=== PATIENT | male | born 1970 | race African-American/Black ===

== ENCOUNTER 2018-02-05 22:37 | Emergency (ER) | payer BC, OTHER ==
[2018-02-05 23:15] LABS: Absolute Lymphocytes (CBC) 2.4 K/uL (0.7-4.9); Absolute Monocytes 0.5 K/uL (0.1-1.3); Absolute Neutrophil 4.4 K/uL (1.8-8.0); Basophils % 1.1 % (0-1.3); Hematocrit 37.9 % (39.6-49.0); Lymphocytes % 31.1 % (15.3-44.8); MCH 31.1 pg (27.0-35.0); MCV 92.8 fL (80-100); MPV 8.5 fL (7.6-11.3); Monocytes % 6.5 % (3.3-12.3); RBC Red Blood Cell Count 4.09 M/uL (4.33-5.43)
[2018-02-05 23:19] LABS: Protime INR 1.03
[2018-02-05 23:34] LABS: ALT/SGPT 28 U/L (12-78); AST/SGOT 20 U/L (15-37); Albumin 3.4 g/dL (3.4-5.0); Alkaline Phosphatase 60 U/L (45-117); BUN Blood Urea Nitrogen 20 mg/dL (7-18); Bicarbonate 30 mmol/L (21-32); Bilirubin Direct < 0.1 mg/dL (0-0.2); Bilirubin Total 0.2 mg/dL (0.2-1.0); CKMB Creatine Kinase MB 1.5 ng/mL (0.3-3.6); Creatine Phosphokinase 299 U/L (39-308); Glucose Level 111 mg/dL (74-106); NT PRO-BNP 75 pg/mL (<125); Potassium 3.7 mmol/L (3.5-5.1); Protein, Total 7.3 g/dL (6.4-8.2); Sodium Level 145 mmol/L (136-145); Troponin (Emerg Dept Use Only) < 0.02 ng/mL (0.0-0.045)
[2018-02-05] MEDS ORDERED: ONDANSETRON 4 MG/2 ML VIAL ONE (23:45)
[2018-02-05] MEDS ORDERED: MORPHINE 4 MG/ML SYR ONE (23:45)
[2018-02-05 23:49] LABS: Amylase Level 52 U/L (25-115); Lipase 157 U/L (73-393)
--- NOTE | 2018-02-06 03:09 | EDPHYS ---
Physician Documentation [facility] Name: Ethan Hall Age: 47 yrs Sex: Male : 1970 Arrival Date: 02/05/2018 Time: 22:38 Bed 4 Private MD: ED Physician Eleazar Aguirre HPI: 02/05 23:30 This 47 yrs old Black Male presents to ER via Ambulatory with complaints of Chest Pain. tw4 23:30 The patient or guardian reports chest pain that is located primarily in the right tw4 breast. Onset: today. The pain does not radiate. Associated signs and symptoms: The patient has no apparent associated signs or symptoms. The chest pain is described as aching. Duration: The patient or guardian reports a single episode. Modifying factors: The symptoms are alleviated by nothing. the symptoms are aggravated by nothing. Severity of pain: At its worst the pain was mild in the emergency department the pain is unchanged. Historical: - Allergies: 22:49 No Known Allergies; tl2 - Home Meds: 22:49 Lasix Oral [Active]; unknown BP med [Active]; tl2 - PMHx: 22:49 Hernia; Hypertension; tl2 - Immunization history:: Adult Immunizations up to date. - Social history:: Smoking status: Patient/guardian denies using tobacco. - Ebola Screening: : No symptoms or risks identified at this time. ROS: 23:30 Constitutional: Negative for fever, chills, and weight loss, Eyes: Negative for injury, tw4 pain, redness, and discharge, Respiratory: Negative for shortness of breath, cough, wheezing, and pleuritic chest pain, Abdomen/GI: Negative for abdominal pain, nausea, vomiting, diarrhea, and constipation, Back: Negative for injury and pain, MS/Extremity: Negative for injury and deformity, Skin: Negative for injury, rash, and discoloration, Neuro: Negative for headache, weakness, numbness, tingling, and seizure. 23:30 Cardiovascular: Positive for chest pain, Negative for edema, orthopnea, palpitations, paroxysmal nocturnal dyspnea. Exam: 23:30 Constitutional: This is a well developed, well nourished patient who is awake, alert, tw4 and in no acute distress. Head/Face: Normocephalic, atraumatic. Chest/axilla: Normal chest wall appearance and motion. Nontender with no deformity. No lesions are appreciated. Cardiovascular: Regular rate and rhythm with a normal S1 and S2. No gallops, murmurs, or rubs. Normal PMI, no JVD. No pulse deficits. Respiratory: Lungs have equal breath sounds bilaterally, clear to auscultation and percussion. No rales, rhonchi or wheezes noted. No increased work of breathing, no retractions or nasal flaring. Abdomen/GI: Soft, non-tender, with normal bowel sounds. No distension or tympany. No guarding or rebound. No evidence of tenderness throughout. Back: No spinal tenderness. No costovertebral tenderness. Full range of motion. MS/ Extremity: Pulses equal, no cyanosis. Neurovascular intact. Full, normal range of motion. Neuro: Awake and alert, GCS 15, oriented to person, place, time, and situation. Cranial nerves II-XII grossly intact. Motor strength 5/5 in all extremities. Sensory grossly intact. Cerebellar exam normal. Normal gait. Vital Signs: 22:49 BP 150 / 90; Pulse 89; Resp 20; Pulse Ox 99% on R/A; Weight 127.01 kg; Height 5 ft. 7 tl2 in. (170.18 cm); Pain 4/10; 23:32 BP 143 / 75; Pulse 90; Resp 23; Pulse Ox 95% on R/A; tl2 02/06 00:23 BP 132 / 87; Pulse 84; Resp 18; Pulse Ox 98% on R/A; tl2 01:31 BP 142 / 83; Pulse 78; Resp 16; Pulse Ox 98% on R/A; Pain 0/10; tl1 02:23 BP 124 / 70; Pulse 62; Resp 16; Pulse Ox 97% on R/A; Pain 0/10; tl1 03:29 BP 129 / 68; Pulse 66; Resp 17; Temp 98.2; Pulse Ox 97% on R/A; Pain 3/10; tl2 02/05 22:49 Body Mass Index 43.85 (127.01 kg, 170.18 cm) tl2 MDM: 02/05 22:43 Patient medically screened. tw4 02/05 22:44 Order name: Basic Metabolic Panel; Complete Time: 00:39 tw4 02/06 00:39 Interpretation: Normal except: CL 109; BUN 20; GLUC 111. tw4 02/05 22:44 Order name: CBC with Diff; Complete Time: 00:39 4 02/06 00:39 Interpretation: Normal except: RBC 4.09; HGB 12.7; HCT 37.9. 02/05 22:44 Order name: Ckmb; Complete Time: 00:39 02/06 00:40 Interpretation: Normal except: CKMB 1.5. 02/05 22:44 Order name: CPK; Complete Time: 00:39 4 02/06 00:40 Interpretation: Normal except: CPK 299. 02/05 22:44 Order name: LFT's; Complete Time: 00:39 4 02/06 00:39 Interpretation: Normal except: GLOB 3.9; A/G 0.9. 02/05 22:44 Order name: Magnesium; Complete Time: 00:39 02/06 00:40 Interpretation: Normal except: MG 2.0. 02/05 22:44 Order name: NT PRO-BNP; Complete Time: 00:39 4 02/06 00:40 Interpretation: Normal except: NT PRO-BNP 75. 02/05 22:44 Order name: PT-INR; Complete Time: 00:39 02/06 00:40 Interpretation: Normal except: PT 12.1. 02/05 22:44 Order name: Ptt, Activated; Complete Time: 00:39 02/06 00:40 Interpretation: Within normal limits: PTT 32.7. 02/05 22:44 Order name: Troponin (emerg Dept Use Only); Complete Time: 00:39 02/06 00:40 Interpretation: Within normal limits: TROPED < 0.02. 02/05 23:41 Order name: Amylase Level; Complete Time: 00:39 EDMS 02/05 23:41 Order name: Lipase; Complete Time: 00:39 EDMS 02/06 00:41 Interpretation: Within normal limits: LIP 157. 02/06 01:34 Order name: Troponin (emerg Dept Use Only) 02/06 01:35 Order name: Troponin (Emerg Dept Use Only); Complete Time: 03:07 EDMS 02/06 03:07 Interpretation: Within normal limits: TROPED < 0.02. 02/05 22:44 Order name: XRAY Chest (1 view) 02/05 22:44 Order name: EKG; Complete Time: :44 02/05 22:44 Order name: Cardiac monitoring; Complete Time: 23:00 02/05 22:44 Order name: EKG - Nurse/Tech; Complete Time: 23:00 02/05 22:44 Order name: IV Saline Lock; Complete Time: 23:00 02/05 22:44 Order name: Labs collected and sent; Complete Time: 23:00 02/05 22:44 Order name: O2 Per Protocol; Complete Time: 23:00 02/05 22:44 Order name: O2 Sat Monitoring; Complete Time: 23:00 02/06 00:02 Order name: CT Abd/Pelvis - W/Contrast tw4 EC:30 Rate is 88 beats/min. Rhythm is regular. QRS [place] is Normal. CA interval is normal. QRS tw4 interval is normal. QT interval is normal. No Q waves. T waves are Normal. No ST changes noted. Clinical impression: Normal ECG. Interpreted by me. Reviewed by me. Administered Medications: 23:47 Drug: morphine 4 mg Route: IVP; Infused Over: 2 mins; Site: right antecubital; tl1 02/06 00:54 Follow up: Response: No adverse reaction; Marked relief of symptoms; Pain is decreased tl1 02/05 23:47 Drug: Zofran 4 mg Route: IVP; Infused Over: 2 mins; Site: right antecubital; tl1 02/06 00:54 Follow up: Response: No adverse reaction; Marked relief of symptoms tl1 03:15 Drug: TORadol 30 mg Route: IVP; Infused Over: 2 mins; Site: right antecubital; tl2 03:28 Follow up: Response: No adverse reaction; Marked relief of symptoms; Pain is decreased tl2 Disposition: 02/06/18 03:09 Discharged to Home. Impression: Chest pain, unspecified, Low back pain. - Condition is Stable. - Discharge Instructions: Back Pain, Adult, Nonspecific Chest Pain, Electrocardiography, Pain Without a Known Cause. - Prescriptions for Cyclobenzaprine 10 mg Oral Tablet - take 1 tablet by ORAL route every 8 hours As needed; 30 tablet. Tramadol 50 mg Oral Tablet - take 1 tablet by ORAL route every 8 hours as needed; 12 tablet. - Medication Reconciliation Form, Thank You Letter, Antibiotic Education, Prescription Opioid Use form. - Follow up: Private Physician; When: Upon discharge from the Emergency Department; Reason: Further diagnostic work-up, Recheck today's complaints, Re-evaluation by your physician. - Problem is new. - Symptoms have improved. Signatures: Dispatcher [employer] EDMS Jeannie Zee RN RN tl1 Alise Frankel RN RN tl2 Eleazar Aguirre MD MD tw4 Corrections: (The following items were deleted from the chart) 03:13 03:09 02/06/2018 03:09 Discharged to Home. Impression: Chest pain, unspecified. tw4 Condition is Stable. Forms are Medication Reconciliation Form, Thank You Letter, Antibiotic Education, Prescription Opioid Use. Follow up: Private Physician; When: Upon discharge from the Emergency Department; Reason: Further diagnostic work-up, Recheck today's complaints, Re-evaluation by your physician. Problem is new. Symptoms have improved. tw4 03:30 03:13 02/06/2018 03:09 Discharged to Home. Impression: Chest pain, unspecified; Low tl2 back pain. Condition is Stable. Discharge Instructions: Nonspecific Chest Pain, Electrocardiography, Pain Without a Known Cause, Back Pain, Adult. Prescriptions for Cyclobenzaprine 10 mg Oral Tablet - take 1 tablet by ORAL route every 8 hours As needed; 30 tablet, Tramadol 50 mg Oral Tablet - take 1 tablet by ORAL route every 8 hours as needed; 12 tablet. and Forms are Medication Reconciliation Form, Thank You Letter, Antibiotic Education, Prescription Opioid Use. Follow up: Private Physician; When: Upon discharge from the Emergency Department; Reason: Further diagnostic work-up, Recheck today's complaints, Re-evaluation by your physician. Problem is new. Symptoms have improved. tw4
--- NOTE | 2018-02-06 03:09 | ER ---
Nurse's Notes [facility] Name: Ethan Hall Age: 47 yrs Sex: Male : 1970 Arrival Date: 02/05/2018 Time: 22:38 Bed 4 Private MD: Diagnosis: Chest pain, unspecified;Low back pain Presentation: 02/05 22:47 Presenting complaint: Patient states: right sided chest pain that started 1 hour ago, tl2 radiating to back. Reports acid reflux. Transition of care: patient was not received from another setting of care. Onset of symptoms was February 05, 2018 at 21:50. Risk Assessment: Do you want to hurt yourself or someone else? Patient reports no desire to harm self or others. Initial Sepsis Screen: Does the patient meet any 2 criteria? No. Patient's initial sepsis screen is negative. Does the patient have a suspected source of infection? No. Patient's initial sepsis screen is negative. Care prior to arrival: None. 22:47 Method Of Arrival: Ambulatory tl2 22:47 Acuity: CHRISTINA 3 tl2 Triage Assessment: 22:51 General: Appears in no apparent distress. uncomfortable, Behavior is calm, cooperative, tl2 appropriate for age. Cardiovascular: Rhythm is sinus rhythm. Historical: - Allergies: 22:49 No Known Allergies; tl2 - Home Meds: 22:49 Lasix Oral [Active]; unknown BP med [Active]; tl2 - PMHx: 22:49 Hernia; Hypertension; tl2 - Immunization history:: Adult Immunizations up to date. - Social history:: Smoking status: Patient/guardian denies using tobacco. - Ebola Screening: : No symptoms or risks identified at this time. Screenin:50 Abuse screen: Denies threats or abuse. Nutritional screening: No deficits noted. tl2 Tuberculosis screening: No symptoms or risk factors identified. Fall Risk None identified. Assessment: 22:50 Pain: Pain radiates to back Pain began 1 hour ago. Cardiovascular: Rhythm is sinus tl2 rhythm. Vital Signs: 22:49 BP 150 / 90; Pulse 89; Resp 20; Pulse Ox 99% on R/A; Weight 127.01 kg; Height 5 ft. 7 tl2 in. (170.18 cm); Pain 4/10; 23:32 BP 143 / 75; Pulse 90; Resp 23; Pulse Ox 95% on R/A; tl2 09/02 00:23 BP 132 / 87; Pulse 84; Resp 18; Pulse Ox 98% on R/A; tl2 01:31 BP 142 / 83; Pulse 78; Resp 16; Pulse Ox 98% on R/A; Pain 0/10; tl1 02:23 BP 124 / 70; Pulse 62; Resp 16; Pulse Ox 97% on R/A; Pain 0/10; tl1 03:29 BP 129 / 68; Pulse 66; Resp 17; Temp 98.2; Pulse Ox 97% on R/A; Pain 3/10; tl2 02/05 22:49 Body Mass Index 43.85 (127.01 kg, 170.18 cm) tl2 Vitals: 02/05 23:32 Cardiac Rhythm Assessment Sinus rhythm. tl2 ED Course: 22:38 Patient arrived in ED. ds1 22:43 Eleazar Aguirre MD is Attending Physician. tw4 22:48 Triage completed. tl2 22:49 Arm band placed on right wrist. tl2 22:50 Patient has correct armband on for positive identification. Placed in gown. Bed in low tl2 position. Call light in reach. Side rails up X 1. regulatory affairs analyst on. Pulse ox on. NIBP on. 22:50 Patient maintains SpO2 saturation greater than 95% on room air. tl2 22:53 EKG completed in triage. Results shown to MD. tl1 22:53 Inserted saline lock: 20 gauge in right antecubital area, using aseptic technique. tl1 Blood collected. 02/06 00:07 X-ray completed. Portable x-ray completed in exam room. Patient tolerated procedure kp1 well. 00:15 XRAY Chest (1 view) In Process Unspecified. EDMS 00:32 CT Abd/Pelvis - W/Contrast In Process Unspecified. EDMS 00:34 CT completed. Patient tolerated procedure well. Patient moved back from CT. kw1 03:27 No provider procedures requiring assistance completed. IV discontinued, intact, tl2 bleeding controlled, No redness/swelling at site. Pressure dressing applied. Administered Medications: 02/05 23:47 Drug: morphine 4 mg Route: IVP; Infused Over: 2 mins; Site: right antecubital; tl1 02/06 00:54 Follow up: Response: No adverse reaction; Marked relief of symptoms; Pain is decreased tl1 02/05 23:47 Drug: Zofran 4 mg Route: IVP; Infused Over: 2 mins; Site: right antecubital; tl1 02/06 00:54 Follow up: Response: No adverse reaction; Marked relief of symptoms tl1 03:15 Drug: TORadol 30 mg Route: IVP; Infused Over: 2 mins; Site: right antecubital; tl2 03:28 Follow up: Response: No adverse reaction; Marked relief of symptoms; Pain is decreased tl2 Outcome: 03:09 Discharge ordered by . tw4 03:26 Discharged to home ambulatory, with family. tl2 03:26 Condition: good 03:26 Discharge instructions given to patient, family, Instructed on discharge instructions, follow up and referral plans. medication usage, Demonstrated understanding of instructions, follow-up care, medications, Prescriptions given X 2. 03:30 Patient left the ED. tl2 Signatures: Dispatcher [employer] EDMS Chely Dinero dsJeannie Sousa RN RN tl1 Alise Frankel RN RN tl2 Celi Gonzales 1 Cassandra Knapp 1 Eleazar Aguirre MD MD tw4
[2018-02-06] MEDS ORDERED: KETOROLAC 30 MG/ML INJ ONE (03:18)
[2018-02-06 03:43] VITALS: O2SAT 97
[2018-02-06 03:44] VITALS: BP 129/68; TEMP 98.2
--- NOTE | 2018-02-06 08:37 | EKG ---
Test Date: 2018-02-05 Test Time: 22:51:27 Family Intervention Specialist: SURESH MEASUREMENT RESULTS: Intervals: Rate: 88 MT: 148 QRSD: 86 QT: 360 QTc: 435 [place]: P: 72 MT: 148 QRS: 15 T: 23 INTERPRETIVE STATEMENTS: Normal sinus rhythm Normal ECG Compared to ECG 10/01/2008 07:55:25 ST (T wave) deviation no longer present Electronically Signed On 02-06-18 08:36:24 CDT by Jayy Talley
--- NOTE | 2018-02-06 09:37 | RAD REPORT ---
EXAM DESCRIPTION: CT - Abdomen Pelvis W Contrast - 02/06/2018 5:47 am CLINICAL HISTORY: ABD PAIN right-sided pain for 1 hour COMPARISON: Abdomen Pelvis W Contrast dated 08/28/2016; CTSTONE PROTOCOL dated 03/13/2014< TECHNIQUE: Computed axial tomography of the abdomen pelvis was obtained. 100 cc Isovue-300 was admin istered intravenously. Oral contrast was not requested which limits evaluation of bowel. Preliminary report was generated by [employer] and reviewed prior to this dictation All CT scans are performed using dose optimization technique as appropriate and may include automated exposure control or mA/KV adjustment according to patient size. FINDINGS: The liver, spleen, pancreas, adrenal and kidneys appear unremarkable. Small renal cysts no debbie. There is no evidence of diverticulitis. The appendix is normal. Postsurgical changes of a ventral hernia repair are noted. A ventral hernia to the left of midline contains fat. The neck measures 18 millimeters. Stranding is present within the fat. A ventral hernia to the right of midline also contains fat. The neck measures 1 centimeter. Both are present within the lower abdomen. IMPRESSION: Small left ventral hernia containing fat. Stranding within the fat may indicate inflamma tion.
--- NOTE | 2018-02-06 09:38 | RAD REPORT ---
EXAM DESCRIPTION: David[facility] Single View02/06/2018 12:15 am CLINICAL HISTORY: CHEST PAIN COMPARISON: CHEST SINGLE VIEW dated 10/01/2008 FINDINGS: The lungs appear clear of acute infiltrate. The heart is mildly enlarged IMPRESSION: No acute abnormalities displayed
== END 2018-02-06 03:30 | disposition home or self-care (01) ==
LOC: ER 22:37
DX: M54.5 Low back pain (principal); I10 Essential (primary) hypertension
CPT/HCPCS: 36415; 71045; 74177; 80048; 80076; 82150; 82550; 82553; 83690; 83735; 83880; 84484; 85025; 85610; 85730; 93005; 96374; 96375; 99285; J2405; Q9967

== ENCOUNTER 2018-06-03 17:02 | Emergency (ER) | payer BC ==
--- OUTSIDE RECORDS SUMMARY | 2018-06-03 17:05 | XMS REPORT | Clinical Summary ---
:1970 Author Organization [facility] Address [address] [place] [address] Care Team Providers Name Role Phone Cedric Beltrán MD Primary Care Provider Allergies No Known Allergies Medications Medication Sig Dispensed Refills Start Date End Date Status losartan (COZAAR) Take 1 tablet 30 tablet 0 06/01/2018 07/01/2018 Active 100 MG tablet (100 mg total) by mouth daily for 30 days. chlorthalidone Take 1 tablet 30 tablet 0 06/01/2018 07/01/2018 Active (HYGROTEN) 50 MG (50 mg total) tablet by mouth daily for 30 days. aspirin (ECOTRIN) 81 Take 1 tablet 30 tablet 0 06/01/2018 07/01/2018 Active MG enteric coated (81 mg total) tablet by mouth daily for 30 days. metoprolol tartrate Take 0.5 30 tablet 0 06/01/2018 07/01/2018 Active (LOPRESSOR) 25 mg tablets (12.5 tablet mg total) by mouth 2 (two) times a day for 30 days. losartan-hydrochloro Take 1 tablet 0 06/01/2018 Discontinued thiazide (HYZAAR) by mouth 100-25 mg per tablet daily. Active Problems Problem Noted Date Pulmonary HTN 05/27/2018 Overview: Added automatically from request for surgery [id number] Diastolic dysfunction 05/23/2018 EMELI (obstructive sleep apnea) 05/05/2018 Essential hypertension 05/05/2018 Class 3 severe obesity due to excess calories without serious comorbidity in adult Encounters Date Type Specialty Care Team Description 06/03/2018 Telephone Cardiology HarrisMine walsh, Flu like symptom; MA Shortness of Breath (hard to breath ) 06/01/2018 Surgery Procedural Dev Sierra Cv right heart cath Cardiology MD Elda [[id number] (CPT)] 06/01/2018 Hospital Encounter Procedural Dev [facility] Pulmonary HTN (HCC) Cardiology MD Elda 05/27/2018 Orders Only Cardiology [place] Pulmonary HTN (HCC) LUCINA Carvalho (Primary Dx) 05/23/2018 Telemedicine Cardiology Dev Sierra Essential hypertension ( Primary Dx); MD Elda EMELI (obstructive sleep apnea); Class 3 severe obesity due to excess calories without serious comorbidity with body mass index (BMI) of 40.0 to 44.9 in adult (HCC); Diastolic dysfunction 05/23/2018 Telephone Internal Medicine Ernestina Ken MA 05/23/2018 Refill Cardiology Ozzy Xie Refcalista Mercer RN 05/18/2018 Telephone Cardiology Mine Harris, Find out about MA Medication List 05/11/2018 Orders Only Cardiology [place], [place] LUCINA Carvalho test (Primary Dx) 05/05/2018 Office Visit Cardiology Dev Sierra Preoperative cardiovascular examination (Primary Dx); MD Elda PACHECO (dyspnea on exertion); Essential hypertension; EMELI (obstructive sleep apnea); Class 3 severe obesity due to excess calories without serious comorbidity with body mass index (BMI) of 40.0 to 44.9 in adult (HCC) 05/05/2018 Transcribe Orders Procedural Dev Sierra Shortness of breath Cardiology MD Elda (Primary Dx) 04/20/2018 Hospital Encounter Radiology Janak Randloph MD 04/20/2018 Office Visit General Surgery Agustín Incisional hernia, without obstruction or gangrene (Primary Dx); MD Janak Cholecystitis, chronic after 06/02/2017 Family History Medical History Relation Name Comments Heart attack Maternal Grandfather Diabetes Mother Hypertension Mother Hypertension Sister Hypertension Sister Relation Name Status Comments Maternal Grandfather Maternal Grandmother Mother Alive Paternal Grandfather Paternal Grandmother Sister Alive Sister Alive Social History Tobacco Use Types Packs/Day Years Used Date Never Smoker Smokeless Tobacco: Never Used Alcohol Use Drinks/Week oz/Week Comments Yes 2 Cans of beer 1.2 socially Education Answer Date Recorded What is the highest level of school you have completed or 11th grade 2017 the highest degree you have received? Financial Resource Strain Answer Date Recorded How hard is it for you to pay for the very basics like Somewhat hard 2017 food, housing, medical care, and heating? Food Insecurity Answer Date Recorded Within the past 12 months, you worried that your food would Never true 2017 run out before you got money to buy more. Within the past 12 months, the food you bought just didn't Never true 2017 last and you didn't have money to get more. Transportation Needs Answer Date Recorded In the past 12 months, has lack of transportation kept you from No 04/20/2018 medical appointments or from getting medications? In the past 12 months, has lack of transportation kept you from No 04/20/2018 meetings, work, or getting things needed for daily living? Sex Assigned at Date Recorded Not on file Job Start Date Occupation Industry Not on file Not on file Not on file Travel History Travel Start Travel End No recent travel history available. Last Filed Vital Signs Vital Sign Reading Time Taken Blood Pressure 131/82 06/01/2018 12:33 PM BELT [facility]ER Pulse 90 06/01/2018 12:33 PM [facility] Temperature 36.4 C (97.5 F) 06/01/2018 9:53 AM BELT LACER Respiratory Rate 16 06/01/2018 12:33 PM BELT [facility]ACER Oxygen Saturation 97% 06/01/2018 12:33 PM [facility]T [facility]ER Inhaled Oxygen Concentration - - Weight 128 kg (281 lb 11.2 oz) 06/01/2018 8:04 AM BELT [facility]ER Height 170.2 cm (5' 7") 06/01/2018 8:04 AM [facility]ER Body Mass Index 44.12 06/01/2018 8:04 AM BELT LACER Plan of Treatment Date Type Specialty Care Team Description 06/21/2018 Hospital Encounter General Surgery Janak Randolph MD [address] [address] 06/21/2018 Surgery General Surgery Janak Randolph LAPAROSCOPIC MD CHOLECYSTECTOMY [address] [address] Health Maintenance Due Date Last Done Comments INFLUENZA VACCINE Completed 04/20/2018 Procedures Procedure Name Priority Date/Time Associated Diagnosis Comments ECG PRE/POST OP Routine 06/01/2018 9:59 Results for this AM [facility] procedure are in the results section. CV RIGHT HEART CATH Routine 06/01/2018 9:41 Pulmonary HTN (HCC) Results for this AM [facility] procedure are in the results section. POC PANEL Routine 06/01/2018 8:20 Results for this AM [facility] procedure are in the results section. ESTIMATED GFR Routine 06/01/2018 8:20 Results for this AM [facility] procedure are in the results section. HC COMPLETE BLD COUNT STAT 06/01/2018 8:11 Results for this W/AUTO DIFF AM [facility] procedure are in the results section. NM MYOCARDIAL Routine 05/13/2018 2:47 Preoperative Results for this PERFUSION STRESS ONLY PM BELT [facility]ACER cardiovascular procedure are in examination the results PACHECO (dyspnea on section. exertion) CV STRESS TEST NUCLEAR Routine 05/13/2018 2:47 Preoperative Results for this CARDIO PM [facility]ER cardiovascular procedure are in examination the results PACHECO (dyspnea on section. exertion) ECHOCARDIOGRAM 2D Routine 05/13/2018 8:21 Preoperative Results for this COMPLETE W MMODE AM [facility]T [facility]ER cardiovascular procedure are in SPECTRAL COLOR DOPPLER examination the results ([id number]) PACHECO (dyspnea on section. exertion) B NATRIURETIC PEPTIDE Routine 05/05/2018 11:02 Preoperative Results for this AM [facility]ER cardiovascular procedure are in examination the results PACHECO (dyspnea on section. exertion) BASIC METABOLIC PANEL Routine 05/05/2018 11:02 Preoperative Results for this AM [facility]ER cardiovascular procedure are in examination the results PACHECO (dyspnea on section. exertion) LIPID PANEL Routine 05/05/2018 11:02 Preoperative Results for this AM [facility]ER cardiovascular procedure are in examination the results PACHECO (dyspnea on section. exertion) ECG 12-LEAD Routine 05/05/2018 10:13 Preoperative Results for this AM [facility]ER cardiovascular procedure are in examination the results section. CT ABD/PELVIC EXTERNAL Routine 02/06/2018 12:13 Results for this STUDY AM CDT procedure are in the results section. after 06/02/2017 Results ECG Pre/Post Op (06/01/2018 9:59 AM BELT LACER) Ventricular rate 126 [facility] Atrial rate 113 [facility] QRSD interval 78 [facility] QT interval 314 [facility] QTC interval 454 [facility] QRS axis 1 16 [facility] T wave axis 9 [facility] EKG impression Atrial fibrillation with rapid ventricular response-Abnormal ECG-In automated comparison with ECG of 05-MAY-2018 10:13,-Atrial fibrillation has replaced Sinus rhythm-Vent. rate has increased BY44 BP [facility] M-Questionable change in QRS axis- Narrative Performed At Performing Organization Address [facility]/Zipcode Phone Number [facility] MUSE [address] [place] [address] Cv laborer landscape procedure (06/01/2018 9:41 AM BELT LACER) Narrative Performed At New diagnosis of atrial fibrillation [facility] Elevated filling pressures both right and left. Moderate pulmonary HTN with a TPG of ~14 mmHg. Needs aggressive treatment of systemic HTN, filling pressures and now management of Atrial fibrillation. Hemodynamics: Condition 1 Systolic Diastolic End Diastolic Mean A Wave V Wave Condition Name Rest Rest Rest Rest Rest Rest Right Ventricle 42 mmHg 14 mmHg 15 mmHg PA 48 mmHg 32 mmHg 36 mmHg Right Mgbwfj28 mmHg 14 mmHg 14 mmHg PCW22 mmHg 22 mmHg 22 mmHg Performing Organization Address [facility] Phone Number [facility] [address] [place] [address] Estimated GFR (06/01/2018 8:20 AM BELT LACER) Estimated GFR >=90 mL/min/1.73 m2 [facility] Comment: HOSPITAL CatergoryUnitsInterpretation G1 >=90 Normal or high G2 60-89Mildly decreased C2s93-38Lsehhz to moderately decreased K5o10-88Iyawdsyfbw to severely decreased G4 15-29Severely decreased G5 <15Kidney failure The eGFR was calculated using the Chronic Kidney Disease Epidemiology Collaboration (CKD-EPI) equation. Interpretation is based on recommendations of the National Kidney Foundation-Kidney Disease Outcomes Quality Initiative (NKF-KDOQI) published in 2014. Specimen Blood Performing Organization Address [facility] Cent[facility]ode Phone Number [facility] DEPARTMENT OF PATHOLOGY AND [address] [place] [address] GENOMIC MEDICINE [address] [address] POC panel (06/01/2018 8:20 AM BELT LACER) POC sodium 144 135 - 148 mmol/L [facility] POC potassium 3.9 3.5 - 5.0 mmol/L [facility] POC chloride 107 99 - 109 mmol/L [facility] POC CO2 30 24 - 31 mmol/L [facility] POC glucose 86 65 - 99 mg/dL [facility] POC BUN 17 8 - 24 mg/dL [facility] POC creatinine 0.8 0.7 - 1.2 mg/dl [facility] POC hematocrit 40 (L) 41 - 51 % [facility] POC anion gap 13 8 - 20 mmol/L [facility] Comment: Meter ID: [id number] Green Building Design Specialist: Margarita Jefferson Performing Organization Address City/[facility]/Zipcode Phone Number [facility] DEPARTMENT OF PATHOLOGY AND [address] [place] [phone] CBC with platelet and differential (06/01/2018 8:11 AM BELT LACER) WBC 6.97 4.50 - 11.00 k/uL [facility] RBC 4.15 (L) 4.40 - 6.00 m/uL [facility] HGB 12.5 (L) 14.0 - 18.0 g/dL [facility] HCT 38.2 (L) 41.0 - 51.0 % [facility] MCV 92.0 82.0 - 100.0 fL [facility] MCH 30.1 27.0 - 34.0 pg [facility] MCHC 32.7 31.0 - 37.0 g/dL [facility] RDW - SD 43.9 37.0 - 55.0 fL [facility] MPV 9.9 8.8 - 13.2 fL [facility] Platelet count 297 150 - 400 k/uL [facility] Nucleated RBC 0.00 /100 WBC [facility] Neutrophils 61.9 39.0 - 69.0 % [facility] Lymphocytes 26.3 25.0 - 45.0 % [facility] Monocytes 7.9 0.0 - 10.0 % [facility] Eosinophils 3.2 0.0 - 5.0 % [facility] Basophils 0.6 0.0 - 1.0 % [facility] Immature granulocytes 0.1Comment: "Immature 0.0 - 1.0 % [facility]" [facility] (promyelocytes, myelocytes, metamyelocytes) Specimen Blood Performing Organization Address City/[facility]/Zipcode Phone Number [facility] DEPARTMENT OF PATHOLOGY AND [address] [place] [id number] [place] [address] Cv stress test (05/13/2018 2:47 PM BELT LACER) Resting HR 75 H MUSE Resting BP 139 H MUSE Peak MET Achieved 7.0 [facility] MUSE Protocol Name JENNY HM MUSE Time in Exercise Phase 00:06:00 [facility] Max Systolic BP 187 [facility] Max Diastolic BP 88 [facility] Max Heart Rate 169 [facility] Max Predicted Heart Rate 173 H MUSE Target HR Formula (220 - Age)*85% [facility] Test Indication preoperative clearance, PACHECO [facility] Arrhy During Ex [facility] ECG Interp Before EX [facility] ECG Interp During Ex [facility] Ex Summary Comment H MUSE Overall HR Response to [facility] Exercise Overall BP Response To [facility] Exercise Reason for Termination Fatigue [facility] Stress Test Impression Waveform interpreted in report [facility] M[facility] associated with image study. No interpretation is provided as part of this Stress ECG report.--Electronically Signed By Rafat BARNEY, Lilai Ly ([id number]), magazine editor Kimberly Masters ([id number]) on 05/16/2018 9:12:31 AM Narrative Performed At Performing Organization Address City/State/Zipcode Phone Number [facility] M[facility] [address] [place] [address] Nm myocardial perfusion (05/13/2018 2:47 PM BELT LACER) Narrative Performed At [facility] Nuclear Cardiology Laboratory [address] [place] [address], [address] [place] [address] Ens: [phone] Myocardial Perfusion Imaging Report Pat.Name:Ramana HALL.ID:[id number] .Date: 05/13/2018 Refer.MD:DEV SIERRA MD Exam Time: 9:02:00 AM Study Type:Myocardial Perfusion Imaging Height:67inWeight: 286lb BSA: 2.36 m2 DOBAge:1970,48Y Sex: MALE Nuclear Tech:QUIRINO Raymundo, EWA(CT) Nuclear Event ID:[id number] Order ID:[id number] Reason for Study:Abnormal EKG*, Pre-op evaluation, intermediate/high risk patient, Shortness of breath Procedures:High Dose Stress Only Race:-Central African Clinical Symptoms:Exercise SUMMARY: BASELINE ECGNormal Sinus Rhythm, Nonspecific T wave abnormality STRESS TEST RESULTS Maximal Predicted HR173 beats/minute 85% Maximal Predicted HR 147 beats/minute Stress Test Duration6 emrawyy79 seconds Resting Heart Rate75 beats/minute Maximal Heart Fnjw463 beats/minute Resting Blood Zjuulnwx014/78 mmHg Maximal Blood Cqnwgvmz517/88 mmHg % Maximal Heart Rate Achieved 97% METS Achieved/Maximal RPP 7.00 / 31,603 Symptoms During TestFatigue, Shortness of breath, Dizziness Reason for Stopping TestPatient achieved >=85% maximal predicted heart rate for age Maximal ST-segment shiftNone Stress-Induced Arrhythmias None Wilcox Treadmill Score6 Ischemic electrocardiographic changes (ST-segment depression) did not occur at peak exercise stress. _. STRESS TEST INTERPRETATION Normal maximal exercise treadmill test. Exercise tolerance is good.The Wilcox Treadmill Score is of low prognostic risk. __. SCINTIGRAPHIC RESULTS Perfusion Defect Size (% LV) 0 % Total 0 % Ischemia 0 % Scar Left Ventricular Perfusion Results There is normal tracer distribution throughout the myocardium during stress. Gated SPECT Results The post-stress left ventricular ejection fraction is 74 % with normal regional wall motion and left ventricular thickening.Left ventricular end-diastolic volume is 123 ml; end-systolic volume is32 ml. The left ventricle is of normal size at stress.The right ventricle is of normal size with normal wall motion. Conclusion Normal exercise Tc-99m tetrofosmin myocardial perfusion study.The left ventricular ejection fraction is normal. Comments Patients with a normal stress myocardial perfusion study have a low (< 1%) annual risk of cardiac or nonfatal myocardial infarction. Study Quality/Artifacts The study quality is good. Comparison to Previous Study None available. Signed 05/13/2018 11:00 PM Lilia Douglass MD Procedure Note Interface, Radiology Results In - 05/13/2018 11:00 PM [facility] Nuclear Cardiology Laboratory [address] [facility], [address] [place] [address] Myocardial Perfusion Imaging Report Pat.Name: ANAMARIA HALL [facility].ID: [id number] .Date: 05/13/2018 Refer.MD: DEV SIERRA MD Exam Time: 9:02:00 AM Study Type:Myocardial Perfusion Imaging Height: 67in Weight: 286lb BSA: 2.36 m2 Age: 11 1970,48Y Sex: MALE Nuclear Tech:Rafaelheber Dooley [facility](CT) Nuclear Event ID:[id number] Order ID: [id number] Reason for Study:Abnormal EKG*, Pre-op evaluation, intermediate/high risk patient, Shortness of breath Procedures:High Dose Stress Only Race: -Central African Clinical Symptoms:Exercise SUMMARY: BASELINE ECG Normal Sinus Rhythm, Nonspecific T wave abnormality STRESS TEST RESULTS Maximal Predicted HR 173 beats/minute 85% Maximal Predicted HR 147 beats/minute Stress Test Duration 6 minutes 00 seconds Resting Heart Rate 75 beats/minute Maximal Heart Rate 169 beats/minute Resting Blood Pressure 139/78 mmHg Maximal Blood Pressure 187/88 mmHg % Maximal Heart Rate Achieved 97% METS Achieved/Maximal RPP 7.00 / 31,603 Symptoms During Test Fatigue, Shortness of breath, Dizziness Reason for Stopping Test Patient achieved >=85% maximal predicted heart rate for age Maximal ST-segment shift None Stress-Induced Arrhythmias None Wilcox Treadmill Score 6 Ischemic electrocardiographic changes (ST-segment depression) did not occur at peak exercise stress. _. STRESS TEST INTERPRETATION Normal maximal exercise treadmill test. Exercise tolerance is good. The Wilcox Treadmill Score is of low prognostic risk. __. SCINTIGRAPHIC RESULTS Perfusion Defect Size (% LV) 0 % Total 0 % Ischemia 0 % Scar Left Ventricular Perfusion Results There is normal tracer distribution throughout the myocardium during stress. Gated SPECT Results The post-stress left ventricular ejection fraction is 74 % with normal regional wall motion and left ventricular thickening. Left ventricular end-diastolic volume is 123 ml; end-systolic volume is 32 ml. The left ventricle is of normal size at stress. The right ventricle is of normal size with normal wall motion. Conclusion Normal exercise Tc-99m tetrofosmin myocardial perfusion study. The left ventricular ejection fraction is normal. Comments Patients with a normal stress myocardial perfusion study have a low (< 1%) annual risk of cardiac or nonfatal myocardial infarction. Study Quality/Artifacts The study quality is good. Comparison to Previous Study None available. Signed 05/13/2018 11:00 PM Lilia Douglass MD Performing Organization Address City/State/Zipcode Phone Number [facility] [address] [place] [address] Echocardiogram complete w contrast and 3D if needed (05/13/2018 8:21 AM BELT LACER) Narrative Performed At [facility] Echocardiography Report Pat.Name:Ramana HALL.ID:[id number] .Date: 05/13/2018 Refer.MD:DEV SIERRA MD Exam Time: 7:58:00 AMStudy Type:Routine Echo Height:67inWeight: 286lb BSA: 2.36 m2 DOBAge:1970,48Y Sex: MALEBP:157/102 HR:83 bpm Sonogrphr: Kumuthavally Veerasamy, RDCS, RVS Pat. Stat.:OutpatientRoom:[facility] TapeVol: [facility], ICD - 9: Z01.810, R06.09 Study Status:Final Echo Event ID:[id number] Order ID:[id number] Reason for Study:Pre-Operative Cardiovascular Examination, Dyspnea on Exertion Procedures:2D Echo, Colorflow Doppler Race:-Central African SUMMARY: Normal biventricular chamber size and systolic function No hemodynamically significant valvular pathology. Estimated PA systolic pressure is 38 mmHg, assuming a mean RAP of 5 mmHg. FINDINGS: LV: LV size is normal. Concentric left ventricular remodeling. LVEF is normal. Overall wall motion is normal. Estimated EFis 60-64%. RV: RV size is normal. RV systolic function is normal. LA: LA size is normal. RA: RA size is normal. AO: Aortic root diameter is normal. CHIQUIS: No pericardial effusion. AV: No structural AV abnormalities noted. MV: No structural MV abnormalities noted. PV: No structural PV abnormalities noted. TV: No structural TV abnormalities noted. Mild tricuspid regurgitation Serra: Hepatic vein pressure is normal, RA pressure < 5mmHg. Unable toassess diastolic function. Other:Estimated PA systolic pressure is 38 mmHg, assuming a mean RAPof 5 mmHg. MEASUREMENTS: 2D Parasternal [place] LVOT 1.9 cmLA Ds2.9 cm LVIDd4.5 cmIndex1.9 cm/m Ao An2.1 cm LVIDs3.2 cmAo Rtd 3 cm Index1.3 cm/m LV%fs 28.1 % LV Xclu850.4 g(122-174) IVSd 1.1 cmLVM Index 79.3 g/m2 LVPWd1.2 cmRWT0.5 LA Sng Plane LA Area 20.6 cm2(8.8-23.4) LA Vol62.4 ml Index26.5 ml/m LA LngAx 5.7 cm DOPPLER LVOT Stroke Vol LVOT 1.9 cmLVOT CO4.6 l/min LVOT TVI21.8 cmLVOT CI1.9 l/m/m2 LVOT Tm305 cqsmIA88 bpm LVOT SV 61.9 ml Signed 05/16/2018 07:25 AM Leatha Mcgarry MD Procedure Note Interface, Radiology Results In - 05/16/2018 7:27 AM [facility]T LACER [facility] Echocardiography Report Pat.Name: ANAMARIA HALL Adriana.ID: [id number] .Date: 05/13/2018 Refer.MD: DEV SIERRA MD Exam Time: 7:58:00 AM Study Type:Routine Echo Height: 67in Weight: 286lb BSA: 2.36 m2 Age: 11 1970,48Y Sex: MALE BP: 157/102 HR: 83 bpm Sonogrphr: Karina Mahmood, RDCS, RVS Pat. Stat.:Outpatient Room: [address] Vol: [facility], ICD - 9: Z01.810, R06.09 Study Status:Final Echo Event ID:[id number] Order ID: [id number] Reason for Study:Pre-Operative Cardiovascular Examination, Dyspnea on Exertion Procedures:2D Echo, Colorflow Doppler Race: -Central African SUMMARY: Normal biventricular chamber size and systolic function No hemodynamically significant valvular pathology. Estimated PA systolic pressure is 38 mmHg, assuming a mean RAP of 5 mmHg. FINDINGS: LV: LV size is normal. Concentric left ventricular remodeling. LV EF is normal. Overall wall motion is normal. Estimated EF is 60-64%. RV: RV size is normal. RV systolic function is normal. LA: LA size is normal. RA: RA size is normal. AO: Aortic root diameter is normal. CHIQUIS: No pericardial effusion. AV: No structural AV abnormalities noted. MV: No structural MV abnormalities noted. PV: No structural PV abnormalities noted. TV: No structural TV abnormalities noted. Mild tricuspid regurgitation Serra: Hepatic vein pressure is normal, RA pressure < 5mmHg. Unable to assess diastolic function. Other: Estimated PA systolic pressure is 38 mmHg, assuming a mean RAP of 5 mmHg. MEASUREMENTS: 2D Parasternal [place] LVOT 1.9 cm LA Ds 2.9 cm LVIDd 4.5 cm Index 1.9 cm/m Ao An 2.1 cm LVIDs 3.2 cm Ao Rtd 3 cm Index 1.3 cm/m LV%fs 28.1 % LV Mass 186.4 g (122-174) IVSd 1.1 cm LVM Index 79.3 g/m2 LVPWd 1.2 cm RWT 0.5 LA Sng Plane LA Area 20.6 cm2 (8.8-23.4) LA Vol 62.4 ml Index 26.5 ml/m LA LngAx 5.7 cm DOPPLER LVOT Stroke Vol LVOT 1.9 cm LVOT CO 4.6 l/min LVOT TVI 21.8 cm LVOT CI 1.9 l/m/m2 LVOT Tm 305 msec HR 74 bpm LVOT SV 61.9 ml Signed 05/16/2018 07:25 AM Leatha Mcgarry MD Performing Organization Address [facility] Centercode Phone Number [facility] [address] [place] [address] B natriuretic peptide (05/05/2018 11:02 AM BELT LACER) BNP <4 <100 pg/mL [facility] Comment: BNP levels increase with age in the general population with the highest values seen in individuals greater than 75 years of age. Reference: J. Am. Rush. Cardiol. 2002; 40:976-982. Specimen Blood Narrative Performed At FASTING:YES [facility] FASTING: YES Resulting Agency Comment Performing Organization Information: Site ID: [id number] Name: [facility] Address: [address] [place] [id number] Director: Fabi Madrid Performing Organization Address City/[facility] Phone Number [employer] [address] [address] Lipid panel (05/05/2018 11:02 AM BELT LACER) Cholesterol, total 146 <200 mg/dL [facility] HYDER HDL cholesterol 40 (L) >40 mg/dL [facility]DER Triglycerides 57 <150 mg/dL [employer] [facility] LDL cholesterol 92 mg/dL (calc) [facility] calculated Comment: HYDER Reference range: <100 Desirable range <100 mg/dL for primary prevention; <70 mg/dL for patients with CHD or diabetic patients with > or=2 CHD risk factors. LDL-C is now calculated using the Ronald calculation, which is a validated novel method providing better accuracy than the Friedewald equation in the estimation of LDL-C. Miles CHANDRA et al. ANGELA. 2013;310(19): 7202-7447 (http://education.ADP/faq/DRE500) Cholesterol/HDL ratio 3.7 <5.0 (calc) [facility] HYDER Non-HDL cholesterol 106 <130 mg/dL [facility] Comment: (calc) HYDER For patients with diabetes plus 1 major ASCVD risk factor, treating to a non-HDL-C goal of <100 mg/dL (LDL-C of <70 mg/dL) is considered a therapeutic option. Specimen Blood Narrative Performed At FASTING:YES [facility] FASTING: YES Resulting Agency Comment Performing Organization Information: Site ID: [id number] Name: [facility] Address: [address] [place] [id number] Director: Fabi Madrid Performing Organization Address City/State/Zipcode Phone Number [employer] [place] [phone] Basic metabolic panel (05/05/2018 11:02 AM BELT LACER) Glucose 85 65 - 99 mg/dL [facility] Comment: HYDER Fasting reference interval BUN, whole blood 15 7 - 25 mg/dL [employer] [facility] Creatinine 0.91 0.60 - 1.35 mg/dL [facility] HYDER EGFR Non-Afr. [place] 100 > OR=60 [facility] mL/min/1.73m2 HYDER EGFR 116 > OR=60 [employer] [facility] mL/min/1.73m2 HYDER BUN/creatinine ratio NOT APPLICABLE 6 - 22 (calc) [facility] HYDER Sodium 142 135 - 146 mmol/L [facility] HYDER Potassium 5.4 (H) 3.5 - 5.3 mmol/L [facility]DER Chloride 105 98 - 110 mmol/L [facility] CO2 29 20 - 32 mmol/L [facility]DER Calcium 10.3 8.6 - 10.3 mg/dL [facility] HYDER Specimen Blood Narrative Performed At FASTING:YES [facility] FASTING: YES Resulting Agency Comment Performing Organization Information: Site ID: [id number] Name[facility] Address: [address] [place] [address] Director: Fabi Madrid Performing Organization Address City/State/Zipcode Phone Number [employer] HYDER [address] [place], [place] [id number] ECG 12 lead (05/05/2018 10:13 AM BELT LACER) Ventricular rate 82 [facility] Atrial rate 82 [facility] VA interval 118 [facility] QRSD interval 78 [facility] QT interval 370 [facility] QTC interval 432 [facility] P axis 1 74 [facility] QRS axis 1 73 [facility] T wave axis 7 [facility] EKG impression Normal sinus rhythm-Nonspecific ST and T wave [facility] abnormality-Abnormal ECG-In automated comparison with ECG of 05-MAY-2018 10:11,-No significant change was found- Narrative Performed At Performing Organization Address [facility] Phone Number [facility] M[facility] [address] [place] [address] CT Abd/Pelvic External Study (02/06/2018 12:13 AM CDT) Narrative Performed At This exam was not acquired at a [facility] facility and has not been [facility] interpreted by a [facility] Provider.The exam was imported into our imaging system for comparisons purposes. Performing Organization Address [facility] Phone Number [facility] [address] [place] [address] after 06/02/2017 Insurance Payer Benefit Plan / Group Subscriber ID Type Phone Address BCBS BCBS CHOICE PPO/FEDERAL EMPL xxxxxxxxxxxx PPO PPO COMMERCIAL MISC MISC COMMERCIAL xxxxxxxxxxx Commercial Advance Directives Patient has advance care planning documents on file. For more information, please contact:Bk Abarca[address] [place] [address], [place] [address]
[2018-06-03 19:27] LABS: Absolute Lymphocytes (CBC) 1.5 K/uL (0.7-4.9); Absolute Monocytes 0.8 K/uL (0.1-1.3); Absolute Neutrophil 12.1 K/uL (1.8-8.0); Basophils % 0.6 % (0-1.3); Eosinophils % 0.5 % (0-4.4); Hematocrit 42.2 % (39.6-49.0); Lymphocytes % 10.4 % (15.3-44.8); MPV 8.3 fL (7.6-11.3); Monocytes % 5.6 % (3.3-12.3); RBC Red Blood Cell Count 4.59 M/uL (4.33-5.43)
[2018-06-03 19:30] LABS: Protime INR 1.34
[2018-06-03 19:44] LABS: ALT/SGPT 28 U/L (12-78); AST/SGOT 14 U/L (15-37); Alkaline Phosphatase 86 U/L (45-117); BUN Blood Urea Nitrogen 11 mg/dL (7-18); Bicarbonate 28 mmol/L (21-32); Bilirubin Direct 0.2 mg/dL (0-0.2); Bilirubin Total 0.6 mg/dL (0.2-1.0); Glucose Level 90 mg/dL (74-106); Magnesium 1.8 mg/dL (1.8-2.4); NT PRO-BNP 52 pg/mL (<125); Potassium 3.5 mmol/L (3.5-5.1); Protein, Total 8.3 g/dL (6.4-8.2); Sodium Level 140 mmol/L (136-145); Troponin (Emerg Dept Use Only) < 0.02 ng/mL (0.0-0.045)
--- NOTE | 2018-06-03 20:03 | RAD REPORT ---
EXAM DESCRIPTION: CT - Head Brain Wo Cont - 06/03/2018 7:39 pm CLINICAL HISTORY: Headache COMPARISON: None. TECHNIQUE: Computed axial tomography of the head was obtained. IV contrast was not requested. All CT scans are performed using dose optimization technique as appropriate and may include automated exposure control or mA/KV adjustment according to patient size. FINDINGS: An intracranial bleed is not seen . The ventricles are normal in caliber. No extra-axial fluid collection is noted. Fluid within the sinuses/ mastoids is not seen. IMPRESSION: No acute intracranial abnormality is seen. If patient's symptoms persist MRI of the bra in would be recommended.
--- NOTE | 2018-06-03 20:56 | RAD REPORT ---
EXAM DESCRIPTION: Joel Single View06/03/2018 7:45 pm CLINICAL HISTORY: Chest pain COMPARISON: February 2018 FINDINGS: 5 millimeter nodular opacity overlies right lung base. Left lung appears clear. The heart is normal size IMPRESSION: A 5 millimeter nodular opacity which overlies the right lung base may represent a pulmo nary nodule or confluence of vessels. Follow-up chest film in 3 months recommended for re-evaluation
--- NOTE | 2018-06-03 23:19 | ER ---
Nurse's Notes [facility] Name: Ethan Hall Age: 48 yrs Sex: Male : 1970 Arrival Date: 06/03/2018 Time: 17:04 Bed 25 Private MD: None, None Diagnosis: Chest pain, unspecified Presentation: 06/03 17:54 Presenting complaint: Patient states: Headache and cough with body aches for 2 days. aj Transition of care: patient was not received from another setting of care. Onset of symptoms was June 01, 2018. Risk Assessment: Do you want to hurt yourself or someone else? Patient reports no desire to harm self or others. Initial Sepsis Screen: Does the patient meet any 2 criteria? No. Patient's initial sepsis screen is negative. Does the patient have a suspected source of infection? No. Patient's initial sepsis screen is negative. Care prior to arrival: None. 17:54 Method Of Arrival: Ambulatory 17:54 Acuity: CHRISTINA 3 Triage Assessment: 17:56 Headache History: The patient has had previous headaches and this one is similar to previous episodes. General: Appears in no apparent distress. comfortable, Behavior is calm, cooperative, appropriate for age. Pain: Complains of pain in face and scalp Pain. Neuro: Level of Consciousness is awake, alert, obeys commands, Oriented to person, place, time, situation, Appropriate for age Reports headache. Respiratory: Airway is patent Respiratory effort is even, unlabored, Respiratory pattern is regular, symmetrical. Respiratory: Reports cough that is. Derm: Skin is intact, is healthy with good turgor, Skin is pink, warm \T\ dry. normal. 18:15 Pain: Also complains of no other associated symptoms. kr2 Historical: - Allergies: 17:56 No Known Allergies; aj - Home Meds: 17:56 aspirin 81 mg Oral TbEC 1 tab once daily [Active]; chlorthalidone 50 mg Oral tab 1 tab aj once daily [Active]; losartan 100 mg oral tab 1 tab once daily [Active]; metoprolol tartrate 25 mg Oral tab 1 tab once daily [Active]; - PMHx: 17:56 Hernia; Hypertension; aj - PSHx: 17:56 Hernia repair; Heart Cath; aj - Immunization history:: Adult Immunizations unknown, Flu vaccine is not up to date. - Social history:: Smoking status: Patient/guardian denies using tobacco. - Ebola Screening: : Patient negative for fever greater than or equal to 101.5 degrees Fahrenheit, and additional compatible Ebola Virus Disease symptoms Patient denies exposure to infectious person Patient denies travel to an Ebola-affected area in the 21 days before illness onset No symptoms or risks identified at this time. Screenin:15 Abuse screen: Denies threats or abuse. Denies injuries from another. Nutritional kr2 screening: No deficits noted. Tuberculosis screening: No symptoms or risk factors identified. Fall Risk None identified. Assessment: 18:15 General: Appears in no apparent distress. comfortable, well groomed, well developed, kr2 well nourished, Behavior is calm, cooperative, appropriate for age. Pain: Complains of pain in head and back Pain does not radiate. Pain currently is 5 out of 10 on a pain scale. Quality of pain is described as aching, Pain began gradually, Is continuous, Alleviated by nothing. Aggravated by increased activity. Neuro: Level of Consciousness is awake, alert, obeys commands, Oriented to person, place, time, situation, Appropriate for age Electrical Cad Technician are equal bilaterally Moves all extremities. Full function Gait is steady, Speech is normal, Facial symmetry appears normal, Pupils are PERRLA, Intact. Cardiovascular: Capillary refill < 3 seconds in bilateral fingers Patient's skin is warm and dry. Respiratory: Airway is patent Respiratory effort is even, unlabored, Respiratory pattern is regular, symmetrical, Breath sounds are clear bilaterally. GI: Abdomen is non-distended, obese, Bowel sounds present X 4 quads. EENT: Oral mucosa is moist. Derm: Skin is intact, is healthy with good turgor, Skin is pink, warm \T\ dry. Musculoskeletal: Circulation, motion, and sensation intact. 19:00 Reassessment: Patient appears in no apparent distress at this time. Patient and/or kr2 family updated on plan of care and expected duration. Pain level reassessed. Patient is alert, oriented x 3, equal unlabored respirations, skin warm/dry/pink. 20:03 Reassessment: Patient appears in no apparent distress at this time. Patient and/or kr2 family updated on plan of care and expected duration. Pain level reassessed. Patient is alert, oriented x 3, equal unlabored respirations, skin warm/dry/pink. 21:11 Reassessment: Patient appears in no apparent distress at this time. Patient and/or kr2 family updated on plan of care and expected duration. Pain level reassessed. Patient is alert, oriented x 3, equal unlabored respirations, skin warm/dry/pink. Patient states feeling better. 21:58 Reassessment: Patient appears in no apparent distress at this time. Patient and/or kr2 family updated on plan of care and expected duration. Pain level reassessed. Patient is alert, oriented x 3, equal unlabored respirations, skin warm/dry/pink. Patient states feeling better. Patient states symptoms have improved. 23:29 Reassessment: Patient appears in no apparent distress at this time. Patient and/or kr2 family updated on plan of care and expected duration. Pain level reassessed. Patient is alert, oriented x 3, equal unlabored respirations, skin warm/dry/pink. Patient denies pain at this time. Patient states feeling better. Vital Signs: 17:56 BP 130 / 81; Pulse 88; Resp 20; Temp 97.8; Pulse Ox 97% on R/A; Weight 129.73 kg; aj Height 5 ft. 7 in. (170.18 cm); 19:31 BP 138 / 77; Pulse 94; Resp 18; Pulse Ox 96% on R/A; kr2 21:30 BP 134 / 80; Pulse 90; Resp 19; Pulse Ox 98% on R/A; kr2 23:00 BP 136 / 84; Pulse 92; Resp 18; Pulse Ox 99% ; kr2 17:56 Body Mass Index 44.79 (129.73 kg, 170.18 cm) NIH Stroke Scale Scores: 19:12 NIHSS Score: 0 [facility] ED Course: 17:04 Patient arrived in ED. sb2 17:04 None, None is Private Physician. sb2 17:55 Triage completed. aj 17:56 Arm band placed on right wrist. Patient placed in waiting room, Patient notified of wait time. Labs ordered per protocol. 18:01 Wolfgang Vazquez MD is Attending Physician. [facility] 18:01 Nimesh Hinson PA is PHCP. jr8 18:02 Wolfgang Vazquez MD is Attending Physician. jr8 18:15 Patient has correct armband on for positive identification. Bed in low position. Call kr2 light in reach. Side rails up X 1. Adult w/ patient. pvc monitor on. Pulse ox on. NIBP on. Door closed. Head of bed elevated. 18:51 Zulema Escobar, REINA is Primary Nurse. kr2 19:00 EKG done, by ED staff, reviewed by Nimesh AGUILA. kr2 19:10 Inserted saline lock: 22 gauge in left antecubital area, using aseptic technique. Blood kr2 collected. 19:39 CT Head Brain wo Cont In Process Unspecified. EDMS 19:45 XRAY Chest (1 view) In Process Unspecified. EDMS 19:46 Initial lab(s) drawn, by ED staff, sent to lab. jp3 21:16 No provider procedures requiring assistance completed. kr2 21:46 Repeat lab(s) drawn. by me, sent to lab. jp3 21:46 Troponin (emerg Dept Use Only) Sent. jp3 23:18 Reggie River MD is Referral Physician. jr8 23:30 IV discontinued, intact, bleeding controlled, No redness/swelling at site. Pressure kr2 dressing applied. Administered Medications: No medications were administered Outcome: 23:18 Discharge ordered by . jr8 23:30 Discharged to home ambulatory, with family. kr2 23:30 Condition: good 23:30 Discharge instructions given to patient, family, Instructed on discharge instructions, follow up and referral plans. Demonstrated understanding of instructions, follow-up care. 23:30 Patient left the ED. kr2 NIH Stroke Scale - NIH Stroke Score Date: 06/03/2018 Time: 19:12 Total Score = 0 1a. Level of Consciousness (LOC) - 0(Alert) 1b. Level of Consciousness (LOC) (Year \T\ Age) - 0(Both) 1c. LOC Commands (Open \T\ Closes Eyes/Bulk Intake Worker) - 0(Both) 2. Best Gaze (Lateral Gaze Paresis) - 0(Normal) 3. Visual Field Loss - 0(No visual loss) 4. Facial Palsy - 0(Normal) 5a. Left Arm: Motor (10-second hold) - 0(No drift) 5b. Right Arm: Motor (10-second hold) - 0(No drift) 6a. Left Leg: Motor (5-second hold - always test supine) - 0(No drift) 6b. Right Leg: Motor (5-second hold - always test supine) - 0(No drift) 7. Limb Ataxia (finger/nose \T\ heel/patel - test with eyes open) - 0(Absent) 8. Sensory Loss (pinprick arms/legs/face) - 0(Normal) 9. Best Language: Aphasia (description/naming/reading) - 0(No aphasia) 10. Dysarthria (speech clarity - read or repeat words) - 0(Normal) 11. Extinction and Inattention (visual/tactile/auditory/spatial/personal) - 0(No abnormality) Initials: jr8 Signatures: Dispatcher [employer] Aleida Barnes, RN RN Wolfgang Pompa MD MD cha Roszak, Josh, PA PA jr8 Zulema Escobar RN RN kr2 Loan Raines2 Dharmesh Royal jp3 Corrections: (The following items were deleted from the chart) 21:21 21:16 IV discontinued, intact, bleeding controlled, No redness/swelling at kr2 site. Pressure dressing applied, kr2
--- NOTE | 2018-06-03 23:19 | EDPHYS ---
Physician Documentation [facility] Name: Ethan Hall Age: 48 yrs Sex: Male : 1970 Arrival Date: 06/03/2018 Time: 17:04 Bed 25 Private MD: None, None ED Physician Wolfgang Vazquez HPI: 06/03 19:12 This 48 yrs old Black Male presents to ER via Ambulatory with complaints of Headache, jr8 Cough. 19:12 Patient stated that he had preoperative work up for hernia and GB surgery this past jr8 Wednesday. Stated that they found new diagnosis of atrial fib with RVR and pulmonary hypertension. Had echo, heart cath, and lab work completed. Had heart cath via right neck. Yesterday evening head headache with slurred speech. Two episodes that lasted less then a minute with tingling of perioral area. Completely resolved after that. Today while going up scaffolding had headache and chest tightness. Came to ED at that time for further evaluation . The patient has not experienced similar symptoms in the past. The patient has been recently seen by a physician:. Historical: - Allergies: 17:56 No Known Allergies; aj - Home Meds: 17:56 aspirin 81 mg Oral TbEC 1 tab once daily [Active]; chlorthalidone 50 mg Oral tab 1 tab aj once daily [Active]; losartan 100 mg oral tab 1 tab once daily [Active]; metoprolol tartrate 25 mg Oral tab 1 tab once daily [Active]; - PMHx: 17:56 Hernia; Hypertension; aj - PSHx: 17:56 Hernia repair; Heart Cath; aj - Immunization history:: Adult Immunizations unknown, Flu vaccine is not up to date. - Social history:: Smoking status: Patient/guardian denies using tobacco. - Ebola Screening: : Patient negative for fever greater than or equal to 101.5 degrees Fahrenheit, and additional compatible Ebola Virus Disease symptoms Patient denies exposure to infectious person Patient denies travel to an Ebola-affected area in the 21 days before illness onset No symptoms or risks identified at this time. ROS: 19:12 Eyes: Negative for injury, pain, redness, and discharge, ENT: Negative for injury, jr8 pain, and discharge, Neck: Negative for injury, pain, and swelling, Respiratory: Negative for shortness of breath, cough, wheezing, and pleuritic chest pain, Abdomen/GI: Negative for abdominal pain, nausea, vomiting, diarrhea, and constipation, Back: Negative for injury and pain, MS/Extremity: Negative for injury and deformity, Skin: Negative for injury, rash, and discoloration. 19:12 Cardiovascular: Positive for chest pain, Negative for edema, orthopnea, palpitations, paroxysmal nocturnal dyspnea. 19:12 Neuro: Positive for headache, speech changes, tingling. Exam: 19:12 Eyes: Pupils equal round and reactive to light, extra-ocular motions intact. Lids and jr8 lashes normal. Conjunctiva and sclera are non-icteric and not injected. Cornea within normal limits. Periorbital areas with no swelling, redness, or edema. ENT: Nares patent. No nasal discharge, no septal abnormalities noted. Tympanic membranes are normal and external auditory canals are clear. Oropharynx with no redness, swelling, or masses, exudates, or evidence of obstruction, uvula midline. Mucous membranes moist. Neck: Trachea midline, no thyromegaly or masses palpated, and no cervical lymphadenopathy. Supple, full range of motion without nuchal rigidity, or vertebral point tenderness. No Meningismus. Cardiovascular: Regular rate and rhythm with a normal S1 and S2. No gallops, murmurs, or rubs. Normal PMI, no JVD. No pulse deficits. Respiratory: Lungs have equal breath sounds bilaterally, clear to auscultation and percussion. No rales, rhonchi or wheezes noted. No increased work of breathing, no retractions or nasal flaring. Abdomen/GI: Soft, non-tender, with normal bowel sounds. No distension or tympany. No guarding or rebound. No evidence of tenderness throughout. Back: No spinal tenderness. No costovertebral tenderness. Full range of motion. Skin: Warm, dry with normal turgor. Normal color with no rashes, no lesions, and no evidence of cellulitis. MS/ Extremity: Pulses equal, no cyanosis. Neurovascular intact. Full, normal range of motion. Neuro: Awake and alert, GCS 15, oriented to person, place, time, and situation. Cranial nerves II-XII grossly intact. Motor strength 5/5 in all extremities. Sensory grossly intact. Cerebellar exam normal. Normal gait. Vital Signs: 17:56 BP 130 / 81; Pulse 88; Resp 20; Temp 97.8; Pulse Ox 97% on R/A; Weight 129.73 kg; aj Height 5 ft. 7 in. (170.18 cm); 19:31 BP 138 / 77; Pulse 94; Resp 18; Pulse Ox 96% on R/A; kr2 21:30 BP 134 / 80; Pulse 90; Resp 19; Pulse Ox 98% on R/A; kr2 23:00 BP 136 / 84; Pulse 92; Resp 18; Pulse Ox 99% ; kr2 17:56 Body Mass Index 44.79 (129.73 kg, 170.18 cm) NIH Stroke Scale Scores: 19:12 NIHSS Score: 0 8 MDM: 18:02 Patient medically screened. 8 23:17 Data reviewed: vital signs, nurses notes, lab test result(s), EKG, radiologic studies, [facility] CT scan, plain films, and as a result, I will discharge patient. Data interpreted: Pulse oximetry: on room air is 98 %. Interpretation: normal. Counseling: I had a detailed discussion with the patient and/or guardian regarding: the historical points, exam findings, and any diagnostic results supporting the discharge/admit diagnosis, lab results, radiology results, the need for outpatient follow up, a public relations account executive, a neurologist, to return to the emergency department if symptoms worsen or persist or if there are any questions or concerns that arise at home. ED course: Patient has remained asymptomatic while in ED. Negative for acute findings. Will need to f/u with both neurology and cardiology. Patient good with this and would come back if worse . 06/03 17:58 Order name: Flu; Complete Time: 18:54 06/03 18:54 Order name: Basic Metabolic Panel; Complete Time: 19:46 [facility] 06/03 18:54 Order name: CBC with Diff; Complete Time: 19:31 [facility] 06/03 18:54 Order name: LFT's; Complete Time: 19:46 [facility] 06/03 18:54 Order name: Magnesium; Complete Time: 19:46 [facility] 06/03 18:54 Order name: NT PRO-BNP; Complete Time: 19:46 [facility] 06/03 18:54 Order name: PT-INR; Complete Time: 19:42 [facility] 06/03 18:54 Order name: Troponin (emerg Dept Use Only); Complete Time: 19:46 06/03 18:54 Order name: XRAY Chest (1 view); Complete Time: 21:10 06/03 18:54 Order name: EKG; Complete Time: 18:55 06/03 18:54 Order name: Cardiac monitoring; Complete Time: 19:03 06/03 18:54 Order name: EKG - Nurse/Tech; Complete Time: 19:03 06/03 18:54 Order name: CT Head Brain wo Cont; Complete Time: 20:09 06/03 21:10 Order name: Troponin (emerg Dept Use Only); Complete Time: 22:01 06/03 18:54 Order name: IV Saline Lock; Complete Time: 19:12 06/03 18:54 Order name: Labs collected and sent; Complete Time: 19:12 06/03 18:54 Order name: O2 Per Protocol; Complete Time: 19:03 06/03 18:54 Order name: O2 Sat Monitoring; Complete Time: 19: Administered Medications: No medications were administered Disposition: 06/03/18 23:18 Discharged to Home. Impression: Chest pain, unspecified. - Condition is Stable. - Discharge Instructions: Nonspecific Chest Pain, Aspirin and Your Heart. - Medication Reconciliation Form, Thank You Letter, Antibiotic Education, Prescription Opioid Use form. - Follow up: Private Physician; When: 2 - 3 days; Reason: Recheck today's complaints, Continuance of care, Re-evaluation by your physician. Follow up: Reggie River MD; When: 2 - 3 days; Reason: Recheck today's complaints, Continuance of care, Re-evaluation by your physician. - Problem is new. - Symptoms have improved. NIH Stroke Scale - NIH Stroke Score Date: 06/03/2018 Time: 19:12 Total Score = 0 1a. Level of Consciousness (LOC) - 0(Alert) 1b. Level of Consciousness (LOC) (Year \T\ Age) - 0(Both) 1c. LOC Commands (Open \T\ Closes Eyes/Hris Administrator) - 0(Both) 2. Best Gaze (Lateral Gaze Paresis) - 0(Normal) 3. Visual Field Loss - 0(No visual loss) 4. Facial Palsy - 0(Normal) 5a. Left Arm: Motor (10-second hold) - 0(No drift) 5b. Right Arm: Motor (10-second hold) - 0(No drift) 6a. Left Leg: Motor (5-second hold - always test supine) - 0(No drift) 6b. Right Leg: Motor (5-second hold - always test supine) - 0(No drift) 7. Limb Ataxia (finger/nose \T\ heel/patel - test with eyes open) - 0(Absent) 8. Sensory Loss (pinprick arms/legs/face) - 0(Normal) 9. Best Language: Aphasia (description/naming/reading) - 0(No aphasia) 10. Dysarthria (speech clarity - read or repeat words) - 0(Normal) 11. Extinction and Inattention (visual/tactile/auditory/spatial/personal) - 0(No abnormality) Initials: jr8 Addendum: 06/07/2018 11:09 Co-signature as Attending Physician, Wolfgang Vazquez MD I agree with the [facility] assessment and plan of care. Signatures: Dispatcher [employer] EDOR Aleida Banuelos RN RN aj Anderson, Corey, MD MD [facility] Nimesh Hinson PA PA jr8 Zulema Escobar RN RN kr2 Corrections: (The following items were deleted from the chart) 06/03 23:30 23:18 06/03/2018 23:18 Discharged to Home. Impression: Chest pain, unspecified. kr2 Condition is Stable. Forms are Medication Reconciliation Form, Thank You Letter, Antibiotic Education, Prescription Opioid Use. Follow up: Private Physician; When: 2 - 3 days; Reason: Recheck today's complaints, Continuance of care, Re-evaluation by your physician. Follow up: Reggie River; When: 2 - 3 days; Reason: Recheck today's complaints, Continuance of care, Re-evaluation by your physician. Problem is new. Symptoms have improved. jr8
[2018-06-03 23:35] VITALS: TEMP 97.8
[2018-06-03 23:38] VITALS: BP 136/84; O2SAT 99
--- NOTE | 2018-06-04 08:28 | EKG ---
Test Date: 2018-06-03 Test Time: 18:58:04 Group Supervisor Yard: JASPREET MEASUREMENT RESULTS: Intervals: Rate: 89 NJ: 132 QRSD: 82 QT: 352 QTc: 428 [place]: P: 62 NJ: 132 QRS: -9 T: 59 INTERPRETIVE STATEMENTS: Normal sinus rhythm Minimal voltage criteria for LVH, may be normal variant Nonspecific T wave abnormality Abnormal ECG Compared to ECG 02/05/2018 22:51:27 Left ventricular hypertrophy now present T-wave abnormality now present Electronically Signed On 06-05-18 10:19:50 PAID SEARCH SPECIALIST by Julius Weber
== END 2018-06-03 23:30 | disposition home or self-care (01) ==
LOC: ER 17:02
DX: R07.9 Chest pain, unspecified (principal); R94.31 Abnormal electrocardiogram [ECG] [EKG]; I10 Essential (primary) hypertension; K46.9 Unspecified abdominal hernia without obstruction or gangrene; Z79.82 Long term (current) use of aspirin; Z79.899 Other long term (current) drug therapy
CPT/HCPCS: 36415; 70450; 71045; 80048; 80076; 83735; 83880; 84484; 85025; 85610; 87804; 93005; 99284

== ENCOUNTER 2020-03-25 15:14 | Inpatient (IN) | payer BC, SELFPAY ==
--- OUTSIDE RECORDS SUMMARY | 2020-03-25 15:16 | XMS REPORT | Clinical Summary ---
:1970 Author Organization [facility] Address [address] [place] [address] Care Team Providers Name Role Phone Asked, Pcp Primary Care Provider Unavailable Allergies No Known Active Allergies Medications Medication Sig Dispensed Refills Start Date End Date Status metoprolol tartrate Take 1/2 90 tablet 0 10/02/2019 Active (LOPRESSOR) 25 mg (one-half) tablet tablet by mouth twice daily losartan (COZAAR) Take 1 tablet 90 tablet 0 11/30/2019 Active 100 MG tablet by mouth once daily aspirin (ECOTRIN) 81 Take 1 tablet 90 tablet 0 11/30/2019 Active MG enteric coated by mouth once tablet daily amLODIPine (NORVASC) Take 1 tablet 90 tablet 2 01/17/2020 Active 10 mg tablet (10 mg total) by mouth nightly. aspirin (ECOTRIN) 81 Take 81 mg by 0 07/28 Discontinued MG enteric coated mouth daily. 0 tablet losartan (COZAAR) Take 100 mg by 0 02 Discontinued 100 MG tablet mouth daily. 0 chlorthalidone Take 50 mg by 0 D iscontinued (HYGROTEN) 50 MG mouth daily. 0 tablet HYDROcodone-acetamin Take 1 tablet 0 01/16 Discontinued ophen (NORCO) by mouth every 0 7.5-325 mg per 6 (six) hours tablet as needed for moderate pain. metoprolol tartrate Take 25 mg by 0 Discontinued (LOPRESSOR) 25 mg mouth 2 (two) 0 tablet times a day. aspirin (ECOTRIN) 81 TAKE 1 TABLET 90 tablet 0 07/28/201911/06 Discontinued MG enteric coated BY MOUTH ONCE 0 tablet DAILY metoprolol tartrate TAKE 1/2 90 tablet 0 07/28/2019 Discontinued (LOPRESSOR) 25 mg (ONE-HALF) 0 tablet TABLET BY MOUTH TWICE DAILY Active Problems Problem Noted Date Cholelithiasis without cholecystitis 07/18/2018 Pulmonary HTN 05/27/2018 Overview: Added automatically from request for yash moya [id number] Diastolic dysfunction 05/23/2018 EMELI (obstructive sleep apnea) 05/05/2018 Essential hypertension 05/05/2018 Class 3 severe obesity due to excess calories without serious comorbidity 05/05/2018 in adult Encounters Date Type Specialty Care Team Description 02/28/2020 Telephone Cardiology Maia Chirinos MA Appointm ent 01/24/2020 Telephone Cardiology Sandra Stewart MA Labs Only 01/24/2020 Orders Only Cardiology Maia Chirinos MA Essentia l hypertension (Primary Dx) 01/17/2020 Orders Only Cardiology Lamar Sewell RN 01/15/2020 Orders Only Cardiology Lamar Sewell RN Essent ialarry hypertension (Primary Dx); Diastolic dysfu nction; Dyslipidemia 01/15/2020 Refill Cardiology Romelia Celestemed Med Refill MD Elda 12/20/2019 Orders Only Cardiology Maia Chirinos MA Essentia l hypertension (Primary Dx); Diastolic dysfu nction 11/27/2019 Refill Cardiology Loren Celeste Med Refill MD Elda 10/02/2019 Refill Cardiology Loren Celeste Med Refill MD Elda 07/28/2019 Refill Cardiology Loren Celeste Med Refill MD Elda after 03/25/2019 Surgical History Surgery Date Site/Laterality Comments CARDIAC CATHETERIZATION 06/01/2018 Radial Procedur e: Cv right heart cath; Surgeon: Loren Celeste M D; Location: [facility] 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 REPAIR, HERNIA, VENTRAL OR 07/18/2018 Abdomen Proce dure: REPAIR, HERNIA, INCISIONAL, LAPAROSCOPIC VENTRAL OR INCISIONAL, LAPAROSCOPIC; S urgeon: Janak Randolph MD; Location: [facility] OR; Service: General ;; Medical devices from this surgery are in t he Implants section. Medical History Medical History Date Comments GERD (gastroesophageal reflux disease) Hypertension Obesity History of atrial fibrillation 05/2018 Andrea Celeste Sleep apnea, obstructive has not used ma chine. Sleep study repeated 06/2018 pend ing results History of general anesthesia No family history of adverse response to anesthesia Snores SOB (shortness of breath) on exertion wh en climbing to roof on ladder very winded and has to st op catch breath before can continue Exercises daily stationary bike 30mi n-1 hour started 2 weeks ago. Can cli mb 1 flight stairs without stopping due to sob or cp Diastolic heart failure (HCC) DR. SHANNAN Vargas Family History Medical History Relation Name Comments Heart attack Maternal Grandfather Diabetes Mother Hypertension Mother Hypertension Sister Hypertension Sister Relation Name Status Comments Maternal Grandfather Maternal Grandmother Mother Alive Paternal Grandfather Paternal Grandmother Sister Alive Sister Alive Social History Tobacco Use Types Packs/Day Years Used Date Never Smoker Smokeless Tobacco: Never Used Alcohol Use Drinks/Week oz/Week Comments Yes 2 Cans of beer 2.0 socially Education Answer Date Recorded What is the highest level of school you have completed or 11 th grade 04/20/2018 the highest degree you have received? Financial Resource Strain Answer Date Recorded How hard is it for you to pay for the very basics like Somew hat hard 04/20/2018 food, housing, medical care, and heating? Food Insecurity Answer Date Recorded Within the past 12 months, you worried that your food would Never true 04/20/2018 run out before you got money to buy more. Within the past 12 months, the food you bought just didn't N ever true 04/20/2018 last and you didn't have money to get more. Transportation Needs Answer Date Recorded In the past 12 months, has lack of transportation kept you f rom No 04/20/2018 medical appointments or from getting medications? In the past 12 months, has lack of transportation kept you f rom No 04/20/2018 meetings, work, or getting things needed for daily living? Sex Assigned at Date Recorded Not on file Last Filed Vital Signs Not on file Plan of Treatment Health Maintenance Due Date Last Done Comments INFLUENZA VACCINE 01/06/2020 04/20/2018 Implants Implanted Type Area Cellophane Bath Mixer Device Shelf Model / Identifier Expiration Serial / Date Lot Mesh Hrnia Rpr Dualmesh [id number] 1mm Oval Ptfe [facility] - [id number] Surgical Anterior: W L GORE 06/06/2022 [id number] / Implanted: 07/18/2018 at [facility] (Quantity not on file) Mesh or Abdomen, [id number] / Tissue Middle [id number] Barrier Quadrant/No Products n Specific Results Not on fileafter 03/25/2019 Insurance Payer Benefit Plan / Subscriber ID Effective Phone Address T ype Group Dates BCBS BCBS CHOICE [id number] 2017-Prese PPO PPO/FEDERAL EMPL nt PPO COMMERCIAL MISC MISC COMMERCIAL [id number] 2017-Prese Commercial nt Advance Directives For more information, please contact: [phone] Type Date Recorded 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
--- OUTSIDE RECORDS SUMMARY | 2020-03-25 15:17 | XMS REPORT | Continuity of Care Document ---
:1970 Author Organization [facility] t Address [address] [place] [address] Care Team Providers Name Role Phone Asked, Pcp Primary Care Physician Unavailable Taran VERDUGO Attending Clinician Unavailable Terry VERDUGO Attending Clinician Unavailable Donato HUANG Attending Clinician Unavailable Jacob PAC, S Attending Clinician Booker BARNEY, Elda Attending Clinician Shimon Vitale Attending Clinician Payers Payer Name Policy Type Policy Effective Date Expiration Date Sour ce Number BCBSBCBS CHOICE [id number] 2017 [employer] PPO/FEDERAL EMPL 00:00:00 Methodis t [id number] /06/2017-PresentP PO COMMERCIAL [id number] 2017 [employer] MISCMISC 00:00:00 Alevism COMMERCIALxxxxxx [id number] 2017-Pr esentCommercial Problems Condition Condition Condition Status Onset Resolution Last Treating Co mments Source Name Details Category Date Date Treatment Clinician Date Cholelithi Cholelithi Disease Active 2019-0 H gena asis asis 2-11 Methodi without without 00:00: st cholecysti cholecysti 00 tis tis Pulmonary Pulmonary Disease Active 2017-06 Overview: [facility] HTN HTN 2-21 Added Methodi 00:00: automatic st 00 ally from request for surgery [id number] Diastolic Diastolic Disease Active 2017-06 Marlo ston dysfunctio dysfunctio 2-17 Me thodi n n 00:00: st 00 EMELI EMELI Disease Active 2017-06 [facility] (obstructi (obstructi -29 Me thodi ve sleep ve sleep 00:00: st apnea) apnea) 00 Essential Essential Disease Active 2017-06 Marlo ston hypertensi hypertensi 1-29 Me thodi on on 00:00: st 00 Class 3 Class 3 Disease Active 2017-06 [facility] severe severe - Methodi obesity obesity 00:00: st due to due to 00 excess excess calories calories without without serious serious comorbidit comorbidit y in adult y in adult Cerebrovas Problem Active 2019-10-19 M emoria cular 21:32:33 l accident [place] (disorder) Cerebrovas cular accident (disorder) Active Problem 10/19/2019 [facility] 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) Active Problem 10/19/2019 [facility] Hypertensi Problem Active 2019-10-19 M emoria ve 21:32:33 l disorder, [place] systemic Hypertensi arterial ve (disorder) disorder, systemic arterial (disorder) Active Problem 10/19/2019 [facility] Morbid Problem Active 2019-10-19 Memor ia obesity 21:32:33 l (disorder) Morbid Herm tabby obesity (disorder) Active Problem 10/19/2019 [facility] Neuro Allergies, Adverse Reactions, Alerts Allergy Allergy Status Severity Reaction(s) Onset Inactive Treating Comm ents Source Name Type Date Date Clinician No Known No Known Active Memori a Medicati Medicati l on on [place] Allergie Allergie s s Family History Family Member Diagnosis Comments Start Date Stop Date Source Maternal grandfather Heart attack [facility] Alevism Natural mother Diabetes [facility] thodist Natural mother Hypertension [facility] Alevism Natural sister Hypertension [facility] Social History Social Habit Start Date Stop Date Quantity Comments Source Sex Assigned At [facility] ethodist Tobacco use and 2018-08-24 2018-08-24 Never used [facility] ethodist exposure 00:00:00 00:00:00 Alcohol intake 2018-08-24 2018-08-24 Current drinker [place] Alevism 00:00:00 00:00:00 of alcohol (finding) History SDUT 2018-04-20 2018-04-20 11 [facility] Meth odist Education 00:00:00 00:00:00 History [facility] 2018-04-20 2018-04-20 3 [facility] Meth odist Financial 00:00:00 00:00:00 History [facility] Food 2018-04-20 2018-04-20 1 Bourgeois Alevism Worry 00:00:00 00:00:00 History [facility] Food 2018-04-20 2018-04-20 1 [facility] Alevism Scarcity 00:00:00 00:00:00 History [facility] 2018-04-20 2018-04-20 2 [facility] Meth odist Transport Med 00:00:00 00:00:00 History [facility] 2018-04-20 2018-04-20 2 [facility] Meth odist Transport Non-Med 00:00:00 00:00:00 Alcohol Comment 2018-04-20 2018-04-20 rudi Bourgeois M ethodist 00:00:00 00:00:00 Smoking Status Start Date Stop Date Source Never smoker [facility] Ashleyis t Medications Ordered Filled Start Stop Current Ordering Indication Dosage Frequency Signature Comments Components Source Medication Medication Date Date Medication? Clinician (SIG) Name Name HYDROcodone 2019-0 2020- No 1{tbl} Q6H Take 1 [place] -acetaminop -05 14-12 tablet by Me bhupendra noel (NORCO) 08:41: 00:[address] 7.5-325 mg 52 :00 every 6 per tablet (six) hours as needed for moderate pain. chlorthalid 2019-0 2020- No 50mg QD Take 50 mg Bourgeois one -05 14-12 by mouth Methodi (HYGROTEN) 08:41: 00:[address] 50 MG 47 :00 tablet amLODIPine 2020-0 Yes 10mg QD Take 1 [place] (NORVASC) 8-12 tablet (10 Meth maria teresa 10 mg 00:00: mg total) st tablet 00 by mouth nightly. losartan 2020-0 2020- No 100mg QD Take 100 Marlo ston (COZAAR) 6-25 06-25 mg by Methodi 100 MG 16:16: 00:[address] tablet 38 :00 daily. losartan 2020-0 Yes Take 1 Bourgeois (COZAAR) 6-25 tablet by Method i 100 MG 00:00: mouth once st tablet 00 daily aspirin 2020-0 Yes Take 1 Bourgeois (ECOTRIN) 6-25 tablet by Metho di 81 MG 00:00: mouth once st enteric 00 daily coated tablet metoprolol 2020-0 Yes Take 1/2 Marlo ston tartrate 4-27 (one-half) Metho di (LOPRESSOR) 00:00: tablet by s t 25 mg 00 mouth tablet twice daily Aspirin 81 2020-0 Yes 81 mg = 1 Me moria MG Enteric 3-31 tab, PO, l Coated 14:40: Daily, # [place] Tablet 00 90 tab, 3 Refill(s) metoprolol 2020-0 Yes 12.5 mg = Me moria tartrate 25 3-31 0.5 tab, l mg oral 14:40: PO, BID, 0 Herm tabby tablet 00 Refill(s) losartan 2020-0 Yes 100 mg = 1 Mem oria 100 mg oral 3-31 tab, PO, l tablet 14:40: Daily, 0 Lee 00 Refill(s) Hydrochloro 2020-0 Yes 50 mg = 1 M emoria thiazide 50 3-31 tab, PO, l MG Oral 14:40: Daily, 0 Peter n Tablet 00 Refill(s) Acetaminoph 2020-0 Yes 1 tab, PO, Memoria en 325 MG / 3-31 Q6H, PRN l Hydrocodone 14:40: Pain, # 28 Lee Bitartrate 00 tab, 0 7.5 MG Oral Refill(s) Tablet Aspirin 81 2020-0 Yes 81 mg = 1 Me moria MG Enteric 3-31 tab, PO, l Coated 14:40: Daily, # [place] Tablet 00 90 tab, 3 Refill(s) metoprolol 2020-0 Yes 12.5 mg = Me moria tartrate 25 3-31 0.5 tab, l mg oral 14:40: PO, BID, 0 Herm tabby tablet 00 Refill(s) losartan 2020-0 Yes 100 mg = 1 Mem oria 100 mg oral 3-31 tab, PO, l tablet 14:40: Daily, 0 Lee 00 Refill(s) Hydrochloro 2020-0 Yes 50 mg = 1 M emoria thiazide 50 3-31 tab, PO, l MG Oral 14:40: Daily, 0 Peter n Tablet 00 Refill(s) Acetaminoph 2020-0 Yes 1 tab, PO, Memoria en 325 MG / 3-31 Q6H, PRN l Hydrocodone 14:40: Pain, # 28 Lee Bitartrate 00 tab, 0 7.5 MG Oral Refill(s) Tablet aspirin 2019- No 81mg QD Take 81 mg Marlo ston (ECOTRIN) 07-28 by mouth Metho di 81 MG 10:33: 00:[address] enteric 01 :00 coated tablet metoprolol 2019- No 25mg Q.5D Take 25 mg Bourgeois tartrate 07-28 by mouth 2 Meth maria teresa (LOPRESSOR) 10:33: 00:00 (two) st 25 mg 01 :00 times a tablet day. aspirin 2019- No TAKE 1 Bourgeois (ECOTRIN) 07-28 06-25 TABLET BY Meth maria teresa 81 MG 00:00: 00:[address] enteric 00 :00 DAILY coated tablet metoprolol 2019- No TAKE 1/2 [place] tartrate 07-28 04-27 (ONE-HALF) Meth maria teresa (LOPRESSOR) 00:00: 00:[address] 25 mg 00 :00 MOUTH tablet TWICE DAILY Vital Signs Vital Name Observation Time Observation Value Comments Source Systolic (mm Hg) 2019-09-05 14:34:00 Darylmagdalena Simmonsann Diastolic (mm Hg) 2019-09-05 14:34:00 [facility] [place] [facility] Rate 2019-09-05 14:34:00 [facility] Respitory Rate 2019-09-05 [facility]:34:[facility] [place] Height 2019-09-05 14:34:00 167.64 cm [facility] Weight 2019-09-05 14:34:00 [facility] BMI Calculated 2019-09-05 14:34:00 [facility] Procedures This patient has no known procedures. Plan of Care Planned Activity Planned Date Details Comments Source Future Scheduled 2020-01-06 INFLUENZA VACCINE [place] Alevism Test 00:00:00 [code = INFLUENZA VACCINE] Encounters Start End Encounter Admission Attending Care Care Encounter Source Date/Time Date/Time Type Type Clinicians Facility Department ID 2020-01-15 2020-01-15 Refill MIGUEL ANGEL James [id number] 00:00:00 00:00:00 [facility] [id number] Surgical [id number] Specialti [id number] es [address] [place] 2019-11-22 2019-11-22 Office [facility] [id number] 14:00:24 16:25:45 [place] [id number] Surgical [id number] Specialti [id number] es [address] [place] 2019-10-17 2019-10-17 [facility] [id number] 10:30:00 10:30:00 Ernie 01 Shimon 2019-10-17 2019-10-17 Outpatient [facility] MISCHER [id number] 10:30:00 10:30:00 Ernie 01 Shimon 2019-09-05 2019-09-05 Outpatient [facility] TOÑOSCHER [id number] 10:00:00 23:59:59 Ernie 00 Shimon 2019-09-05 2019-09-05 Outpatient [facility] MISCHER [id number] 10:00:00 23:59:59 Ernie 00 Shimon Results This patient has no known results.
--- OUTSIDE RECORDS SUMMARY | 2020-03-25 15:17 | XMS REPORT | Summary of Care ---
:[address] [facility] Address [address] [place] [id number] Care Team Providers Name Role Phone Pcp, Does Not Have A Primary Care Provider Reason for Visit Reason Comments Refill Request Encounter Details Date Type Department Care Team Description 01/15/2020 Refill [facility] Orthopaedic Cat James, PAC Refill Request Surgery- [place] [address], [place] [address] [place] [address] [phone] Allergies No Known Allergiesdocumented as of this encounter (statuses as of 01/15/2020) Medications Medication Sig Dispensed Refills Start Date End Date Status aspirin 81 mg EC Take 81 mg 0 Ac tive tablet by mouth. metoprolol tartrate Take 25 mg 0 Active 25 mg tablet by mouth. chlorthalidone 50 mg Take 50 mg 0 Active tablet by mouth. losartan 100 mg Take 100 mg 0 Ac tive tablet by mouth. meloxicam 7.5 mg Take 1 30 tablet 1 10/14/2018 Ac tive tabletIndications: tablet by Primary mouth daily. osteoarthritis of both knees diclofenac 75 mg EC Take 1 60 tablet 1 11/16/2018 Active tabletIndications: tablet by Primary mouth 2 osteoarthritis of (two) times both knees daily with meals. DICLOFENAC 75 mg EC TAKE 1 60 tablet 0 01/15/2020 Active tabletIndications: TABLET BY Primary MOUTH TWICE osteoarthritis of DAILY WITH both knees MEALS FOR 30 DAYS DICLOFENAC 75 mg EC TAKE 1 60 tablet 0 10/03/2019 0 Discontinued tabletIndications: TABLET BY Primary MOUTH TWICE osteoarthritis of DAILY WITH both knees MEALS documented as of this encounter (statuses as of 01/15/2020) Active Problems No known active problemsdocumented as of this encounter (statuses as of 01/15/2020) Social History Tobacco Use Types Packs/Day Years Used Date Never Smoker Smokeless Tobacco: Never Used Alcohol Use Drinks/Week oz/Week Comments No Sex Assigned at Date Recorded Not on file documented as of this encounter Last Filed Vital Signs Not on filedocumented in this encounter Plan of Treatment Health Maintenance Due Date Last Done Comments DTaP,Tdap,and Td Vaccines (1 - 1990 Tdap) INFLUENZA VACCINE (#1) 2020 Depression Screening 11/21/2020 11/22/2019 Colorectal Cancer Screening 2021 PNEUMOCOCCAL 0-64 YEARS COMBINED Aged Out No longer eligible based on SERIES patient's age to complete this topic documented as of this encounter Results Not on filedocumented in this encounter Visit Diagnoses Diagnosis Primary osteoarthritis of both knees Primary localized osteoarthrosis, lower leg documented in this encounter
--- OUTSIDE RECORDS SUMMARY | 2020-03-25 15:17 | XMS REPORT | Continuity of Care Document ---
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 krysta epileptic seizure Ne uro (disorder) Hypertensive Active Problem 10/19/2019 Mische r disorder, systemic N euro arterial (disorder) Morbid obesity Active Problem 10/19/2019 Misc her (disorder) Neuro Medications Medication Details Route Status Patient Ordering Order Source Instructions Provider Date Aspirin 81 MG Enteric 81 mg = 1 Active [facility]ischer Coated Tablet tab, PO, 020 Neuro Daily, # 90 tab, 3 Refill(s) metoprolol tartrate 12.5 mg = Active Mi rika 25 mg oral tablet 0.5 tab, 020 Neuro PO, BID, 0 Refill(s) losartan 100 mg oral 100 mg = Active Mi rika tablet 1 tab, 020 Neuro PO, Daily, 0 Refill(s) Hydrochlorothiazide 50 mg = 1 Active Mi rika 50 MG Oral Tablet tab, PO, 020 Neuro Daily, 0 Refill(s) Acetaminophen 325 MG 1 tab, Active Mis krysta / Hydrocodone PO, Q6H, 020 Neuro Bitartrate 7.5 MG PRN Pain, Oral Tablet # 28 tab, 0 Refill(s) Allergies, Adverse Reactions, Alerts Substance Category Reaction Severity Reaction Status Date Comments S ource type Reported No Known Assertion Drug Misch er Medication allergy Neuro Allergies Immunizations No Data Provided for This Section Results No Data Provided for This Section Pathology Reports No Data Provided for This Section Diagnostic Reports No Data Provided for This Section Consultation Notes No Data Provided for This Section Discharge Summaries No Data Provided for This Section History and Physicals No Data Provided for This Section Vital Signs Vital Sign Value Date Comments Source Systolic (mm Hg) 174 09/05/2019 [facility] Theron ro Diastolic (mm Hg) 111 09/05/2019 [facility] Ne uro Heart Rate 62 09/05/2019 [facility] Neuro Respitory Rate 16 09/05/2019 [facility] Neuro Height 167.64 cm 09/05/2019 [facility] Neuro Weight 123.636 09/05/2019 [facility] Neuro BMI Calculated 43.99 09/05/2019 [facility] Neuro Encounters Location Location Encounter Encounter Reason Attending ADM RI Stat us Source Details Type Number For Provider Date Date Visit Outpatient [id number] Ernie 09/04 Active [facility] Lee MNA Outpatient [id number] Ernie 09/04 09/05 [facility] Neurology [facility] [place] Outpatient [id number] Ernie 10/16 Active [facility] Lee MNA Ambulatory [id number] Ernie 10/16 10/16 [facility] Neurology Pre-Reg [facility] [place] Procedures No Data Provided for This Section Assessment and Plan No Data Provided for This Section Plan of Care No Data Provided for This Section Social History Social History Date Source Social History TypeResponse 09/05/2019 [facility] Neur o Smoking Status Never smoker; Exposure to Tobacco Smoke Unable to obtain; Cigarette Smoking Last 365 Days No; Reg Smoking Cessation Counseling No entered on: 09/05/19 Family History No Data Provided for This Section Advance Directives No Data Provided for This Section Functional Status No Data Provided for This Section
[2020-03-25 16:01] LABS: Absolute Lymphocytes (CBC) 1.5 K/uL (0.7-4.9); Basophils % 1.1 % (0-1.3); Lymphocytes % 14.6 % (15.3-44.8); MPV 8.5 fL (7.6-11.3); Protime INR 1.09
[2020-03-25 16:13] LABS: ALT/SGPT 33 U/L (12-78); AST/SGOT 26 U/L (15-37); Albumin 3.7 g/dL (3.4-5.0); Alkaline Phosphatase 78 U/L (45-117); BUN Blood Urea Nitrogen 12 mg/dL (7-18); Bicarbonate 28 mmol/L (21-32); Bilirubin Direct < 0.1 mg/dL (0-0.2); Bilirubin Total 0.3 mg/dL (0.2-1.0); Glucose Level 95 mg/dL (74-106); Magnesium 2.1 mg/dL (1.8-2.4); NT PRO-BNP 26 pg/mL (<125); Potassium 4.2 mmol/L (3.5-5.1); Sodium Level 142 mmol/L (136-145); Troponin (Emerg Dept Use Only) < 0.02 ng/mL (0.0-0.045)
[2020-03-25] MEDS ORDERED: ASPIRIN 81 MG CHEWABLE TABLET ONE (16:13)
[2020-03-25] MEDS ORDERED: MORPHINE 2 MG/ML SYR ONE (16:13)
--- NOTE | 2020-03-25 16:25 | RAD REPORT ---
EXAM DESCRIPTION: RAD - Chest Single View - 03/25/2020 4:08 pm CLINICAL HISTORY: CHEST PAIN COMPARISON: PA chest March 2018 TECHNIQUE: AP portable chest image was obtained 03/25/2020 4:08 pm . FINDINGS: Lung volumes are low. Large body habitus further contributes to limitation of the examinat ion. No peripheral mass or consolidation. Very slight fullness of the right hilum is believed to be d ue to limitations of the exam rather than a true process. Heart and vasculature are normal. No measur able pleural effusion and no pneumothorax. No acute bony abnormality seen. No acute aortic findings s uspected. IMPRESSION: No acute cardiopulmonary process. No significant interval change.
[2020-03-25] MEDS ORDERED: NA CHLORIDE 0.9% 1,000 ML ONE (17:15)
--- NOTE | 2020-03-25 17:50 | RAD REPORT ---
EXAM DESCRIPTION: CT - Chest For Pe Angio - 03/25/2020 5:40 pm CLINICAL HISTORY: Chest pain;SOB COMPARISON: Chest Single View dated 03/25/2020 TECHNIQUE: Dynamically enhanced 3 mm thick images of the chest were obtained during administration o f approximately 150mL Isovue 370 IV contrast. Coronal and oblique MIP reconstruction images were gene rated and reviewed. Exam utilizes a protocol to evaluate the pulmonary arterial tree. All CT scans are performed using dose optimization technique as appropriate and may include automated exposure control or mA/KV adjustment according to patient size. FINDINGS: Contrast bolus is not optimal but felt to be sufficient to exclude any significant pulmona ry embolic disease. The far peripheral branch assessment is limited. The aorta as imaged shows no acute or suspicious finding. No pericardial thickening or effusion. Focal airspace opacification is present in the infrahilar right lower lobe. A few additional right lo wer lobe airspace opacities are present. There is minimal airspace opacification in the perihilar rig ht upper lobe. No peripheral airspace or ground-glass opacities. No pleural effusion or pleural thick ening. No mediastinal or hilar suspicious masses. No chest wall masses or abnormal axillary lymphadenopathy. IMPRESSION: No pulmonary emboli identified. Patchy pneumonia changes are present in the right upper lobe and right lower lobe.
--- NOTE | 2020-03-25 18:38 | EDPHYS ---
Physician Documentation [facility] Name: Ethan Hall Age: 50 yrs Sex: Male : 1970 Arrival Date: 03/25/2020 Time: 15:19 Bed 7 Private MD: ED Physician Shiv Ley HPI: 03/25 15:45 This 50 yrs old Black Male presents to ER via Ambulatory with complaints of General cp Weakness, Breathing Difficulty and Chest Tightness. 15:45 The patient or guardian reports chest pain that is located primarily in the substernal cp area. 15:45 Onset: today, and improved. The pain does not radiate. Associated signs and symptoms: cp Pertinent positives: shortness of breath, general weakness, Pertinent negatives: abdominal pain, dizziness, headache, lower extremity pain, lower extremity swelling. The chest pain is described as tightness. Duration: The patient or guardian reports a single episode, that is still ongoing, but improving. Severity of pain: in the emergency department the pain is a 5 / 10. Historical: - Allergies: 15:25 No Known Allergies; sv - PMHx: 15:25 Hernia; Hypertension; sv - PSHx: 15:25 Hernia repair; Heart Cath; sv - Immunization history:: Flu vaccine is not up to date. - Social history:: Smoking status: Patient denies any tobacco usage or history of. ROS: 15:50 Constitutional: Negative for body aches, chills, fever, poor PO intake. cp 15:50 Eyes: Negative for injury, pain, redness, and discharge. cp 15:50 ENT: Positive for sore throat, Negative for ear pain, difficulty swallowing, difficulty cp handling secretions. 15:50 Cardiovascular: Positive for chest pain. 15:50 Respiratory: Positive for cough, shortness of breath, Negative for wheezing. 15:50 Abdomen/GI: Negative for abdominal pain, nausea, vomiting, and diarrhea. 15:50 Back: Negative for radiated pain. 15:50 : Negative for urinary symptoms. 15:50 Skin: Negative for rash. 15:50 Neuro: Positive for weakness, Negative for altered mental status, dizziness, headache, syncope. 15:50 All other systems are negative. Exam: 15:54 ECG was reviewed by the Attending Physician. cp 15:55 Constitutional: The patient appears in no acute distress, alert, awake, cp non-diaphoretic, non-toxic, well developed, well nourished, obese. 15:55 Head/Face: Normocephalic, atraumatic. cp 15:55 Eyes: Periorbital structures: appear normal, Conjunctiva: normal, no exudate, no cp injection, Sclera: no appreciated abnormality, Lids and lashes: appear normal, bilaterally. 15:55 ENT: External ear(s): are unremarkable, Nose: is normal, Mouth: Lips: moist, Oral mucosa: moist, Posterior pharynx: Airway: no evidence of obstruction, patent, Tonsils: no enlargement, no exudate, swelling, is not appreciated, erythema, that is mild, exudate, is not appreciated. 15:55 Neck: ROM/movement: is normal, is supple, no meningismus, no nuchal rigidity, Lymph cp nodes: no appreciated lymphadenopathy. 15:55 Chest/axilla: Inspection: normal, Palpation: is normal, no crepitus, no tenderness. 15:55 Cardiovascular: Rate: normal, Rhythm: regular, Edema: is not appreciated, JVD: is not appreciated. 15:55 Respiratory: the patient does not display signs of respiratory distress, Respirations: normal, no use of accessory muscles, no retractions, labored breathing, is not present, accessory muscle usage, is absent. 15:55 Abdomen/GI: Inspection: abdomen appears normal, Bowel sounds: active, all quadrants, Palpation: abdomen is soft and non-tender, in all quadrants. 15:55 Back: pain, is absent, ROM is normal. 15:55 Skin: no rash present. 15:55 Neuro: Orientation: to person, place \T\ time. Mentation: is normal, Cerebellar function: is grossly normal, Motor: moves all fours, strength is normal, Sensation: is normal. Vital Signs: 15:25 BP 142 / 97; Pulse 125; Resp 20; Temp 98.8; Pulse Ox 99% ; Weight 127.01 kg; Height 5 sv ft. 7 in. (170.18 cm); 15:41 BP 126 / 79; Pulse 120; Resp 18; Pulse Ox 99% on R/A; mt 17:00 BP 127 / 93; Pulse 108; Resp 20; Pulse Ox 97% on R/A; em 18:26 BP 150 / 91; Pulse 91; Resp 18; Pulse Ox 100% on R/A; em 19:12 BP 135 / 95; Pulse 87; Resp 16; Pulse Ox 95% on R/A; wh 20:01 BP 123 / 85; Pulse 90; Resp 18; Pulse Ox 99% ; wh 15:25 Body Mass Index 43.86 (127.01 kg, 170.18 cm) sv MDM: 15:37 Patient medically screened. cp 16:00 Differential diagnosis: abnormal EKG, acute myocardial infarction, acute pericarditis, cp costochondritis, pulmonary embolus, stable angina, unstable angina, COVID-19. 18:34 The patient was given aspirin in the Emergency Department. Data reviewed: vital signs, cp nurses notes, lab test result(s), EKG, radiologic studies, CT scan, plain films. Test interpretation: by ED physician or midlevel provider: ECG. Physician consultation: Prince Heena BARNEY was called at 18:30, was contacted at 18:30, regarding admission, to the telemetry unit. patient's condition. 03/25 15:41 Order name: Basic Metabolic Panel wi 03/25 15:41 Order name: CBC with Diff wi 03/25 15:41 Order name: LFT's wi 03/25 15:41 Order name: Magnesium wi 03/25 15:41 Order name: NT PRO-BNP wi 03/25 15:41 Order name: PT-INR wi 03/25 15:41 Order name: Troponin (emerg Dept Use Only) wi 03/25 15:52 Order name: D-Dimer 03/25 15:52 Order name: COVID-19 03/25 15:52 Order name: Strep 03/25 16:06 Order name: Protime (+INR); Complete Time: 16:49 EDMS 03/25 18:29 Interpretation: Abnormal: PT 12.8. cp 03/25 16:10 Order name: CBC with Automated Diff; Complete Time: 16:49 EDMS 03/25 16:50 Interpretation: Normal except: RBC 4.20; HGB 13.1; MCV 95.5; LARRY% 76.7; LYM% 14.6; NEUT cp A 8.2. 03/25 16:14 Order name: Basic Metabolic Panel; Complete Time: 16:49 EDMS 03/25 18:11 Interpretation: Normal except: CL 110; GFR 84. cp 03/25 16:14 Order name: Liver (Hepatic) Function; Complete Time: 16:49 EDMS 03/25 15:41 Order name: XRAY Chest (1 view) wi 03/25 16:14 Order name: Troponin (Emerg Dept Use Only); Complete Time: 16:49 EDMS 03/25 16:50 Interpretation: TROPED < 0.02; Reviewed. 03/25 16:14 Order name: NT PRO-BNP; Complete Time: 16:49 EDMS 03/25 16:14 Order name: Magnesium; Complete Time: 16:49 EDMS 03/25 16:27 Order name: RAD; Complete Time: 16:49 EDMS 03/25 16:31 Order name: D-Dimer; Complete Time: 16:49 EDMS 03/25 16:50 Interpretation: Abnormal: D-DIMER 586. 03/25 16:51 Order name: CT Chest For PE Angio; Complete Time: 18:09 03/25 19:20 Order name: Urine Dipstick--Ancillary (enter results) ds 03/25 19:46 Order name: Urine Dipstick-Ancillary EDCT 03/25 19:50 Order name: SARS-COV-2 RT PCR EDCT 03/25 15:41 Order name: EKG; Complete Time: 15:42 mt 03/25 15:41 Order name: Cardiac monitoring; Complete Time: 15:43 mt 03/25 15:41 Order name: EKG - Nurse/Tech; Complete Time: 15:43 mt 03/25 15:41 Order name: IV Saline Lock; Complete Time: 15:43 mt 03/25 15:41 Order name: Labs collected and sent; Complete Time: 15:43 mt 03/25 15:41 Order name: O2 Per Protocol; Complete Time: 15:43 mt 03/25 15:41 Order name: O2 Sat Monitoring; Complete Time: 15:43 mt EC:54 Rate is 117 beats/min. Rhythm is regular. WV interval is normal. QRS interval is cp normal. QT interval is normal. Interpreted by me. Reviewed by me. Administered Medications: 16:03 Drug: Aspirin Chewable Tablet 324 mg Route: PO; em 16:33 Follow up: Response: No adverse reaction em 16:04 Drug: morphine 2 mg Route: IVP; Site: right antecubital; em 16:33 Follow up: Response: No adverse reaction; Marked relief of symptoms; Pain is decreased em 17:05 Drug: NS 0.9% 1000 ml Route: IV; Rate: 1 bolus; Site: right antecubital; em 19:02 Follow up: Response: No adverse reaction; IV Status: Completed infusion 18:39 Not Given (Physician Discretion): Zithromax 10 mg/kg IVPB at calculated rate once; not ss to exceed 500 mg 18:42 Drug: Rocephin 1 grams Route: IV; Rate: bolus; Site: right antecubital; em 19:03 Follow up: Response: No adverse reaction; IV Status: Completed infusion 19:03 Drug: Zithromax 500 mg Route: IVPB; Infused Over: 1 hrs; Site: right antecubital; 20:00 Follow up: Response: No adverse reaction; IV Status: Completed infusion Disposition: 03/26 11:01 Co-signature as Attending Physician, Shiv Ley MD I agree with the assessment and kdr plan of care. Disposition: 03/25/20 18:37 Hospitalization ordered by Prince Heena for Observation. Preliminary diagnosis are Pneumonia due to other specified bacteria, Chest pain, unspecified. - Bed requested for Telemetry/MedSurg (observation). - Status is Observation. - Condition is Stable. - Problem is new. - Symptoms have improved. Signatures: Dispatcher [employer] Ievt Isidro RN RN sv Rittger, Kevin, MD MD [facility] Kei Campuzano RN RN em Smirch, Shelby, RN RN ss Page, Corey, PA PA cp Garcia, Cindy, RN RN Wil[facility] Kali Bain Corrections: (The following items were deleted from the chart) 03/25 19:41 18:37 Hospitalization Ordered by Prince Heena BARNEY for Observation. Preliminary diagnosis is Pneumonia due to other specified bacteria; Chest pain, unspecified. Bed requested for Telemetry/MedSurg (observation). Status is Observation. Condition is Stable. Problem is new. Symptoms have improved. cp 20:25 19:41 03/25/2020 18:37 Hospitalization Ordered by Prince Heena BARNEY for Observation. Preliminary diagnosis is Pneumonia due to other specified bacteria; Chest pain, unspecified. Bed requested for Telemetry/MedSurg (observation). Status is Observation. Condition is Stable. Problem is new. Symptoms have improved. cg
--- NOTE | 2020-03-25 18:38 | ER ---
Nurse's Notes [facility] Name: Ethan Hall Age: 50 yrs Sex: Male : 1970 Arrival Date: 03/25/2020 Time: 15:19 Bed 7 Private MD: Diagnosis: Pneumonia due to other specified bacteria;Chest pain, unspecified Presentation: 03/24 19:10 Initial Sepsis Screen: Does the patient meet any 2 criteria? HR > 90 bpm. Does the patient have a suspected source of infection? No. Patient's initial sepsis screen is negative. 03/25 15:23 Chief complaint: Patient states: SOB, chest tightness, generalized weakness started sv today after mowing. Coronavirus screen: Client denies travel out of the [place] in the last 14 days. difficulty breathing, shortness of breath, Client presents with at least one sign or symptom that may indicate coronavirus-19. Standard/surgical mask placed on the client. Provider contacted for isolation considerations. Ebola Screen: No symptoms or risks identified at this time. 15:23 Method Of Arrival: Ambulatory sv 15:24 Risk Assessment: Do you want to hurt yourself or someone else? Patient reports no sv desire to harm self or others. Onset of symptoms was March 25, 2020. 15:24 Acuity: CHRISTINA 2 sv Historical: - Allergies: 15:25 No Known Allergies; sv - PMHx: 15:25 Hernia; Hypertension; sv - PSHx: 15:25 Hernia repair; Heart Cath; sv - Immunization history:: Flu vaccine is not up to date. - Social history:: Smoking status: Patient denies any tobacco usage or history of. Screenin:45 Abuse screen: Denies threats or abuse. Nutritional screening: No deficits noted. em Tuberculosis screening: No symptoms or risk factors identified. Fall Risk None identified. Assessment: 15:45 General: Appears in no apparent distress. comfortable, Behavior is calm, cooperative, em appropriate for age, Denies fever. Pain: Complains of pain in chest Pain currently is 5 out of 10 on a pain scale. Quality of pain is described as squeezing, Pain began this morning after mowing. Neuro: Level of Consciousness is awake, alert, obeys commands, Oriented to person, place, time, situation, Appropriate for age Moves all extremities. Cardiovascular: Reports chest pain, shortness of breath, Denies diaphoresis, vomiting, Capillary refill < 3 seconds Patient's skin is warm and dry. Rhythm is sinus tachycardia. Respiratory: Airway is patent Respiratory effort is even, unlabored, Respiratory pattern is regular, symmetrical. GI: Abdomen is round non-distended, Reports nausea. Derm: Skin is intact, is healthy with good turgor, Skin is pink, warm \T\ dry. Musculoskeletal: Capillary refill < 3 seconds, Range of motion: intact in all extremities. 16:05 Reassessment: covid swab and strep sent to lab. em 17:13 Reassessment: Patient appears in no apparent distress at this time. Patient and/or em family updated on plan of care and expected duration. Pain level reassessed. Patient is alert, oriented x 3, equal unlabored respirations, skin warm/dry/pink. 19:11 General: Appears in no apparent distress. Behavior is calm, cooperative, appropriate wh for age. Pain: Complains of pain in chest. Neuro: Level of Consciousness is awake, alert, obeys commands, Oriented to person, place, time, situation, Appropriate for age. Cardiovascular: Reports chest pain, shortness of breath, Capillary refill < 3 seconds. Respiratory: Airway is patent Respiratory effort is even, unlabored, Respiratory pattern is regular, symmetrical. GI: Abdomen is round non-distended. : No signs and/or symptoms were reported regarding the genitourinary system. EENT: No signs and/or symptoms were reported regarding the EENT system. Derm: Skin is intact, is healthy with good turgor, Skin is pink, warm \T\ dry. Musculoskeletal: Circulation, motion, and sensation intact. Vital Signs: 15:25 BP 142 / 97; Pulse 125; Resp 20; Temp 98.8; Pulse Ox 99% ; Weight 127.01 kg; Height 5 sv ft. 7 in. (170.18 cm); 15:41 BP 126 / 79; Pulse 120; Resp 18; Pulse Ox 99% on R/A; mt 17:00 BP 127 / 93; Pulse 108; Resp 20; Pulse Ox 97% on R/A; em 18:26 BP 150 / 91; Pulse 91; Resp 18; Pulse Ox 100% on R/A; em 19:12 BP 135 / 95; Pulse 87; Resp 16; Pulse Ox 95% on R/A; wh 20:01 BP 123 / 85; Pulse 90; Resp 18; Pulse Ox 99% ; wh 15:25 Body Mass Index 43.86 (127.01 kg, 170.18 cm) sv ED Course: 15:19 Patient arrived in ED. mr 15:25 Triage completed. sv 15:25 Arm band placed on. sv 15:29 Wolfgang Patrick PA is PHCP. cp 15:29 Shiv Ley MD is Attending Physician. cp 15:40 Kei Campuzano, RN is Primary Nurse. em 15:41 EKG done, by ED staff, reviewed by Shiv Ley MD. Inserted saline lock: 20 gauge in mt right antecubital area, using aseptic technique. Blood collected. 15:45 Patient has correct armband on for positive identification. Bed in low position. Call em light in reach. Side rails up X2. merchandise carrier on. Pulse ox on. NIBP on. 16:10 Basic Metabolic Panel Sent. sv 16:10 CBC with Diff Sent. sv 16:10 LFT's Sent. sv 16:10 Magnesium Sent. sv 16:10 NT PRO-BNP Sent. sv 16:10 PT-INR Sent. sv 16:10 Troponin (emerg Dept Use Only) Sent. sv 16:49 D-Dimer Sent. ss 16:49 XRAY Chest (1 view) Sent. ss 17:44 CT Chest For PE Angio In Process Unspecified. EDMS 18:36 Prince Naik MD is Hospitalizing Provider. cp 19:18 Primary Nurse role handed off by Kei Campuzano, RN mw2 19:59 Kali Bain is Primary Nurse. wh 20:02 No provider procedures requiring assistance completed. Patient admitted, IV remains in place. Administered Medications: 16:03 Drug: Aspirin Chewable Tablet 324 mg Route: PO; em 16:33 Follow up: Response: No adverse reaction em 16:04 Drug: morphine 2 mg Route: IVP; Site: right antecubital; em 16:33 Follow up: Response: No adverse reaction; Marked relief of symptoms; Pain is decreased em 17:05 Drug: NS 0.9% 1000 ml Route: IV; Rate: 1 bolus; Site: right antecubital; em 19:02 Follow up: Response: No adverse reaction; IV Status: Completed infusion wh 18:39 Not Given (Physician Discretion): Mcthromax 10 mg/kg IVPB at calculated rate once; not ss to exceed 500 mg 18:42 Drug: Rocephin 1 grams Route: IV; Rate: bolus; Site: right antecubital; 19:03 Follow up: Response: No adverse reaction; IV Status: Completed infusion 19:03 Drug: Zithromax 500 mg Route: IVPB; Infused Over: 1 hrs; Site: right antecubital; 20:00 Follow up: Response: No adverse reaction; IV Status: Completed infusion Outcome: 18:37 Decision to Hospitalize by Provider. cp 20:02 Admitted to Med/surg accompanied by tech, via wheelchair, room 209, with chart, Report called to Maggie Vilchis RN 20:02 Condition: stable 20:02 Instructed on the need for admit. 20:25 Patient left the ED. Signatures: Dispatcher [employer] Ivet Isidro RN RN Efrain Rebecca mr Kei Campuzano RN RN Vivienne Erickson RN RN Wolfgang Patrick PA PA [place], [facility], [facility] Anish White 2 Corrections: (The following items were deleted from the chart) 15:27 15:24 Acuity: CHRISTINA 3 sv sv 15:27 15:25 Pulse 125bpm; Resp 20bpm; Pulse Ox 99%; Temp 98.8F; 127.01 kg; Height 5 ft. 7 sv in.; BMI: 43.8; sv
--- NOTE | 2020-03-25 18:42 | P.HP ---
Certification for Inpatient Patient admitted to: Observation With expected LOS: <2 Midnights Practitioner: I am a practitioner with admitting privileges, knowledge of patient current condition, hospital course, and medical plan of care. Services: Services provided to patient in accordance with Admission requirements found in Title 42 Section 412.3 of the Code of Federal Regulations Patient History Date of Service: 03/25/20 Reason for admission: Chest pain History of Present Illness: Patient is a 50-year-old male with a known past medical history of morbid obesity, obstructive sleep apnea, pulmonary hypertension, atrial fibrillation an hypertension. He presents to the ER complaining of an acute onset of chest pain that started a few hours prior to presentation. He was mowing the lawn when the symptoms started. He describes a 5/10 exertional, nonradiating substernal chest pain. Associated symptoms include shortness of breath. He denies any fever or cough. Does not report any lower extremity edema or orthopnea. Patient had a similar episode 3 days prior to presentation shortly after he finished helping his daughter move. Patient follows up with Dr. Linda Celeste at [facility]. He had a negative nuclear stress test in May of 2018, and a normal heart catheterization. Allergies No Known Allergies Allergy (Unverified 08/28/16 20:02) Home Medications: Amlodipine Besylate 5 mg PO DAILY 08/28/16 Ciprofloxacin HCl [Cipro 500 MG Tablet] 500 mg PO BID #10 tab 08/30/16 Hydrocodone/Acetaminophen [Vicodin 5-325 mg Tablet] 1 each PO Q4H PRN #30 tablet 08/30/16 - Past Medical/Surgical History Diabetic: No -: hypertension -: hernia repair - Social History Alcohol use: No CD- Drugs: No Caffeine use: Yes Physical Examination - Physical Exam General: Alert, Cooperative, Mild distress, Obese HEENT: Atraumatic, Normocephalic, EOMI Respiratory: Clear to auscultation bilaterally, Normal air movement Cardiovascular: No edema, Normal pulses, Regular rate/rhythm, Normal S1 S2 Gastrointestinal: Soft and benign, Non-distended, Other (Obese abdomen) Musculoskeletal: No clubbing, No swelling, No contractures, No erythema, No tenderness, No warmth Integumentary: No rashes, No breakdown, No significant lesion, No tenderness/swelling, No erythema, No warmth, No cyanosis Neurological: Normal speech, Sensation intact, Normal affect - Studies Laboratory Data (last 24 hrs) 03/25/20 15:43: PT 12.8 H, INR 1.09 03/25/20 15:43: WBC 10.6, Hgb 13.1 L, Hct 40.0, Plt Count 304 03/25/20 15:43: Sodium 142, Potassium 4.2, BUN 12, Creatinine 1.12, Glucose 95, Magnesium 2.1, Total Bilirubin 0.3, AST 26, ALT 33, Alkaline Phosphatase 78 Assessment and Plan - Problems (Diagnosis) (1) Chest pain Current Visit: Yes Status: Acute (2) Morbid obesity Current Visit: Yes Status: Acute (3) Hypertension Current Visit: Yes Status: Acute (4) Atrial fibrillation Current Visit: Yes Status: Acute (5) Obstructive sleep apnea Current Visit: Yes Status: Acute (6) Community acquired pneumonia Current Visit: Yes Status: Acute - Advance Directives Does patient have a Living Will: No Does patient have a Durable POA for Healthcare: No Physician Review Additional Text: Assessment 50-year-old male with morbid obesity, EMELI, moderate pulmonary hypertension and hypertension currently admitted with an acute onset of chest pain. 1st troponin has been negative. The 1st EKG showing possible T-wave inversion in V6. Slightly hypertensive in the ER it SBP in the 150s. His chest pain has subsided, currently at 1/5. Chest pain Morbid obesity Hypertension Atrial fibrillation Obstructive sleep apnea Plan Admit under observation with telemetry Complete ACS workup a trending troponin and EKG Nuclear stress test in the morning Follow-up lipid panel and hemoglobin A1c Start patient on beta arnaldo and if blood pressure still uncontrolled, resume home dose of Norvasc Anticipating discharge tomorrow nuclear stress test Of note, patient had an incidental finding of patchy opacities on CT chest concerning for pneumonia. He is going to receive a dose of ceftriaxone and azithromycin. He can be discharged tomorrow on oral antibiotics.
[2020-03-25] MEDS ORDERED: CEFTRIAXONE/SWI 1gm 1 GM/10 ML SYR ONE (18:51)
[2020-03-25] MEDS: AZITHROMYCIN IV 500 MG in NA CHLORIDE 0.9% 250 ML IVPB ONE (19:00)
[2020-03-25 19:45] LABS: Urine Blood NEGATIVE (NEG); Urine Glucose NEGATIVE (NEG); Urine Protein NEGATIVE (NEG); Urine Specific Gravity 1.005 (1.005-1.030); Urine pH 5.5 (5.0-7.0)
[2020-03-25] MEDS ORDERED: NITROGLYCERIN 0.4 MG/TAB SL ONE (20:38)
[2020-03-25 22:23] VITALS: BMI 43.8
[2020-03-26] MEDS ORDERED: NITROGLYCERIN 0.4 MG/TAB SL ONE (08:12)
[2020-03-26] MEDS ORDERED: REGADENOSON 0.4 MG/5 ML SYR IV ONE (08:50)
[2020-03-26] MEDS ORDERED: ASPIRIN 81 MG CHEWABLE TABLET PO SCH (09:00)
[2020-03-26] MEDS ORDERED: CEFTRIAXONE/SWI 1gm 1 GM/10 ML SYR IV SCH (09:00)
[2020-03-26] MEDS ORDERED: INFLUENZA VACCINE (for 3y+) 0.5 ML DOSE IMVAC ONE (09:00)
[2020-03-26] MEDS ORDERED: METOPROLOL TAR 25 MG TAB PO SCH (09:00)
[2020-03-26] MEDS ORDERED: CEFTRIAXONE 1 GM/NS 50 ML 1 GM/50 ML BAG IV SCH (09:00)
[2020-03-26 09:05] VITALS: O2SAT 98
--- NOTE | 2020-03-26 09:56 | RAD REPORT ---
EXAM DESCRIPTION: NM - Rest Stress Cardiac Imaging - 03/26/2020 9:50 am CLINICAL HISTORY: acs rule out Chest pain. COMPARISON: No comparisons TECHNIQUE: The patient was administered approximately 10mCi of Tc 99m Sestamibi prior to resting SPE CT imaging of the heart. The patient was then administered approximately 30 mCi of Tc 99m Sestamibi f ollowing exercise or pharmacologic stress. Multiplanar SPECT images were reviewed. FINDINGS: No stress induced ischemic defect is seen to suggest stress induced ischemia. No fixed def ect is seen to suggest hibernating myocardium or scarred myocardium. The end diastolic volume is 133 ml, the end systolic volume is 75 ml, and the ejection fraction is 43 %. IMPRESSION: No stress induced ischemia.
[2020-03-26 12:30] VITALS: BP 145/80; TEMP 97.4
--- NOTE | 2020-03-26 16:10 | EKG ---
Test Date: 2020-03-25 Test Time: 15:35:06 Marketing Assistant [employer]: SARIAH MEASUREMENT RESULTS: Intervals: Rate: 117 MS: 128 QRSD: 72 QT: 310 QTc: 432 [place]: P: 65 MS: 128 QRS: 30 T: -8 INTERPRETIVE STATEMENTS: Sinus tachycardia Nonspecific T wave abnormality Abnormal ECG Compared to ECG 06/03/2018 18:58:04 Sinus rhythm no longer present Left ventricular hypertrophy no longer present T-wave abnormality still present Electronically Signed On 03-26-20 16:08:09 CDT by Jayy Talley
--- NOTE | 2020-03-27 11:47 | TREADPHA ---
DX: CHEST PAIN Date of Study: 03/26/2020 Ht: 5' 7 " Wt: 280 lb 1.6 oz Consulting Physician: BRITTNEY MEDICATIONS: ASPIRIN, LOPRESSOR HISTORY: 50 YEAR OLD MALE ADMITTED FOR CHEST PAIN. HISTORY OF HYPERTENSION AND HIGH CHOLESTEROL. PHYSICIAL EXAMINATION: RESTING B.P.: 126/93 RESTING H.R.: 82 RESTING EKG: NORMAL PROTOCOL: LEXISCAN EXERCISE TIME: 3:30 B.P. AT PEAK STRESS: 130/85 IMPRESSION: NEGATIVE EXERCISE TOLERANCE TEST. NO ARRYTHMIAS. NORMAL BLOOD PRESSURE RESPONSE. SEE NUCLEAR MEDICINE REPORT.
== END 2020-03-26 13:12 | disposition home or self-care (01) | DRG 313 ==
LOC: ER 15:14 → OBSVTOIN 18:49 → ERHOLD 18:49 → 2ND 20:03
PROVIDERS: ADMIT Internal Medicine; ATTEND Hospitalist
DX: R07.9 Chest pain, unspecified (principal); J18.9 Pneumonia, unspecified organism; Z68.41 Body mass index [BMI] 40.0-44.9, adult; E66.01 Morbid (severe) obesity due to excess calories; I10 Essential (primary) hypertension; I48.91 Unspecified atrial fibrillation; G47.33 Obstructive sleep apnea (adult) (pediatric); I27.20 Pulmonary hypertension, unspecified; Z79.891 Long term (current) use of opiate analgesic; Z79.899 Other long term (current) drug therapy; Z20.828 Contact with and (suspected) exposure to other viral communicable diseases
CPT/HCPCS: 36415; 71045; 71275; 78452; 80048; 80061; 80076; 81003; 83036; 83735; 83880; 84484; 85025; 85379; 85610; 87070; 87081; 90471; 93005; 93017; 96361; 96365; 96367; 96375; 99285; A9500; J0456; J0696; J2270; J2785; J7030; J7050; Q2035; Q9967; U0003

== ENCOUNTER 2020-05-20 08:58 | Emergency (ER) | payer SELFPAY ==
--- NOTE | 2020-05-20 09:48 | RAD REPORT ---
EXAM DESCRIPTION: CT - Stone Protocol - 05/20/2020 9:37 am CLINICAL HISTORY: Abdominal pain. Left flank pain COMPARISON: 2017 TECHNIQUE: Computed axial tomography of the abdomen pelvis was obtained without oral or IV contrast. Lack of IV and oral contrast limits evaluation of solid organs, bowel, and vessels. Coronal reformat debbie images were obtained and reviewed. All CT scans are performed using dose optimization technique as appropriate and may include automated exposure control or mA/KV adjustment according to patient size. FINDINGS: A renal calculus is not seen. An ureteral calculus is not noted. A bladder calculus is not present. A small left renal cyst is present. No hydronephrosis The liver, spleen, pancreas and adrenals appear grossly normal There is no evidence of diverticulitis. Ventral hernia repair IMPRESSION: Negative for a genitourinary calculus
[2020-05-20 09:54] LABS: Absolute Lymphocytes (CBC) 1.8 K/uL (0.7-4.9); Basophils % 1.5 % (0-1.3); Lymphocytes % 31.6 % (15.3-44.8); MPV 8.5 fL (7.6-11.3); RBC Red Blood Cell Count 4.42 M/uL (4.33-5.43)
[2020-05-20] MEDS ORDERED: DIAZEPAM 5 MG TABLET ONE (09:55)
--- OUTSIDE RECORDS SUMMARY | 2020-05-20 10:01 | XMS REPORT | Clinical Summary ---
:1970 Author Organization [employer] [facility] Address [address] [place] [address] Care Team Providers Name Role Phone Asked, Pcp Primary Care Provider Unavailable Allergies No Known Active Allergies Medications Medication Sig Dispensed Refills Start Date End Date Status amLODIPine Take 1 tablet 90 tablet 2 01/17/2020 Acti ve (NORVASC) 10 mg (10 mg total) tablet by mouth nightly. losartan-hydrochlor Take 1 tablet 90 tablet 3 04/05/202004/05 Active othiazide (HYZAAR) by mouth 21 100-25 mg per daily. tablet carvediloL (COREG) Take 1 tablet 180 tablet 3 04/18/202004/18 Active 12.5 MG tablet (12.5 mg 21 total) by mouth 2 (two) times a day. aspirin (ECOTRIN) Take 81 mg by 0 07/28/19 Discontinued 81 MG enteric mouth daily. 20 coated tablet losartan (COZAAR) Take 100 mg 0 11/30/19 Discontinued 100 MG tablet by mouth 20 daily. chlorthalidone Take 50 mg by 0 01/17/20 D iscontinued (HYGROTEN) 50 MG mouth daily. 20 tablet HYDROcodone-acetami Take 1 tablet 0 Discontinued nophen (NORCO) by mouth 20 7.5-325 mg per every 6 (six) tablet hours as needed for moderate pain. metoprolol tartrate Take 25 mg by 0 Discontinued (LOPRESSOR) 25 mg mouth 2 (two) 20 tablet times a day. aspirin (ECOTRIN) TAKE 1 TABLET 90 tablet 0 07/28/2019 0 Discontinued 81 MG enteric BY MOUTH ONCE 20 coated tablet DAILY metoprolol tartrate TAKE 1/2 90 tablet 0 07/28/2019 10/02/19 Discontinued (LOPRESSOR) 25 mg (ONE-HALF) 20 tablet TABLET BY MOUTH TWICE DAILY metoprolol tartrate Take /2 90 tablet 0 10/02/2019 04/04/20 Discontinued (LOPRESSOR) 25 mg (one-half) 20 ( Reorder) tablet tablet by mouth twice daily losartan (COZAAR) Take 1 tablet 90 tablet 0 11/30/2019 0 Discontinued 100 MG tablet by mouth once 20 (R eorder) daily aspirin (ECOTRIN) Take 1 tablet 90 tablet 0 11/30/2019 0 Discontinued 81 MG enteric by mouth once 20 (R eorder) coated tablet daily metoprolol tartrate Take 1 tablet 90 tablet 1 04/04/202004/18 Discontinued (LOPRESSOR) 25 mg (25 mg total) 20 tablet by mouth 2 (two) times a day. losartan (COZAAR) Take 1 tablet 90 tablet 0 04/04/2020 0 Discontinued 100 MG tablet (100 mg 20 (Formu tati total) by change) mouth daily. aspirin (ECOTRIN) Take 1 tablet 90 tablet 0 04/04/2020 0 Discontinued 81 MG enteric (81 mg total) 20 (E rror) coated tablet by mouth daily. Active Problems Problem Noted Date Cholelithiasis without cholecystitis 07/18/2018 Pulmonary HTN 05/27/2018 Overview: Added automatically from request for yash moya [id number] Diastolic dysfunction 05/23/2018 EMELI (obstructive sleep apnea) 05/05/2018 Essential hypertension 05/05/2018 Class 3 severe obesity due to excess calories without serious comorbidity 05/05/2018 in adult Encounters Date Type Specialty Care Team Description 04/18/2020 Refill Cardiology Lamar Sewell RN Med Re fill 04/05/2020 Telephone Cardiology Maia Chirinos MA Med Dose Change 04/05/2020 Orders Only Cardiology Maia Chirinos MA 04/04/2020 Refill Cardiology Loren Celeste Med Refcalista Schroeder MD 04/01/2020 Refill Cardiology Loren Celeste Med Refill MD Elda 02/28/2020 Telephone Cardiology Maia Chirinos MA Appointm ent 01/24/2020 Telephone Cardiology Sandra Stewart MA Labs Only 01/24/2020 Orders Only Cardiology Maia Chirinos MA Essentia l hypertension (Primary Dx) 01/17/2020 Orders Only Cardiology Lamar Sewell RN 01/15/2020 Orders Only Cardiology Lamar Sewell RN Essent ial hypertension (Primary Dx); Diastolic dysfu nction; Dyslipidemia 01/15/2020 Refill Cardiology Loren Celeste Med Refill MD Elda 12/20/2019 Orders Only Cardiology Maia Chirinos MA Essentia l hypertension (Primary Dx); Diastolic dysfu nction 11/27/2019 Refill Cardiology Booker Ahmed Med Refill MD Elda 10/02/2019 Refill Cardiology Booker Ahmed Med Refill MD Elda 07/28/2019 Refill Cardiology Loren Celeste Med Refill MD Elda after 05/20/2019 Surgical History Surgery Date Site/Laterality Comments CARDIAC CATHETERIZATION 06/01/2018 Radial Procedur e: Cv right heart cath; Surgeon: Loren Celeste M D; Location: [facility] n; Service: Cardiov ascular; Laterality: Radi al; HERNIA REPAIR x2 10/1999 then 2 018 abdominal CHOLECYSTECTOMY, LAPAROSCOPIC 07/18/2018 Abdomen/N/A Pr ocedure: LAPAROSCOPIC CHOLECYSTECTOMY; Surgeon: Janak Randolph MD; Location: [facility] OR; Service: General ; Laterality: N/A; Medical devices from this surgery are in t he Implants section. REPAIR, HERNIA, VENTRAL OR 07/18/2018 Abdomen Proce dure: REPAIR, HERNIA, INCISIONAL, LAPAROSCOPIC VENTRAL OR INCISIONAL, LAPAROSCOPIC; S urgeon: Janak Randolph MD; Location: [facility] OR; Service: General ;; Medical devices from this surgery are in t he Implants section. Medical History Medical History Date Comments GERD (gastroesophageal reflux disease) Hypertension Obesity History of atrial fibrillation 05/2018 Andrea Celeste Sleep apnea, obstructive has not used helen person. Sleep study repeated 06/2018 pend ing results [...] Date Last Done Comments INFLUENZA VACCINE Completed 03/25/2020, 04/20/2018 Implants Implanted Type Area Mix Technician Device Shelf Model / Identifier Expiration Serial / Date Lot Mesh Hrnia Rpr Dualmesh [id number] 1mm Oval Ptfe Ventr - [id number] Surgical Anterior: W L GORE 06/06/2022 [id number] / Implanted: 07/18/2018 at [facility] (Quantity not on file) Mesh or Abdomen, [id number] / Tissue Middle [id number] Barrier Quadrant/No Products n Specific Results Not on fileafter 05/20/2019 Insurance Payer Benefit Plan / Subscriber ID Effective Phone Address T ype Group Dates BCBS BCBS CHOICE [id number] 2017-Prese PPO PPO/FEDERAL EMPL nt PPO COMMERCIAL MISC MISC COMMERCIAL [id number] 2017-Prese Commercial nt Advance Directives For more information, please contact: [phone] Type Date Recorded 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
--- OUTSIDE RECORDS SUMMARY | 2020-05-20 10:01 | XMS REPORT | Continuity of Care Document ---
:1970 Author Organization [employer] Care Team Providers Name Role Phone [employer] Unavailable Un available Problems Problem Status Onset [...] [facility] Heart Rate 62 09/05/2019 [facility] Respitory Rate 16 09/05/2019 [facility] Height 167.64 cm 09/05/2019 [facility] Weight 123.636 09/05/2019 [facility] BMI Calculated 43.99 09/05/2019 [facility] Encounters Location Location Encounter Encounter Reason Attending ADM ND Stat us Source Details Type Number For Provider Date Date Visit Outpatient [id number] Ernie 09/04 Active [facility] [place] [facility] Outpatient [id number] Ernie 09/04 09/05 [facility] [place] Outpatient [id number] Ernie 10/16 Active [facility] [place] [facility] Ambulatory [id number] Ernie 10/16 10/16 [facility] Pre-Reg [facility] [place] Procedures No Data Provided for This Section Assessment and Plan No Data Provided for This Section Plan of Care No Data Provided for This Section Social History Social History Date Source Social History TypeResponse 09/05/2019 [facility] Smoking Status Never smoker; Exposure to Tobacco Smoke Unable to obtain; Cigarette Smoking Last 365 Days No; Reg Smoking Cessation Counseling No entered on: 09/05/19 Family History No Data Provided for This Section Advance Directives No Data Provided for This Section Functional Status No Data Provided for This Section
--- OUTSIDE RECORDS SUMMARY | 2020-05-20 10:02 | XMS REPORT | Continuity of Care Document ---
:1970 Author Organization [facility] t Address [address] [place] [address] Care Team Providers Name Role Phone Asked, Pcp Primary Care Physician Unavailable Donato HUANG Attending Clinician Unavailable Taran VERDUGO Attending Clinician Unavailable Elda Celeste MD Attending Clinician Terry VERDUGO Attending Clinician Unavailable Christine Palacios Attending Clinician Shimon Vitale Attending Clinician Payers Payer Name Policy Type Policy Effective Date Expiration Date Sour ce Number BCBSBCBS CHOICE [id number] 2017 [facility] PPO/FEDERAL EMPL 00:00:00 Methodis t [id number] /06/2017-PresentP PO COMMERCIAL [id number] 2017 [facility] MISCMISC 00:00:00 [facility] COMMERCIALxxxxxx [id number] 2017-Pr esentCommercial Problems Condition Condition Condition Status Onset Resolution Last Treating Co mments Source Name Details Category Date Date Treatment Clinician Date Cholelithi Cholelithi Disease Active 2019-0 H gena asis asis 2-11 [facility] without without 00:00: st cholecysti cholecysti 00 tis tis Pulmonary Pulmonary Disease Active 2017-06 Overview: [facility] HTN HTN 2-21 Added Methodi 00:00: automatic st 00 ally from request for surgery [id number] Diastolic Diastolic Disease Active 2017-06 Marlo ston dysfunctio dysfunctio 2-17 Me thodi n n 00:00: st 00 EMELI EMELI Disease Active 2017-06 [facility] (obstructi (obstructi -29 Me thodi ve sleep ve sleep 00:00: st apnea) apnea) 00 Essential Essential Disease Active 2017-06 Marlo ston hypertensi hypertensi 1-29 Me thodi on on 00:00: st 00 Class 3 Class 3 Disease Active 2017-06 [facility] severe severe - Methodi obesity obesity 00:00: st due to due to 00 excess excess calories calories without without serious serious comorbidit comorbidit y in adult y in adult Cerebrovas Problem Active 2019-10-19 M emoria cular 21:32:33 l accident [place] (disorder) Cerebrovas cular accident (disorder) Active Problem 10/19/2019 [facility] 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 [place] thodist Natural mother Hypertension [facility] Natural sister Hypertension [facility] Social History Social Habit Start Date Stop Date Quantity Comments Source Sex Assigned At [facility] ethodist Tobacco use and 2018-08-24 2018-08-24 Never used [facility] ethodist exposure 00:00:00 00:00:00 Alcohol intake 2018-08-24 2018-08-24 Current drinker [place] [facility] 00:00:00 00:00:00 of alcohol (finding) History SDIL 2018-04-20 2018-04-20 11 [facility] Meth odist Education 00:00:00 00:00:00 History [facility] 2018-04-20 2018-04-20 3 [facility] Meth odist Financial 00:00:00 00:00:00 History [facility] Food 2018-04-20 2018-04-20 1 [facility] Worry 00:00:00 00:00:00 History [facility] Food 2018-04-20 2018-04-20 1 [facility] Scarcity 00:00:00 00:00:00 History [facility] 2018-04-20 2018-04-20 2 [facility] Meth odist Transport Med 00:00:00 00:00:00 History [facility] 2018-04-20 2018-04-20 2 [facility] Meth odist Transport Non-Med 00:00:00 00:00:00 Alcohol Comment 2018-04-20 2018-04-20 socially Bk M ethodist 00:00:00 00:00:00 Smoking Status Start Date Stop Date Source Social History [facility] Medications Ordered Filled Start Stop Current Ordering Indication Dosage Frequency Signature Comments Components Source Medication Medication Date Date Medication? Clinician (SIG) Name Name carvediloL 2019-06- Yes 12.5mg Q.5D Take 1 [place] (COREG) 1-12 11-12 tablet Methodi 12.5 MG 00:00: 23:59 (12.[address] tablet 00 :00 total) by mouth 2 (two) times a day. losartan-hy 2019-06- Yes 1{tbl} QD Take 1 [place] drochloroth 0-30 10-30 tablet by Me bhupendra vaughan 00:00: 23:[address] (HYZAAR) 00 :00 daily. 100-25 mg per tablet metoprolol 2019-06- No 25mg Q.5D Take 1 [place] tartrate 0-29 11-12 tablet (25 Meth maria teresa (LOPRESSOR) 00:00: 00:00 mg total) st 25 mg 00 :00 by mouth 2 tablet (two) times a day. losartan 2019-06- No 100mg QD Take 1 [place] (COZAAR) 0-29 10-30 tablet Methodi 100 MG 00:00: 00:00 ([address] tablet 00 :00 total) by mouth daily. aspirin 2019-06- No 81mg QD Take 1 [facility] (ECOTRIN) 0-29 10-30 tablet (81 Met hodi 81 MG 00:00: 00:00 mg total) st enteric 00 :00 by mouth coated daily. tablet HYDROcodone 2019- No 1{tbl} Q6H Take 1 [place] -acetaminop 01-16 tablet by Me bhupendra noel (NORCO) 08:41: 00:[address] 7.5-325 mg 52 :00 every 6 per tablet (six) hours as needed for moderate pain. chlorthalid 2019- No 50mg QD Take 50 mg [place]geois one 01-16 by mouth Methodi (HYGROTEN) 08:41: 00:[address] 50 MG 47 :00 tablet amLODIPine Yes 10mg QD Take 1 [place] (NORVASC) 01-16 tablet (10 Meth maria teresa 10 mg 00:00: mg total) st tablet 00 by mouth nightly. losartan 2020- No 100mg QD Take 100 Marlo ston (COZAAR) 6-25 06-25 mg by Methodi 100 MG 16:16: 00:[address] tablet 38 :00 daily. losartan 2019-0 2020- No Take 1 [place] (COZAAR) 6-25 10-29 tablet by Metho di 100 MG 00:00: 00:[address] tablet 00 :00 daily aspirin 2019-0 2020- No Take 1 [place] (ECOTRIN) 6-25 10-29 tablet by Meth maria teresa 81 MG 00:00: 00:[address] enteric 00 :00 daily coated tablet metoprolol 2020- No Take 1/2 [place] tartrate 4-27 10-29 (one-half) Meth maria teresa (LOPRESSOR) 00:00: 00:[address] 25 mg 00 :00 mouth tablet twice daily Aspirin 81 2019-0 Yes 81 mg = 1 Me moria MG Enteric 3-31 tab, PO, l Coated 14:40: Daily, # Lee Tablet 00 90 tab, 3 Refill(s) metoprolol 2019-0 Yes 12.5 mg = Me moria tartrate 25 3-31 0.5 tab, l mg oral 14:40: PO, BID, 0 Herm tabby tablet 00 Refill(s) losartan 2019-0 Yes 100 mg = 1 Mem oria 100 mg oral 3-31 tab, PO, l tablet 14:40: Daily, 0 [place] 00 Refill(s) Hydrochloro 2020-0 Yes 50 mg [...] tab, PO, l Coated 14:40: Daily, # [place] Tablet 00 90 tab, 3 Refill(s) metoprolol [...] 0 7.5 MG Oral Refill(s) Tablet aspirin 2019-0 2020- No 81mg QD Take 81 mg Marlo ston (ECOTRIN) 07-28 by mouth Metho di 81 MG 10:33: 00:[address] enteric 01 :00 coated tablet metoprolol 2020-0 2020- No 25mg Q.5D Take 25 mg [place] tartrate 07-28- by mouth 2 Meth maria teresa (LOPRESSOR) 10:33: 00:00 (two) st 25 mg 01 :00 times a tablet day. aspirin 2020-0 2020- No TAKE 1 [place] (ECOTRIN) 07-2825 TABLET BY Meth maria teresa 81 MG 00:00: 00:[address] enteric 00 :00 DAILY coated tablet metoprolol 2019- TAKE 1/2 Ho [place] tartrate 2-25 09- (ONE-HALF) Meth maria teresa (LOPRESSOR) 00:00: 00:[address] 25 mg 00 :00 MOUTH tablet TWICE DAILY Vital Signs Vital Name Observation Time Observation Value Comments Source Systolic (mm Hg) 2019-09-05 14:34:00 Daryl lashell Howard Diastolic (mm Hg) 2019-09-05 14:34:00 [facility] orial [place] Heart Rate 2019-09-05 14:34:00 [facility] Respitory Rate 2019-09-05 14:34:00 [facility] [place] Height 2019-09-05 14:34:00 167.64 cm [facility] Weight 2019-09-05 14:34:00 [facility] BMI Calculated 2019-09-05 14:34:00 [facility] [place] Procedures This patient has no known procedures. Encounters Start End Encounter Admission Attending Care Care Encounter Source Date/Time Date/Time Type Type Clinicians Facility Department ID 2020-01-15 2020-01-[address] [facility] [id number] 00:00:00 00:00:00 [facility] [id number] Surgical [id number] Specialti [id number] [address] [place] 2019-11-22 2019-11-[address] [facility] [id number] 14:00:24 16:25:45 Visit [facility] [id number] Surgical [id number] Specialti [id number] [address] [place] 2019-10-17 2019-10-17 Outpatient Winifred TOÑOSCHSWATI MISCHER [id number] 10:30:00 10:30:00 Ernie [facility] 2019-10-17 2019-10-17 Outpatient AGUS VitaleSCHER MHTOÑOSCHER [id number] 10:30:00 10:30:00 Ernie [facility] 2019-09-05 2019-09-05 Outpatient AGUS VitaleSCHER MHMISCHER [id number] 10:00:00 23:59:59 Ernie [facility] 2019-09-05 2019-09-05 [id number] 10:00:00 23:59:59 Ernie 00 Shimon Results This patient has no known results.
[2020-05-20 10:10] LABS: ALT/SGPT 26 U/L (12-78); AST/SGOT 17 U/L (15-37); Albumin 3.9 g/dL (3.4-5.0); Alkaline Phosphatase 81 U/L (45-117); BUN Blood Urea Nitrogen 21 mg/dL (7-18); Bicarbonate 30 mmol/L (21-32); Bilirubin Direct < 0.1 mg/dL (0-0.2); Bilirubin Total 0.4 mg/dL (0.2-1.0); Glucose Level 98 mg/dL (74-106); Lipase 154 U/L (73-393); Potassium 3.8 mmol/L (3.5-5.1); Protein, Total 8.1 g/dL (6.4-8.2); Sodium Level 142 mmol/L (136-145)
[2020-05-20 10:33] LABS: Urine Blood TRACE (NEG); Urine Glucose NEGATIVE (NEG); Urine Protein NEGATIVE (NEG); Urine Specific Gravity >1.030 (1.005-1.030); Urine pH 6.5 (5.0-7.0)
--- NOTE | 2020-05-20 10:44 | EDPHYS ---
Physician Documentation [facility] Name: Ethan Hall Age: 50 yrs Sex: Male : 1970 Arrival Date: 05/20/2020 Time: 09:00 Bed 14 Private MD: ED Physician Nazario Rivera HPI: 05/20 09:27 This 50 yrs old Black Male presents to ER via Ambulatory with complaints of Flank Pain. [facility] 09:27 The patient complains of pain in the left flank. The pain radiates to the right leg and jmm left leg. Onset: The symptoms/episode began/occurred gradually, 2 week(s) ago. Modifying factors: The symptoms are alleviated by nothing. the symptoms are aggravated by nothing. Associated signs and symptoms: Pertinent negatives: dysuria, fever, vomiting. This is a 50 year old male with a history of htn that presents to the ED with complaints of left flank pain beginning approx 2 weeks ago with radiation of pain to both legs. Describes the pain as spasms. Denies vomiting, abdominal pain, diarrhea, dysuria, bowel or bladder dysfunction. . Historical: - Allergies: 09:10 No Known Allergies; iw - Home Meds: 09:10 losartan-hydrochlorothiazide 100-25 mg oral tab 1 tab once daily [Active]; carvedilol iw 12.5 mg oral tab 1 tab 2 times per day [Active]; - PMHx: 09:10 Hernia; Hypertension; iw - PSHx: 09:10 Hernia repair; Heart Cath; iw 09:10 Cholecystectomy; iw - Immunization history:: Adult Immunizations not up to date. - Social history:: Smoking status: Patient denies any tobacco usage or history of. ROS: 09:27 Constitutional: Negative for fever, chills, and weight loss, Cardiovascular: Negative jmm for chest pain, palpitations, and edema, Respiratory: Negative for shortness of breath, cough, wheezing, and pleuritic chest pain. 09:27 Back: Positive for pain at rest, pain with movement, flank pain. 09:27 MS/extremity: Positive for pain. 09:27 All other systems are negative. Exam: 09:27 Constitutional: This is a well developed, well nourished patient who is awake, alert, jmm and in no acute distress. Head/Face: atraumatic. Eyes: EOMI, no conjunctival erythema appreciated ENT: Moist Mucus Membranes Neck: Trachea midline, Supple Chest/axilla: Normal chest wall appearance and motion. Cardiovascular: Regular rate and rhythm. No edema appreciated Respiratory: Normal respirations, no respiratory distress appreciated Abdomen/GI: Non distended, soft 09:27 Skin: General appearance color normal MS/ Extremity: Moves all extremities, no obvious deformities appreciated, no edema noted to the lower extremities Neuro: Awake and alert, normal gait Psych: Behavior is normal, Mood is normal, Patient is cooperative and pleasant 09:27 Back: pain, that is moderate, ROM is normal, CVA tenderness, that is mild, is noted on the left. Vital Signs: 09:10 BP 130 / 79; Pulse 61; Resp 16; Temp 97.1; Pulse Ox 99% on R/A; Weight 129.73 kg; iw Height 5 ft. 7 in. (170.18 cm); Pain 4/10; 10:18 BP 129 / 86; Pulse 64; Resp 14; Pulse Ox 99% on R/A; zb 09:10 Body Mass Index 44.79 (129.73 kg, 170.18 cm) iw MDM: 09:22 Patient medically screened. [facility] 09:30 Differential diagnosis: nephrolithiasis, pyelonephritis, sciatica, muscle spasm. [facility] 10:42 Data reviewed: vital signs, nurses notes. Counseling: I had a detailed discussion with mikki the patient and/or guardian regarding: the historical points, exam findings, and any diagnostic results supporting the discharge/admit diagnosis, the need for outpatient follow up, to return to the emergency department if symptoms worsen or persist or if there are any questions or concerns that arise at home. ED course: Patient is alert and non toxic in appearance in the ED. Patient is advised to follow up with pcp and otherwise given strict return precautions. Patient understood and agrees with the plan of care. . 05/20 09:23 Order name: CBC with Diff; Complete Time: 10:42 [facility] 05/20 09:23 Order name: Hepatic Function; Complete Time: 10:42 [facility] 05/20 09:23 Order name: Lipase; Complete Time: 10:42 [facility] 05/20 09:24 Order name: Basic Metabolic Panel; Complete Time: 10:42 [facility] 05/20 10:27 Order name: Urine Dipstick--Ancillary (enter results); Complete Time: 10:42 bd 05/20 09:23 Order name: IV Saline Lock; Complete Time: 09:35 [facility] 05/20 09:23 Order name: Labs collected and sent; Complete Time: 09:35 [facility] 05/20 09:23 Order name: Urine Dipstick-Ancillary (obtain specimen); Complete Time: 10:17 [facility] 05/20 09:23 Order name: CT Stone Protocol; Complete Time: 09:50 jm Administered Medications: 09:49 Not Given (Given PO ): Valium 5 mg IVP once zb 09:49 Drug: Valium 5 mg Route: PO; zb 10:49 Follow up: Response: No adverse reaction zb Disposition: 17:40 Co-signature as Attending Physician, Nazario Rivera MD Did not see or evaluate patient. ps1 Signature for administrative purposes. . Disposition: 05/20/20 10:44 Discharged to Home. Impression: Sciatica, Strain of muscle and tendon of back wall of thorax. - Condition is Stable. - Discharge Instructions: Thoracic Strain. - Prescriptions for Prednisone 20 mg Oral Tablet - take 3 tablet by ORAL route once daily for 5 days; 15 tablet. orphenadrine citrate 100 mg Oral Tablet Sustained Release - take 1 tablet by ORAL route 2 times per day As needed; 20 tablet. - Medication Reconciliation Form, Thank You Letter, Antibiotic Education, Prescription Opioid Use, Work release form form. - Follow up: Private Physician; When: 2 - 3 days; Reason: Recheck today's complaints, Continuance of care, Re-evaluation by your physician. Signatures: Dispatcher [employer] [facility] Hakeem Sierra PA PA Adrianne Sierra, Nazario Hall RN, MD MD ps1 Brown, Zipporah, RN RN zb Corrections: (The following items were deleted from the chart) 10:43 09:24 BASIC METABOLIC PANEL+C.LAB.BRZ ordered. [facility] 10:58 10:44 05/20/2020 10:44 Discharged to Home. Impression: Sciatica; Strain of muscle and zb tendon of back wall of thorax. Condition is Stable. Forms are Medication Reconciliation Form, Thank You Letter, Antibiotic Education, Prescription Opioid Use. Follow up: Private Physician; When: 2 - 3 days; Reason: Recheck today's complaints, Continuance of care, Re-evaluation by your physician. [email or web address]
--- NOTE | 2020-05-20 10:44 | ER ---
Nurse's Notes [facility] Name: Ethan Hall Age: 50 yrs Sex: Male : 1970 Arrival Date: 05/20/2020 Time: 09:00 Bed 14 Private MD: Diagnosis: Sciatica;Strain of muscle and tendon of back wall of thorax Presentation: 05/20 09:06 Chief complaint: Patient states: left mid back pain X 2 weeks, thought it was muscular iw pain, has been taking Aleve, pain got worse this morning, was tender to touch. Coronavirus screen: At this time, the client does not indicate any symptoms associated with coronavirus-19. Ebola Screen: Patient negative for fever greater than or equal to 101.5 degrees Fahrenheit, and additional compatible Ebola Virus Disease symptoms Patient denies exposure to infectious person. Patient denies travel to an Ebola-affected area in the 21 days before illness onset. No symptoms or risks identified at this time. Initial Sepsis Screen: Does the patient meet any 2 criteria? No. Patient's initial sepsis screen is negative. Does the patient have a suspected source of infection? No. Patient's initial sepsis screen is negative. Risk Assessment: Do you want to hurt yourself or someone else? Patient reports no desire to harm self or others. Onset of symptoms was May 07, 2020. 09:06 Method Of Arrival: Ambulatory iw 09:06 Acuity: CHRISTINA 3 iw Historical: - Allergies: 09:10 No Known Allergies; iw - Home Meds: 09:10 losartan-hydrochlorothiazide 100-25 mg oral tab 1 tab once daily [Active]; carvedilol iw 12.5 mg oral tab 1 tab 2 times per day [Active]; - PMHx: 09:10 Hernia; Hypertension; iw - PSHx: 09:10 Hernia repair; Heart Cath; iw 09:10 Cholecystectomy; iw - Immunization history:: Adult Immunizations not up to date. - Social history:: Smoking status: Patient denies any tobacco usage or history of. Screenin:45 Abuse screen: Denies threats or abuse. Denies injuries from another. Nutritional zb screening: No deficits noted. Tuberculosis screening: No symptoms or risk factors identified. Fall Risk None identified. Assessment: 09:45 General: Appears in no apparent distress. uncomfortable, Behavior is calm, cooperative, zb appropriate for age. Pain: Complains of pain in left leg and right leg and left flank Pain does not radiate. Pain currently is 4 out of 10 on a pain scale. Quality of pain is described as aching, pressure, Pain began couple of weeks. Neuro: Level of Consciousness is awake, alert, obeys commands, Oriented to person, place, time, situation. Cardiovascular: Reports None Capillary refill < 3 seconds in bilateral Patient's skin is warm and dry. Pulses are all present. Respiratory: Airway is patent Respiratory effort is even, unlabored, Respiratory pattern is regular, symmetrical, Breath sounds are clear bilaterally. GI: Abdomen is round non-distended, obese. : No signs and/or symptoms were reported regarding the genitourinary system. EENT: No signs and/or symptoms were reported regarding the EENT system. Derm: Skin is intact, is healthy with good turgor, Skin is normal. Musculoskeletal: Circulation, motion, and sensation intact. Capillary refill < 3 seconds, in bilateral fingers. Range of motion: intact in all extremities. 10:23 Reassessment: Patient appears in no apparent distress at this time. zb Vital Signs: 09:10 BP 130 / 79; Pulse 61; Resp 16; Temp 97.1; Pulse Ox 99% on R/A; Weight 129.73 kg; iw Height 5 ft. 7 in. (170.18 cm); Pain 4/10; 10:18 BP 129 / 86; Pulse 64; Resp 14; Pulse Ox 99% on R/A; zb 09:10 Body Mass Index 44.79 (129.73 kg, 170.18 cm) ED Course: 09:00 Patient arrived in ED. rg4 09:08 Triage completed. iw 09:10 Arm band placed on. iw 09:11 Ashley Chatterjee RN is Primary Nurse. zb 09:11 Hakeem Sierra PA is PHCP. jmm 09:11 Nazario Rivera MD is Attending Physician. jmm 09:28 Initial lab(s) drawn, by me, sent to lab. Inserted saline lock: 20 gauge in right dh3 antecubital area, using aseptic technique. Blood collected. 09:34 CT completed. Patient tolerated procedure well. Patient moved to CT via stretcher. jg6 09:36 CT Stone Protocol In Process Unspecified. EDMS 09:45 Patient has correct armband on for positive identification. Call light in reach. Side zb rails up X 1. Pulse ox on. NIBP on. 10:57 No provider procedures requiring assistance completed. IV discontinued, intact, zb bleeding controlled, No redness/swelling at site. Pressure dressing applied. Administered Medications: 09:49 Not Given (Given PO ): Valium 5 mg IVP once zb 09:49 Drug: Valium 5 mg Route: PO; zb 10:49 Follow up: Response: No adverse reaction zb Outcome: :44 Discharge ordered by . raheem 10:58 Discharged to home ambulatory. zb 10:58 Condition: stable 10:58 Discharge instructions given to patient, Instructed on discharge instructions, follow up and referral plans. medication usage, Demonstrated understanding of instructions, follow-up care, medications, Prescriptions given X 2. 10:58 Patient left the ED. zb Signatures: Dispatcher [employer] EDID Hakeem Sierra PA PA jmm Williams, Irene, RN Christine Boswell 4 Tasha Otto 3 Antonietta Stewart j6 Ashley Chatterjee RN RN zb Corrections: (The following items were deleted from the chart) 09:15 09:10 129.73 kg; Height 5 ft. 7 in.; BMI: 44.7; Pain 4/10; iw 10:20 09:45 Musculoskeletal: Circulation, motion, and sensation intact. Capillary refill < 3 zb seconds, in bilateral fingers. Range of motion: zb
[2020-05-23 07:57] VITALS: TEMP 97.1; O2SAT 99
[2020-05-23 07:58] VITALS: BP 129/86
== END 2020-05-20 10:58 | disposition home or self-care (01) ==
LOC: ER 08:58
DX: M54.30 Sciatica, unspecified side (principal); S29.012A Strain of muscle and tendon of back wall of thorax, initial encounter; I10 Essential (primary) hypertension
CPT/HCPCS: 36415; 74176; 76377; 80048; 80076; 81003; 83690; 85025; 99284

== ENCOUNTER 2020-10-10 16:11 | Emergency (ER) | payer BC, SELFPAY ==
--- OUTSIDE RECORDS SUMMARY | 2020-10-10 16:16 | XMS REPORT | Continuity of Care Document ---
:[address] [facility] t Address [address] [place] [address] Care Team Providers Name Role Phone Asked, Pcp Primary Care Physician Unavailable Christine Palacios Attending Clinician Donato HUANG Attending Clinician Unavailable Mariela BARNEY, Elda Attending Clinician Taran VERDUGO Attending Clinician Unavailable Terry VERDUGO Attending Clinician Unavailable Shimon Vitale Attending Clinician Payers Payer Name Policy Type Policy Effective Date Expiration Date [facility] ce Number BCBSBCBS CHOICE [id number] 2020 [facility] PPO/FEDERAL 00:00:00 [facility] EMPL [id number] 2020-Presen tPPO Problems Condition Condition Condition Status Onset Resolution Last Treating Co mments Source Name Details Category Date Date Treatment Clinician Date Leg edema Leg edema Disease Active Marlo ston 3-30 [facility] 00:00: st 00 Encounter Encounter Disease Active Marlo ston for for 3-30 Method[facility] monitoring monitoring 00:00: st diuretic diuretic 00 therapy therapy Cardiovasc Cardiovasc Disease Active 2020- H gena ular risk ular risk 3-29 Meth maria teresa factor factor 00:00: st 00 Counseling Counseling Disease Active H gena on health on health 3-29 Meth maria teresa promotion promotion 00:00: st and and 00 disease disease prevention prevention Pulmonary Pulmonary Disease Active Marlo ston hypertensi hypertensi 3-29 Me thodi on due to on due to 00:00: st left left 00 ventricula ventricula r r diastolic diastolic dysfunctio dysfunctio n n Paroxysmal Paroxysmal Disease Active [place] atrial atrial 3-29 Method[facility] fibrillati fibrillati 00:00: st on on 00 Hypertensi Hypertensi Disease Active [place] ve heart ve heart 3-29 Method i disease disease 00:00: st without without 00 heart heart failure failure Cholelithi Cholelithi Disease Active [place] asis asis 2-11 Methodi without without 00:00: st cholecysti cholecysti 00 tis tis Pulmonary Pulmonary Disease Active 2017-06 Overview: [facility] HTN HTN 2-21 Formattin Methodi 00:00: g of this st 00 note might be different from the original. Added automatic ally from request for surgery [id number] Diastolic Diastolic Disease Active 2017-06 Marlo ston dysfunctio dysfunctio 2-17 Me thodi n n 00:00: st 00 EMELI EMELI Disease Active 2017-06 [facility] (obstructi (obstructi 1-29 Me thodi ve sleep ve sleep 00:00: st apnea) apnea) 00 Essential Essential Disease Active 2017-06 Marlo ston hypertensi hypertensi 1-29 Me thodi on on 00:00: st 00 Class 3 Class 3 Disease Active 2017-06 [facility] severe severe 1-29 Methodi obesity obesity 00:00: st due to due to 00 excess excess calories calories without without serious serious comorbidit comorbidit y in adult y in adult Allergies, Adverse Reactions, Alerts This patient has no known allergies or adverse reactions. Family History Family Member Diagnosis Comments Start Date Stop Date Source Maternal grandfather Heart attack [facility] Natural mother Diabetes [facility] thodist Natural mother Hypertension [facility] Natural sister Hypertension [facility] Social History Social Habit Start Date Stop Date Quantity Comments Source Exposure to Not sure [facility] Meth[facility] dist SARS-CoV-2 (event) Tobacco use and 2018-08-24 2018-08-24 Never used Bk Ybarra ethodist exposure 00:00:00 00:00:00 Alcohol intake 2018-08-24 2018-08-24 Current drinker [place] [facility] 00:00:00 00:00:00 of alcohol (finding) History [facility] 2018-04-20 2018-04-20 11 [facility] Meth odist Education 00:00:00 00:00:00 History [facility] 2018-04-20 2018-04-20 3 [facility] Meth odist Financial 00:00:00 00:00:00 History [facility] Food 2018-04-20 2018-04-20 1 [facility] Worry 00:00:00 00:00:00 History [facility] Food 2018-04-20 2018-04-20 1 [facility] Scarcity 00:00:00 00:00:00 History [facility] 2018-04-20 2018-04-20 2 [facility] Meth odist Transport Med 00:00:00 00:00:00 History [facility] 2018-04-20 2018-04-20 2 [facility] Meth odist Transport Non-Med 00:00:00 00:00:00 Alcohol Comment 2018-04-20 2018-04-20 socially [facility] ethodist 00:00:00 00:00:00 Sex [birth year] M [facility] ethodist 00:00:00 00:00:00 Smoking Status Start Date Stop Date Source Never smoker [facility] Ashleyis t Medications Ordered Filled Start Stop Current Ordering Indication Dosage Frequency Signature Comments Components Source Medication Medication Date Date Medication? Clinician (SIG) Name Name chlorthalid 2020- No 50mg Take 50 mg [facility] 09-18 04-14 by mouth. Methodi (HYGROTEN) 15:06: 00:00 st 50 MG 51 :00 tablet aspirin Yes 81mg Take 81 mg [place] (ECOTRIN) -14 by mouth. Metho di 81 MG 15:06: st enteric 23 coated tablet metoprolol Yes 25mg Take 25 mg [place] tartrate 4-14 by mouth. Method i (LOPRESSOR) 15:06: st 25 mg 23 tablet losartan 2020- No 100mg Take 100 Mar[facility] ston (COZAAR) 4-14 04-14 mg by Methodi 100 MG 15:03: 00:[address] tablet 55 :00 NIFEdipine 2021- Yes 120mg QD Take 2 Marlo ston XL -14 04-14 tablets [facility] (PROCARDIA 00:00: 23:59 ([address] XL) 60 MG 00 :00 total) by 24 hr mouth tablet daily. potassium Yes [facility] chloride 3-30 [facility] (K-DUR) 10 00:00: st MEQ CR 00 tablet gabapentin Yes [facility] (NEURONTIN) 3-05 Method[facility] 300 mg 00:00: st capsule 00 furosemide Yes 20mg QD Take 20 mg [place] (LASIX) 20 2-14 by mouth Metho di mg tablet 00:00: daily. st 00 carvediloL 2019-06- No 12.5mg Q.5D Take 1 [place] (COREG) 1-12 11-12 tablet Methodi 12.5 MG 00:00: 23:59 (12.[address] tablet 00 :00 total) by mouth 2 (two) times a day. losartan-hy 2019-06 No 1{tbl} QD Take 1 [place] drochloroth 0-30 10-30 tablet by Me huizar iazide 00:00: 23:[address] (HYZAAR) 00 :00 [...] aspirin 2019-06- No 81mg QD Take 1 [facility] (ECOTRIN) 0-29 10-30 tablet (81 Met hodi 81 MG 00:00: 00:00 mg total) st enteric 00 :00 by mouth coated daily. tablet HYDROcodone 2019- No 1{tbl} Q6H Take 1 H gena -acetaminop 8-12 08-12 tablet by Me bhupendra noel (NORCO) 08:41: 00:[address] 7.5-325 mg 52 :00 every 6 per tablet (six) hours as needed for moderate pain. chlorthalid 2019- No 50mg QD Take 50 mg [facility] one 01-16 by mouth [facility] (HYGROTEN) 08:41: 00:[address] 50 MG 47 :00 tablet amLODIPine 10mg QD Take 1 [place] (NORVASC) 01-16 04-14 tablet (10 Met hodi 10 mg 00:00: 00:00 mg total) st tablet 00 :00 by mouth nightly. losartan No 100mg QD Take 100 Marlo ston (COZAAR) 6-25 06-25 mg by Methodi 100 MG 16:16: 00:[address] tablet 38 :00 daily. losartan 2019- No Take 1 [place] (COZAAR) 6-25 10-29 tablet by Metho di 100 MG 00:00: 00:[address] tablet 00 :00 daily aspirin 2019- No Take 1 [facility] (ECOTRIN) 6-25 10-29 tablet by Meth maria teresa 81 MG 00:00: 00:[address] enteric 00 :00 daily coated tablet metoprolol No Take 1/2 [place] tartrate 4-27 10-29 (one-half) Meth maria teresa (LOPRESSOR) 00:00: 00:[address] 25 mg 00 :00 mouth tablet twice daily aspirin No TAKE 1 [facility] (ECOTRIN) 2-21 06-25 TABLET BY Meth maria teresa 81 MG 00:00: 00:[address] enteric 00 :00 DAILY coated tablet diclofenac Yes TAKE 1 [place] (VOLTAREN) 6-12 TABLET BY Meth maria teresa 75 MG EC 00:00: MOUTH st tablet 00 TWICE DAILY WITH MEALS meloxicam Yes 7.5mg Take 7.5 [facility] ston (MOBIC) 7.5 5-10 mg by Methodi mg tablet 00:00: mouth. st 00 Vital Signs Vital Name Observation Time Observation Value Comments Source Body height 2020-09-02 10:15:00 170.2 cm Bk Abarca Body weight 2020-09-02 10:15:00 127.007 kg Bk Abarca BMI 2020-09-02 10:15:00 43.85 kg/m2 Bk Abarca Procedures Procedure Date / Time Performed Performing Clinician [facility] e THYROID STIMULATING 2020-09-24 10:50:00 Dev [place] [facility] HORMONE Mohamed T4, FREE 2020-09-24 10:50:00 Dev [place] Meth odist Mohamed CBC WITH PLATELET AND 2020-09-24 10:50:00 Dev iSerra [facility] DIFFERENTIAL Mohamed HEMOGLOBIN A1C 2020-09-24 10:50:00 Dev [facility] Meth odist Duranamed COMPREHENSIVE METABOLIC 2020-09-24 10:50:00 [place] north [facility] PANEL Mohamed B NATRIURETIC PEPTIDE 2020-09-24 10:50:00 [place]iela[place] north [facility] Mohamed LIPOPROTEIN (A) 2020-09-24 10:50:00 Dev Sierra MAGNESIUM LEVEL 2020-09-24 10:50:00 Dev Sierra LIPID PANEL 2020-09-24 10:50:00 Mariela, deangelo lemus Mohamed LDL CHOLESTEROL, DIRECT 2020-09-24 10:50:00 [facility] Mohamed TTE COMPLETE, WO 2020-09-17 16:45:00 Dev Sierra Met aggie CONTRAST, W DOPPLER Elda ([id number]) US DUPLEX VENOUS LOWER 2020-09-17 14:30:00 Dev [place] on [facility] EXTREMITY BILATERAL Mohamed XR CHEST 2 VW 2020-09-17 13:42:00 Mariela deangelo [facility] odist Mohamed Plan of Care Planned Activity Planned Date Details Comments Source Future Scheduled 2021-01-05 INFLUENZA VACCINE Rachel salazar [facility] Test 00:00:00 [code = INFLUENZA VACCINE] Future Scheduled 1989 Hepatitis C [facility] Met hodist Test 00:00:00 screening (procedure) [code = 540371599] Future Scheduled 1987 COVID-19 VACCINE (1) Marlogauri lucero [facility] Test 00:00:00 [code = COVID-19 VACCINE (1)] Encounters Start End Encounter Admission Attending Care Care Encounter Source Date/Time Date/Time Type Type Clinicians Facility Department ID 2020-09-29 2020-09-29 MIGUEL ANGEL Yee [id number] 00:00:00 00:00:00 [facility] [id number] Surgical [id number] Specialti [id number] es 198 [place] 2020-09-17 2020-09-17 Outpatient MARIELA, [facility] [id number] [facility] 00:00:00 00:00:00 AHMED 354 Method i 2020-09-17 2020-09-17 Outpatient MARIELA, [facility] [id number] [facility] 00:00:00 00:00:00 AHMED 837 Method i 2020-09-17 2020-09-17 Outpatient MARIELA, [facility] [id number] [facility] 00:00:00 00:00:00 AHMED 355 Method i 2020-09-03 2020-09-03 Outpatient MARIELA, [facility] [id number] [facility] 00:00:00 00:00:00 AHMED 292 Method i 2020-08-27 2020-08-27 Outpatient MARIELA, [facility] [id number] [facility] 00:00:00 00:00:00 AHMED 659 Method i 2020-08-06 2020-08-06 Miguelina James [facility] [id number] 00:00:00 00:00:00 [facility] [id number] Surgical 4.2.7.2.686 Specialti [id number] es 198 [place] 2020-06-18 2020-06-18 Miguelina aJmes [facility] [id number] 00:00:00 00:00:00 [facility] [id number] Surgical 4.2.7.2.686 Specialti [id number] es 198 [place] 2020-01-15 2020-01-15 Miguelina James [facility] 1.2.840.114 [id number] 00:00:00 00:00:00 [facility] [id number] Surgical 4.2.7.2.686 Specialti [id number] es 198 [place] 2019-11-22 2019-11-22 Rosemarie James [facility] [id number] 14:00:24 16:25:45 Visit [facility] [id number] Surgical 4.2.7.2.686 Count Includes [facility] [id number] 198 Katrina 2019-10-17 2019-10-17 [facility] [id number] 10:30:00 10:30:00 Ernie Shimon 2019-10-17 2019-10-17 Outpatient [facility]red [id number] 10:30:00 10:30:00 Ernie Shimon 2019-09-05 2019-09-05 [facility] [id number] 10:00:00 23:59:59 Ernie Shimon 2019-09-05 2019-09-05 Outpatient [facility]ifred, [facility] [id number] 10:00:00 23:59:59 Ernie Shimon Results Test Description Test Time Test Comments Results Result Comments Source Comprehensive metabolic panel 2020-09-28 16:14:00 Test Item Value Reference Range Interpretation Comme nts Glucose (test code = 93 mg/dL 65-99 Fasting 2345-7) reference inter jayson BUN (test code = 3094-0) 17 mg/dL 7-25 Creatinine (test code = 1.14 mg/dL 0.60-1.35 2160-0) EGFR Non-Afr. Vincentian 75 See_Comment [Aut omated message] (test code = 2775) The syste m which generated this result transmitted ref erence range: > OR = 6 0 mL/min/1.73m2. The reference range was not used to interpr et this result as normal/abnormal . EGFR 87 See_Comment [Auto mated message] (test code = 2774) The syste m which generated this result transmitted ref erence range: > OR = 6 0 mL/min/1.73m2. The reference range was not used to interpr et this result as normal/abnormal . BUN/creatinine ratio NOT APPLICABLE See_Comment [Aut omated message] (test code = 3097-3) The sys tem which generated this result transmitted ref erence range: 6 - 22 ( calc). The reference r baylee was not used to int erpret this result as normal/abnormal . Sodium (test code = 141 mmol/L 507-805 5165-2) Potassium (test code = 4.7 mmol/L 3.5-5.3 2823-3) Chloride (test code = 102 mmol/L 98-110 5-0) CO2 (test code = 2027-) 31 mmol/L 20-32 Calcium (test code = 10.1 mg/dL 8.6-10.3 97210-1) Protein (test code = 7.4 g/dL 6.1-8.1 2885-2) Albumin, S (test code = 4.4 g/dL 3.6-5.1 1751-7) Globulin, total (test 3.0 See_Comment [Auto mated message] code = 90007-4) The system w [facility] generated this result transmitted ref erence range: 1.9 - 3. 7 g/dL (calc). The ref erence range was not u sed to interpret this result as normal/abnor mal. Albumin/globulin ratio 1.5 See_Comment [Aut omated message] (test code = 1759-0) The [facility] tem which generated this result transmitted ref erence range: 1.0 - 2. 5 (calc). The ref erence range was not u sed to interpret this result as normal/abnor mal. Total bilirubin (test 0.5 mg/dL 0.2-1.2 code = 1974-2) Alkaline phosphatase 60 U/L 36-130 (test code = 6768-6) AST (test code = 1920-8) 14 U/L 10-40 ALT (test code = 1742-6) 16 U/L 9-46 ESAU (test code = ESAU) FASTING:YES FASTING: YES RAC (test code = RAC) Performing Organization Information: Site ID: RGA Name: [facility] Address: [address] [place] [id number] Director: Carroll Bourgeois MethodistLipid [id number] 16:14:00 Test Item Value Reference Range Interpretation Comments Cholesterol, total 138 mg/dL <200 (test code = 2092-3) HDL cholesterol 42 mg/dL See_Comment [Automated (test code = 2085-02) message ] The system which generated this result transmitted reference range : > OR = 40. The reference range was not used to interpret this result as normal/abnormal . Triglycerides (test 80 mg/dL <150 code = 2571-8) LDL cholesterol 80 mg/dL (calc) Reference ra nge: calculated (test <100 Desira ble code = 48257-9) range <100 m g/dL for primary prevention; <7 0 mg/dL for patients with C HD or diabetic patients with > or = 2 CHD risk factors. LDL-C is now calculated using the Miles-Elvia calculation, which is a validated novel method providin g better accuracy than the Friedewald equation in the estimation of LDL-C. Miles S S et al. ANGELA. 2013;310(19): 7737-0517 (http://educati on .SimulScribe .com/faq/DTZ326 ) Cholesterol/HDL 3.3 See_Comment [Automated ratio (test code = message] The 9830-1) system which generated this result transmitted reference range : <5.0 (calc). Th e reference range was not used to interpret this result as normal/abnormal . Non-HDL cholesterol 96 See_Comment For abel ents with (test code = diabetes plus 1 54818-4) major ASCVD ris k factor, treatin g to a non-HDL-C goal of <100 mg/dL (LDL-C of <70 mg/dL) is considered a therapeutic option. [Automated message] The system which generated this result transmitted reference range : <130 mg/dL (calc). The reference range was not used to interpret this result as normal/abnormal . ESAU (test code = FASTING:YES ESAU) FASTING: YES RAC (test code = Performing RAC) Organization Information: Site ID: RGA Name: [facility] Address: [address] [place] [phone] Director: Carroll Bourgeois MethodistHemoglobin [id number] 16:14:00 Test Item Value Reference Range Interpretation Comments Hemoglobin A1C 5.4 See_Comment For the purpo se of (test code = screening for t he 4548-4) presence ofdiab etes: <5.7% Consistent with the absence of diabetes5.7-6.4 % Consistent with increased risk for diabetes (prediabetes)> or =6.5% Consiste nt with diabetes T his assay result is consistent with a decreased risko f diabetes. Curre ntly, no consensus ex ists regarding use ofhemoglobin A1 c for diagnosis of di abetes in children. According to [place] er[place] Diabetes Associ ation (ADA)guidelines , hemoglobin A1c <7.0% represents optimalcontrol in non- di abetic patients. Differentmetric s may apply to specif ic patient populat ions. Standards of Pr dical Care in Diabetes(ADA). [Automated mess age] The system [facility] generated this result transmitted ref erence range: <5.7 % o f total Hgb. The reference range was not used to int erpret this result as normal/abnormal . ESAU (test code = FASTING:YES ESAU) FASTING: YES RAC (test code = Performing RAC) Organization Information: Site ID: [facility] Name: [facility] Address: [address] [place] [address] Director: Carroll AbarcaLDL cholesterol, [id number] 16:14:00 Test Item Value Reference Range Interpretation Comments LDL Direct 81 mg/dL <100 Desirable rang e (test code = <100 mg/[place] [address]-8) primary prevention; <7 0 mg/dL for patie nts with CHD or diabetic patien ts with > or = 2 C HD risk factors. ESAU (test code FASTING:YES FASTING: = ESAU) YES RAC (test code Performing = RAC) Organization Information: Site ID: [facility] Name: [facility] Address: [address] [place] [address] Director: Carroll AbarcaMagnesium [id number] 16:14:00 Test Item Value Reference Range Interpretation Comments Magnesium (test code 1.9 mg/dL 1.5-2.5 = 48091-2) ESAU (test code = ESAU) FASTING:YES FASTING: YES RAC (test code = RAC) Performing Organization Information: Site ID: [facility] Name: [facility] Address: [address] [place] [address] Director: Carroll AbarcaB natriuretic [id number] 16:14:00 Test Item Value Reference Range Interpretation Comments BNP (test 5 pg/mL <100 BNP levels inc rease code = with age in the 58846-4) generalpopulati on with the highest jayson ues seen inindividuals g reater than 75 years o f age.Reference: J. Am. Rush. Cardiol. 2002; 40:976-982. ESAU (test FASTING:YES code = ESAU) FASTING: YES RAC (test Performing code = RAC) Organization Information: Site ID: [facility] Name: [facility] Address: [address] [place] [address] Director: Carroll Rockridge [facility] AdventismT4, [id number] 16:14:00 Test Item Value Reference Range Interpretation Comments T4, free (test code 1.1 ng/dL 0.8-1.8 = 3024-7) ESAU (test code = FASTING:YES FASTING: YES ESAU) RAC (test code = Performing Organization RAC) Information: Site ID: [facility] Name: [facility] Address: [address] [place] [address] Director: Carroll Wilsonenridge [facility] AshleyistThyroid stimulating [id number] 16:14:00 Test Item Value Reference Range Interpretation Comments TSH (test 1.76 See_Comment [Automated [facility]] code = The system [facility] h 3016-3) generated this result transmit debbie reference range : 0.40 - 4.50 mIU /L. The reference r baylee was not used to interpret this result as normal/abnormal . ESAU (test FASTING:YES FASTING: code = ESAU) YES RAC (test Performing code = RAC) Organization Information: Site ID: [facility] Name: [facility] Address: [address] [place] [address] Director: Carroll Lawson [facility] with platelet and [id number] 16:14:00 Test Item Value Reference Range Interpretation Comments WBC (test code = 5.9 See_Comment [Automated 7615-2) message] The system which generated this result transmitted reference range : 3.8 - 10.8 Thousand/uL. Th e reference range was not used to interpret this result as normal/abnormal . RBC (test code = 5.07 See_Comment [Automated 789-8) message] The system which generated this result transmitted reference range : 4.20 - 5.80 Million/uL. The reference range was not used to interpret this result as normal/abnormal . HGB (test code = 15.4 g/dL 13.2-17.1 718-7) HCT (test code = 47.6 % 38.5-50.0 4544-3) MCV (test code = 93.9 fL 80.0-100.0 787-2) MCH (test code = 30.4 pg 27.0-33.0 785-6) MCHC (test code = 32.4 g/dL 32.0-36.0 786-4) RDW (test code = 13.6 % 11.0-15.0 788-0) Platelet count 298 See_Comment [Automated (test code = message] The 777-3) system which generated this result transmitted reference range : 140 - 400 Thousand/uL. Th e reference range was not used to interpret this result as normal/abnormal . MPV (test code = 9.8 fL 7.5-12.5 776-5) Neutrophils, 3570 See_Comment [Automated absolute (test message] The code = 751-8) system which generated this result transmitted reference range : 1,500 - 7,800 cells/uL. The reference range was not used to interpret this result as normal/abnormal . Lymphocytes, 1634 See_Comment [Automated absolute (test message] The code = 731-0) system which generated this result transmitted reference range : 850 - 3,900 cells/uL. The reference range was not used to interpret this result as normal/abnormal . Monocytes, 431 See_Comment [Automated absolute (test message] The code = 742-7) system which generated this result transmitted reference range : 200 - 950 cells/uL. The reference range was not used to interpret this result as normal/abnormal . Eosinophils, 248 See_Comment [Automated absolute (test message] The code = 711-2) system which generated this result transmitted reference range : 15 - 500 cells/uL. The reference range was not used to interpret this result as normal/abnormal . Basophils, 18 See_Comment [Automated absolute (test message] The code = 704-7) system which generated this result transmitted reference range : 0 - 200 cells/u L. The reference range was not used to interpr et this result as normal/abnormal . Neutrophils (test 60.5 % code = 770-8) Lymphocytes (test 27.7 % code = 736-9) Monocytes (test 7.3 % code = 5905-5) Eosinophils (test 4.2 % code = 713-8) Basophils + RC 0.3 % (test code = 706-2) ESAU (test code = FASTING:YES ESAU) FASTING: YES RAC (test code = Performing RAC) Organization Information: Site ID: RGA Name: [facility] Address: [address] [place] [address] Director: Carroll Lawson [facility] MethodmerissaLipoprotein (a)2020-09-28 16:14:00 Test Item Value Reference Range Interpretation Comments Lipoprotein (a) 46 nmol/L <75 Risk: Optim al < 75 (test code = nmol/L; Moderat e 45013-9) 75-125 nmol/L; High >125 nmol/L Cardiovascular event risk category c ut points (optimal,modera te, high) are based on Bettye JENNINGSC2017;69:6 92-71 1. ESAU (test code = FASTING:YES ESAU) FASTING: YES RAC (test code = Performing RAC) Organization Information: Site ID: EZ Name: [facility]/Breonna jordan [facility], Address: [address] [place] [phone] Director: Evon uBrks MD,PhD,KVNG [facility] MethodistTransthoracic Echocardiogram Complete, (w Contrast, Strain and 3D if needed)2020-09-17 16:57:00Interface, Radiology Results In - 09/17/2020 4:58 PM CDT Echocardiography Report [id number] [facility], [place] [address], [place] [address] Pat.Name: ANAMARIA LANDERS.ID: [id number] .Date: 09/17/2020 Refer.MD: DEV SIERRA MD Exam Time: 3:45:00 PM Study Type:Routine Echo Height: 67in Weight: 300lb BSA: 2.4 m2 Age: 10 1970,50Y Sex: MALE BP: 135/82 HR: 75 bpm Sonogrphr: Tyhugo Browning, [facility]. Stat.:Outpatient Room: [address] Study Status:Final Echo Event ID:[id number] Order ID: [id number] Reason for Study:Hypertension Procedures: 2D Echo, Colorflow DopplerRace: B SUMMARY: LV size is normal.LV EF is normal.RV size is normal.RV systolic function is normal.Estimated PA systolic pressure is 30 mmHg, assuming a mean RAP of 5mmHg.Normal Doppler study. No intracardiac flow abnormalities detected byDoppler. FINDINGS: LV: LV size is normal. Concentric left ventricular remodeling. LV EF is normal. Overall wall motion is normal. Estimated EF is 60-64%.RV: RV size is normal. RV systolic function is normal.LA: LA size is normal.RA: RA size is normal.AO: Aortic root diameter is normal.CHIQUIS: No pericardial effusion.AV:No structural AV abnormalities noted.MV: No structural MV abnormalities noted.PV: No structural PV abnormalities noted.TV: No structural TV abnormalities noted. A trace of tricuspid regurgitation Serra: Normal diastolic function and LV filling pressures.Other: Estimated PA systolic pressure is 30 mmHg, assuming a mean RAP of 5 mmHg. Normal Doppler study. No intracardiac flow abnormalities detected by Doppler. MEASUR EMENTS: 2DParasternal Long AxisAo An 2 cm LVPWd 1.3 cm Ao Rtd 3.3 cm Index 1.4 cm/m2 LA Ds 4.5 cm IVSd 1.3 cm RWT 0.6 LVIDd 4.5 cm Index 1.9 cm/m2 LV Omtl859.1 g (122-174) LVIDs 3.3 cm LVM Index 94.2 g/m2 LV%fs 28 % LVOT 1.8 cm LA Sng Plane LA Area 22.1 cm2 (8.8-23.4) LA Vol 68.1 ml Index 28.4 ml/m2 LA LngAx 6.2 cm RA Sng Plane RA Vol 49.7 ml Index 20.7 ml/m2 RA LngAx 5.1 cm RA Area 16.7 cm2 (8.3- 19.5)LVOT LVOT Area 2.5 cm2 DOPPLERLVOT Stroke Vol & Cardiac Out LVOT TVI 26.4 cm HR 71 bpm LVOT LVOT SV 65.5 ml LVOT CO 4.6 l/min SVi 27.3 ml/m2 LVOT CI 1.9 l/m/m2 Signed 09/17/2020 04:57 Marko Romo MDSaint [facility]Us duplex venous lower [id number] 16:13:00Interface, Radiology Results In - 09/17/2020 4:13 PM CDT Vascular Ultrasound Laboratory Lower Extremity Venous Report [id number] [place] [address] Pat.Name: ANAMARIA LANDERS Pat.ID: [id number] .Date: 09/17/2020 Refer.MD: DEV SIERRA MD Exam Time: 2:02:00PM Study Type:LE Venous Age: 10 1970,50Y Sex: MALE Sonogrphr: Maureen Acosta RVT Pat. Stat.:Outpatient Room:[facility] 16 Tape Vol: RF, CPT - 4: 57217 Echo Event ID:[id number] Order ID: [id number] Reason for Study:Bilateral leg swelling and pain with the left greaterthan the right X 4 months.Procedures: Colorflow, Grayscale/2D, PowerDoppler ImagingRace: B SUMMARY:------- Deep Veins Superficial Veins* Normal Reflux Criteria: < 1 second * Normal RefluxCriteria: < 0.5 seconds * Abnormal Reflux Criteria: > or equal to 1 second * Abnormal RefluxCriteria: > or equal to 0.5 seconds DUPLEX SCAN OBSERVATIONS Deep Veins Superficial Veins Right Left Right Left GSV (prox) Normal NormalCFV Normal Normal (above knee)Femoral Normal Normal GSV (dist) Normal NormalProfunda Normal Normal (below knee)Popliteal Normal NormalPT (prox) Normal Normal SSV Not Visualized NormalPT (dist) Normal Normal Peroneal Normal Normal Gastrocs Normal NormalRIGHT: There is normal compressibility with no evidence of echogenicmaterial noted within the lumen of the visualized veins. Colorflow andDoppler signals arenormal. LEFT: There is normal compressibility with no evidence of echogenicmaterial noted within thelumen of the visualized veins. Colorflow andDoppler signals are normal. PRELIMINARY FINDINGS:1. Normal venous duplex exam of the visualized veins. PHYSICIAN INTERPRETATION: Venous examination of theboth lower extremities demonstrated noevidence of venous thrombosis in the visualized veins. Normalcompressibility and augmentation of all veins visualized. FINDINGS: Signed 09/17/2020 04:13 PMAbram Millan MD, [facility] Chest 2 [id number] 14:14:39Hm Interface, Radiology Results Incoming 09/17/2020 2:17 PM CDTFormatting of this note might be di fferent from the original.EXAMINATION: XR CHEST 2 VWCLINICAL HISTORY: E66.01 Morbid (severe) obesity due to excess calories, Z68.41 Body mass index (BMI)40.0-44.9 adult, cough IMPRESSION:Heart and mediastinum are normal. Lungs are clear. There is degenerative change of the thoracic spine.[id number] Bk Abarca
[2020-10-10 18:40] LABS: Hematocrit 44.6 % (39.6-49.0); Lymphocytes % 24.5 % (15.3-44.8); MPV 8.7 fL (7.6-11.3); RBC Red Blood Cell Count 4.72 M/uL (4.33-5.43)
[2020-10-10] MEDS ORDERED: ASPIRIN 81 MG CHEWABLE TABLET ONE (18:40)
[2020-10-10] MEDS ORDERED: DIPHENHYDRAMINE 50 MG/ML VIAL ONE (18:40)
[2020-10-10] MEDS ORDERED: METHYLPREDNISOLONE 125 MG INJ ONE (18:40)
[2020-10-10] MEDS ORDERED: FAMOTIDINE 20 MG/2 ML VIAL IV ONE (18:41)
[2020-10-10] MEDS ORDERED: predniSONE 20 MG TAB ONE (18:41)
[2020-10-10 18:56] LABS: ALT/SGPT 28 U/L (12-78); AST/SGOT 19 U/L (15-37); Albumin 4.3 g/dL (3.4-5.0); Alkaline Phosphatase 65 U/L (45-117); BUN Blood Urea Nitrogen 23 mg/dL (7-18); Bicarbonate 31 mmol/L (21-32); Bilirubin Direct < 0.1 mg/dL (0-0.2); Bilirubin Total 0.3 mg/dL (0.2-1.0); Glucose Level 85 mg/dL (74-106); NT PRO-BNP 11 pg/mL (<125); Potassium 4.3 mmol/L (3.5-5.1); Protein, Total 8.2 g/dL (6.4-8.2); Sodium Level 143 mmol/L (136-145); Troponin (Emerg Dept Use Only) < 0.02 ng/mL (0.0-0.045)
[2020-10-10 19:17] LABS: Protime INR 1.06
--- NOTE | 2020-10-10 19:18 | ER ---
Nurse's Notes [facility] Name: Ethan Hall Age: 50 yrs Sex: Male : 1970 Arrival Date: 10/10/2020 Time: 16:12 Bed 15 Private MD: Diagnosis: Essential (primary) hypertension;Obesity, unspecified;Angioneurotic edema-mild/resolved;Edema, unspecified;Acute kidney failure, unspecified-insufficency Presentation: 10/10 16:29 Chief complaint: Patient states: Last night, I noticed both legs swollen then my L leg ca1 hurt and numb. It got better but in the morning I felt the pain went to my L shoulder. Then after lunch I felt my tongue was swollen then my throat swollen too. Been SOB too. Coronavirus screen: Client denies travel out of the [place] in the last 14 days. shortness of breath, Client presents with at least one sign or symptom that may indicate coronavirus-19. Standard/surgical mask placed on the client. Provider contacted for isolation considerations. Ebola Screen: Patient negative for fever greater than or equal to 101.5 degrees Fahrenheit, and additional compatible Ebola Virus Disease symptoms Patient denies exposure to infectious person. Patient denies travel to an Ebola-affected area in the 21 days before illness onset. No symptoms or risks identified at this time. Initial Sepsis Screen: Does the patient meet any 2 criteria? No. Patient's initial sepsis screen is negative. Does the patient have a suspected source of infection? No. Patient's initial sepsis screen is negative. Risk Assessment: Do you want to hurt yourself or someone else? Patient reports no desire to harm self or others. Onset of symptoms was October 10, 2020. 16:29 Method Of Arrival: Ambulatory ca1 16:29 Acuity: CHRISTINA 3 ca1 Triage Assessment: 19:13 Respiratory: Onset: The symptoms/episode began/occurred gradually, the patient has ap3 moderate shortness of breath. Historical: - Allergies: 16:33 No Known Allergies; ca1 - PMHx: 16:33 Hernia; Hypertension; ca1 - PSHx: 16:33 Hernia repair; Heart Cath; Cholecystectomy; ca1 - Immunization history:: Client reports having NOT received the Covid vaccine. Flu vaccine is not up to date. - Social history:: Smoking status: Patient denies any tobacco usage or history of. Screenin:00 Abuse screen: Denies threats or abuse. Nutritional screening: No deficits noted. ap3 Tuberculosis screening: No symptoms or risk factors identified. Fall Risk None identified. Assessment: 18:58 General: Appears in no apparent distress. comfortable, Behavior is calm, cooperative, ap3 appropriate for age. Pain: Denies pain. Neuro: Level of Consciousness is awake, alert, obeys commands, Oriented to person, place, time, situation. Cardiovascular: Reports shortness of breath, LEFT ARM TINGLING, AND LEG PAIN. Cardiovascular: Rhythm is regular. Respiratory: Airway is patent Respiratory effort is even, unlabored, Respiratory pattern is regular, symmetrical, Breath sounds are clear bilaterally. GI: No signs and/or symptoms were reported involving the gastrointestinal system. : No signs and/or symptoms were reported regarding the genitourinary system. EENT: Reports TONGUE SWELLING. Derm: No deficits noted. Vital Signs: 16:29 BP 120 / 86; Pulse 65; Resp 16 S; Temp 98.7(TE); Pulse Ox 100% on R/A; Weight 127.01 kg ca1 (R); Height 5 ft. 7 in. (170.18 cm) (R); Pain 5/10; 19:16 BP 146 / 91; Pulse 61; Pulse Ox 100% on R/A; ap3 16:29 Body Mass Index 43.85 (127.01 kg, 170.18 cm) ca1 ED Course: 16:12 Patient arrived in ED. ds1 16:32 Triage completed. ca1 16:33 Arm band placed on right wrist. ca1 17:22 Wolfgang Vazquez MD is Attending Physician. chance 17:28 Aleida Ryan, REINA is Primary Nurse. ap3 18:28 Inserted saline lock: 20 gauge in right antecubital area, using aseptic technique. dh4 Blood collected. 18:47 XRAY Chest (1 view) In Process Unspecified. EDMS 19:01 Patient has correct armband on for positive identification. Bed in low position. Call ap3 light in reach. Side rails up X 1. monitoring tech on. Pulse ox on. NIBP on. Door closed. Noise minimized. Warm blanket given. 19:16 Alfredo Reno MD is Referral Physician. chance 19:25 US Extremity Venous W Compression Hilario In Process Unspecified. EDMS 19:29 No provider procedures requiring assistance completed. IV discontinued, intact, ap3 bleeding controlled, No redness/swelling at site. Administered Medications: 18:31 Drug: predniSONE 20 mg Route: PO; ap3 19:31 Follow up: Response: No adverse reaction ap3 18:31 Drug: Aspirin 162 mg Route: PO; ap3 19:30 Follow up: Response: No adverse reaction ap3 18:32 Drug: Pepcid (famotidine) 20 mg Route: IVP; Site: right antecubital; ap3 19:31 Follow up: Response: No adverse reaction ap3 18:32 Drug: Benadryl (diphenhydrAMINE) 25 mg Route: IVP; Site: right antecubital; ap3 19:31 Follow up: Response: No adverse reaction ap3 18:32 Drug: SOLU-Medrol (methylPrednisoLONE) 125 mg Route: IVP; Site: right antecubital; ap3 19:31 Follow up: Response: No adverse reaction ap3 Outcome: 19:17 Discharge ordered by MD. fletcher 19:29 Condition: stable ap3 19:29 Discharge instructions given to patient, Instructed on discharge instructions, follow up and referral plans. medication usage, Demonstrated understanding of instructions, follow-up care, medications, Prescriptions given X 5 19:30 Discharged to home ambulatory. ap3 19:31 Patient left the ED. ap3 Signatures: Dispatcher [employer] EDMS Wolfgang Vazquez MD MD cha Sanford, Demi ds1 Aleida Ryan RN RN ap3 Amy Parekh RN RN ca1 Anand Walton 4 Corrections: (The following items were deleted from the chart) 19:01 18:58 Musculoskeletal: Capillary refill < 3 seconds, Tenderness present in left lateral ap3 ankle ap3
--- NOTE | 2020-10-10 19:18 | EDPHYS ---
Physician Documentation [facility] Name: Ethan Hall Age: 50 yrs Sex: Male : 1970 Arrival Date: 10/10/2020 Time: 16:12 Bed 15 Private MD: ED Physician Wolfgang Vazquez HPI: 10/10 18:00 This 50 yrs old Black Male presents to ER via Ambulatory with complaints of Breathing chance Difficulty, Swelling Of Tongue. 18:00 The patient has shortness of breath at rest, with light activity. Onset: The chance symptoms/episode began/occurred 1 day(s) ago. Duration: The symptoms are intermittent, with no pattern. The patient's shortness of breath has no apparent modifying factors. Associated signs and symptoms: Pertinent positives: chest pain, tongue swelling. Severity of symptoms: At their worst the symptoms were moderate in the emergency department the symptoms have improved. The patient has experienced similar episodes in the past, several times. Historical: - Allergies: 16:33 No Known Allergies; ca1 - PMHx: 16:33 Hernia; Hypertension; ca1 - PSHx: 16:33 Hernia repair; Heart Cath; Cholecystectomy; ca1 - Immunization history:: Client reports having NOT received the Covid vaccine. Flu vaccine is not up to date. - Social history:: Smoking status: Patient denies any tobacco usage or history of. ROS: 18:02 Constitutional: Negative for fever, chills, and weight loss, Eyes: Negative for injury, chance pain, redness, and discharge, ENT: Negative for injury, pain, and discharge, Neck: Negative for injury, pain, and swelling, Cardiovascular: Negative for chest pain, palpitations, and edema, Abdomen/GI: Negative for abdominal pain, nausea, vomiting, diarrhea, and constipation, Back: Negative for injury and pain, : Negative for injury, bleeding, discharge, and swelling, Skin: Negative for injury, rash, and discoloration, Neuro: Negative for headache, weakness, numbness, tingling, and seizure, Psych: Negative for depression, anxiety, suicide ideation, homicidal ideation, and hallucinations, Allergy/Immunology: Negative for hives, rash, and allergies, Endocrine: Negative for neck swelling, polydipsia, polyuria, polyphagia, and marked weight changes, Hematologic/Lymphatic: Negative for swollen nodes, abnormal bleeding, and unusual bruising. 18:02 Respiratory: Positive for cough, with no reported sputum. 18:02 MS/extremity: Positive for swelling, of the right leg and left leg. Exam: 18:02 Constitutional: This is a well developed, well nourished patient who is awake, alert, chance and in no acute distress. Head/Face: Normocephalic, atraumatic. Eyes: Pupils equal round and reactive to light, extra-ocular motions intact. Lids and lashes normal. Conjunctiva and sclera are non-icteric and not injected. Cornea within normal limits. Periorbital areas with no swelling, redness, or edema. ENT: Nares patent. No nasal discharge, no septal abnormalities noted. Tympanic membranes are normal and external auditory canals are clear. Oropharynx with no redness, swelling, or masses, exudates, or evidence of obstruction, uvula midline. Mucous membranes moist. Neck: Trachea midline, no thyromegaly or masses palpated, and no cervical lymphadenopathy. Supple, full range of motion without nuchal rigidity, or vertebral point tenderness. No Meningismus. Chest/axilla: Normal chest wall appearance and motion. Nontender with no deformity. No lesions are appreciated. Cardiovascular: Regular rate and rhythm with a normal S1 and S2. No gallops, murmurs, or rubs. Normal PMI, no JVD. No pulse deficits. Respiratory: Lungs have equal breath sounds bilaterally, clear to auscultation and percussion. No rales, rhonchi or wheezes noted. No increased work of breathing, no retractions or nasal flaring. Abdomen/GI: Soft, non-tender, with normal bowel sounds. No distension or tympany. No guarding or rebound. No evidence of tenderness throughout. Back: No spinal tenderness. No costovertebral tenderness. Full range of motion. Male : Normal genitalia with no discharge or lesions. Skin: Warm, dry with normal turgor. Normal color with no rashes, no lesions, and no evidence of cellulitis. Neuro: Awake and alert, GCS 15, oriented to person, place, time, and situation. Cranial nerves II-XII grossly intact. Motor strength 5/5 in all extremities. Sensory grossly intact. Cerebellar exam normal. Normal gait. Psych: Awake, alert, with orientation to person, place and time. Behavior, mood, and affect are within normal limits. 18:02 Musculoskeletal/extremity: ROM: no acute changes, intact in all extremities, Circulation is intact in all extremities. Sensation intact. Compartment Syndrome exam of affected extremity: is normal. Joints: All joints appear normal with full range of motion. DVT Exam: no pain, no tenderness, negative Homans' sign noted on exam, no appreciated bluish discoloration, no erythema, no increased warmth, swelling. 19:11 ECG was reviewed by the Attending Physician. [facility] Vital Signs: 16:29 BP 120 / 86; Pulse 65; Resp 16 S; Temp 98.7(TE); Pulse Ox 100% on R/A; Weight 127.01 kg ca1 (R); Height 5 ft. 7 in. (170.18 cm) (R); Pain 5/10; 19:16 BP 146 / 91; Pulse 61; Pulse Ox 100% on R/A; ap3 16:29 Body Mass Index 43.85 (127.01 kg, 170.18 cm) ca1 MDM: 17:22 Patient medically screened. chance 18:04 Differential diagnosis: Bronchitis Myocardial Infarction pneumonia, pulmonary edema, chance Unstable Angina. Antibiotic administration: Not indicated. The patient's Wells Deep Vein Thrombosis Score was calculated as follows: Total Score: 0-2 Pts- Low Risk. The patient's pulmonary embolism risk score was calculated as follows: Total Score: 0-2 points. This patient was found to be at low risk for a pulmonary embolism by using the Well's assessment criteria. Immunization status:. Data reviewed: vital signs, nurses notes, lab test result(s), EKG, radiologic studies, doppler, plain films. Data interpreted: monitoring manager: rate is 65 beats/min, rhythm is regular, Pulse oximetry: on room air is 100 %. Test interpretation: by ED physician or midlevel provider: ECG, plain radiologic studies. 10/10 18:00 Order name: Basic Metabolic Panel; Complete Time: 19: [facility] 10/10 18:00 Order name: CBC with Diff; Complete Time: : [facility] 10/10 18:00 Order name: LFT's; Complete Time: : [facility] 10/10 18:00 Order name: Magnesium; Complete Time: : [facility] 10/10 18:00 Order name: NT PRO-BNP; Complete Time: : [facility] 10/10 18:00 Order name: PT-INR [facility] 10/10 18:00 Order name: Troponin (emerg Dept Use Only); Complete Time: 19:06 [facility] 10/10 18:00 Order name: XRAY Chest (1 view) [facility] 10/10 18:00 Order name: US Extremity Venous W Compression Hilario 10/10 18:00 Order name: EKG; Complete Time: 18:02 [facility] 10/10 18:00 Order name: Cardiac monitoring; Complete Time: 18:40 [facility] 10/10 18:00 Order name: EKG - Nurse/Tech; Complete Time: 18:40 [facility] 10/10 18:00 Order name: IV Saline Lock; Complete Time: 18:29 [facility] 10/10 18:00 Order name: Labs collected and sent; Complete Time: 18:29 [facility] 10/10 18:00 Order name: O2 Per Protocol; Complete Time: 18:28 [facility] 10/10 18:00 Order name: O2 Sat Monitoring; Complete Time: 18:28 [facility] EC:11 Rate is 62 beats/min. Rhythm is regular. QRS Merino is Normal. ND interval is normal. QRS chance interval is normal. QT interval is normal. No Q waves. T waves are Normal. No ST changes noted. Clinical impression: Normal ECG and No evidence of ischemia. Interpreted by me. Reviewed by me. Administered Medications: 18:31 Drug: predniSONE 20 mg Route: PO; ap3 19:31 Follow up: Response: No adverse reaction ap3 18:31 Drug: Aspirin 162 mg Route: PO; ap3 19:30 Follow up: Response: No adverse reaction ap3 18:32 Drug: Pepcid (famotidine) 20 mg Route: IVP; Site: right antecubital; ap3 19:31 Follow up: Response: No adverse reaction ap3 18:32 Drug: Benadryl (diphenhydrAMINE) 25 mg Route: IVP; Site: right antecubital; ap3 19:31 Follow up: Response: No adverse reaction ap3 18:32 Drug: SOLU-Medrol (methylPrednisoLONE) 125 mg Route: IVP; Site: right antecubital; ap3 19:31 Follow up: Response: No adverse reaction ap3 Disposition: 10/10/20 19:17 Discharged to Home. Impression: Essential (primary) hypertension, Obesity, unspecified, Angioneurotic edema - mild/resolved, Edema, unspecified, Acute kidney failure, unspecified - insufficency. - Condition is Stable. - Discharge Instructions: Edema, Hypertension, Obesity, Adult, Angioedema, Hypertension, Qzzl-on-Buoq, Edema, Shpe-kc-Sakp, Acute Kidney Injury, Adult, Angioedema, Xhen-yx-Rkfb, How to Take Your Blood Pressure, Ndwc-uz-Hmav, Aspirin and Your Heart, Managing Your Hypertension, Peripheral Edema. - Prescriptions for Benadryl 25 mg Oral Capsule - take 1 capsule by ORAL route every 6 hours As needed; 30 tablet. Pepcid 20 mg Oral Tablet - take 1 tablet by ORAL route every 12 hours for 10 days; 20 tablet. Hydrochlorothiazide 12.5 mg Oral Tablet - take 1 tablet by ORAL route once daily; 30 tablet. Medrol (Frederick) 4 mg Oral Tablets, Dose Pack - take 1 tablet by ORAL route as directed - follow package instructions; 1 packet. EpiPen 0.3 mg Injection auto- injector - inject 1 pen by INTRAMUSCULAR route as directed Inject into the outer portion of the thigh, through clothing if necessary. Indicated in the emergency treatment of allergic reactions; 1 Cartridge. - Medication Reconciliation Form, Thank You Letter, Antibiotic Education, Prescription Opioid Use form. - Follow up: Private Physician; When: 2 - 3 days; Reason: Recheck today's complaints, Continuance of care, Re-evaluation by your physician. Follow up: Alfredo Reno; When: 2 - 3 days; Reason: Recheck today's complaints, Re-evaluation by your physician. - Problem is new. - Symptoms have improved. Signatures: Dispatcher [employer] EDMS Wolfgang Vazquez MD MD cha Prokisch, Amanda, RN RN ap3 Amy Parekh RN RN ca1 Corrections: (The following items were deleted from the chart) 19:31 19:17 10/10/2020 19:17 Discharged to Home. Impression: Essential (primary) ap3 hypertension; Obesity, unspecified; Angioneurotic edema - mild/resolved; Edema, unspecified; Acute kidney failure, unspecified - insufficency. Condition is Stable. Discharge Instructions: Edema, Hypertension, Obesity, Adult, Angioedema, Hypertension, Mrik-wt-Kyyb, Edema, Hgbm-bb-Uhzs, Angioedema, Fltk-ye-Ffzx, How to Take Your Blood Pressure, Pobd-pe-Bcek, Aspirin and Your Heart, Managing Your Hypertension, Peripheral Edema, Acute Kidney Injury, Adult. Prescriptions for Benadryl 25 mg Oral Capsule - take 1 capsule by ORAL route every 6 hours As needed; 30 tablet, Pepcid 20 mg Oral Tablet - take 1 tablet by ORAL route every 12 hours for 10 days; 20 tablet, Hydrochlorothiazide 12.5 mg Oral Tablet - take 1 tablet by ORAL route once daily; 30 tablet, Medrol (Frederick) 4 mg Oral Tablets, Dose Pack - take 1 tablet by ORAL route as directed - follow package instructions; 1 packet, EpiPen 0.3 mg Injection auto-injector - inject 1 pen by INTRAMUSCULAR route as directed Inject into the outer portion of the thigh, through clothing if necessary. Indicated in the emergency treatment of allergic reactions; 1 Cartridge. and Forms are Medication Reconciliation Form, Thank You Letter, Antibiotic Education, Prescription Opioid Use. Follow up: Private Physician; When: 2 - 3 days; Reason: Recheck today's complaints, Continuance of care, Re-evaluation by your physician. Follow up: Alfredo Reno; When: 2 - 3 days; Reason: Recheck today's complaints, Re-evaluation by your physician. Problem is new. Symptoms have improved. chance
--- NOTE | 2020-10-10 19:27 | RAD REPORT ---
EXAM DESCRIPTION: Joel Single View10/10/2020 6:47 pm CLINICAL HISTORY: Chest pain COMPARISON: 2019 FINDINGS: The lungs appear clear of acute infiltrate. The heart is normal size IMPRESSION: No acute abnormalities displayed
--- NOTE | 2020-10-10 19:37 | RAD REPORT ---
EXAM DESCRIPTION: USExtrem Venous W Compress Bil10/10/2020 7:25 pm CLINICAL HISTORY: Leg swelling COMPARISON: none FINDINGS: The common femoral, superficial femoral, popliteal and posterior tibial veins bilaterally are compressible and demonstrate augmentation. Doppler demonstrates good flow. IMPRESSION: No evidence of deep venous thrombosis involving either lower extremity.
[2020-10-10 19:48] VITALS: TEMP 98.7; O2SAT 100
[2020-10-10 19:49] VITALS: BP 146/91
--- NOTE | 2020-10-11 07:50 | EKG ---
Test Date: 2020-10-10 Test Time: 18:35:56 Dispatch Clerk: TOAN MEASUREMENT RESULTS: Intervals: Rate: 62 OH: 124 QRSD: 78 QT: 386 QTc: 391 [place]: P: 19 OH: 124 QRS: 42 T: 8 INTERPRETIVE STATEMENTS: Normal sinus rhythm Normal ECG Compared to ECG 03/25/2020 15:35:06 Sinus tachycardia no longer present T-wave abnormality no longer present Electronically Signed On 10-11-20 07:48:17 CDT by Jayy Talley
== END 2020-10-10 19:31 | disposition home or self-care (01) ==
LOC: ER 16:11
DX: I10 Essential (primary) hypertension (principal); R60.9 Edema, unspecified; N17.9 Acute kidney failure, unspecified; E66.9 Obesity, unspecified
CPT/HCPCS: 93005; 85025; 80048; 36415; 83735; 85610; 80076; 84484; 83880; 71045; 93970; 96375; 96374; 99284; J1200; J2930; J7512

== ENCOUNTER 2021-09-22 07:55 | Emergency (ER) | payer BC ==
--- OUTSIDE RECORDS SUMMARY | 2021-09-22 07:59 | XMS REPORT | Continuity of Care Document ---
:1970 Author Organization [facility] t Address [address] [place] [address] Care Team Providers Name Role Phone PCP, DOES NOT HAVE A Primary Care Physician Unavailable NORY CHEN Attending Clinician Unavailable John CHAVEZP Attending Clinician Jacob RAGLAND, S Attending Clinician MARIELA Attending Clinician Unavailable NORY CHEN Admitting Clinician Unavailable Payers Payer Name Policy Type Policy Number Effective Date Expiration Date S jasmin [facility] [id number] 2020 00:00:00 Problems Condition Condition Condition Status Onset Resolution Last Treating Co mments Source Name Details Category Date Date Treatment Clinician Date Venous Venous Disease Active Univers insufficie insufficie - it y of ncy of ncy of 00:00: [place] both lower both lower 00 Me dical extremitie extremitie Br anch s s Venous Venous Disease Active Univers reflux reflux - ity of 00:00: [place] 00 Medical Branch Allergies, Adverse Reactions, Alerts Allergy Allergy Status Severity Reaction(s) Onset Inactive Treating Comm ents Source Name Type Date Date Clinician NO KNOWN Drug Active Univers ALLERGIE Class ity of S [place] [facility] Social History Social Habit Start Date Stop Date Quantity Comments Source Exposure to Not sure University of SARS-CoV-2 [place] Medical (event) Branch Alcohol intake 2021-09-11 2021-09-11 Current University of 00:00:00 00:00:00 non-drinker of [facility] alcohol Branch (finding) Tobacco use and 2017-07-07 2017-07-07 Never used Universit y of exposure 00:00:00 00:00:00 [facility] Sex Ass[birth year] At [birth year] Universit y of 00:00:00 00:00:00 [facility] Smoking Status Start Date Stop Date Source Never smoker [facility] Medications Ordered Filled Start Stop Current Ordering Indication Dosage Frequency Signature Comments Components Source Medication Medication Date Date Medication? Clinician (SIG) Name Name peg-electro Yes [id number] Take as Univers lyte soln -07 directed ity of [id number] [place] -5.86 00 colonoscop [facility] gram y Branch solution diclofenac Yes [id number] 75mg Take 1 Univers 75 mg EC 4-05 tablet by ity of tablet 00:00: mouth 2 [place] (two) Medical times [place] daily with meals. meloxicam Yes [id number] 7.5mg Take 1 Univers (MOBIC) 7.5 2-21 tablet by ity of mg tablet 00:00: mouth [place] 00 daily. Medical Branch diclofenac 2020-06 Yes [id number] 75mg Take 1 Univers 75 mg EC 0-26 tablet by ity of tablet 00:00: mouth 2 [place] (two) Medical times [place] daily with meals. meloxicam 2020-06 Yes [id number] 7.5mg Take 1 Univers (MOBIC) 7.5 0-26 tablet by ity of mg tablet 00:00: mouth [place] 00 daily. Medical Branch aspirin 81 Yes 81mg Take 81 mg U nivers mg EC 7-28 by mouth. ity of tablet 15:29: [address] metoprolol Yes 25mg Take 25 mg U nivers tartrate 25 7-28 by mouth. ity of mg tablet 15:29: [address] chlorthalid Yes 50mg Take 50 mg Univers one 50 mg 7-28 by mouth. ity o f tablet 15:29: [place] 43 Medical Branch losartan 2021-0 Yes 100mg Take 100 Univ ers 100 mg 7-28 mg by ity of tablet 15:29: mouth. [place] 43 [facility] carvediloL 0 Yes Univers 12.5 mg 6-30 ity of tablet 00:00: [place] 00 Medical Branch diclofenac 2019-0 Yes [id number] 75mg Take 1 Univers 75 mg EC 6-12 tablet by ity of tablet 00:00: mouth 2 [place] 00 (two) [facility] times [place] daily with meals. Vital Signs Vital Name Observation Time Observation Value Comments Source Systolic blood 2021-09-11 17:23:00 164 [facility] Diastolic blood 2021-09-11 17:23:00 97 [facility]Hg[facility] 2021-09-11 17:23:00 69 /min [facility] Body temperature 2021-09-11 17:23:00 36.83 Lashawn [facility] Respiratory rate 2021-09-11 17:23:00 16 /min [facility] Body height 2021-09-11 17:23:00 170.2 cm [facility] Body weight 2021-09-11 17:23:00 122.018 kg [facility] BMI 2021-09-11 17:23:00 42.13 kg/m2 [facility] Procedures This patient has no known procedures. Encounters Start End Encounter Admission Attending Care Care Encounter Source Date/Time Date/Time Type Type Clinicians Facility Department ID 2021-09-25 2021-09-[address] [facility] [id number] Univers 08:15:00 08:15:[facility] [id number] 2021-09-25 2021-09-25 [email or web address] MYKEL [id number] Univers 08:15:00 08:15:00 CARMEN [facility] 2021-09-11 2021-09-11 Office OLIVIA Lopez [id number] Univers 12:30:00 13:00:00 Visit [facility] [id number] i ty of CL[id number] [id number] [address] 2020-09-29 2020-09-29 [email or web address] [id number] 00:00:00 00:00:00 [facility] [id number] Surgical [id number] Specialti [id number] es [address] [place] 2020-09-17 2020-09-17 Outpatient MARIELA, [facility] [id number] [place] 00:00:00 00:00:00 AHMED [address] [facility] i 2020-09-17 2020-09-17 Outpatient MARIELA, [facility] [id number] [place] 00:00:00 00:00:00 AHMED 837 [facility] i 2020-09-17 2020-09-17 Outpatient MARIELA, [facility] [id number] [place] 00:00:00 00:00:00 AHMED [address] 2020-09-03 2020-09-03 Outpatient MARIELA, [facility] [id number] [place] 00:00:00 00:00:00 AHMED [address] 2020-08-27 2020-08-27 Outpatient MARIELA, [facility] [id number] [place] 00:00:00 00:00:00 AHMED [address] 2020-08-06 2020-08-06 [email or web address] [id number] 00:00:00 00:00:00 [facility] [id number] Surgical [id number] Specialti [id number] es [address] [place] 2020-06-18 2020-06-18 [email or web address] [id number] 00:00:00 00:00:00 [facility] [id number] Surgical [id number] Specialti [id number] es [address] [place] 2020-01-15 2020-01-15 [email or web address] [id number] 00:00:00 00:00:00 [facility] [id number] Surgical [id number] Specialti [id number] es [address] [place] 2019-11-22 2019-11-22 Office Jacob [facility] [id number] 14:00:24 16:25:45 Visit [facility] [id number] Surgical [id number] Specialti [id number] es [address] [place] Results This patient has no known results.
[2021-09-22] MEDS ORDERED: NA CHLORIDE 0.9% 1,000 ML ONE ×2 (08:31→10:38)
[2021-09-22 08:45] LABS: Hematocrit 42.3 % (39.6-49.0); Lymphocytes % 9.4 % (15.3-44.8); MPV 7.6 fL (7.6-11.3)
[2021-09-22 09:01] LABS: Albumin 3.7 g/dL (3.4-5.0); Bilirubin Total 0.9 mg/dL (0.2-1.0); Protein, Total 7.9 g/dL (6.4-8.2)
[2021-09-22] MEDS ORDERED: MORPHINE 4 MG/ML SYR ONE (09:21)
[2021-09-22] MEDS ORDERED: ONDANSETRON 4 MG/2 ML VIAL ONE (09:21)
[2021-09-22 09:48] LABS: SARS-COV-2 RT PCR NEGATIVE (NEGATIVE)
--- NOTE | 2021-09-22 10:26 | RAD REPORT ---
EXAM DESCRIPTION: CT - Abdomen Pelvis W Contrast - 09/22/2021 10:08 am CLINICAL HISTORY: Abdominal pain COMPARISON: 2018 TECHNIQUE: Computed axial tomography of the abdomen pelvis was obtained. 100 cc Isovue-300 was admin istered intravenously. Oral contrast was not requested which limits evaluation of bowel. All CT scans are performed using dose optimization technique as appropriate and may include automated exposure control or mA/KV adjustment according to patient size. FINDINGS: Cholecystectomy. The liver, spleen, pancreas, and adrenals appear unremarkable. Small renal cysts. Ventral hernia repair. There is no evidence of diverticulitis. Normal appendix IMPRESSION: No acute abnormality is displayed.
[2021-09-22] MEDS ORDERED: KETOROLAC 30 MG/ML INJ ONE (10:38)
--- NOTE | 2021-09-22 12:13 | EDPHYS ---
Physician Documentation [facility] Name: Ethan Hall Age: 51 yrs Sex: Male : 1970 Arrival Date: 09/22/2021 Time: 07:57 Bed 10 Private MD: ED Physician Devin Orosco HPI: 09/22 08:24 This 51 yrs old Black Male presents to ER via Ambulatory with complaints of Weakness, pm1 Diarrhea. 08:24 The patient presents to the emergency department with weakness of the entire body, pm1 generalized weakness. Onset: The symptoms/episode began/occurred yesterday. 08:24 The patient presents to the emergency department with diarrhea, 10 times since the pm1 onset of symptoms. Possible causes: unknown. The symptoms are aggravated by nothing. The symptoms are alleviated by nothing. Associated signs and symptoms: Pertinent negatives: abdominal pain, nausea, vomiting. Severity of symptoms: in the emergency department the symptoms are worse. The patient has not experienced similar symptoms in the past. The patient has not recently seen a physician. Historical: - Allergies: 08:22 No Known Allergies; ph - PMHx: 08:22 Hernia; Hypertension; ph - Immunization history:: Adult Immunizations unknown. - Social history:: Smoking status: Patient denies any tobacco usage or history of. ROS: 08:24 Constitutional: Negative for fever, chills, and weight loss, Cardiovascular: Negative pm1 for chest pain, palpitations, and edema, Respiratory: Negative for shortness of breath, cough, wheezing, and pleuritic chest pain. 08:24 Back: Negative for injury and pain, : Negative for injury, bleeding, discharge, and swelling, MS/Extremity: Negative for injury and deformity, Skin: Negative for injury, rash, and discoloration, Neuro: Negative for headache, weakness, numbness, tingling, and seizure. 08:24 Abdomen/GI: Positive for diarrhea, Negative for abdominal pain, nausea and vomiting. 08:24 All other systems are negative. Exam: 08:24 Constitutional: This is a well developed, well nourished patient who is awake, alert, pm1 and in no acute distress. Head/Face: Normocephalic, atraumatic. 08:24 Back: No spinal tenderness. No costovertebral tenderness. Full range of motion. Skin: Warm, dry with normal turgor. Normal color with no rashes, no lesions, and no evidence of cellulitis. MS/ Extremity: Pulses equal, no cyanosis. Neurovascular intact. Full, normal range of motion. 08:24 Cardiovascular: Rate: tachycardic, Rhythm: regular, Pulses: no pulse deficits are appreciated, Heart sounds: normal, normal S1and S2. 08:24 Respiratory: Exam negative for acute changes, respiratory distress, shortness of breath, Breath sounds: are clear throughout. 08:24 Abdomen/GI: Exam negative for acute changes, Inspection: scar(s), Palpation: abdomen is soft and non-tender, in all quadrants. 08:24 Neuro: Exam negative for acute changes, Orientation: is normal, Mentation: is normal, Motor: is normal, moves all fours. Vital Signs: 08:21 BP 130 / 83; Pulse 135; Resp 18; Temp 98.1; Pulse Ox 98% on R/A; Weight 127.01 kg; ph Height 5 ft. 7 in. (170.18 cm); 09:22 Pulse 120; Resp 22; ll1 10:47 Pulse 112; Resp 20; ll1 12:09 Pulse 98; Resp 20; ll1 08:21 Body Mass Index 43.85 (127.01 kg, 170.18 cm) ph MDM: 08:52 Patient medically screened. pm1 10:29 Data reviewed: vital signs. Data interpreted: Pulse oximetry: on room air is 98 %. pm1 Interpretation: normal. 10:30 Counseling: I had a detailed discussion with the patient and/or guardian regarding: the pm1 historical points, exam findings, and any diagnostic results supporting the discharge/admit diagnosis, lab results, radiology results, the need for outpatient follow up, to return to the emergency department if symptoms worsen or persist or if there are any questions or concerns that arise at home. 09/22 08:24 Order name: CBC with Diff; Complete Time: 08:57 pm1 09/22 08:24 Order name: CMP; Complete Time: 09:29 pm1 09/22 08:24 Order name: Magnesium; Complete Time: 09:29 pm1 09/22 08:26 Order name: COVID-19/FLU A+B (Document "Date of Onset" if Symptomatic); Complete Time: pm1 10:10 09/22 08:57 Order name: CT Abd/Pelvis - IV Contrast Only; Complete Time: 10:29 pm1 09/22 08:24 Order name: IV Saline Lock; Complete Time: 08:25 pm1 09/22 08:26 Order name: EKG; Complete Time: 08:26 pm1 09/22 08:26 Order name: EKG - Nurse/Tech; Complete Time: 08:36 pm1 Administered Medications: 08:36 Drug: NS 0.9% 1000 ml Route: IV; Rate: 1000 ml; Site: right antecubital; ll1 10:30 Follow up: Response: No adverse reaction; IV Status: Completed infusion; IV Intake: ll1 1000ml 09:22 Drug: morphine 4 mg Route: IVP; Site: right antecubital; ll1 10:47 Follow up: Response: No adverse reaction ll1 09:22 Drug: Zofran (Ondansetron) 4 mg Route: IVP; Site: right antecubital; ll1 10:47 Follow up: Response: No adverse reaction ll1 10:40 Drug: Ketorolac 30 mg Route: IVP; Site: right antecubital; ll1 19:26 Follow up: Response: No adverse reaction; Pain is decreased ll1 10:40 Drug: NS 0.9% 1000 ml Route: IV; Rate: 1000 ml; Site: right antecubital; ll1 19:26 Follow up: Response: No adverse reaction; IV Status: Completed infusion; IV Intake: ll1 1000ml Disposition: 21:31 Co-signature as Attending Physician, Devin HUNG was immediately available on-site ms3 in the Emergency Department for consultation in the care of the patient.. Disposition Summary: 09/22/21 12:12 Discharge Ordered Location: Home pm1 Problem: new pm1 Symptoms: have improved pm1 Condition: Stable pm1 Diagnosis - Diarrhea, unspecified pm1 - Abdominal pain, unspecified pm1 Followup: pm1 - With: Emergency Department - When: As needed - Reason: Worsening of condition Followup: pm1 - With: Private Physician - When: 2 - 3 days - Reason: Recheck today's complaints, Continuance of care, Re-evaluation by your physician Discharge Instructions: - Discharge Summary Sheet pm1 - Abdominal Pain, Adult pm1 - Food Choices to Help Relieve Diarrhea, Adult pm1 - Diarrhea, Adult pm1 - Viral Gastroenteritis, Adult pm1 Forms: - Medication Reconciliation Form pm1 - Thank You Letter pm1 - Antibiotic Education pm1 - Prescription Opioid Use pm1 - Work release form ll1 Prescriptions: - dicyclomine 20 mg Oral Tablet - take 1 tablet by ORAL route every 6 hours As needed; 20 tablet; Refills: 0, pm1 Product Selection Permitted Signatures: Dispatcher [employer] Alexandrea Piña RN RN ph Marinas, Patrick, JODY LANDFILL GRADER pm1 Vivi Cannon RN RN ll1 Devin Orosco DO DO ms3
--- NOTE | 2021-09-22 12:13 | ER ---
Nurse's Notes [facility] Name: Ethan Hall Age: 51 yrs Sex: Male : 1970 Arrival Date: 09/22/2021 Time: 07:57 Bed 10 Private MD: Diagnosis: Diarrhea, unspecified;Abdominal pain, unspecified Presentation: 09/22 08:21 Chief complaint: Patient states: watery diarrhea since yesterday and leg cramping, ph denies pain, fever, or chills. Coronavirus screen: Vaccine status: Patient reports being unvaccinated. Ebola Screen: No symptoms or risks identified at this time. Initial Sepsis Screen: Does the patient meet any 2 criteria? No. Patient's initial sepsis screen is negative. Does the patient have a suspected source of infection? No. Patient's initial sepsis screen is negative. Risk Assessment: Do you want to hurt yourself or someone else? Patient reports no desire to harm self or others. Onset of symptoms was September 22, 2021. 08:21 Method Of Arrival: Ambulatory ph 08:21 Acuity: CHRISTINA 2 ph Triage Assessment: 19:27 General: Appears in no apparent distress. Behavior is calm, cooperative, appropriate ll1 for age. Historical: - Allergies: 08:22 No Known Allergies; ph - PMHx: 08:22 Hernia; Hypertension; ph - Immunization history:: Adult Immunizations unknown. - Social history:: Smoking status: Patient denies any tobacco usage or history of. Screenin:22 Abuse screen: Denies threats or abuse. Nutritional screening: No deficits noted. ll1 Tuberculosis screening: No symptoms or risk factors identified. 12:35 Fall Risk IV access (20 points). Total Cheney Fall Scale indicates No Risk (0-24 pts). ll1 Assessment: 09:22 Reassessment: No changes from previously documented assessment. Patient and/or family ll1 updated on plan of care and expected duration. Pain level reassessed. Patient is alert, oriented x 3, equal unlabored respirations, skin warm/dry/pink. Pain: Complains of pain in abdomen Pain currently is 6 out of 10 on a pain scale. Quality of pain is described as aching, crampy. 10:00 Reassessment: No changes from previously documented assessment. Patient and/or family ll1 updated on plan of care and expected duration. Pain level reassessed. Patient is alert, oriented x 3, equal unlabored respirations, skin warm/dry/pink. 10:48 Reassessment: No changes from previously documented assessment. Patient and/or family ll1 updated on plan of care and expected duration. Pain level reassessed. Patient is alert, oriented x 3, equal unlabored respirations, skin warm/dry/pink. 11:45 Reassessment: No changes from previously documented assessment. Patient and/or family ll1 updated on plan of care and expected duration. Pain level reassessed. Patient is alert, oriented x 3, equal unlabored respirations, skin warm/dry/pink. 12:35 Reassessment: No changes from previously documented assessment. Patient and/or family ll1 updated on plan of care and expected duration. Pain level reassessed. Patient is alert, oriented x 3, equal unlabored respirations, skin warm/dry/pink. Vital Signs: 08:21 BP 130 / 83; Pulse 135; Resp 18; Temp 98.1; Pulse Ox 98% on R/A; Weight 127.01 kg; ph Height 5 ft. 7 in. (170.18 cm); 09:22 Pulse 120; Resp 22; ll1 10:47 Pulse 112; Resp 20; ll1 12:09 Pulse 98; Resp 20; ll1 08:21 Body Mass Index 43.85 (127.01 kg, 170.18 cm) ph ED Course: 07:57 Patient arrived in ED. mr 08:06 Scott Romero NP is PHCP. pm1 08:06 Devin Orosco DO is Attending Physician. pm1 08:22 Triage completed. ph 08:22 Arm band placed on Patient placed in an exam room, on a stretcher. ph 08:25 Vivi Cannon, REINA is Primary Nurse. ll1 08:36 Inserted saline lock: 22 gauge in right antecubital area, using aseptic technique. ll1 Blood collected. 08:42 EKG done, by ED staff, reviewed by Scott Romero NP. mb7 08:43 CMP Sent. mb7 08:43 CBC with Diff Sent. mb7 08:43 Magnesium Sent. mb7 09:23 Patient has correct armband on for positive identification. Bed in low position. Call ll1 light in reach. Side rails up X 1. monitoring tech on. 10:09 CT Abd/Pelvis - IV Contrast Only In Process Unspecified. EDMS 12:37 No provider procedures requiring assistance completed. IV discontinued, intact, ll1 bleeding controlled, No redness/swelling at site. Pressure dressing applied. Administered Medications: 08:36 Drug: NS 0.9% 1000 ml Route: IV; Rate: 1000 ml; Site: right antecubital; ll1 10:30 Follow up: Response: No adverse reaction; IV Status: Completed infusion; IV Intake: ll1 1000ml 09:22 Drug: morphine 4 mg Route: IVP; Site: right antecubital; ll1 10:47 Follow up: Response: No adverse reaction ll1 09:22 Drug: Zofran (Ondansetron) 4 mg Route: IVP; Site: right antecubital; ll1 10:47 Follow up: Response: No adverse reaction ll1 10:40 Drug: Ketorolac 30 mg Route: IVP; Site: right antecubital; ll1 19:26 Follow up: Response: No adverse reaction; Pain is decreased ll1 10:40 Drug: NS 0.9% 1000 ml Route: IV; Rate: 1000 ml; Site: right antecubital; ll1 19:26 Follow up: Response: No adverse reaction; IV Status: Completed infusion; IV Intake: ll1 1000ml Intake: 10:30 IV: 1000ml; Total: 1000ml. ll1 19:26 IV: 1000ml; Total: 2000ml. ll1 Outcome: 12:12 Discharge ordered by MD. pm1 12:37 Patient left the ED. ll1 12:37 Discharged to home ambulatory. ll1 12:37 Condition: stable 12:37 Discharge instructions given to patient, Instructed on discharge instructions, follow up and referral plans. medication usage, Demonstrated understanding of instructions, follow-up care, medications, Prescriptions given X 1. Signatures: Dispatcher [employer] [facility] Rebecca Zuniga Patricia, RN RN ph Marinas, Patrick, NP [employer] OPERATOR pm1 Vivi Cannon RN RN ll1 Rebecca Martinez 7
[2021-09-22 12:53] VITALS: BP 130/83; TEMP 98.1; O2SAT 98
--- NOTE | 2021-09-23 09:00 | EKG ---
Test Date: 2021-09-22 Test Time: 08:40:17 Rn Hemodialysis Charge: MB MEASUREMENT RESULTS: Intervals: Rate: 124 NE: 120 QRSD: 74 QT: 306 QTc: 439 [place]: P: 64 NE: 120 QRS: 38 T: 188 INTERPRETIVE STATEMENTS: Sinus tachycardia Nonspecific ST and T wave abnormality Abnormal ECG Compared to ECG 10/10/2020 18:35:56 ST (T wave) deviation now present Sinus rhythm no longer present Electronically Signed On 09-23-21 08:58:24 CDT by Jayy Talley
== END 2021-09-22 12:37 | disposition home or self-care (01) ==
LOC: ER 07:55
DX: R19.7 Diarrhea, unspecified (principal); R10.9 Unspecified abdominal pain; I10 Essential (primary) hypertension; Z20.822 Contact with and (suspected) exposure to COVID-19
CPT/HCPCS: 96361; 93005; 85025; 36415; 83735; 80053; 0240U; 74177; 96375; 96374; 99284; Q9967; J7030 ×2; J2405

== ENCOUNTER 2021-12-18 11:52 | Emergency (ER) | payer BC ==
[2021-12-18] MEDS ORDERED: ACETAMINOPHEN 500 MG TAB ONE (12:21)
[2021-12-18] MEDS ORDERED: ONDANSETRON 4 MG (ODT) TAB ONE (12:21)
[2021-12-18] MEDS ORDERED: BEBTELOVIMAB 175 MG/2 ML VIAL IV ONE (13:47)
--- NOTE | 2021-12-18 14:38 | EDPHYS ---
Physician Documentation [facility] Name: Ethan Hall Age: 51 yrs Sex: Male : 1970 Arrival Date: 12/18/2021 Time: 11:55 Bed DIS6 Private MD: ED Physician Cosme Moralez HPI: 12/18 13:31 This 51 yrs old Black Male presents to ER via Ambulatory with complaints of covid +. jr11 13:31 Patient is a 51-year-old male with runny nose congestion body aches for 2 days, took a jr11 home COVID and was positive. Denies chest pain shortness of breath. Patient with a dry cough, otherwise has a sick contact, .. Onset: The symptoms/episode began/occurred yesterday. Severity of symptoms: At their worst the symptoms were moderate in the emergency department the symptoms are worse. Historical: - Allergies: 12:01 No Known Allergies; iw - Home Meds: 12:01 aspirin 81 mg Oral TbEC 1 tab once daily [Active]; carvedilol 12.5 mg Oral tab 1 tab 2 iw times per day [Active]; chlorthalidone 50 mg Oral tab 1 tab once daily [Active]; losartan 100 mg Oral tab 1 tab once daily [Active]; losartan-hydrochlorothiazide 100-25 mg Oral tab 1 tab once daily [Active]; metoprolol tartrate 25 mg Oral tab 1 tab once daily [Active]; - PMHx: 12:01 Hernia; Hypertension; iw - PSHx: 12:01 hernia repair; iw - Immunization history:: Adult Immunizations Client reports having NOT received the Covid vaccine. - Social history:: Smoking status: Patient denies any tobacco usage or history of. ROS: 13:40 All other systems are negative. jr11 Exam: 13:40 Constitutional: This is a well developed, well nourished patient who is awake, alert, jr11 and in no acute distress. Head/Face: Normocephalic, atraumatic. Eyes: Extra-ocular motions intact. Lids and lashes normal. Conjunctiva and sclera are non-icteric and not injected. Cornea within normal limits. Periorbital areas with no swelling, redness, or edema. ENT: Nares patent. No nasal discharge, no septal abnormalities noted. Oropharynx with no redness, swelling, or masses, exudates, or evidence of obstruction, uvula midline. Mucous membranes moist. Neck: Trachea midline, no thyromegaly or masses palpated, and no cervical lymphadenopathy. Supple, full range of motion without nuchal rigidity, or vertebral point tenderness. No Meningismus. Chest/axilla: Normal chest wall appearance and motion. Nontender with no deformity. No lesions are appreciated. Cardiovascular: Regular rate and rhythm with a normal S1 and S2. No gallops, murmurs, or rubs. Normal PMI, no JVD. No pulse deficits. Respiratory: Lungs have equal breath sounds bilaterally, clear to auscultation and percussion. No rales, rhonchi or wheezes noted. No increased work of breathing, no retractions or nasal flaring. Abdomen/GI: Soft, non-tender, with normal bowel sounds. No distension or tympany. No guarding or rebound. No evidence of tenderness throughout. Back: No spinal tenderness. No costovertebral tenderness. Full range of motion. Skin: Warm, dry with normal turgor. Normal color with no rashes, no lesions, and no evidence of cellulitis. MS/ Extremity: Pulses equal, no cyanosis. Neurovascular intact. Full, normal range of motion. Neuro: Awake and alert, GCS 15, oriented to person, place, time, and situation. No gross motor or sensory deficits. Vital Signs: 11:59 BP 117 / 89; Pulse 95; Resp 16; Temp 97.7; Pulse Ox 96% on R/A; iw 14:01 BP 167 / 112; Pulse 88; Resp 18; Pulse Ox 97% on R/A; ld1 14:35 BP 159 / 102; Pulse 86; Resp 18; Pulse Ox 96% on R/A; ld1 15:13 BP 155 / 99; Pulse 84; Resp 18; Pulse Ox 96% on R/A; ld1 MDM: 12:09 Patient medically screened. jr11 13:40 Differential Diagnosis COVID 19. Data reviewed: vital signs, nurses notes. ED course: jcarlos Patient is a 51-year-old male with recent diagnosis of COVID, he has risk factors to include obesity, will give monoclonal antibodies, strict return precautions and treat him symptomatically.. 12/18 12:10 Order name: SARS-COV-2 RT PCR (Document "Date of Onset" if Symptomatic); Complete Time: eb 14:36 Administered Medications: 12:20 Drug: Zofran (Ondansetron) 4 mg Route: PO; iw 12:21 Drug: Tylenol 1000 mg Route: PO; iw 14:02 Drug: bebtelovimab infusion 175 mg Route: IV; Rate: calculated rate; Site: right ld1 antecubital; Disposition Summary: 12/18/21 14:37 Discharge Ordered Location: Home jr Condition: Stable jr11 Diagnosis - COVID-19 infection jr11 - Nausea with vomiting, unspecified jr11 Discharge Instructions: - Discharge Summary Sheet jr11 - COVID-19 jr11 - 10 Things You Can Do to Manage Your COVID-19 Symptoms at Home - [facility] [place][NOTE 3] jr11 Forms: - Medication Reconciliation Form jr11 - Work release form jl7 - Thank You Letter jr11 - Antibiotic Education jr11 - Prescription Opioid Use jr11 Prescriptions: - Zofran 4 mg Oral Tablet - take 1 tablet by ORAL route every 12 hours As needed; 6 tablet; Refills: 0, jr11 Product Selection Permitted Signatures: Dispatcher [employer] Adrianne Hall RN RN iw Gin Ray RN RN ld1 Cosme Moralez MD MD jr11 Corrections: (The following items were deleted from the chart) 13:30 13:[facility] Order ordered. ld1 ld1
--- NOTE | 2021-12-18 14:38 | ER ---
Nurse's Notes [facility] Name: Ethan Hall Age: 51 yrs Sex: Male : 1970 Arrival Date: 12/18/2021 Time: 11:55 Bed DIS6 Private MD: Diagnosis: COVID-19 infection;Nausea with vomiting, unspecified Presentation: 12/18 11:59 Chief complaint: Patient states: headaches, body aches, mild nausea that has resolved iw and has cough , 2nd day of symptoms , pt had a positive at home COVID test , wanted to make sure it was accurate. Coronavirus screen: Client presents with at least one sign or symptom that may indicate coronavirus-19. Ebola Screen: Patient negative for fever greater than or equal to 101.5 degrees Fahrenheit, and additional compatible Ebola Virus Disease symptoms Patient denies exposure to infectious person. Patient denies travel to an Ebola-affected area in the 21 days before illness onset. No symptoms or risks identified at this time. Initial Sepsis Screen: Does the patient meet any 2 criteria? No. Patient's initial sepsis screen is negative. Does the patient have a suspected source of infection? No. Patient's initial sepsis screen is negative. Risk Assessment: Do you want to hurt yourself or someone else? Patient reports no desire to harm self or others. Onset of symptoms was December 17, 2021. 11:59 Method Of Arrival: Ambulatory iw 11:59 Acuity: CHRISTINA 4 iw Historical: - Allergies: 12:01 No Known Allergies; iw - Home Meds: 12:01 aspirin 81 mg Oral TbEC 1 tab once daily [Active]; carvedilol 12.5 mg Oral tab 1 tab 2 iw times per day [Active]; chlorthalidone 50 mg Oral tab 1 tab once daily [Active]; losartan 100 mg Oral tab 1 tab once daily [Active]; losartan-hydrochlorothiazide 100-25 mg Oral tab 1 tab once daily [Active]; metoprolol tartrate 25 mg Oral tab 1 tab once daily [Active]; - PMHx: 12:01 Hernia; Hypertension; iw - PSHx: 12:01 hernia repair; iw - Immunization history:: Adult Immunizations Client reports having NOT received the Covid vaccine. - Social history:: Smoking status: Patient denies any tobacco usage or history of. Screenin:33 Abuse screen: Denies threats or abuse. Denies injuries from another. Nutritional ld1 screening: No deficits noted. Tuberculosis screening: No symptoms or risk factors identified. Fall Risk None identified. Assessment: 12:33 Reassessment: See triage assessment. ld1 13:40 Reassessment: Pt gave verbal consent for bebtelovimab infusion. ld1 15:13 Reassessment: Patient appears in no apparent distress at this time. Patient and/or ld1 family updated on plan of care and expected duration. Pain level reassessed. Patient is alert, oriented x 3, equal unlabored respirations, skin warm/dry/pink. Vital Signs: 11:59 BP 117 / 89; Pulse 95; Resp 16; Temp 97.7; Pulse Ox 96% on R/A; iw 14:01 BP 167 / 112; Pulse 88; Resp 18; Pulse Ox 97% on R/A; ld1 14:35 BP 159 / 102; Pulse 86; Resp 18; Pulse Ox 96% on R/A; ld1 15:13 BP 155 / 99; Pulse 84; Resp 18; Pulse Ox 96% on R/A; ld1 ED Course: 11:55 Patient arrived in ED. am2 12:01 Triage completed. iw 12:02 Arm band placed on. iw 12:06 Adrianne Wagoner, RN is Primary Nurse. iw 12:09 Cosme Moralez MD is Attending Physician. jr11 12:33 Patient has correct armband on for positive identification. Bed in low position. Call ld1 light in reach. Side rails up X2. Pulse ox on. NIBP on. Door closed. Noise minimized. 12:33 No provider procedures requiring assistance completed. ld1 14:02 Inserted saline lock: 20 gauge in right antecubital area, using aseptic technique. ld1 15:13 IV discontinued, intact, bleeding controlled, No redness/swelling at site. ld1 Administered Medications: 12:20 Drug: Zofran (Ondansetron) 4 mg Route: PO; iw 12:21 Drug: Tylenol 1000 mg Route: PO; iw 14:02 Drug: bebtelovimab infusion 175 mg Route: IV; Rate: calculated rate; Site: right ld1 antecubital; Medication: 12:33 VIS not applicable for this client. ld1 Outcome: 14:37 Discharge ordered by . jr11 15:13 Discharged to home ambulatory, with family. ld1 15:13 Condition: stable 15:13 Discharge instructions given to patient, Instructed on discharge instructions, follow up and referral plans. medication usage, Demonstrated understanding of instructions, follow-up care, medications, Prescriptions given X 1. 15:14 Patient left the ED. ld1 Signatures: Adrianne Wagoner RN RN iw Aleida Salazar am2 Gin Ray RN RN ld1 Cosme Moralez MD MD jr11 Corrections: (The following items were deleted from the chart) 12:02 11:59 Pulse 95bpm; Resp 16bpm; Pulse Ox 96% RA; Temp 97.7F; iw iw 12:06 11:59 Chief complaint: Patient states: headaches, body aches, mild nausea that has iw resolved and has cough , 2nd day of symptoms iw
[2021-12-18 15:48] VITALS: TEMP 97.7
[2021-12-18 15:54] VITALS: O2SAT 96
[2021-12-18 15:55] VITALS: BP 155/99
== END 2021-12-18 15:14 | disposition home or self-care (01) ==
LOC: ER 11:52
DX: U07.1 COVID-19 (principal); I10 Essential (primary) hypertension; Z79.82 Long term (current) use of aspirin
CPT/HCPCS: 99284; U0003; Q0162

== ENCOUNTER 2022-07-09 07:51 | Emergency (ER) | payer BC ==
--- OUTSIDE RECORDS SUMMARY | 2022-07-09 07:56 | XMS REPORT | Continuity of Care Document ---
:1970 Author Organization [facility] t Address [facility] [place] [address] Care Team Providers Name Role Phone Pcp, Patient Does Not Have A Primary Care Physician [id number] Adriel Vo MD Attending Clinician Kevin Palacios Attending Clinician Doctor Unassigned, Maud Attending Clinician Unavailable Pob, [facility] Main Attending Clinician Unavailable ADRIEL VO Attending Clinician Unavailable Victor Manuel Lobo Attending Clinician Oleg Chen MD Attending Clinician OLEG CHEN Attending Clinician Unavailable VICTOR MANUEL CHINCHILLA Attending Clinician Unavailable DESEAN MCNEIL Attending Clinician Unavailable KEVIN BOBBY Attending Clinician Unavailable Desean Mcneil MD Attending Clinician Edgardo Olivares MD Attending Clinician Jerrell Iqbal Attending Clinician JERRELL GOMEZ Attending Clinician Unavailable DEV SIERRA Attending Clinician Unavailable Ernie Vitale Attending Clinician OLEG CHEN Admitting Clinician Unavailable Oleg Chen MD Admitting Clinician Payers Payer Name Policy Type Policy Number Effective Date Expiration Date S jasmin [employer] [place] [id number] 2020 00:00:00 Problems Condition Condition Condition Status Onset Resolution Last Treating Co mments Source Name Details Category Date Date Treatment Clinician Date Colon Colon Disease Active Overview: [facility] s cancer cancer 09-11 Formattin ity of screening screening 00:00: [place] 00 note Medical might be Branch different from the original. Added automatic ally from request for surgery [id number] Venous Venous Disease Active Univers insufficie insufficie 7-28 it y of ncy of ncy of 00:00: [place] both lower both lower 00 Me dical extremitie extremitie Br anch s s Venous Venous Disease Recurre Univers reflux reflux nce 7-28 ity of 00:00: [place] 00 Medical Branch Leg edema Leg edema Disease Active Met hodi 3-30 st 00:00: Hospita 00 l Encounter Encounter Disease Active Met hodi for for 3-30 st monitoring monitoring 00:00: Ho spita diuretic diuretic 00 l therapy therapy Cardiovasc Cardiovasc Disease Active M ethodi ular risk ular risk 3 st factor factor 00:00: Hospita 00 l Counseling Counseling Disease Active M ethodi on health on health 3-29 st promotion promotion 00:00: Hosp soha and and 00 l disease disease prevention prevention Pulmonary Pulmonary Disease Active Met hodi hypertensi hypertensi 3-29 st on due to on due to 00:00: Hosp soha left left 00 l ventricula ventricula r r diastolic diastolic dysfunctio dysfunctio n n Paroxysmal Paroxysmal Disease Active M ethodi atrial atrial 3-29 st fibrillati fibrillati 00:00: Ho spita on on 00 l Hypertensi Hypertensi Disease Active M ethodi ve heart ve heart 3-29 st disease disease 00:00: Hospita without without 00 l heart heart failure failure Cholelithi Cholelithi Disease Active M ethodi asis asis 2-11 st without without 00:00: Hospita cholecysti cholecysti 00 l tis tis Pulmonary Pulmonary Disease Active 2017-06 Overview: Methodi HTN HTN 2-[address] 00:00: g of this Hospita 00 note l might be different from the original. Added automatic ally from request for surgery [id number] Diastolic Diastolic Disease Active 2017-06 Met hodi dysfunctio dysfunctio 2-17 st n n 00:00: Hospita 00 l EMELI EMELI Disease Active 2017-06 Methodi (obstructi (obstructi 07-05 st ve sleep ve sleep 00:00: Hospit a apnea) apnea) 00 l Essential Essential Disease Active 2017-06 Met hodi hypertensi hypertensi 07-05 st on on 00:00: Hospita 00 l Class 3 Class 3 Disease Active 2017-06 Methodi severe severe 07-05 st obesity obesity 00:00: Hospita due to due to 00 l excess excess calories calories without without serious serious comorbidit comorbidit y in adult y in adult Cerebrovas Cerebrova Problem Active 2019-10-19 Memoria cular scular 21:32:33 l accident accident Peter n (disorder) (disorder) Active Problem 10/19/2019 [facility] 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 (disorder) (disorder) Active Problem 10/19/2019 [facility] Hypertensi Hypertens Problem Active 2019-10-19 Memoria ve genie 21:32:33 l disorder, disorder, Herm tabby systemic systemic arterial arterial (disorder) (disorder) Active Problem 10/19/2019 [facility] Morbid Morbid Problem Active 2019-10-19 Daryl [place]ber[place] obesity obesity 21:32:33 l (disorder) (disorder) He rmann Active Problem 10/19/2019 [facility] Allergies, Adverse Reactions, Alerts Allergy Allergy Status Severity Reaction(s) Onset Inactive Treating Comm ents Source Name Type Date Date Clinician NO KNOWN Drug Active Univers ALLERGIE Class ity of S [facility] Family History Family Member Diagnosis Comments Start Date Stop Date Source Maternal grandfather Heart attack [facility] Maternal grandmother [facility] Natural mother [facility] Natural mother Hypertension [facility] Paternal grandfather [facility] Paternal grandmother [facility] Natural sister Hypertension [facility] Social History Social Habit Start Date Stop Date Quantity Comments Source Exposure to 2021-12-24 2022-01-03 Not sure [facility]-CoV-2 00:00:00 06:28:00 [facility] (event) [place] Alcohol intake 2018-08-24 2018-08-24 Current drinker [facility] 00:00:00 00:00:00 of alcohol Hospital (finding) History SDOH 2018-05-05 2018-05-05 3 [facility] 00:00:00 00:00:00 Hospital History SDTX Food 2018-05-05 2018-05-[address] Worry 00:00:00 00:00:00 Hospital History SDTX Food 2018-05-05 2018-05-[address] Scarcity 00:00:00 00:00:00 Hospital History SDTX 2018-05-05 2018-05-05 2 [facility] Med 00:00:00 00:00:00 Hospital History SDOH 2018-05-05 2018-05-05 2 [facility] Non-Med 00:00:00 00:00:00 Hospita l Education 2018-04-20 2018-04-20 11 [facility] 00:00:00 00:00:00 Hospital Alcohol Comment 2018-04-20 2018-04-20 socially [facility] 00:00:00 00:00:00 Hospital Tobacco use and 2017-07-07 2017-07-07 Smokeless tobacco Un iversity of exposure 00:00:00 00:00:00 non-user [facility] Sex Ass[birth year] At [birth year] Universit y of 00:00:00 00:00:00 [facility] Smoking Status Start Date Stop Date Source Social History [facility] Medications Ordered Filled Start Stop Current Ordering Indication Dosage Frequency Signature Comments Components Source Medication Medication Date Date Medication? Clinician (SIG) Name Name MELOXICAM 2021-06 Yes Take 1 U nivers 7.5 mg 2-22 tablet by ity of tablet 00:00: mouth once [place] 00 daily Medical Branch MELOXICAM 2021-06 Yes Take 1 U nivers 7.5 mg 2-22 tablet by ity of tablet 00:00: mouth once [place] 00 daily Medical Branch DICLOFENAC 2021-06 Yes TAKE 1 Univers 75 mg EC 1-29 TABLET BY ity of tablet 00:00: MOUTH [place] 00 TWICE Medical DAILY WITH Branch MEALS MELOXICAM 2021-06 Yes Take 1 U nivers 7.5 mg 1-29 tablet by ity of tablet 00:00: mouth once [place] 00 daily Medical Branch DICLOFENAC 2021-06 Yes TAKE 1 Univers 75 mg EC 1-29 TABLET BY ity of tablet 00:00: MOUTH [place] 00 TWICE Medical DAILY WITH Branch MEALS DICLOFENAC 2021-06 Yes TAKE 1 Univers 75 mg EC 1-29 TABLET BY ity of tablet 00:00: MOUTH [place] 00 TWICE Medical DAILY WITH Branch MEALS MELOXICAM 2021-06- No Take 1 Univers 7.5 mg 1-29 12-22 tablet by ity of tablet 00:00: 00:[place] mouth once [place] 00 :[place] daily Medical Branch DICLOFENAC 2021-06 Yes TAKE 1 Univers 75 mg EC 0-31 TABLET BY ity of tablet 00:00: MOUTH [place] 00 TWICE Medical DAILY WITH Branch MEALS DICLOFENAC 2021-06- No TAKE 1 Univers 75 mg EC 0-31 11-29 TABLET BY ity o f tablet 00:00: 00:00 MOUTH [place] 00 :00 TWICE Medical DAILY WITH Branch MEALS tamsulosin 2021-06 Yes [id number] .4mg Take 1 Univers (FLOMAX) 0-25 capsule by ity o f 0.4 mg 24 00:00: [place] hr capsule 00 the Medical morning. Branch tamsulosin 2021-06 Yes [id number] .4mg Take 1 Univers (FLOMAX) 0-25 capsule by ity o f 0.4 mg 24 00:00: [place] hr capsule 00 the Medical morning. Branch tamsulosin 2021-06 Yes [id number] .4mg Take 1 Univers (FLOMAX) 0-25 capsule by ity o f 0.4 mg 24 00:00: [place] hr capsule 00 the Medical morning. Branch tamsulosin 2021-06 Yes [id number] .4mg Take 1 Univers (FLOMAX) 0-25 capsule by ity o f 0.4 mg 24 00:00: [place] hr capsule 00 the Medical morning. Branch tamsulosin 2021-06 Yes [id number] .4mg Take 1 Univers (FLOMAX) 0-25 capsule by ity o f 0.4 mg 24 00:00: [place] hr capsule 00 the Medical morning. Branch tamsulosin 2021-06 Yes [id number] .4mg Take 1 Univers (FLOMAX) 0-25 capsule by ity o f 0.4 mg 24 00:00: mouth [place] hr capsule 00 the Medical morning. Branch DICLOFENAC Yes TAKE 1 Univers 75 mg EC 9-27 TABLET BY ity of tablet 00:00: MOUTH TWICE Medical DAILY WITH Branch MEALS MELOXICAM Yes Take 1 U nivers 7.5 mg 9-27 tablet by ity of tablet 00:00: mouth once daily Medical Branch DICLOFENAC Yes TAKE 1 Univers 75 mg EC 9-27 TABLET BY ity of tablet 00:00: MOUTH TWICE Medical DAILY WITH Branch MEALS MELOXICAM Yes Take 1 U nivers 7.5 mg 9-27 tablet by ity of tablet 00:00: mouth daily Medical Branch DICLOFENAC 0 Yes TAKE 1 Univers 75 mg EC 9-27 TABLET BY ity of tablet 00:00: MOUTH TWICE Medical DAILY WITH Branch MEALS MELOXICAM Yes Take 1 U nivers 7.5 mg 9-27 tablet by ity of tablet 00:00: mouth daily Medical Branch MELOXICAM 0 Yes Take 1 U nivers 7.5 mg 9-27 tablet by ity of tablet 00:00: mouth daily Medical Branch MELOXICAM 0 Yes Take 1 U nivers 7.5 mg 9-27 tablet by ity of tablet 00:00: mouth daily Medical Branch MELOXICAM 2021-0 2021- No [id number] Take 1 Univers 7.5 mg 9-27 11-29 tablet by ity of tablet 00:00: 00:00 mouth once [place] 00 :[place] daily Medical Branch DICLOFENAC 2021-0 2021- No [id number] TAKE 1 Univers 75 mg EC 9-27 10-31 TABLET BY ity o f tablet 00:00: 00:00 MOUTH [place] 00 :00 TWICE Medical DAILY WITH Branch MEALS tamsulosin 2021- Yes [id number] .4mg Take 1 Univers (FLOMAX) 9-02 capsule by ity o f 0.4 mg 24 00:00: mouth [place] hr capsule 00 the Medical morning. Branch tamsulosin 2021-0 Yes [id number] .4mg Take 1 Univers (FLOMAX) 9-02 capsule by ity o f 0.4 mg 24 00:00: [place] hr capsule 00 the Medical morning. Branch tamsulosin 2021- No [id number] .4mg Take 1 Univers (FLOMAX) 9-02 10-24 capsule by ity of 0.4 mg 24 00:00: 00:00 mouth in [place] hr capsule 00 :00 the Medical morning. Branch MELOXICAM 2021-0 Yes Take 1 U nivers 7.5 mg 8-30 tablet by ity of tablet 00:00: mouth once [place] 00 daily Medical Branch MELOXICAM 2021-0 Yes Take 1 U nivers 7.5 mg 8-30 tablet by ity of tablet 00:00: mouth once [place] daily Medical Branch MELOXICAM 2021-0 2021- No Take 1 Univers 7.5 mg 8-30 09-27 tablet by ity of tablet 00:00: 00:00 mouth once [place] 00 :00 daily Medical Branch tamsulosin 2021-0 Yes [id number] .4mg Take 1 Univers (FLOMAX) 8-01 capsule by ity o f 0.4 mg 24 00:00: [place] hr capsule 00 the Medical morning. Branch tamsulosin 2021-0 Yes [id number] .4mg Take 1 Univers (FLOMAX) 8-01 capsule by ity o f 0.4 mg 24 00:00: mouth [place] hr capsule 00 the Medical morning. Branch tamsulosin 2021-0 Yes [id number] .4mg Take 1 Univers (FLOMAX) 8-01 capsule by ity o f 0.4 mg 24 00:00: mouth [place] hr capsule 00 the Medical morning. Branch tamsulosin 2021-0 Yes [id number] .4mg Take 1 Univers (FLOMAX) 01-05 capsule by ity o f 0.4 mg 24 00:00: mouth [place] hr capsule 00 the Medical morning. Branch tamsulosin 2021- No [id number] .4mg Take 1 Univers (FLOMAX) 01-05 capsule by ity of 0.4 mg 24 00:00: 00:00 mouth in [place] hr capsule 00 :00 the Medical morning. Branch DICLOFENAC 0 Yes TAKE 1 Univers 75 mg EC 7-26 TABLET BY ity of tablet 00:00: MOUTH [place] 00 TWICE Medical DAILY WITH Branch MEALS DICLOFENAC 0 Yes TAKE 1 Univers 75 mg EC 7-26 TABLET BY ity of tablet 00:00: MOUTH [place] 00 TWICE Medical DAILY WITH Branch MEALS DICLOFENAC 2021-0 Yes TAKE 1 Univers 75 mg EC 7-26 TABLET BY ity of tablet 00:00: MOUTH [place] 00 TWICE Medical DAILY WITH Branch MEALS DICLOFENAC 2021-0 Yes TAKE 1 Univers 75 mg EC 7-26 TABLET BY ity of tablet 00:00: MOUTH [place] 00 TWICE Medical DAILY WITH Branch MEALS DICLOFENAC 2021-0 Yes TAKE 1 Univers 75 mg EC 7-26 TABLET BY ity of tablet 00:00: MOUTH [place] 00 TWICE Medical DAILY WITH Branch MEALS DICLOFENAC 2021-0 2021- No TAKE 1 Univers 75 mg EC 7-26 09-27 TABLET BY ity o f tablet 00:00: 00:00 MOUTH [place] 00 :00 TWICE Medical DAILY WITH Branch MEALS MELOXICAM 2021-0 Yes Take 1 U nivers 7.5 mg 6-30 tablet by ity of tablet 00:00: mouth once [place] 00 daily Medical Branch MELOXICAM 2021-0 Yes Take 1 U nivers 7.5 mg 6-30 tablet by ity of tablet 00:00: mouth once 00 daily Medical Branch MELOXICAM 2021-0 Yes Take 1 U nivers 7.5 mg 6-30 tablet by ity of tablet 00:00: mouth once 00 daily Medical Branch MELOXICAM 2021-0 2021- No Take 1 Univers 7.5 mg 6-30 08-30 tablet by ity of tablet 00:00: 00:00 mouth once [place] 00 :00 daily Medical Branch aspirin 81 0 Yes 81mg Take 81 mg U nivers mg EC 4-21 by mouth. ity of tablet 12:42: [address] metoprolol 2021-0 Yes 25mg Take 25 mg U nivers tartrate 25 4-21 by mouth. ity of mg tablet 12:42: [address] chlorthalid 0 Yes 50mg Take 50 mg Univers one 50 mg 4-21 by mouth. ity o f tablet 12:42: [address] losartan 0 Yes 100mg Take 100 Univ ers 100 mg 4-21 mg by ity of tablet 12:42: mouth. [address] aspirin 81 0 Yes 81mg Take 81 mg U nivers mg EC 4-21 by mouth. ity of tablet 12:42: [address] metoprolol 0 Yes 25mg Take 25 mg U nivers tartrate 25 4-21 by mouth. ity of mg tablet 12:42: [address] chlorthalid 0 Yes 50mg Take 50 mg Univers one 50 mg 4-21 by mouth. ity o f tablet 12:42: [address] losartan 0 Yes 100mg Take 100 Univ ers 100 mg 4-21 mg by ity of tablet 12:42: mouth. [address] aspirin 81 0 Yes 81mg Take 81 mg U nivers mg EC 4-21 by mouth. ity of tablet 12:42: [address] metoprolol 0 Yes 25mg Take 25 mg U nivers tartrate 25 4-21 by mouth. ity of mg tablet 12:42: [address] chlorthalid 0 Yes 50mg Take 50 mg Univers one 50 mg 4-21 by mouth. ity o f tablet 12:42: [address] losartan 0 Yes 100mg Take 100 Univ ers 100 mg 4-21 mg by ity of tablet 12:42: mouth. [address] aspirin 81 2021-0 Yes 81mg Take 81 mg U nivers mg EC 4-21 by mouth. ity of tablet 12:42: [address] metoprolol 2021-0 Yes 25mg Take 25 mg U nivers tartrate 25 4-21 by mouth. ity of mg tablet 12:42: [address] chlorthalid 2021-0 Yes 50mg Take 50 mg Univers one 50 mg 4-21 by mouth. ity o f tablet 12:42: [address] losartan 2021-0 Yes 100mg Take 100 Univ ers 100 mg 4-21 mg by ity of tablet 12:42: mouth. [address] aspirin 81 0 Yes 81mg Take 81 mg U nivers mg EC 4-21 by mouth. ity of tablet 12:42: [address] metoprolol 0 Yes 25mg Take 25 mg U nivers tartrate 25 4-21 by mouth. ity of mg tablet 12:42: [address] chlorthalid 0 Yes 50mg Take 50 mg Univers one 50 mg 4-21 by mouth. ity o f tablet 12:42: [address] losartan 0 Yes 100mg Take 100 Univ ers 100 mg 4-21 mg by ity of tablet 12:42: mouth. [address] aspirin 81 0 Yes 81mg Take 81 mg U nivers mg EC 4-21 by mouth. ity of tablet 12:42: [address] metoprolol 0 Yes 25mg Take 25 mg U nivers tartrate 25 4-21 by mouth. ity of mg tablet 12:42: [address] chlorthalid 0 Yes 50mg Take 50 mg Univers one 50 mg 4-21 by mouth. ity o f tablet 12:42: [address] losartan 0 Yes 100mg Take 100 Univ ers 100 mg 4-21 mg by ity of tablet 12:42: mouth. [address] aspirin 81 2021-0 Yes 81mg Take 81 mg U nivers mg EC 4-21 by mouth. ity of tablet 12:42: [address] metoprolol 0 Yes 25mg Take 25 mg U nivers tartrate 25 4-21 by mouth. ity of mg tablet 12:42: [address] chlorthalid 0 Yes 50mg Take 50 mg Univers one 50 mg 4-21 by mouth. ity o f tablet 12:42: [address] losartan 0 Yes 100mg Take 100 Univ ers 100 mg 4-21 mg by ity of tablet 12:42: mouth. [address] aspirin 81 2022-0 Yes 81mg Take 81 mg U nivers mg EC 4-21 by mouth. ity of tablet 12:42: [address] metoprolol 0 Yes 25mg Take 25 mg U nivers tartrate 25 4-21 by mouth. ity of mg tablet 12:42: [address] chlorthalid 0 Yes 50mg Take 50 mg Univers one 50 mg 4-21 by mouth. ity o f tablet 12:42: [address] losartan 0 Yes 100mg Take 100 Univ ers 100 mg 4-21 mg by ity of tablet 12:42: mouth. [address] aspirin 81 0 Yes 81mg Take 81 mg U nivers mg EC 4-21 by mouth. ity of tablet 12:42: [address] metoprolol 0 Yes 25mg Take 25 mg U nivers tartrate 25 4-21 by mouth. ity of mg tablet 12:42: [address] chlorthalid Yes 50mg Take 50 mg Univers one 50 mg 4-21 by mouth. ity o f tablet 12:42: [address] losartan 0 Yes 100mg Take 100 Univ ers 100 mg 4-21 mg by ity of tablet 12:42: mouth. [address] aspirin 81 0 Yes 81mg Take 81 mg U nivers mg EC 4-21 by mouth. ity of tablet 12:42: [address] metoprolol Yes 25mg Take 25 mg U nivers tartrate 25 4-21 by mouth. ity of mg tablet 12:42: [address] chlorthalid 0 Yes 50mg Take 50 mg Univers one 50 mg 4-21 by mouth. ity o f tablet 12:42: [address] losartan 0 Yes 100mg Take 100 Univ ers 100 mg 4-21 mg by ity of tablet 12:42: mouth. [address] aspirin 81 0 Yes 81mg Take 81 mg U nivers mg EC 4-21 by mouth. ity of tablet 12:42: [address] metoprolol 0 Yes 25mg Take 25 mg U nivers tartrate 25 4-21 by mouth. ity of mg tablet 12:42: [address] chlorthalid 0 Yes 50mg Take 50 mg Univers one 50 mg 4-21 by mouth. ity o f tablet 12:42: [address] losartan 0 Yes 100mg Take 100 Univ ers 100 mg 4-21 mg by ity of tablet 12:42: mouth. [address] aspirin 81 0 Yes 81mg Take 81 mg U nivers mg EC 4-21 by mouth. ity of tablet 12:42: [address] metoprolol 0 Yes 25mg Take 25 mg U nivers tartrate 25 4-21 by mouth. ity of mg tablet 12:42: [address] chlorthalid Yes 50mg Take 50 mg Univers one 50 mg 4-21 by mouth. ity o f tablet 12:42: [address] losartan Yes 100mg Take 100 Univ ers 100 mg 4-21 mg by ity of tablet 12:42: mouth. [address] aspirin 81 0 Yes 81mg Take 81 mg U nivers mg EC 4-21 by mouth. ity of tablet 12:42: [address] metoprolol 0 Yes 25mg Take 25 mg U nivers tartrate 25 4-21 by mouth. ity of mg tablet 12:42: [address] chlorthalid Yes 50mg Take 50 mg Univers one 50 mg 4-21 by mouth. ity o f tablet 12:42: [address] losartan 0 Yes 100mg Take 100 Univ ers 100 mg 4-21 mg by ity of tablet 12:42: mouth. [address] peg-electro 2021-0 Yes [id number] Take as Univers lyte soln 4-07 directed ity of 236-.74-6 00:00: before [place] .74 -5.86 00 colonoscop Medi jessica gram y Branch solution peg-electro 2021-0 Yes [id number] Take as Univers lyte soln 4-07 directed ity of 236-.74-6 00:00: before [place] .74 -5.86 00 colonoscop Medi jessica gram y Branch solution peg-electro 2021-0 Yes [id number] Take as Univers lyte soln 4-07 directed ity of 236-.74-6 00:00: before [place] .74 -5.86 00 colonoscop Medi jessica gram y Branch solution peg-electro 2021-0 Yes [id number] Take as Univers lyte soln 4-07 directed ity of 236-22.74-6 00:00: before [place] .74 -5.86 00 colonoscop Medi jessica gram y Branch solution peg-electro 2021-0 Yes [id number] Take as Univers lyte soln 4-07 directed ity of 236-22.74-6 00:00: before [place] .74 -5.86 00 colonoscop Medi jessica gram y Branch solution peg-electro 2021-0 Yes [id number] Take as Univers lyte soln 4-07 directed ity of 236-22.74-6 00:00: before [place] .74 -5.86 00 colonoscop Medi jessica gram y Branch solution peg-electro 2021-0 Yes [id number] Take as Univers lyte soln 4-07 directed ity of 236-22.74-6 00:00: before [place] .74 -5.86 00 colonoscop Medi jessica gram y Branch solution peg-electro 2021-0 Yes [id number] Take as Univers lyte soln 4-07 directed ity of 236-22.74-6 00:00: before [place] .74 -5.86 00 colonoscop Medi jessica gram y Branch solution peg-electro 2021-0 Yes [id number] Take as Univers lyte soln 4-07 directed ity of 236-22.74-6 00:00: before [place] .74 -5.86 00 colonoscop Medi jessica gram y Branch solution peg-electro 2021-0 Yes [id number] Take as Univers lyte soln 4-07 directed ity of 236-22.74-6 00:00: before [place] .74 -5.86 00 colonoscop Medi jessica gram y Branch solution peg-electro 2021-0 Yes [id number] Take as Univers lyte soln 4-07 directed ity of 236-22.74-6 00:00: before [place] .74 -5.86 00 colonoscop Medi jessica gram y Branch solution peg-electro 2021-0 Yes [id number] Take as Univers lyte soln 4-07 directed ity of 236-22.74-6 00:00: before [place] .[place] -.86 00 colonoscop [facility] gram y Branch solution peg-electro 0 Yes [id number] Take as Univers lyte soln 4-07 directed ity of 236-22.74-6 00:00: [place] .74 -5.86 00 colonoscop [facility] gram y Branch solution carvediloL Yes Univers 12.5 mg 6-30 ity of tablet 00:00: [facility] carvediloL Yes Univers 12.5 mg 6-30 ity of tablet 00:00: [facility] carvediloL Yes Univers 12.5 mg 6-30 ity of tablet 00:00: [facility] carvediloL Yes Univers 12.5 mg 6-30 ity of tablet 00:00: [facility] carvediloL Yes Univers 12.5 mg 6-30 ity of tablet 00:00: [facility] carvediloL Yes Univers 12.5 mg 6-30 ity of tablet 00:00: [facility] carvediloL Yes Univers 12.5 mg 6-30 ity of tablet 00:00: [facility] carvediloL Yes Univers 12.5 mg 6-30 ity of tablet 00:00: [facility] carvediloL Yes Univers 12.5 mg 6-30 ity of tablet 00:00: [facility] carvediloL Yes Univers 12.5 mg 6-30 ity of tablet 00:00: [facility] carvediloL Yes Univers 12.5 mg 6-30 ity of tablet 00:00: [facility] carvediloL Yes Univers 12.5 mg 6-30 ity of tablet 00:00: [facility] carvediloL Yes Univers 12.5 mg 6-30 ity of tablet 00:00: [place] [facility] aspirin 2020-0 Yes 81mg Take 81 mg Meth maria teresa (ECOTRIN) 4-[address] 81 MG 15:06: Hospita enteric 23 l coated tablet metoprolol 2021-0 Yes 25mg Take 25 mg M ethodi tartrate 4-[address] (LOPRESSOR) 15:06: Hospit a 25 mg 23 l tablet NIFEdipine 2021- No 120mg QD Take 2 Met hodi XL 4-14 04-[address] (PROCARDIA 00:00: 04:59 (120 mg Hos melania XL) 60 MG 00 :00 total) by l 24 hr mouth tablet daily. potassium Yes Methodi chloride 3-30 st (K-DUR) 10 00:00: Hospita MEQ CR 00 l tablet gabapentin Yes Methodi (NEURONTIN) 3-05 st 300 mg 00:00: Hospita capsule 00 l furosemide Yes 20mg QD Take 20 mg M ethodi (LASIX) 20 2-[address] mg tablet 00:00: daily. Hospit a 00 l losartan 2019-0 Yes 100 mg = 1 [...] PRN l Hydrocodone 14:40: Pain, # 28 [place] Bitartrate 00 tab, 0 7.5 MG Oral Refill(s) Tablet Aspirin 81 2020-0 Yes 81 mg = 1 Me moria MG Enteric 3-31 tab, PO, l Coated 14:40: Daily, # [place] Tablet 00 90 tab, 3 Refill(s) metoprolol [...] PRN l Hydrocodone 14:40: Pain, # 28 [place] Bitartrate 00 tab, 0 7.5 MG Oral Refill(s) Tablet Aspirin 81 2020-0 Yes 81 mg = 1 Me moria MG Enteric 3-31 tab, PO, l Coated 14:40: Daily, # [place] Tablet 00 90 tab, 3 Refill(s) Aspirin 81 2020-0 Yes 81 mg = 1 Me moria MG Enteric 3-31 tab, PO, l Coated 14:40: Daily, # [place] Tablet 00 90 tab, 3 Refill(s) metoprolol [...] tab, 0 7.5 MG Oral Refill(s) Tablet metoprolol 2020-0 Yes 12.5 mg = Me [...] tab, PO, l tablet 14:40: Daily, 0 [place] 00 Refill(s) Hydrochloro 2020-0 Yes 50 mg [...] tab, PO, l Coated 14:40: Daily, # [place] Tablet 00 90 tab, 3 Refill(s) metoprolol 2020-0 Yes 12.5 mg = Me moria tartrate 25 3-31 0.5 tab, l mg oral 14:40: PO, BID, 0 Herm tabby tablet 00 Refill(s) losartan 2020-0 Yes 100 mg = 1 Mem oria 100 mg oral 3-31 tab, PO, l tablet 14:40: Daily, 0 [place] 00 Refill(s) Hydrochloro 2020-0 Yes 50 mg = 1 M emoria thiazide 50 3-31 tab, PO, l MG Oral 14:40: Daily, 0 Peter n Tablet 00 Refill(s) Acetaminoph 2020-0 Yes 1 tab, PO, Memoria en 325 MG / 3-31 Q6H, PRN l Hydrocodone 14:40: Pain, # 28 [place] Bitartrate 00 tab, 0 7.5 MG Oral [...] tab, PO, l tablet 14:40: Daily, 0 [place] 00 Refill(s) Hydrochloro 2020-0 Yes 50 mg = 1 M emoria thiazide 50 3-31 tab, PO, l MG Oral 14:40: Daily, 0 Peter n Tablet 00 Refill(s) Acetaminoph 2020-0 Yes 1 tab, PO, Memoria en 325 MG / 3-31 Q6H, PRN l Hydrocodone 14:40: Pain, # 28 [place] Bitartrate 00 tab, 0 7.5 MG Oral [...] tab, PO, l Coated 14:40: Daily, # [place] Tablet 00 90 tab, 3 Refill(s) metoprolol 2020-0 Yes 12.5 mg = Me moria tartrate 25 3-31 0.5 tab, l mg oral 14:40: PO, BID, 0 Herm tabby tablet 00 Refill(s) diclofenac 2018- Yes TAKE 1 Metho di (VOLTAREN) 6-[address] 75 MG EC 00:00: [facility] tablet 00 TWICE l DAILY WITH MEALS meloxicam 2018-0 Yes 7.5mg Take 7.5 Met hodi (MOBIC) 7.5 5-[address] mg tablet 00:00: mouth. Hospit a 00 l Vital Signs Vital Name Observation Time Observation Value Comments Source Systolic blood 2022-01-05 21:19:00 154 mm[Hg[facility] Diastolic blood 2022-01-05 21:19:00 88 mm[Hg] [facility] Heart rate 2022-01-05 21:18:00 78 /min [facility] Body height 2022-01-05 21:18:00 170.2 cm [facility] Body weight 2022-01-05 21:18:00 125.193 kg [facility] BMI 2022-01-05 21:18:00 43.23 kg/m2 [facility] Oxygen saturation 2022-01-05 21:18:00 95 /min [facility] in Arterial blood Medical Br anch by Pulse oximetry Systolic (mm Hg) 2019-09-05 14:34:00 Daryl lobo Lee Diastolic (mm Hg) 2019-09-05 14:34:00 [facility] orial [place] Heart Rate 2019-09-05 14:34:00 [facility] [place] Respitory Rate 2019-09-05 14:34:00 Muna blackmon [place] Height 2019-09-05 14:34:00 167[facility] Weight 2019-09-05 14:34:00 [facility] BMI Calculated 2019-09-05 14:34:00 Muna Umanzor Procedures Procedure Date / Time Performing Clinician Source Performed AUTHORIZATION FOR 2022-03-27 05:01:00 Doctor Unassigned, No [facility] RELEASE OF PHI Name [facility] POCT URINALYSIS AUTO 2022-01-05 21:35:00 Adriel Vo [facility] Plan of Care Planned Activity Planned Date Details Comments Source Future Scheduled 2022-06-02 COVID-19 VACCINE (#1) [facility] Test 09:17:35 [code = COVID-19 VACCINE (#1)] Future Scheduled 2022-06-02 Hepatitis C screening [facility] Test 09:17:35 (procedure) [code = 067354427] Future Scheduled 2022-06-02 COLONOSCOPY SCREENING [facility] Test 09:17:35 [code = COLONOSCOPY SCREENING] Future Scheduled 2022-06-02 SHINGLES VACCINES ([facility] 09:17:35 of 2) [code = SHINGLES VACCINES (1 of 2)] Future Scheduled 2022-06-02 INFLUENZA VACCINE [facility] Test 09:17:35 [code = INFLUENZA VACCINE] Encounters Start End Encounter Admission Attending Care Care Encounter Source Date/Time Date/Time Type Type Clinicians Facility Department ID 2022-01-02 Outpatient [facility] [id number] Common 09:24:04 [facility] 2022-01-01 Outpatient [facility] [id number] Common 08:54:04 [facility] 2021-04-07 Emergency [facility] [id number] Univers 12:55:22 ity of [facility] 2022-07-07 2022-07-07 Miguelina Vo [facility] 1.2.840.114 [id number] Univers 00:00:00 00:00:00 Adriel WILSON 350.1.13.10 i ty of [place] [phone] [facility] [address] BUILDING 2022-05-28 2022-05-28 Miguelina Bobby ARROMA 1.2.840.114 [id number] Univers 00:00:00 00:00:00 Kevin S HEALTH 350.1.13.10 it y of [place] 4.2.7.2.686 Tk as WATSON?BLEA [phone] [facility] [address] [place] MEDICAL OFFICE BUILDING 2022-05-02 2022-05-02 [facility] 1.2.840.114 [id number] Univers 00:00:00 00:00:00 Kevin S HEALTH 350.1.13.10 it y of [place] 4.2.7.2.686 Tk as WATSON?BLEA [phone] Fl justino SEGURA 198 [facility] 2022-04-28 2022-04-28 Miguelina Bobby [facility] 1.2.840.114 [id number] Univers 00:00:00 00:00:00 Kevin S HEALTH 350.1.13.10 it y of [place] 4.2.7.2.686 Tk as WATSON?BLEA [phone] Fl justino SEGURA 198 [facility] 2022-04-05 2022-04-05 Miguel[facility] 1.2.840.114 [id number] Univers 00:00:00 00:00:00 Kevin S HEALTH 350.1.13.10 it y [facility] 4.2.7.2.686 Tk as WATSON?BLEA [phone] Fl justino SEGURA 198 [facility] 2022-03-30 2022-03-30 [facility] 1.2.840.114 [id number] Univers 00:00:00 00:00:00 Adriel HANNA 350.1.13.10 i ty of [place] [phone] Fl justino CAMEJO 204 [facility] 2022-03-27 2022-03-27 Orders Doctor LILI 1.2.840.114 [id number] Univers 00:00:00 00:00:00 Only Unassigned, KARI 350.1.13.10 ity of [place] [facility] 4.2.7.2.686 Tk as [phone] [address] 2022-03-03 2022-03-03 Miguel[facility] 1.2.840.114 [id number] Univers 00:00:00 00:00:00 Kevin S HEALTH 350.1.13.10 it y of [place] 4.2.7.2.686 Tk as WATSON?BLEA [phone] Fl dicneymar SEGURA 198 [facility] 2022-02-06 2022-02-06 Miguelina Vo ARROMA 1.2.840.114 [id number] Univers 00:00:00 00:00:00 [facility] 350.1.13.10 i ty of [facility] [place] [phone] Fl dical NAL 204 [facility] 2022-02-01 2022-02-01 Miguelina [facility] 1.2.840.114 [id number] Univers 00:00:00 00:00:00 [facility] 350.1.13.10 it y of [place] 4.2.7.2.686 Tk as WATSON?BLEA [phone] Fl dical [facility] 198 [facility] OFFICE [facility] 2022-01-05 2022-01-05 Electrical Timing Device Calibrator Sania, Gilberto Lab Main [facility] 1.2.8 40.114 [id number] Univers 17:00:00 17:15:00 Visit [facility] 350.1.13.10 ity of [place] [phone] Fl dical NAL 353 [facility] 2022-01-05 2022-01-05 [facility] [id number] Univers 16:00:00 17:12:08 ADRIEL ity [facility] 2022-01-05 2022-01-05 Office [facility] 1.2.840.114 [id number] Univers 16:00:00 17:00:00 Visit [facility] 350.1.13.10 i ty of [place] [phone] Fl dical REPLACED BY [facility] 204 [facility] 2022-01-05 2022-01-05 Out[facility] [id number] Univers 16:00:00 16:00:00 ADRIEL ity [facility] 2022-01-05 2022-01-05 Orders Doctor PEARSON 1.2.840.114 [id number] Univers 00:00:00 00:00:00 Only Unassigned, KARI 350.1.13.10 ity of [place] [facility] 4.2.7.2.686 Tk as [phone] [address] 2021-12-30 2021-12-30 Miguelina [facility] 1.2.840.114 [id number] Univers 00:00:00 00:00:00 Kevin S HEALTH 350.1.13.10 it y of [place] 4.2.7.2.686 Tk as WATSON?BLEA [id number] Fl dicneymar SEGURA 198 [facility] OFFICE [facility] 2021-12-04 2021-12-04 Miguel[facility] 1.2.840.114 [id number] Univers 00:00:00 00:00:00 Kevin S HEALTH 350.1.13.10 it y of [place] 4.2.7.2.686 Tk as WATSON?BLEA [phone] Fl dicneymar SEGURA 198 [facility] 2021-12-04 2021-12-04 Miguelina Chinchilla [facility] 1.2.800.374 [id number] Univers 00:00:00 00:00:00 Victor Manuel Y HEALTH 350.1.13.10 i ty of [employer] [place]2.[place].2.[place] [phone] [place] [address] [place] 2021-09-30 2021-09-30 Electrical Timing Device Calibrator Sania, Gilberto Lab Main [facility] 1.2.8 40.114 [id number] Univers 09:45:00 10:00:00 Visit Oleg Chen [facility].13.10 [facility] [place] [phone] Fl justino BASHIR 353 [facility] 2021-09-30 2021-09-30 Outpatient R APRIL ARROMA [facility] [id number] Univers 09:45:00 09:45:00 OLEG keller [facility] 2021-09-29 2021-09-29 Patient April [facility] 1.2.840.114 [id number] Univers 00:00:00 00:00:00 Secure Msg Oleg Horner [facility] 350.1.13.10 ity of [facility] 4.2.7.2.[place] CENTER AT [phone] Fl justino JANAE [address] [place] [address] 2021-09-25 2021-09-25 Outpatient R APRIL [facility] [id number] Univers 08:47:00 12:42:00 OLEG lisa [facility] 2021-09-25 2021-09-25 Hospital [facility] 1.2.840.114 [id number] Univers 08:47:00 12:42:00 Encounter Oleg Horner FERMIN 350.1.13.10 ity of [place]ENC[place] 4.2.7.2.686 Tk as BLDG [phone] [facility] 020 [place] 2021-09-25 2021-09-25 Surgery [facility] 1.2.354.792 [id number] Univers 10:40:00 11:25:00 Oleg Horner ICAL 350.1.13.10 ity of [place] 4.2.7.2.686 Tk as BLDG [phone] [facility] 020 [place] 2021-09-25 2021-09-25 Outpatient [facility] [id number] Univers 08:15:00 08:15:00 OLEG [facility] 2021-09-25 2021-09-25 Orders Doctor LILI 1.2.840.114 [id number] Univers 00:00:00 00:00:00 Only Unassigned, KARI 350.1.13.10 ity of [place] [facility] 4.2.7.2.686 Tk as [phone] [facility] 009 [place] 2021-09-11 2021-09-11 Office OLIVIA Chinchilla 1.2.313.529 [id number] Univers 12:30:00 13:00:00 Visit Victor Manuel Y HEALTH 350.1.13.10 i ty of [facility] [phone] [facility] 071 [place] 2021-09-11 2021-09-11 Outpatient R [facility] [id number] Univers 12:30:00 12:30:00 VICTOR MANUEL [facility] 2021-09-09 2021-09-09 Refill Doctor ARROMA 1.2.840.114 [id number] Univers 00:00:00 00:00:00 Unassigned, HEALTH 350.1.13.10 ity of [place] SURGICAL 4.2.7.2.686 Tk as SPECIALTI [phone] Me dical ES 198 [facility] 2021-04-21 2021-04-21 Refill Doctor [place] 1.2.840.114 [id number] Univers 00:00:00 00:00:00 Unassigned, HEALTH 350.1.13.10 ity of [place] 4.2.7.2.686 Tk as WATSON?BLEA [phone] Fl dical COLTON [address] [place] [address] 2021-04-04 2021-04-04 Outpatient R TARUN, [facility] [id number] Univers 08:00:00 08:00:00 DESEAN [facility] 2021-04-04 2021-04-04 Outpatient R KANU, [facility] [id number] Univers 08:00:00 08:00:00 KEVIN [facility] 2021-03-30 2021-03-30 Refill Doctor [facility] 1.2.840.114 [id number] Univers 00:00:00 00:00:00 Unassigned, Health 350.1.13.10 ity of [place] 4.2.7.2.686 Tk as Watson?Blea [phone] Fl dical colton [address] [place] [address] 2021-03-30 2021-03-30 Refill Doctor [facility] 1.2.840.114 [id number] Univers 00:00:00 00:00:00 Unassigned, Health 350.1.13.10 ity of [place] Surgical 4.2.7.2.686 Tk as Specialti [phone] Me dical es 198 [facility] 2021-03-28 2021-03-28 Refill Doctor [facility] 1.2.840.114 [id number] Univers 00:00:00 00:00:00 Unassigned, Health 350.1.13.10 ity of [place] Surgical 4.2.7.2.686 Tk as Specialti [phone] Me dical es 198 [facility] 2021-03-28 2021-03-28 Refill Doctor [facility] 1.2.840.114 [id number] Univers 00:00:00 00:00:00 Unassigned, Health 350.1.13.10 ity of [place] 4.2.7.2.686 Tk as Watson?Blea [phone] Me dical colton 198 [facility] Office [facility] 2021-02-25 2021-02-25 Patient MIGUEL ANGEL Bobby 1.2.840.114 [id number] Univers 00:00:00 00:00:00 Secure Msg Kevin S Health 350.1.13.10 ity of [place] 4.2.7.2.686 Tk as Watson?Blea [phone] Me justino segura 198 [facility] Office [facility] 2021-02-21 2021-02-21 Office Tarun [facility] 1.2.685.719 [id number] Univers 08:15:00 08:26:53 Visit [facility] 350.1.13.10 it y of [place] 4.2.7.2.686 Tk as WATSON?BLEA [phone] Me justino SEGURA [address] [place] [address] 2021-02-21 2021-02-21 Outpatient R TARUN [facility] [id number] Univers 08:15:00 08:26:53 DESEAN ity [facility] 2021-02-21 2021-02-21 Outpatient R TARUN [facility] [id number] Univers 08:15:00 08:15:00 DESEAN ity [facility] 2021-02-16 2021-02-16 Refcalista Bobby ARROMA 1.2.840.114 [id number] Univers 00:00:00 00:00:00 [facility] 350.1.13.10 it y of Surgical 4.2.7.2.686 Tk as Specialti [phone] Me dical es 198 [facility] 2021-02-16 2021-02-16 Refill Kanu [facility] 1.2.840.114 [id number] Univers 00:00:00 00:00:00 Kevin S Health 350.1.13.10 it y of Surgical 4.2.7.2.686 Tk as Specialti [phone] Me dical es 198 [facility] 2021-02-14 2021-02-14 Office Kanu [place] 1.2.840.114 [id number] Univers 08:11:41 09:02:17 Visit Kevin [facility] 350.1.13.10 it y of [place] 4.2.7.2.686 Tk as Watson?Blea [phone] Fl justino segura 198 [facility] Office [facility] 2021-02-14 2021-02-14 [facility] [id number] Univers 08:00:00 08:00:00 KEVIN ity of [facility] 2021-02-04 2021-02-04 Office [facility] 1.2.840.114 [id number] Univers 13:39:04 14:04:51 Visit Kevin [facility] 350.1.13.10 it y of [place] 4.2.7.2.686 Tk as Watson?Blea [phone] [address] Office [facility] 2021-02-04 2021-02-04 Out[facility] [id number] Univers 13:30:00 13:30:00 KEVIN ity of [facility] 2021-02-04 2021-02-04 Orders Doctor LILI 1.2.840.114 [id number] Univers 00:00:00 00:00:00 Only Unassigned, KARI 350.1.13.10 ity of [place] [facility] 4.2.7.2.686 Tk as [phone] [facility] 009 [place] 2021-01-27 2021-01-27 Patient Doctor [facility] 1.2.840.114 [id number] Univers 00:00:00 00:00:00 Secure Msg Unassigned, Health 350.1.13.10 ity of [place] 4.2.7.2.686 Tk as Watson?Blea [phone] Fl jessicamd colton 198 [facility] Office [facility] 2021-01-17 2021-01-17 Hospital [facility] 1.2.840.114 [id number] Univers 09:28:27 23:59:00 Encounter Kevin King [place] 350.1.13.10 ity of [place] [phone] [facility] 807 [place] 2021-01-17 2021-01-17 Office [facility] 1.2.840.114 [id number] Univers 10:08:28 10:23:28 Visit Kevin King [facility] 350.1.13.10 it y of Surgical 4.2.7.2.686 Tk as Specialti [phone] Me dical es 198 [facility] 2021-01-17 2021-01-17 Out[facility] [id number] Univers 09:45:00 09:45:00 KEVIN ity of [facility] 2021-01-17 2021-01-17 Orders Doctor LILI 1.2.840.114 [id number] Univers 00:00:00 00:00:00 Only Unassigned, KARI 350.1.13.10 ity of [place] [facility] 4.2.7.2.686 Tk as [phone] [facility] 009 [place] 2021-01-16 2021-01-16 Telephone [facility] 1.2.107.196 [id number] Univers 00:00:00 00:00:00 Kevin Wilson 350.1.13.10 i ty of [place] Profess[place] [phone] Fl dical nal 198 [facility] 2021-01-13 2021-01-13 [facility]ill [facility] 1.2.840.114 [id number] Univers 00:00:00 00:00:00 Kevin King [facility] 350.1.13.10 it y of Surgical 4.2.7.2.686 Tk as Specialti [phone] Me dical es 198 [facility] 2021-01-07 2021-01-07 Emergency [facility] 1.2.121.216 [id number] Univers 18:50:00 23:18:00 Sushilalane Wilson 350.1.13.10 ity of [place] [phone] [facility] 084 [place] 2021-01-07 2021-01-07 Office Juanjose, CHYNAIT 1.2.840.114 [id number] Univers 15:32:44 16:45:26 Visit Jerrell R Y HEALTH 350.1.13.10 ity of [place] [phone] [address] 2021-01-07 2021-01-07 Outpatient [facility] [id number] Univers 00:00:00 00:00:00 JERRELL ity of [facility] 2021-01-07 2021-01-07 Letter Doctor LILI 1.2.840.114 [id number] Univers 00:00:00 00:00:00 (Out) Unassigned, KARI 350.1.13.10 ity of [place] HOSPITAL 4.2.7.2.686 Tk as [phone] [facility] 044 [place] 2021-01-01 2021-01-01 Office Juanjose [facility] 1.2.840.114 [id number] Univers 15:14:09 15:59:22 Visit Jerrell R Y HEALTH 350.1.13.10 ity of [place] [phone] [address] 2021-01-01 2021-01-01 Outpatient R [facility] [id number] Univers 15:00:00 15:00:00 JERRELL ity [facility] 2021-01-01 2021-01-01 Orders Doctor LILI 1.2.840.114 [id number] Univers 00:00:00 00:00:00 Only Unassigned, KARI 350.1.13.10 ity of [place] HOSPITAL 4.2.7.2.686 Tk as [phone] [facility] 009 [place] 2020-11-08 2020-11-08 Miguelina [facility] 1.2.840.114 [id number] Univers 00:00:00 00:00:00 Kevin S Health 350.1.13.10 it y of Surgical 4.2.7.2.686 Tk as Specialti [phone] [address] 2020-09-29 2020-09-29 Miguel[facility] 1.2.840.114 [id number] Univers 00:00:00 00:00:00 Kevin S Health 350.1.13.10 it y of Surgical 4.2.7.2.686 Tk as Specialti [phone] Me dical es [address] [place] 2020-09-29 2020-09-29 Miguelina Bobby ARROMA 1.2.840.114 [id number] 00:00:00 00:00:00 [facility] 350.1.13.10 Surgical 4.2.7.2.686 Specialti [phone] es 198 [place] 2020-09-17 2020-09-17 Outpatient MARIELA, [facility] [id number] [place] 00:00:00 00:00:00 AHMED 354 Method i 2020-09-17 2020-09-17 Outpatient MARIELA, [facility] [id number] [place] 00:00:00 00:00:00 AHMED [address] 2020-09-17 2020-09-17 Outpatient [facility], [facility] [id number] [place] 00:00:00 00:00:00 AHMED 355 Method i 2020-09-03 2020-09-03 Outpatient MARIELA, [facility] [id number] [place] 00:00:00 00:00:00 AHMED 292 Method i 2020-08-27 2020-08-27 Outpatient MARIELA, [facility] [id number] [place] 00:00:00 00:00:00 AHMED 659 Method i 2020-08-06 2020-08-06 Miguelina Bobby [facility] 1.2.840.114 [id number] Univers 00:00:00 00:00:00 [facility] 350.1.13.10 it y of Surgical 4.2.7.2.686 Tk as Specialti [phone] Fl dical es [address] [place] 2020-08-06 2020-08-06 Miguelina Bobby ARROMA 1.2.840.114 [id number] 00:00:00 00:00:00 [facility] 350.1.13.10 Surgical 4.2.7.2.686 Specialti [phone] es 198 [place] 2020-06-18 2020-06-18 Miguelina Bobby [facility] 1.2.840.114 [id number] Univers 00:00:00 00:00:00 Kevin S Health 350.1.13.10 it y of Surgical 4.2.7.2.686 Tk as Specialti [id number] Fl dical es 198 [facility] 2020-06-18 2020-06-18 [facility] 1.2.840.114 [id number] 00:00:00 00:00:00 Kevin S Health 350.1.13.10 Surgical 4.2.7.2.686 Specialti [phone] es 198 [place] 2020-01-15 2020-01-15 [facility] 1.2.840.114 [id number] Univers 00:00:00 00:00:00 Kevin S Health 350.1.13.10 it y of Surgical 4.2.7.2.686 Tk as Specialti [id number] Fl dical es 198 [facility] 2020-01-15 2020-01-15 [facility] 1.2.840.114 [id number] 00:00:00 00:00:00 Kevin S Health 350.1.13.10 Surgical 4.2.7.2.686 Specialti [phone] es 198 [place] 2019-11-22 2019-11-22 [facility] 1.2.840.114 [id number] Univers 14:00:24 16:25:45 Visit Kevin S Health 350.1.13.10 it y of Surgical 4.2.7.2.686 Tk as Specialti [phone] Fl dical es 198 [facility] 2019-11-22 2019-11-22 [facility] 1.2.840.114 [id number] 14:00:24 16:25:45 Visit Kevin S Health 350.1.13.10 Surgical 4.2.7.2.686 Specialti [phone] es 198 [place] 2019-11-22 2019-11-22 [facility] [id number] Univers 14:45:00 14:45:00 EKVIN [facility] 2019-11-20 2019-11-20 Outpatient R TARUN [facility] [id number] Univers 15:00:00 15:00:00 DESEAN keller [facility] 2019-11-16 2019-11-16 Telephone Tarun [facility] 1.2.840.114 [id number] Univers 00:00:00 00:00:00 Desean Mendez [facility] 350.1.13.10 it y of Surgical 4.2.7.2.686 Tk as Specialti [phone] Me dical es 198 [facility] 2019-10-17 2019-10-17 Ambulatory nullFlavo MNA [id number] Memoria 15:30:00 15:30:00 Pre-Reg r Neurology 01 l [facility] 2019-10-17 2019-10-17 Ambulatory nullFlavo MNA [id number] Memoria 15:30:00 15:30:00 Pre-Reg r Neurology 01 l [facility] 2019-10-17 2019-10-17 Ambulatory nullFlavo MNA [id number] Memoria 15:30:00 15:30:00 Pre-Reg r Neurology 01 l [facility] 2019-10-17 2019-10-17 Outpatient MHIE MHIE [id number] Memoria 10:30:00 10:30:00 01 Surgery [facility] 2019-10-17 2019-10-17 Outpatient MHIE MHIE [id number] Memoria 10:30:00 10:30:00 01 Surgery [facility] 2019-10-17 2019-10-17 Outpatient Winifred, MHMISCHER MHMISCHER [id number] 10:30:00 10:30:00 Ernie 01 Shimon 2019-10-17 2019-10-17 Outpatient Winifred, MHMISCHER MHMISCHER [id number] 10:30:00 10:30:00 Ernie 01 Shimon 2019-10-02 2019-10-02 Miguelina Bobby [facility] 1.2.840.114 [id number] Univers 00:00:00 00:00:00 Kevin [facility] 350.1.13.10 it y of Surgical 4.2.7.2.686 Tk as Specialti [phone] Me dical es 198 [facility] 2019-09-05 2019-09-06 Outpatient nullFlavo MNA [id number] Memoria 15:00:00 04:59:59 r Neurology 00 l Radha Howard 2019-09-05 2019-09-06 Outpatient nullFlavo MNA [id number] Memoria 15:00:00 04:59:59 r Neurology 00 l Radha Howard 2019-09-05 2019-09-06 Outpatient nullFlavo MNA [id number] Memoria 15:00:00 04:59:59 r Neurology 00 l Radha Howard 2019-09-05 2019-09-05 Outpatient Winifred, MHMISCHER MHMISCHER [id number] 10:00:00 23:59:59 Ernie 00 Shimon 2019-09-05 2019-09-05 Outpatient Winifred, MHMISCHER MHMISCHER [id number] 10:00:00 23:59:59 Ernie 00 Shimon 2019-09-05 2019-09-05 Outpatient MHIE MHIE [id number] Memoria 10:00:00 10:00:00 00 l Lee 2019-09-05 2019-09-05 Outpatient MHIE MHIE [id number] Memoria 10:00:00 10:00:00 00 l Arona 2019-08-27 2019-08-27 [facility] 12.840.114 [id number] Univers 00:00:00 00:00:00 [facility] [id number] it y of Surgical 4.2.7.2.686 Kt as Specialti [phone] Fl dical es 198 [facility] 2019-07-16 2019-07-16 [facility] [id number] Univers 00:00:00 00:00:00 [facility] 350.1.13.10 it y of Surgical 4.2.7.2.686 Tk as Specialti [phone] Fl dical es 198 [facility] 2019-01-26 2019-01-26 [place] [facility] 12.840.114 [id number] Univers 00:00:00 00:00:00 [facility] 350.1.13.10 it y of Surgical 4.2.7.2.686 Tk as Specialti [phone] Fl dical es 198 [facility] Results Test Description Test Time Test Comments Results Result Comments Source POCT URINALYSIS, INSTRUMENT 2022-01-05 21:37:00 Test Item Value Reference Range Interpretation Comme nts POCT U SP GRAV (test code = 3255) 1.030 mg/dl 1.005-1.025 A POCT PH U (test code = 3254) 6.5 mg/dl 5-8 POCT U LEUK EST (test code = 3263) Negative Negative - Negative POCT U NIT (test code = 3262) Negative Negative - Negative POCT U PROT (test code = 3259) Negative Negative - Negative POCT U GLU (test code = 3256) Negative Negative - Negative POCT U KETONE (test code = 3258) Negative Negative - Negative POCT U UROBILI (test code = 3260) 0.2 mg/dl 0.2-1 POCT U BILI (test code = 3261) Negative Negative - Negative POCT U BLD (test code = 3257) Negative Negative - Negative POCT U COLOR (test code = 3266) yellow POCT U APPEAR (test code = 3267) clear Lab Interpretation (test code = 62299-2) [facility]normal [facility] [id number] 21:37:00 Test Item Value Reference Range Interpretation Comments POCT U SP GRAV (test code = 1.030 mg/dl 1.005-1.025 A 3255) POCT PH U (test code = 3254) 6.5 mg/dl 5-8 POCT U LEUK EST (test code = Negative Negative - Negative 3263) POCT U NIT (test code = 3262) Negative Negative - Negative POCT U PROT (test code = Negative Negative - Negative 3259) POCT U GLU (test code = 3256) Negative Negative - Negative POCT U KETONE (test code = Negative Negative - Negative 3258) POCT U UROBILI (test code = 0.2 mg/dl 0.2-1 3260) POCT U BILI (test code = Negative Negative - Negative 3261) POCT U BLD (test code = 3257) Negative Negative - Negative POCT U COLOR (test code = yellow 3266) POCT U APPEAR (test code = clear 3267) Lab Interpretation (test code Abnormal = 56302-1) [facility]
[2022-07-09 08:28] LABS: Absolute Lymphocytes (CBC) 1.3 K/uL (0.7-4.9); Hematocrit 40.1 % (39.6-49.0); Lymphocytes % 26.4 % (15.3-44.8); MCV 93.5 fL (80-100); MPV 7.7 fL (7.6-11.3); RBC Red Blood Cell Count 4.29 M/uL (4.33-5.43)
[2022-07-09 08:33] LABS: Protime INR 1.1
[2022-07-09 08:58] LABS: Albumin 3.4 g/dL (3.4-5.0); Bilirubin Total 0.4 mg/dL (0.2-1.0); Potassium 3.9 mmol/L (3.5-5.1); Protein, Total 7.4 g/dL (6.4-8.2)
--- NOTE | 2022-07-09 09:00 | RAD REPORT ---
EXAM DESCRIPTION: CT - [id number] - 07/09/2022 8:26 am CLINICAL HISTORY: Headache, Right arm numbness and pain COMPARISON: No comparisons TECHNIQUE: Axial 5 mm thick images of the head were obtained. Axial 2 mm thick images of the cervic al spine were obtained with sagittal and coronal reconstruction images generated and reviewed. All CT scans are performed using dose optimization technique as appropriate and may include automated exposure control or mA/KV adjustment according to patient size. FINDINGS: No intracranial hemorrhage, mass, edema or acute intracranial finding. No suspicion for ac bill moore's slough infarction. No extra-axial fluid collections. Mastoid air cells and paranasal sinuses are clear. No globe or orbit abnormality seen. Benign falx calcifications are present. Cervical body height and alignment are normal. No significant disc space narrowing seen. Endplate spu rs are present multiple levels. There are prominent degenerative changes at the dens anterior arch C1 level. No encroachment into the central canal at this level. No bony central spinal stenosis. No fra cture or acute finding. Multilevel facet joint degenerative changes are present. Mild bony foraminal encroachment changes are present. Central canal detail is inherently limited. No paraspinal mass or hematoma. IMPRESSION: Negative CT head examination for acute or significant finding. Cervical spine degenerative changes are present with mild multilevel bony foraminal encroachment. No acute cervical spine finding. Central canal detail is inherently limited.
[2022-07-09] MEDS ORDERED: ACETAMINOPHEN 500 MG TAB ONE (09:01)
[2022-07-09] MEDS ORDERED: ASPIRIN 325 MG TAB ONE (09:02)
--- NOTE | 2022-07-09 09:04 | RAD REPORT ---
EXAM DESCRIPTION: RAD - Chest Single View - 07/09/2022 8:47 am CLINICAL HISTORY: PAIN COMPARISON: Portable 10/10/2020 TECHNIQUE: AP portable chest image was obtained 07/09/2022 8:47 am . FINDINGS: Lungs are clear. Interstitial pattern is accentuated by portable technique and large body habitus. No significant failure or volume overload. Heart and vasculature are normal. No measurable pleural effusion and no pneumothorax. No acute bony a bnormality seen. No acute aortic findings suspected. IMPRESSION: No acute cardiopulmonary process.
[2022-07-09] MEDS ORDERED: METOCLOPRAMIDE 10 MG/2mL INJ ONE (10:04)
[2022-07-09] MEDS ORDERED: NA CHLORIDE 0.9% 500 ML ONE (10:05)
[2022-07-09] MEDS ORDERED: dexAMETHasone 10 MG/ML VIAL ONE (10:05)
[2022-07-09] MEDS ORDERED: DIPHENHYDRAMINE 50 MG/ML VIAL ONE (10:05)
--- NOTE | 2022-07-09 10:42 | ER ---
Nurse's Notes [facility] Name: Ethan Hall Age: 52 yrs Sex: Male : 1970 Arrival Date: 07/09/2022 Time: 07:53 Bed 6 Private MD: Diagnosis: Headache;Essential (primary) hypertension Presentation: 07/09 08:09 Chief complaint: Patient states: he started having a right sided headache with ap3 intermittent dizziness on Wednesday07/06/2022. Patient reports his symptoms have been getting increasingly worse and his blood pressure has been increasing as well. Patient states that his right sided headache is at its worse this morning at 0430, and it radiates down his right shoulder and into his right arm. Patient reports that he has not been taking his losartan for approx one year. Coronavirus screen: At this time, the client does not indicate any symptoms associated with coronavirus-19. Ebola Screen: No symptoms or risks identified at this time. Initial Sepsis Screen: Does the patient meet any 2 criteria? No. Patient's initial sepsis screen is negative. Does the patient have a suspected source of infection? No. Patient's initial sepsis screen is negative. Risk Assessment: Do you want to hurt yourself or someone else? Patient reports no desire to harm self or others. Onset of symptoms was July 06, 2022. 08:09 Method Of Arrival: Ambulatory ap3 08:09 Acuity: CHRISTINA 3 ap3 Triage Assessment: 08:14 General: Appears in no apparent distress. Behavior is calm, cooperative. Pain: ap3 Complains of pain in right side of head Pain radiates to right arm Pain began gradually, 2-3 days ago. Neuro: Level of Consciousness is awake, alert, obeys commands, Oriented to person, place, time, situation, Moves all extremities. Gait is steady, Speech is normal, Facial symmetry appears normal. Cardiovascular: Patient's skin is warm and dry. Respiratory: Airway is patent Respiratory effort is even, unlabored, Respiratory pattern is regular, symmetrical. Historical: - Allergies: 08:13 No Known Allergies; ap3 - PMHx: 08:13 Hernia; Hypertension; ap3 - Immunization history:: Client reports having NOT received the Covid vaccine. Flu vaccine is not up to date. - Social history:: Smoking status: Patient denies any tobacco usage or history of. Screenin:14 [facility] ED Fall Risk Assessment (Adult) History of falling in the last 3 months, ap3 including since admission No falls in past 3 months (0 pts). Abuse screen: Denies threats or abuse. Nutritional screening: No deficits noted. Tuberculosis screening: No symptoms or risk factors identified. Assessment: 08:46 Reassessment: Patient and/or family updated on plan of care and expected duration. Pain ap3 level reassessed. Patient is alert, oriented x 3, equal unlabored respirations, skin warm/dry/pink. 10:17 Reassessment: Patient appears in no apparent distress at this time. Patient and/or ph family updated on plan of care and expected duration. Pain level reassessed. Patient is alert, oriented x 3, equal unlabored respirations, skin warm/dry/pink. Vital Signs: 08:09 BP 149 / 90; Pulse 93; Resp 18; Temp 98.9; Pulse Ox 97% ; Weight 117.93 kg; Height 5 ap3 ft. 7 in. (170.18 cm); 08:09 Pain 5/10; ap3 08:45 BP 138 / 82; Pulse 86; Pulse Ox 96% on R/A; ap3 10:17 BP 130 / 81; Pulse 82; Resp 18; Pulse Ox 98% on R/A; ph 10:54 BP 124 / 85; Pulse 78; Pulse Ox 100% on R/A; ap3 08:09 Body Mass Index 40.72 (117.93 kg, 170.18 cm) ap3 ED Course: 07:53 Patient arrived in ED. rg4 08:01 Scott Romero NP is PHCP. pm1 08:01 Devin Orosco DO is Attending Physician. pm1 08:09 Aleida Ryan, REINA is Primary Nurse. ap3 08:13 Triage completed. ap3 08:14 Arm band placed on right wrist. ap3 08:15 Patient has correct armband on for positive identification. Bed in low position. Call ap3 light in reach. Side rails up X 1. telemetry monitor on. Pulse ox on. NIBP on. Door closed. Noise minimized. 08:15 EKG done, by quality assurance lab technician. reviewed by Scott Romero NP. ap3 08:22 Inserted saline lock: 20 gauge in right antecubital area, using aseptic technique. ap3 Blood collected. 08:28 CT Head C Spine In Process Unspecified. EDMS 08:32 Troponin High Sensitivity Sent. ap3 08:32 PT-INR Sent. ap3 08:32 CMP Sent. ap3 08:32 CBC with Diff Sent. ap3 08:49 Chest Single View XRAY In Process Unspecified. EDMS 09:17 Nurse Practitioner and/or Physician Interactive Digital Media Specialist to see patient. ap3 10:54 No provider procedures requiring assistance completed. IV discontinued, intact, ap3 bleeding controlled, No redness/swelling at site. Pressure dressing applied. Administered Medications: 09:00 Drug: Tylenol 1000 mg Route: PO; ap3 09:59 Follow up: Response: No adverse reaction; Pain is decreased ap3 09:00 Drug: Aspirin 325 mg Route: PO; ap3 09:59 Follow up: Response: No adverse reaction; Pain is decreased ap3 10:09 Drug: NS 0.9% 500 ml Route: IV; Rate: bolus; Site: left antecubital; ap3 10:55 Follow up: IV Status: Completed infusion ap3 10:10 Drug: Decadron - Dexamethasone 10 mg Route: IVP; Site: left antecubital; ap3 10:54 Follow up: Response: No adverse reaction ap3 10:10 Drug: Benadryl (diphenhydrAMINE) 12.5 mg Route: IVP; Site: left antecubital; ap3 10:55 Follow up: Response: No adverse reaction; Pain is decreased ap3 10:10 Drug: Reglan (metoCLOPramide) 10 mg Route: IVP; Site: left antecubital; ap3 10:55 Follow up: Response: No adverse reaction; Pain is decreased ap3 Medication: 08:15 VIS not applicable for this client. ap3 Outcome: 10:42 Discharge ordered by MD. pm1 10:55 Discharged to home ambulatory. ap3 10:55 Condition: good 10:55 Discharge instructions given to patient, Instructed on discharge instructions, follow up and referral plans. medication usage, Demonstrated understanding of instructions, follow-up care, medications, Prescriptions given X 1. 10:55 Patient left the ED. ap3 Signatures: Dispatcher [employer] Alexandrea Piña RN RN ph Marinas, Patrick, NP SPOOL CLEANER pm1 Christine Stewart 4 Prokisch, Aleida, RN RN ap3
--- NOTE | 2022-07-09 10:42 | EDPHYS ---
Physician Documentation [facility] Name: Ethan Hall Age: 52 yrs Sex: Male : 1970 Arrival Date: 07/09/2022 Time: 07:53 Bed 6 Private MD: ED Physician Devin Orosco HPI: 07/09 08:21 This 52 yrs old Black Male presents to ER via Ambulatory with complaints of Pain and pm1 Numbness of Right Arm, High Blood Pressure, Pain Right Face. 08:21 The patient complains of pain to the right eye, right side of the back of head, right pm1 occipital area and right base of the skull. The patient describes the headache as intermittent. Onset: The symptoms/episode began/occurred 3 day(s) ago. Associated signs and symptoms: Pertinent positives: dizziness. Severity of symptoms: in the emergency department the pain is actually worse, PERES onset today. The symptoms are alleviated by nothing. the symptoms are aggravated by nothing. The patient has not experienced similar symptoms in the past. The patient has not recently seen a physician, and does not have an established primary care provider, Patient's doctor moved his practice 1 year ago and he has not found another doctor yet. Has not taken his blood pressure medication in 1 year. 52-year-old male presents to the ER with complaints of headache to right side of his head, right shoulder and arm pain. Patient reports numbness also present to the right shoulder and arm. Patient reports onset of elevated blood pressure with occasional dizziness on Wednesday. His blood pressure has been elevated since Wednesday, peak systolic 180s. Patient reports onset of headache today to the right side of his head, but primarily behind the eye. Also reports right neck pain that radiates down his shoulder to right arm that also has some numbness to it that started at 0400 this AM. Patient reports that his blood pressure is better this morning because he took one of his mother's lisinopril. Negative for chest pain, shortness of breath, nausea vomiting. Historical: - Allergies: 08:13 No Known Allergies; ap3 - PMHx: 08:13 Hernia; Hypertension; ap3 - Immunization history:: Client reports having NOT received the Covid vaccine. Flu vaccine is not up to date. - Social history:: Smoking status: Patient denies any tobacco usage or history of. ROS: 08:21 Constitutional: Negative for fever, chills, and weight loss, Eyes: Negative for injury, pm1 pain, redness, and discharge, Cardiovascular: Negative for chest pain, palpitations, and edema, Respiratory: Negative for shortness of breath, cough, wheezing, and pleuritic chest pain. 08:21 Abdomen/GI: Negative for abdominal pain, nausea, vomiting, diarrhea, and constipation, Back: Negative for injury and pain, MS/Extremity: Negative for injury and deformity, Skin: Negative for injury, rash, and discoloration. 08:21 Neck: Positive for right sided neck and shoulder pain. 08:21 Neuro: Positive for dizziness, headache, pain and numbness right arm, Negative for weakness. 08:21 All other systems are negative. Exam: 08:21 Constitutional: This is a well developed, well nourished patient who is awake, alert, pm1 and in no acute distress. Head/Face: Normocephalic, atraumatic. 08:21 Back: No spinal tenderness. No costovertebral tenderness. Full range of motion. Skin: Warm, dry with normal turgor. Normal color with no rashes, no lesions, and no evidence of cellulitis. MS/ Extremity: Pulses equal, no cyanosis. Neurovascular intact. Full, normal range of motion. 08:21 Eyes: Exam is negative for acute changes, Periorbital structures: no acute changes, Extraocular movements: no acute changes, Conjunctiva: no acute changes, no injection. 08:21 ENT: Exam is negative for acute changes, Mouth: no acute changes, Lips: normal, moist, Oral mucosa: normal, pink and intact, moist. 08:21 Cardiovascular: Exam negative for acute changes, Rate: normal, Rhythm: regular, Pulses: no pulse deficits are appreciated, Heart sounds: normal, normal S1and S2. 08:21 Respiratory: Exam negative for acute changes, respiratory distress, shortness of breath, Breath sounds: are clear throughout. 08:21 Abdomen/GI: Exam negative for acute changes, Inspection: obese Palpation: abdomen is soft and non-tender, in all quadrants. 08:21 Neuro: Exam negative for acute changes, Orientation: is normal, Mentation: is normal, Cranial nerves: CN II- XII are normal as tested, Cerebellar function: Romberg testing is negative, normal finger to nose testing, Motor: is normal, moves all fours, strength is 5/5 in all extremities, Sensation: no obvious gross deficits, Gait: is steady, at a normal pace, without difficulty. 09:16 Head/face: Sinus tenderness, that is moderate, is located over the right maxillary pm1 sinus. Vital Signs: 08:09 BP 149 / 90; Pulse 93; Resp 18; Temp 98.9; Pulse Ox 97% ; Weight 117.93 kg; Height 5 ap3 ft. 7 in. (170.18 cm); 08:09 Pain 5/10; ap3 08:45 BP 138 / 82; Pulse 86; Pulse Ox 96% on R/A; ap3 10:17 BP 130 / 81; Pulse 82; Resp 18; Pulse Ox 98% on R/A; ph 10:54 BP 124 / 85; Pulse 78; Pulse Ox 100% on R/A; ap3 08:09 Body Mass Index 40.72 (117.93 kg, 170.18 cm) ap3 MDM: 08:01 Patient medically screened. pm1 10:10 Counseling: I had a detailed discussion with the patient and/or guardian regarding: the pm1 historical points, exam findings, and any diagnostic results supporting the discharge/admit diagnosis, lab results, radiology results, the need for outpatient follow up, to return to the emergency department if symptoms worsen or persist or if there are any questions or concerns that arise at home, will improve patient's headache prior to discharge. 10:38 Data reviewed: vital signs. pm1 10:38 Differential diagnosis: cerebral vascular accident, intracerebral hemorrhage, migraine, pm1 sinusitis, NH, cervical radiculopathy. 10:38 Care significantly affected by the following chronic conditions: Hypertension. pm1 10:38 ED course: Will initiate the patient on lisinopril 20 mg PO daily. Instructed to follow pm1 up with a PCP for additional management of his HTN. 07/09 08:16 Order name: CBC with Diff; Complete Time: 08:56 pm1 07/09 08:16 Order name: CMP; Complete Time: 08:59 pm1 07/09 08:16 Order name: CT Head C Spine; Complete Time: 09:04 pm1 07/09 08:16 Order name: PT-INR; Complete Time: 08:56 pm1 07/09 08:16 Order name: Chest Single View XRAY; Complete Time: 09:06 pm1 07/09 08:27 Order name: Troponin High Sensitivity; Complete Time: 08:59 pm1 07/09 08:16 Order name: IV Saline Lock; Complete Time: 08:32 pm1 07/09 08:16 Order name: EKG; Complete Time: 08:17 pm1 07/09 08:16 Order name: EKG - Nurse/Tech; Complete Time: 08:16 pm1 EC:17 Rate is 87 beats/min. Rhythm is regular, Normal Sinus Rhythm. QRS Burley is Normal. AL pm1 interval is normal. QRS interval is normal. QT interval is normal. No Q waves. T waves are Normal. No ST changes noted. Clinical impression: Normal ECG. Administered Medications: 09:00 Drug: Tylenol 1000 mg Route: PO; ap3 09:59 Follow up: Response: No adverse reaction; Pain is decreased ap3 09:00 Drug: Aspirin 325 mg Route: PO; ap3 09:59 Follow up: Response: No adverse reaction; Pain is decreased ap3 10:09 Drug: NS 0.9% 500 ml Route: IV; Rate: bolus; Site: left antecubital; ap3 10:55 Follow up: IV Status: Completed infusion ap3 10:10 Drug: Decadron - Dexamethasone 10 mg Route: IVP; Site: left antecubital; ap3 10:54 Follow up: Response: No adverse reaction ap3 10:10 Drug: Benadryl (diphenhydrAMINE) 12.5 mg Route: IVP; Site: left antecubital; ap3 10:55 Follow up: Response: No adverse reaction; Pain is decreased ap3 10:10 Drug: Reglan (metoCLOPramide) 10 mg Route: IVP; Site: left antecubital; ap3 10:55 Follow up: Response: No adverse reaction; Pain is decreased ap3 Disposition: 09:48 Co-signature as Attending Physician, Devin Orosco DO I reviewed the patient's care ms3 provided by Advanced Practice Provider \T\ agree w/ the diagnosis \T\ care plan. I personally saw the pt \T\ performed a substantive portion of the visit, incldng all aspects of the (History/Exam/Medical Decision Making). PA/FILAMENT TESTER's history reviewed, patient interviewed, and examined. HPI: 52-year-old male presents for right-sided headache and neck pain with radiation of pain to right arm that began on Wednesday. Patient states the pain is intermittent. My personal exam of patient reveals: On exam patient is alert and oriented x4, in no apparent distress, nontoxic-appearing. Heart rate and rhythm are regular without murmurs rubs or gallops, lungs are clear to auscultation bilaterally, abdomen is nontender to palpation, bowel sounds are present in all 4 quadrants. Skin is dry and without rashes. Pupils equal round reactive to light. Sensation intact, motor 5/5 in all extremities. Disposition Summary: 07/09/22 10:42 Discharge Ordered Location: Home pm1 Problem: new pm1 Symptoms: have improved pm1 Condition: Stable pm1 Diagnosis - Headache pm1 - Essential (primary) hypertension pm1 Followup: pm1 - With: Emergency Department - When: As needed - Reason: Worsening of condition Followup: pm1 - With: Private Physician - When: 2 - 3 days - Reason: Recheck today's complaints, Continuance of care, Re-evaluation by your physician Discharge Instructions: - Discharge Summary Sheet pm1 - General Headache Without Cause pm1 - Hypertension, Adult pm1 - How to Take Your Blood Pressure, [id number] pm1 - DASH Eating Plan pm1 - Managing Your Hypertension pm1 Forms: - Medication Reconciliation Form pm1 - Thank You Letter pm1 - Antibiotic Education pm1 - Prescription Opioid Use pm1 Prescriptions: - Lisinopril 20 mg Oral Tablet - take 1 tablet by ORAL route once daily; 20 tablet; Refills: 0, Product pm1 Selection Permitted Signatures: Dispatcher [employer] Scott Hendrickson, JODY FILAMENT TESTER pm1 Aleida Ryan RN RN ap3 Devin Orosco DO DO ms3
[2022-07-09 11:04] VITALS: TEMP 98.9
[2022-07-09 11:21] VITALS: BP 124/85; O2SAT 100
== END 2022-07-09 10:55 | disposition home or self-care (01) ==
LOC: ER 07:51
DX: R51.9 Headache, unspecified (principal); I10 Essential (primary) hypertension
CPT/HCPCS: 96361; 93005; 85025; 36415; 85610; 84484; 80053; 70450; 72125; 71045; 96375; 96374; 99284; J2765; J1200; J1100; J7040

== ENCOUNTER 2022-08-18 10:37 | Emergency (ER) | payer BC ==
--- OUTSIDE RECORDS SUMMARY | 2022-08-18 10:43 | XMS REPORT | Continuity of Care Document ---
:1970 Author Organization [facility] t Address [address] [place] [address] Care Team Providers Name Role Phone Asked, No Pcp Primary Care Physician Unavailable Leo Vo MD Attending Clinician Doctor Unassigned, [place] Attending Clinician Unavailable Kevin Palacios Attending Clinician Pob, [facility] Main Attending Clinician Unavailable LEO VO Attending Clinician Unavailable Aleida Lobo Attending Clinician Carmen Chen MD Attending Clinician CARMEN CHEN Attending Clinician Unavailable ALEIDA CHINCHILLA Attending Clinician Unavailable DESEAN MCNEIL Attending Clinician Unavailable KEVIN BOBBY Attending Clinician Unavailable Desean Mcneil MD Attending Clinician Edgardo Olivares MD Attending Clinician Brock Iqbal Attending Clinician BROCK GOMEZ Attending Clinician Unavailable DEV SIERRA Attending Clinician Unavailable Ernie Vitale Attending Clinician CARMEN CHEN Admitting Clinician Unavailable April BARNEY, Carmen Horner Admitting Clinician Payers Payer Name Policy Type Policy Number Effective Date Expiration Date S jasmin [employer] [place] [id number] 2020 00:00:00 Problems Condition Condition Condition Status Onset Resolution Last Treating Co mments Source Name Details Category Date Date Treatment Clinician Date Colon Colon Disease Active Overview: Univer s cancer cancer 09-11 Form[place] ity of screening screening 00:00: [place] of [place] 00 note Medical might be Branch different from the original. Added automatic ally from request for surgery [id number] Venous Venous Disease Active Univers insufficie insufficie 7-28 it y of ncy of ncy of 00:00: [place] both lower both lower 00 Me dical extremitie extremitie Br anch s s Venous Venous Disease Recurre Univers reflux reflux nce 01-01 ity of 00:00: [place] 00 Medical Branch Leg edema Leg edema Disease Active Met hodi 3-30 st 00:00: Hospita 00 l Encounter Encounter Disease Active Met hodi for for 3-30 st monitoring monitoring 00:00: Ho spita diuretic diuretic 00 l therapy therapy Cardiovasc Cardiovasc Disease Active M ethodi ular risk ular risk [address] factor factor 00:00: Hospita 00 l Counseling Counseling Disease Active M ethodi on health on health [address] promotion promotion 00:00: Hosp soha and [...] Added automatic ally from request for surgery [id number] Diastolic Diastolic Disease Active 2017-06 Met hodi dysfunctio dysfunctio 07-24 st n n 00:00: Hospita 00 l [...] Active Univers ALLERGIE Class ity of S [facility] No Known No Known Active Memori a Medicati Medicati l on on [place] s s Family History Family Member Diagnosis Comments Start Date Stop Date Source Maternal grandfather Heart attack [facility] Maternal grandmother [facility] Natural mother Diabetes [facility] Hy[facility] Paternal grandfather [facility] Paternal grandmother [facility] Natural sister Hypertension [facility] Social History Social Habit Start Date Stop Date Quantity Comments Source Exposure to 2021-12-24 2022-01-03 [facility] sure [facility]00 [facility] (event) Branch Alcohol intake 2018-08-24 2018-08-24 Current drinker Metho dist 00:00:00 00:00:00 of alcohol Hospital (finding) History [facility] 2018-05-05 2018-05-05 3 Religion Financial 00:00:00 00:00:00 Hospital History [facility] Food 2018-05-05 2018-05-[address] Worry 00:00:00 00:00:00 Hospital History [facility] Food 2018-05-05 2018-05-[address] Scarcity 00:00:00 00:00:00 Hospital History [facility] 2018-05-05 2018-05-05 2 Religion Transport Med 00:00:00 00:00:00 Hospital History [facility] 2018-05-05 2018-05-05 2 Religion Transport Non-Med 00:00:00 00:00:00 Hospita l Education 2018-04-20 2018-04-20 11 Religion 00:00:00 00:00:00 Hospital Alcohol Comment 2018-04-20 2018-04-20 socially Religion 00:00:00 00:00:00 Hospital Tobacco use and 2017-07-07 2017-07-07 Smokeless tobacco Un iversity of exposure 00:00:00 00:00:00 non-user [facility] Sex Assigned At [birth year] Universit y of 00:00:00 00:00:00 [facility] Smoking Status Start Date Stop Date Source Social History [facility] Medications Ordered Filled Start Stop Current Ordering Indication Dosage Frequency Signature Comments Components Source Medication Medication Date Date Medication? Clinician (SIG) Name Name tamsulosin Yes [id number] .4mg Take 1 Univers (FLOMAX) 2-28 capsule by ity o f 0.4 mg 24 00:00: [place] capsule 00 the Medical morning. Branch meloxicam Yes 7.5mg Take 1 Univers 7.5 mg 2-15 tablet by ity of tablet 00:00: mouth in [place] 00 the Medical morning. Branch meloxicam Yes 7.5mg Take 1 Univers 7.5 mg 2-15 tablet by ity of tablet 00:00: mouth in [place] 00 the Medical morning. Branch MELOXICAM 2021-06 Yes Take 1 U nivers 7.5 mg 2-22 tablet by ity of tablet 00:00: mouth once daily Medical Branch MELOXICAM 2021-06 Yes Take 1 U nivers 7.5 mg 2-22 tablet by ity of tablet 00:00: mouth once daily Medical Branch MELOXICAM 2021-06 Yes Take 1 U nivers 7.5 mg 2-22 tablet by ity of tablet 00:00: mouth once daily Medical Branch MELOXICAM 2021-06- No Take 1 Univers 7.5 mg 2-22 02-10 tablet by ity of tablet 00:00: [place] 00 [place] daily Medical Branch DICLOFENAC 2021-06 Yes TAKE 1 Univers 75 mg EC 1-29 TABLET BY ity of tablet 00:00: MOUTH 00 TWICE Medical DAILY WITH Branch MEALS MELOXICAM 2021-06 Yes Take 1 U nivers 7.5 mg 1-29 tablet by ity of tablet 00:00: mouth once daily Medical Branch DICLOFENAC 2021-06 Yes TAKE 1 Univers 75 mg EC 1-29 TABLET BY ity of tablet 00:00: MOUTH 00 TWICE Medical DAILY WITH Branch MEALS DICLOFENAC 2021-06 Yes TAKE 1 Univers 75 mg EC 1-29 TABLET BY ity of tablet 00:00: MOUTH 00 TWICE Medical DAILY WITH Branch MEALS [...] TABLET BY ity of tablet 00:00: MOUTH 00 TWICE Medical DAILY WITH Branch MEALS DICLOFENAC 2021-06- No TAKE 1 Univers 75 mg EC 0-31 11-29 TABLET BY ity o f tablet 00:00: 00:00 MOUTH [place] 00 :00 TWICE Medical DAILY WITH Branch MEALS tamsulosin 2021-06 Yes [id number] .4mg Take 1 Univers (FLOMAX) 0-25 capsule by ity o f 0.4 mg 24 00:00: [place] capsule 00 the Medical morning. [place] tamsulosin 2021-06 Yes [id number] .4mg Take 1 Univers (FLOMAX) 0-25 capsule by ity o f 0.4 mg 24 00:00: [place] capsule 00 the Medical morning. [place] tamsulosin 2021-06 Yes [id number] .4mg Take 1 Univers (FLOMAX) 0-25 capsule by ity o f 0.4 mg 24 00:00: [place] capsule 00 the Medical morning. [place] tamsulosin 2021-06 Yes [id number] .4mg Take 1 Univers (FLOMAX) 0-25 capsule by ity o f 0.4 mg 24 00:00: [place] capsule 00 the Medical morning. Branch tamsulosin 2021-06 Yes [id number] .4mg Take 1 Univers (FLOMAX) 0-25 capsule by ity o f 0.4 mg 24 00:00: [place] capsule 00 the Medical morning. Branch tamsulosin 2021-06 Yes [id number] .4mg Take 1 Univers (FLOMAX) 0-25 capsule by ity o f 0.4 mg 24 00:00: [place] capsule 00 the Medical morning. Branch tamsulosin 2021-06 Yes [id number] .4mg Take 1 Univers (FLOMAX) 0-25 capsule by ity o f 0.4 mg 24 00:00: [place] capsule 00 the Medical morning. Branch tamsulosin 2021-06 Yes [id number] .4mg Take 1 Univers (FLOMAX) 0-25 capsule by ity o f 0.4 mg 24 00:00: [place] capsule 00 the Medical morning. Branch tamsulosin 2021-063- No [id number] .4mg Take 1 Univers (FLOMAX) 0-25 02-27 capsule by ity of 0.4 mg 24 00:00: 00:00 mouth in [place] hr capsule 00 :00 the Medical morning. Branch DICLOFENAC 0 Yes TAKE 1 Univers 75 mg EC 9-27 TABLET BY ity of tablet 00:00: MOUTH TWICE Medical DAILY WITH Branch MEALS MELOXICAM 0 Yes Take 1 U nivers 7.5 mg 9-27 tablet by ity of tablet 00:00: mouth daily Medical Branch DICLOFENAC 0 Yes TAKE 1 Univers 75 mg EC 9-27 TABLET BY ity of tablet 00:00: MOUTH 00 TWICE Medical DAILY WITH Branch MEALS MELOXICAM 0 Yes Take 1 U nivers 7.5 mg 9-27 tablet by ity of tablet 00:00: mouth once daily Medical Branch DICLOFENAC 2021-0 Yes TAKE 1 Univers 75 mg EC 9-27 TABLET BY ity of tablet 00:00: MOUTH 00 TWICE Medical DAILY WITH Branch MEALS MELOXICAM 0 Yes Take 1 U nivers 7.5 mg 9-27 tablet by ity of tablet 00:00: mouth once daily Medical Branch MELOXICAM 2021-0 Yes Take 1 U nivers 7.5 mg 9-27 tablet by ity of tablet 00:00: mouth once daily Medical Branch MELOXICAM 2021-0 Yes Take 1 U nivers 7.5 mg 9-27 tablet by ity of tablet 00:00: mouth once daily Medical Branch MELOXICAM 2021-0 2022- No [id number] Take 1 Univers 7.5 mg 9-27 11-29 tablet by ity of tablet 00:00: 00:00 mouth [place] 00 :[place] daily Medical Branch DICLOFENAC 2021-2021- No [id number] TAKE 1 Univers 75 mg EC 9-27 10-31 TABLET BY ity o f tablet 00:00: 00:00 MOUTH [place] 00 :00 TWICE Medical DAILY WITH Branch MEALS tamsulosin Yes [id number] .4mg Take 1 Univers (FLOMAX) 9-02 capsule by ity o f 0.4 mg 24 00:00: [place] capsule 00 the Medical morning. Branch tamsulosin Yes [id number] .4mg Take 1 Univers (FLOMAX) 9-02 capsule by ity o f 0.4 mg 24 00:00: [place] capsule 00 the Medical morning. Branch tamsulosin 2021- No [id number] .4mg Take 1 Univers (FLOMAX) 9-02 10-24 capsule by ity of 0.4 mg 24 00:00: 00:00 mouth in [place] hr capsule 00 :00 the Medical morning. [place] MELOXICAM Yes Take 1 U nivers 7.5 mg 8-30 tablet by ity of tablet 00:00: mouth once [place] 00 daily Medical Branch MELOXICAM Yes Take 1 U nivers 7.5 mg 8-30 tablet by ity of tablet 00:00: mouth once [place] 00 daily Medical Branch MELOXICAM 2021- No Take 1 Univers 7.5 mg 8-30 09-27 tablet by ity of tablet 00:00: 00:00 mouth once [place] 00 :[place] daily Medical Branch tamsulosin Yes [id number] .4mg Take 1 Univers (FLOMAX) 8-01 capsule by ity o f 0.4 mg 24 00:00: [place] capsule 00 the Medical morning. Branch tamsulosin 2021- Yes [id number] .4mg Take 1 Univers (FLOMAX) 8-01 capsule by ity o f 0.4 mg 24 00:00: [place] capsule 00 the Medical morning. Branch tamsulosin Yes [id number] .4mg Take 1 Univers (FLOMAX) 8-01 capsule by ity o f 0.4 mg 24 00:00: [place] capsule 00 the Medical morning. Branch tamsulosin 0 Yes [id number] .4mg Take 1 Univers (FLOMAX) 8-01 capsule by ity o f 0.4 mg 24 00:00: [place] capsule 00 the Medical morning. Branch tamsulosin 0 2021- No [id number] .4mg Take 1 Univers (FLOMAX) 8-01 09-02 capsule by ity of 0.4 mg 24 00:00: 00:00 mouth in [place] hr capsule 00 :00 the Medical morning. Branch DICLOFENAC 2021-0 Yes TAKE 1 Univers 75 [...] [place] 00 daily Medical Branch MELOXICAM 2021-0 2021- No Take 1 Univers 7.5 mg 6-30 08-30 tablet by ity of tablet 00:00: 00:00 mouth once [place] 00 :00 daily [facility] Branch aspirin 81 2021-0 Yes 81mg Take 81 mg U nivers mg EC 4-21 by mouth. ity of tablet 12:42: [address] metoprolol 0 Yes 25mg Take 25 mg U nivers tartrate 25 4-21 by mouth. ity of mg tablet 12:42: [address] chlorthalid 0 Yes 50mg Take 50 mg Univers one 50 mg 4-21 by mouth. ity o f tablet 12:42: [address] Branch losartan 0 Yes 100mg Take 100 Univ ers 100 mg 4-21 mg by ity of tablet 12:42: mouth. [address] aspirin 81 0 Yes 81mg Take 81 mg U nivers mg EC 4-21 by mouth. ity of tablet 12:42: [address] metoprolol Yes 25mg Take 25 mg U nivers tartrate 25 4-21 by mouth. ity of mg tablet 12:42: [address] chlorthalid 0 Yes 50mg Take 50 mg Univers one 50 mg 4-21 by mouth. ity o f tablet 12:42: [address] losartan 0 Yes 100mg Take 100 Univ ers 100 mg 4-21 mg by ity of tablet 12:42: mouth. [address] aspirin 81 0 Yes 81mg Take 81 mg U nivers mg EC 4-21 by mouth. ity of tablet 12:42: [address] metoprolol 0 Yes 25mg Take 25 mg U nivers tartrate 25 4-21 by mouth. ity of mg tablet 12:42: [address] chlorthalid 0 Yes 50mg Take 50 mg Univers one 50 mg 4-21 by mouth. ity o f tablet 12:42: [address] losartan 2021-0 Yes 100mg Take 100 Univ ers 100 mg 4-21 mg by ity of tablet 12:42: mouth. [address] aspirin 81 2021-0 Yes 81mg Take 81 mg U nivers mg EC 4-21 by mouth. ity of tablet 12:42: [address] metoprolol 2021-0 Yes 25mg Take 25 mg U nivers tartrate 25 4-21 by mouth. ity of mg tablet 12:42: [address] chlorthalid 0 Yes 50mg Take 50 mg Univers one 50 mg 4-21 by mouth. ity o f tablet 12:42: [address] losartan 0 Yes 100mg Take 100 Univ ers 100 mg 4-21 mg by ity of tablet 12:42: mouth. [address] aspirin 81 0 Yes 81mg Take 81 mg U nivers mg EC 4-21 by mouth. ity of tablet 12:42: [address] metoprolol 0 Yes 25mg Take 25 mg U nivers tartrate 25 4-21 by mouth. ity of mg tablet 12:42: [address] chlorthalid Yes 50mg Take 50 mg Univers one 50 mg 4-21 by mouth. ity o f tablet 12:42: [address] losartan Yes 100mg Take 100 Univ ers 100 mg 4-21 mg by ity of tablet 12:42: mouth. [address] aspirin 81 0 Yes 81mg Take 81 mg U nivers mg EC 4-21 by mouth. ity of tablet 12:42: [address] metoprolol Yes 25mg Take 25 mg U nivers tartrate 25 4-21 by mouth. ity of mg tablet 12:42: [address] chlorthalid Yes 50mg Take 50 mg Univers one 50 mg 4-21 by mouth. ity o f tablet 12:42: [address] losartan 0 Yes 100mg Take 100 Univ ers 100 mg 4-21 mg by ity of tablet 12:42: mouth. [address] aspirin 81 0 Yes 81mg Take 81 mg U nivers mg EC 4-21 by mouth. ity of tablet 12:42: [address] metoprolol 0 Yes 25mg Take 25 mg U nivers tartrate 25 4-21 by mouth. ity of mg tablet 12:42: [address] chlorthalid 0 Yes 50mg Take 50 mg Univers one 50 mg 4-21 by mouth. ity o f tablet 12:42: [address] losartan 0 Yes 100mg Take 100 Univ ers 100 mg 4-21 mg by ity of tablet 12:42: mouth. [address] aspirin 81 0 Yes 81mg Take 81 mg U nivers mg EC 4-21 by mouth. ity of tablet 12:42: [address] metoprolol 0 Yes 25mg Take 25 mg U nivers tartrate 25 4-21 by mouth. ity of mg tablet 12:42: [address] chlorthalid 0 Yes 50mg Take 50 mg Univers one 50 mg 4-21 by mouth. ity o f tablet 12:42: [address] losartan 0 Yes 100mg Take 100 Univ ers 100 mg 4-21 mg by ity of tablet 12:42: mouth. [address] aspirin 81 0 Yes 81mg Take 81 mg U nivers mg EC 4-21 by mouth. ity of tablet 12:42: [address] metoprolol Yes 25mg Take 25 mg U nivers tartrate 25 4-21 by mouth. ity of mg tablet 12:42: [address] chlorthalid 0 Yes 50mg Take 50 mg Univers one 50 mg 4-21 by mouth. ity o f tablet 12:42: [address] losartan 0 Yes 100mg Take 100 Univ ers 100 mg 4-21 mg by ity of tablet 12:42: mouth. [address] aspirin 81 0 Yes 81mg Take 81 mg U nivers mg EC 4-21 by mouth. ity of tablet 12:42: [address] metoprolol 0 Yes 25mg Take 25 mg U nivers tartrate 25 4-21 by mouth. ity of mg tablet 12:42: [address] chlorthalid 0 Yes 50mg Take 50 mg Univers one 50 mg 4-21 by mouth. ity o f tablet 12:42: [address] losartan 0 Yes 100mg Take 100 Univ ers 100 mg 4-21 mg by ity of tablet 12:42: mouth. [address] aspirin 81 0 Yes 81mg Take 81 mg U nivers mg EC 4-21 by mouth. ity of tablet 12:42: [address] metoprolol 0 Yes 25mg Take 25 mg U nivers tartrate 25 4-21 by mouth. ity of mg tablet 12:42: [address] chlorthalid 0 Yes 50mg Take 50 mg Univers one 50 mg 4-21 by mouth. ity o f tablet 12:42: [address] losartan 0 Yes 100mg Take 100 Univ ers 100 mg 4-21 mg by ity of tablet 12:42: mouth. [address] aspirin 81 0 Yes 81mg Take 81 mg U nivers mg EC 4-21 by mouth. ity of tablet 12:42: [address] metoprolol 0 Yes 25mg Take 25 mg U nivers tartrate 25 4-21 by mouth. ity of mg tablet 12:42: [address] chlorthalid Yes 50mg Take 50 mg Univers one 50 mg 4-21 by mouth. ity o f tablet 12:42: [address] losartan 0 Yes 100mg Take 100 Univ ers 100 mg 4-21 mg by ity of tablet 12:42: mouth. [address] aspirin 81 0 Yes 81mg Take 81 mg U nivers mg EC 4-21 by mouth. ity of tablet 12:42: [address] metoprolol Yes 25mg Take 25 mg U nivers tartrate 25 4-21 by mouth. ity of mg tablet 12:42: [address] chlorthalid Yes 50mg Take 50 mg Univers one 50 mg 4-21 by mouth. ity o f tablet 12:42: [address] losartan 0 Yes 100mg Take 100 Univ ers 100 mg 4-21 mg by ity of tablet 12:42: mouth. [address] aspirin 81 0 Yes 81mg Take 81 mg U nivers mg EC 4-21 by mouth. ity of tablet 12:42: [address] metoprolol 0 Yes 25mg Take 25 mg U nivers tartrate 25 4-21 by mouth. ity of mg tablet 12:42: [address] chlorthalid 0 Yes 50mg Take 50 mg Univers one 50 mg 4-21 by mouth. ity o f tablet 12:42: [address] losartan 0 Yes 100mg Take 100 Univ ers 100 mg 4-21 mg by ity of tablet 12:42: mouth. [address] aspirin 81 2021-0 Yes 81mg Take 81 mg U nivers mg EC 4-21 by mouth. ity of tablet 12:42: [address] metoprolol 0 Yes 25mg Take 25 mg U nivers tartrate 25 4-21 by mouth. ity of mg tablet 12:42: [address] chlorthalid 2021-0 Yes 50mg Take 50 mg Univers one 50 mg 4-21 by mouth. ity o f tablet 12:42: [address] losartan 2021-0 Yes 100mg Take 100 Univ ers 100 mg 4-21 mg by ity of tablet 12:42: mouth. [address] aspirin 81 2021-0 Yes 81mg Take 81 mg U nivers mg EC 4-21 by mouth. ity of tablet 12:42: [address] metoprolol 0 Yes 25mg Take 25 mg U nivers tartrate 25 4-21 by mouth. ity of mg tablet 12:42: [address] chlorthalid 0 Yes 50mg Take 50 mg Univers one 50 mg 4-21 by mouth. ity o f tablet 12:42: [address] losartan 2021-0 Yes 100mg Take 100 Univ ers 100 mg 4-21 mg by ity of tablet 12:42: mouth. [address] peg-electro 2021-0 Yes [id number] Take as Univers lyte soln 4-07 directed ity of 236-22.74-6 00:00: [place] .74 -5.86 00 colonoscop Medi jessica gram y Branch solution peg-electro 2021-0 Yes [id number] Take as Univers lyte soln 4-07 directed ity of 236-22.74-6 00:00: [place] .74 -5.86 00 colonoscop Medi jessica gram y Branch solution peg-electro 2021-0 Yes [id number] Take as Univers lyte soln 4-07 directed ity of 236-22.74-6 00:00: [place] .74 -5.86 00 colonoscop Medi jessica gram y Branch solution peg-electro 2021-0 Yes [id number] Take as Univers lyte soln 4-07 directed ity of 236-22.74-6 00:00: before [place] .74 -5.86 00 colonoscop Medi jessica gram y Branch solution peg-electro 2-0 Yes [id number] Take as Univers lyte soln 4-07 directed ity of 236-22.74-6 00:00: [place] .74 -5.86 00 colonoscop Medi jessica gram y Branch solution peg-electro 2021-0 Yes [id number] Take as Univers lyte soln 4-07 directed ity of 236-22.74-6 00:00: [place] .74 -5.86 00 colonoscop Medi jessica gram y Branch solution peg-electro 2021-0 Yes [id number] Take as Univers lyte soln 4-07 directed ity of 236-22.74-6 00:00: before [place] .74 -5.86 00 colonoscop Medi jessica gram y Branch solution peg-electro 2021-0 Yes [id number] Take as Univers lyte soln 4-07 directed ity of 236-22.74-6 00:00: [place] .74 -5.86 00 colonoscop Medi jessica gram y Branch solution peg-electro 2021-0 Yes [id number] Take as Univers lyte soln 4-07 directed ity of 236-22.74-6 00:00: before [place] .74 -5.86 00 colonoscop Medi jessica gram y Branch solution peg-electro 2021-0 Yes [id number] Take as Univers lyte soln 4-07 directed ity of 236-22.74-6 00:00: before [place] .74 -5.86 00 colonoscop Medi jessica gram y Branch solution peg-electro 2021-0 Yes [id number] Take as Univers lyte soln 4-07 directed ity of 236-22.74-6 00:00: [place] .74 -5.86 00 colonoscop Medi jessica gram y Branch solution peg-electro 2021-0 Yes [id number] Take as Univers lyte soln 4-07 directed ity of 236-22.74-6 00:00: [place] .74 -5.86 00 colonoscop Medi jessica gram y Branch solution peg-electro 2021-0 Yes [id number] Take as Univers lyte soln 4-07 directed ity of 236-22.74-6 00:00: [place] .74 -5.86 00 colonoscop Medi jessica gram y Branch solution peg-electro 2021-0 Yes [id number] Take as Univers lyte soln 4-07 directed ity of 236-22.74-6 00:00: [place] .74 -5.86 00 colonoscop Medi jessica gram y Branch solution peg-electro 2021-0 Yes [id number] Take as Univers lyte soln 4-07 directed ity of 236-22.74-6 00:00: [place] .74 -5.86 00 colonoscop Medi jessica gram y Branch solution peg-electro 2021-0 Yes [id number] Take as Univers lyte soln 4-07 directed ity of 236-22.74-6 00:00: [place] .[place] -5.86 00 colonoscop Medi jessica gram y Branch solution carvediloL 0 Yes Univers 12.5 mg 6-30 ity of tablet 00:00: [facility] Branch carvediloL 0 Yes Univers 12.5 mg 6-30 ity of tablet 00:00: [facility] Branch carvediloL 0 Yes Univers 12.5 mg 6-30 ity of tablet 00:00: [facility] Branch carvediloL 0 Yes Univers 12.5 mg 6-30 ity of tablet 00:00: [facility] Branch carvediloL 0 Yes Univers 12.5 mg 6-30 ity of tablet 00:00: Medical Branch carvediloL 0 Yes Univers 12.5 mg 6-30 ity of tablet 00:00: Medical Branch carvediloL 2020-0 Yes Univers 12.5 mg 6-30 ity of tablet 00:00: Medical Branch carvediloL 2020-0 Yes Univers 12.5 mg 6-30 ity of tablet 00:00: [facility] Branch carvediloL 0 Yes Univers 12.5 mg 6-30 ity of tablet 00:00: [facility] carvediloL 0 Yes Univers 12.5 mg 6-30 ity of tablet 00:00: [facility] Branch carvediloL 2020-0 Yes Univers 12.5 mg 6-30 ity of tablet 00:00: [facility] carvediloL Yes Univers 12.5 mg 6-30 ity of tablet 00:00: [facility] carvediloL Yes Univers 12.5 mg 6-30 ity of tablet 00:00: [facility] carvediloL Yes Univers 12.5 mg 6-30 ity of tablet 00:00: [facility] carvediloL Yes Univers 12.5 mg 6-30 ity of tablet 00:00: [facility] carvediloL Yes Univers 12.5 mg 6-30 ity of tablet 00:00: [place] [facility] aspirin Yes 81mg Take 81 mg Meth maria teresa (ECOTRIN) 4-[address] 81 MG 15:06: Hospita enteric 23 l coated tablet metoprolol Yes 25mg Take 25 mg M ethodi tartrate 4-[address] (LOPRESSOR) 15:06: Hospit a 25 mg 23 l tablet aspirin Yes 81mg Take 81 mg Meth maria teresa (ECOTRIN) 4-[address] 81 MG 15:06: Hospita enteric 23 l coated tablet metoprolol Yes 25mg Take 25 mg M ethodi tartrate 4-[address] (LOPRESSOR) 15:06: Hospit a 25 mg 23 l tablet NIFEdipine 2021- No 120mg QD Take 2 Met hodi XL 4-14 04-[address] (PROCARDIA 00:00: 04:59 (120 mg Hos melania XL) 60 MG 00 :00 total) by l 24 hr mouth tablet daily. NIFEdipine 2021- No 120mg QD Take 2 Met hodi XL 4-14 04-[address] (PROCARDIA 00:00: 04:59 (120 mg Hos melania XL) 60 MG 00 :00 total) by l 24 hr mouth tablet daily. potassium Yes Methodi chloride 3-30 st (K-DUR) 10 00:00: Hospita MEQ CR 00 l tablet potassium Yes Methodi chloride 3-30 st (K-DUR) 10 00:00: Hospita MEQ CR 00 l tablet gabapentin 2021-0 Yes Methodi (NEURONTIN) 3-05 st 300 mg 00:00: Hospita capsule 00 l gabapentin 0 Yes Methodi (NEURONTIN) 3-05 st 300 mg 00:00: Hospita capsule 00 l furosemide Yes 20mg QD Take 20 mg M ethodi (LASIX) 20 2-[address] mg tablet 00:00: daily. Hospit a l furosemide Yes 20mg QD Take 20 mg M ethodi (LASIX) 20 2-[address] mg tablet 00:00: daily. Hospit a 00 l Hydrochloro 2020-0 Yes 50 mg = 1 M emoria thiazide 50 3-31 tab, PO, l MG Oral 14:40: Daily, 0 Peter n Tablet 00 Refill(s) Acetaminoph 2020-0 Yes 1 tab, PO, Memoria en 325 MG / 3-31 Q6H, PRN l Hydrocodone 14:40: Pain, # 28 [place] Bitartrate 00 tab, 0 7.5 MG Oral Refill(s) Tablet Aspirin 81 2020-0 Yes 81 mg = 1 Me moria MG Enteric 3-31 tab, PO, l Coated 14:40: Daily, # [place] Tablet 00 90 tab, 3 Refill(s) metoprolol [...] tab, PO, l tablet 14:40: Daily, 0 [place] 00 Refill(s) Hydrochloro 2020-0 Yes 50 mg = 1 M emoria thiazide 50 3-31 tab, PO, l MG Oral 14:40: Daily, 0 Peter n Tablet 00 Refill(s) Acetaminoph 2020-0 Yes 1 tab, PO, Memoria en 325 MG / 3-31 Q6H, PRN l Hydrocodone 14:40: Pain, # 28 [place] Bitartrate 00 tab, 0 7.5 MG Oral Refill(s) Tablet Aspirin 81 2020-0 Yes 81 mg = 1 Me moria MG Enteric 3-31 tab, PO, l Coated 14:40: Daily, # [place] Tablet 00 90 tab, 3 Refill(s) metoprolol [...] tab, PO, l Coated 14:40: Daily, # [place] Tablet 00 90 tab, 3 Refill(s) metoprolol [...] PRN l Hydrocodone 14:40: Pain, # 28 [place] Bitartrate 00 tab, 0 7.5 MG Oral [...] tab, PO, l tablet 14:40: Daily, 0 [place] 00 Refill(s) Hydrochloro 2020-0 Yes 50 mg [...] tablet 14:40: Daily, 0 [place] 00 Refill(s) losartan 2020-0 Yes 100 mg [...] Lee Tablet 00 90 tab, 3 Refill(s) Aspirin 81 2020-0 Yes 81 mg = 1 Me moria MG Enteric 3-31 tab, PO, l Coated 14:40: Daily, # [place] Tablet 00 90 tab, 3 Refill(s) metoprolol 2020-0 Yes 12.5 mg = Me moria tartrate 25 3-31 0.5 tab, l mg oral 14:40: PO, BID, 0 Herm tabby tablet 00 Refill(s) losartan 2020-0 Yes 100 mg = 1 Mem oria 100 mg oral 3-31 tab, PO, l tablet 14:40: Daily, 0 [place] 00 Refill(s) metoprolol 2020-0 Yes 12.5 mg = Me moria tartrate 25 3-31 0.5 tab, l mg oral 14:40: PO, BID, 0 Herm tabby tablet 00 Refill(s) losartan 2020-0 Yes 100 mg = 1 Mem oria 100 mg oral 3-31 tab, PO, l tablet 14:40: Daily, 0 [place] 00 Refill(s) Hydrochloro 2020-0 Yes 50 mg = 1 M emoria thiazide 50 3-31 tab, PO, l MG Oral 14:40: Daily, 0 Peter n Tablet 00 Refill(s) Aspirin 81 2020-0 Yes 81 mg [...] Daily, 0 Peter n Tablet 00 Refill(s) Hydrochloro 2020-0 Yes 50 mg = 1 M emoria thiazide 50 3-31 tab, PO, l MG Oral 14:40: Daily, 0 [place] n Tablet 00 Refill(s) Acetaminoph 2020-0 Yes 1 tab, PO, Memoria en 325 MG / 3-31 Q6H, PRN l Hydrocodone 14:40: Pain, # 28 [place] Bitartrate 00 tab, 0 7.5 MG Oral Refill(s) Tablet Hydrochloro 2020-0 Yes 50 mg = 1 [...] tab, PO, l tablet 14:40: Daily, 0 [place] 00 Refill(s) Hydrochloro 2020-0 Yes 50 mg = 1 M emoria thiazide 50 3-31 tab, PO, l MG Oral 14:40: Daily, 0 Peter n Tablet 00 Refill(s) Acetaminoph 2020-0 Yes 1 tab, PO, Memoria en 325 MG / 3-31 Q6H, PRN l Hydrocodone 14:40: Pain, # 28 [place] Bitartrate 00 tab, 0 7.5 MG Oral Refill(s) Tablet Acetaminoph 2020-0 Yes 1 tab, PO, Memoria en 325 MG / 3-31 Q6H, PRN l Hydrocodone 14:40: Pain, # 28 [place] Bitartrate 00 tab, 0 7.5 MG Oral Refill(s) Tablet Aspirin 81 2020-0 Yes 81 mg = 1 Me moria MG Enteric 3-31 tab, PO, l Coated 14:40: Daily, # [place] Tablet 00 90 tab, 3 Refill(s) metoprolol 2020-0 Yes 12.5 mg = Me moria tartrate 25 3-31 0.5 tab, l mg oral 14:40: PO, BID, 0 Herm tabby tablet 00 Refill(s) Acetaminoph 2020-0 Yes 1 tab, PO, Memoria en 325 MG / 3-31 Q6H, PRN l Hydrocodone 14:40: Pain, # 28 [place] Bitartrate 00 tab, 0 7.5 MG Oral [...] tab, PO, l tablet 14:40: Daily, 0 [place] 00 Refill(s) diclofenac Yes TAKE 1 Metho di (VOLTAREN) 6-[address] 75 MG EC 00:00: [facility] tablet 00 TWICE l DAILY WITH MEALS diclofenac Yes TAKE 1 Metho di (VOLTAREN) 6-[address] 75 MG EC 00:00: [facility] tablet 00 TWICE l DAILY WITH MEALS meloxicam Yes 7.5mg Take 7.5 Met hodi (MOBIC) 7.5 5-[address] mg tablet 00:00: mouth. Hospit a 00 l meloxicam Yes 7.5mg Take 7.5 Met hodi (MOBIC) 7.5 5-[address] mg tablet 00:00: mouth. Hospit a 00 l Vital Signs Vital Name Observation Time Observation Value Comments Source Systolic blood 2022-01-05 21:19:00 154 mm[Hg[facility] pressure [facility] Diastolic blood 2022-01-05 21:19:00 88 mm[Hg] [facility] Heart rate 2022-01-05 21:18:00 78 /min [facility] Body height 2022-01-05 21:18:00 170.2 cm [facility] Body weight 2022-01-05 21:18:00 125.193 kg [facility] BMI 2022-01-05 21:18:00 43.23 kg/m2 [facility] Oxygen saturation 2022-01-05 21:18:00 95 /min [facility] in Arterial blood Medical [facility] anch by Pulse oximetry Systolic (mm Hg) 2019-09-05 14:34:00 Daryl lobo [place] Diastolic (mm Hg) 2019-09-05 14:34:00 [facility] orial [place] Heart Rate 2019-09-05 14:34:00 [facility] [place] Respitory Rate 2019-09-05 14:34:00 Rubénori al [place] Height 2019-09-05 14:34:00 167.64 cm [facility] Weight 2019-09-05 14:34:00 [facility] BMI Calculated 2019-09-05 14:34:00 Memori al [place] Procedures Procedure Date / Time Performing Clinician Source Performed AUTHORIZATION FOR 2022-03-27 05:01:00 Doctor Unassigned, No [facility] RELEASE OF PHI Name [facility] POCT URINALYSIS AUTO 2022-01-05 21:35:00 Leo Vo [facility] acute hospital Plan of Care Planned Activity Planned Date Details Comments Source Future Scheduled 2022-07-23 COVID-19 VACCINE (#1) [facility] Test 16:30:27 [code = COVID-19 VACCINE (#1)] Future Scheduled 2022-07-23 [facility] 16[facility]30:27 (procedure) [code = 420932211] Future Scheduled 2022-07-23 COLONOSCOPY SCREENING [facility] Test 16:30:27 [code = COLONOSCOPY SCREENING] Future Scheduled 2022-07-23 SHINGLES VACCINES (1 Met [facility] Test 16:30:27 of 2) [code = SHINGLES VACCINES (1 of 2)] Future Scheduled 2022-07-23 INFLUENZA VACCINE [facility] Test 16:30:27 [code = INFLUENZA VACCINE] Future Scheduled 2022-06-02 COVID-19 VACCINE (#1) [facility] Test 09:17:35 [code = COVID-19 VACCINE (#1)] Future Scheduled 2022-06-02 Hepatitis C screening [facility] Test 09:17:35 (procedure) [code = 798298818] Future Scheduled 2022-06-02 COLONOSCOPY SCREENING [facility] Test 09:17:35 [code = COLONOSCOPY SCREENING] Future Scheduled 2022-06-02 SHINGLES VACCINES (1 Met [facility] Test 09:17:35 of 2) [code = SHINGLES VACCINES (1 of 2)] Future Scheduled 2022-06-02 INFLUENZA VACCINE [facility] Test 09:17:35 [code = INFLUENZA VACCINE] Encounters Start End Encounter Admission Attending Care Care Encounter Source Date/Time Date/Time Type Type Clinicians Facility Department ID 2022-01-02 Outpatient [facility] [id number] Common 09:24:04 [facility] 2022-01-01 Outpatient [facility] [id number] Common 08:54:04 [facility] 2021-04-07 Emergency [facility] [id number] Univers 12:55:22 ity of [facility] 2022-08-03 2022-08-03 Refill Ramona [facility] 1.2.840.114 [id number] Univers 00:00:00 00:00:00 Leo WILSON 350.1.13.10 tiesha [place] [phone] Ok dical NAL 204 [facility] 2022-07-17 2022-07-17 Refill Ramona [facility] 1.2.840.114 [id number] Univers 00:00:00 00:00:[address] [facility] 350.1.13.10 i ty of [place] [phone] Ok dical NAL 204 [facility] 2022-07-17 2022-07-17 Refill Doctor [facility] 1.2.840.114 [id number] Univers 00:00:00 00:00:00 Unassigned, HEALTH 350.1.13.10 ity of [place] [facility] 4.2.7.2.686 Tk as WATSON?BLEA [phone] Ok justino ALCANTARA [address] [facility] OFFICE [facility] 2022-07-07 2022-07-07 Refill Ramona [facility] 1.2.840.114 [id number] Univers 00:00:00 00:00:00 [facility] 350.1.13.10 i ty of [place] [phone] Ok dicneymar CAMEJO 204 [facility] 2022-05-28 2022-05-28 Miguelina Bobby [facility] 1.2.840.114 [id number] Univers 00:00:00 00:00:00 Kevin S HEALTH 350.1.13.10 it y of [place] 4.2.7.2.686 Tk as WATSON?BLEA [phone] Ok justino ALCANTARA [address] [facility] OFFICE [facility] 2022-05-02 2022-05-02 Miguelina Bobby [facility] 1.2.840.114 [id number] Univers 00:00:00 00:00:00 Kevin S HEALTH 350.1.13.[address] [facility] 4.2.7.2.686 Tk as WATSON?BLEA [phone] Ok justino ALCANTARA [address] [facility] OFFICE [facility] 2022-04-28 2022-04-28 Miguelina Bobby [facility] 1.2.840.114 [id number] Univers 00:00:00 00:00:00 Kevin S HEALTH 350.1.13.[address] [facility] 4.2.7.2.686 Tk as WATSON?BLEA [phone] Ok justino ALCANTARA [address] [facility] OFFICE [facility] 2022-04-05 2022-04-05 Miguelina Bobby VTROMA 1.2.840.114 [id number] Univers 00:00:00 00:00:00 Kevin S HEALTH 350.1.13.[address] 4.2.7.2.686 Tk as WATSON?BLEA [phone] [facility] LOPEZ [address] [facility] OFFICE [facility] 2022-03-30 2022-03-30 Refcalista [facility] 1.2.840.114 [id number] Univers 00:00:00 00:00:00 Leo [place] 350.1.13.10 i ty of [place] [phone] [address] 2022-03-27 2022-03-27 Orders Doctor LILI 1.2.840.114 [id number] Univers 00:00:00 00:00:00 Only Unassigned, KARI 350.1.13.10 ity of [place] [facility] 4.2.7.2.686 Tk as [phone] [address] 2022-03-03 2022-03-03 Miguelina [facility] 1.2.840.114 [id number] Univers 00:00:00 00:00:00 Kevin S HEALTH 350.1.13.[address] [facility] 4.2.7.2.686 Tk as WATSON?BLEA [phone] [facility] [address]OPEZ[address] OFFICE [facility] 2022-02-06 2022-02-06 Refcalista Vo [facility] 1.2.840.114 [id number] Univers 00:00:00 00:00:00 Leo [place] 350.1.13.10 i ty of [place] 4[place]7.2.[place] [phone] [address] 2022-02-01 2022-02-01 Miguelina [facility] 1.2.840.114 [id number] Univers 00:00:00 00:00:00 Kevin S HEALTH 350.1.13.10 it y of [place] 4.2.7.2.686 Tk as WATSON?BLEA [phone] Ok jessicaneymar ALACNTARA [address] [facility] OFFICE [facility] 2022-01-05 2022-01-05 Human Resources Temp Sania, Gilberto Lab Main [facility] 1.2.8 40.114 [id number] Univers 17:00:00 17:15:00 [facility] 350.1.13.10 [facility] 4.2.7.2.[place] [phone] Ok dical NAL 353 [facility] 2022-01-05 2022-01-05 [facility] [id number] Univers 16:00:00 17:12:08 [facility] ity [facility] 2022-01-05 2022-01-05 Office [facility] 1.2.840.114 [id number] Univers 16:00:00 17:00:00 Visit [facility] 350.1.13.10 i ty of [place] 4[place]7.2.[place] [phone] Ok dicpa NAL 204 [facility] 2022-01-05 2022-01-05 [facility] [id number] Univers 16:00:00 16:00:00 [facility] ity [facility] 2022-01-05 2022-01-05 Orders Doctor PEARSON 1.2.840.114 [id number] Univers 00:00:00 00:00:00 Only Unassigned, KARI 350.1.13.10 ity of [place] [facility] 4.2.7.2.686 Tk as [phone] [address] 2021-12-30 2021-12-30 Miguelina Bobby [facility] 1.2.840.114 [id number] Univers 00:00:00 00:00:00 Kevin S HEALTH 350.1.13.10 it y of [place] 4.2.7.2.686 Tk as WATSON?BLEA [phone] Ok jessicaneymar ALCANTARA [address] [facility] OFFICE [facility] 2021-12-04 2021-12-04 Miguelina Bobby [facility] 1.2.840.114 [id number] Univers 00:00:00 00:00:00 Kevin S HEALTH 350.1.13.10 it y of [place] 4.2.7.2.686 Tk as WATSON?BLEA [phone] Ok dical ALTAF [address] [facility] OFFICE [facility] 2021-12-04 2021-12-04 Refcalista Chinchilla [facility] 1.2.365.164 [id number] Univers 00:00:00 00:00:00 Aleida Y HEALTH 350.1.13.10 i ty of [facility] 4.2.7.2.[place] [phone] [place] 664561 [place] 2021-09-30 2021-09-30 Human Resources Temp Sania, Adc Lab Main [facility] 1.2.8 40.114 [id number] Univers 09:45:00 10:00:00 Visit Carmen Chen 350.1.13.10 ity [facility] [place]2.7.2.[place] [phone] Ok dicneymar [facility] 353 [facility] 2021-09-30 2021-09-30 Outpatient R APRIL [facility] [id number] Univers 09:45:00 09:45:00 CARMEN keller [facility] 2021-09-29 2021-09-29 Patient [facility] 1.2.840.114 [id number] Univers 00:00:00 00:00:00 Secure Msg Carmen Horner [facility] 350.1.13.10 ity of [facility] [place] 4.2.7.2.[place] CENTER AT [phone] Ok jessicaneymar CARDOSO [address] [place] [address] 2021-09-25 2021-09-25 Outpatient [facility] GIE [id number] Univers 08:47:00 12:42:00 CARMEN keller [facility] 2021-09-25 2021-09-25 Hospital April [facility] 1.2.840.114 [id number] Univers 08:47:00 12:42:00 Encounter Carmen CHRISTENSEN 350.1.13.10 ity of SCIENCES 4.2.7.2.686 Tk as BLDG [phone] [facility] 0[address] [place] 2021-09-25 2021-09-25 Surgery April [facility] 1.2.923.587 [id number] Univers 10:40:00 11:25:00 Carmen Horner ICAL 350.1.13.10 ity of SCIENCES 4.2.7.2.686 Tk as BLDG [phone] [facility] 0[address] [place] 2021-09-25 2021-09-25 Outpatient R APRIL [facility] [id number] Univers 08:15:00 08:15:00 CARMEN keller [facility] 2021-09-25 2021-09-25 Orders Doctor LILI 1.2.840.114 [id number] Univers 00:00:00 00:00:00 Only Unassigned, KARI 350.1.13.10 ity of [place] [facility] 4.2.7.2.686 Tk as [phone] [facility] 00[address] [place] 2021-09-11 2021-09-11 Office OLIVIA Chinchilla 1.2.172.626 [id number] Univers 12:30:00 13:00:00 Visit Aleida HEALTH 350.1.13.10 i ty of CLINICS 4[place]2.7.2.[place] [id number] [facility] 0[address] [place] 2021-09-11 2021-09-11 Outpatient [facility] [id number] Univers 12:30:00 12:30:00 ALEIDA keller [facility] 2021-09-09 2021-09-09 Refill Doctor [facility] 1.2.840.114 [id number] Univers 00:00:00 00:00:00 Unassigned, HEALTH 350.1.13.10 ity of [place] SURGICAL 4.2.7.2.686 Tk as SPECIALTI [phone] [address] 2021-04-21 2021-04-21 Refill Doctor [facility] 1.2.840.114 [id number] Univers 00:00:00 00:00:00 Unassigned, HEALTH 350.1.13.10 ity of [place] 4.2.7.2.686 Tk as WATSON?BLEA [phone] Me dical KNEY 198 [facility] 2021-04-04 2021-04-04 Outpatient R TARUN [facility] [id number] Univers 08:00:00 08:00:00 DESEAN [facility] 2021-04-04 2021-04-04 Outpatient R KANU [facility] [id number] Univers 08:00:00 08:00:00 KEVIN [facility] 2021-03-30 2021-03-30 Refill Doctor [facility] 1.2.840.114 [id number] Univers 00:00:00 00:00:00 Unassigned, Health 350.1.13.10 ity of [place] 4.2.7.2.686 Tk as Watson?Blea [phone] Me dical colton 198 [facility] 2021-03-30 2021-03-30 Refill Doctor [facility] 1.2.840.114 [id number] Univers 00:00:00 00:00:00 Unassigned, Health 350.1.13.10 ity of [place] Surgical 4.2.7.2.686 Tk as Specialti [phone] Me dical es 198 [facility] 2021-03-28 2021-03-28 Refill Doctor [facility] 1.2.840.114 [id number] Univers 00:00:00 00:00:00 Unassigned, Health 350.1.13.10 ity of [place] Surgical 4.2.7.2.686 Tk as Specialti [phone] Me dical es 198 [facility] 2021-03-28 2021-03-28 Refill Doctor [facility] 1.2.840.114 [id number] Univers 00:00:00 00:00:00 Unassigned, Health 350.1.13.10 ity of [place] 4.2.7.2.686 Tk as Watson?Blea [phone] Me dical kney 198 [facility] 2021-02-25 2021-02-25 Patient Kanu [facility] 1.2.840.114 [id number] Univers 00:00:00 00:00:00 Secure Msg Kevin [facility] 350.1.13.10 ity of [place] 4.2.7.2.686 Tk as Watson?Blea [phone] Ok dical colton 198 [facility] 2021-02-21 2021-02-21 Office Tarun [facility] 1.2.911.043 [id number] Univers 08:15:00 08:26:53 [facility] 350.1.13.10 it y of [place] 4.2.7.2.686 Tk as WATSON?BLEA [phone] Ok justino ALCANTARA 198 [facility] 2021-02-21 2021-02-21 Outpatient R TARUN [facility] [id number] Univers 08:15:00 08:26:53 DESEAN keller [facility] 2021-02-21 2021-02-21 [facility] [id number] Univers 08:15:00 08:15:00 [facility] 2021-02-16 2021-02-16 Refcalista [facility] 1.2.840.114 [id number] Univers 00:00:00 00:00:00 Kevin [facility] 350.1.13.10 it y of Surgical 4.2.7.2.686 Tk as Specialti [phone] Ok dical es 198 [facility] 2021-02-16 2021-02-16 Refcalista [facility] 1.2.840.114 [id number] Univers 00:00:00 00:00:00 Kevin S Health 350.1.13.10 it y of Surgical 4.2.7.2.686 Tk as Specialti [phone] Me dical es 198 [facility] 2021-02-14 2021-02-14 Office [facility] 1.2.840.114 [id number] Univers 08:11:41 09:02:17 Visit Kevin [facility] 350.1.13.10 it y of [place] 4.2.7.2.686 Tk as Watson?Blea [phone] Ok dical colton 198 [facility] 2021-02-14 2021-02-14 [facility] [id number] Univers 08:00:00 08:00:00 KEVIN ity [facility] 2021-02-04 2021-02-04 Office [facility] 1.2.840.114 [id number] Univers 13:39:04 14:04:51 Visit Kevin [facility] 350.1.13.10 it y of [place] 4.2.7.2.686 Tk as Watson?Blea [phone] Ok dical colton 198 [facility] Office [facility] 2021-02-04 2021-02-04 [facility] [id number] Univers 13:30:00 13:30:00 KEVIN ity [facility] 2021-02-04 2021-02-04 Orders Doctor LILI 1.2.840.114 [id number] Univers 00:00:00 00:00:00 Only Unassigned, KARI 350.1.13.10 ity of [place] [facility] 4.2.7.2.686 Tk as [phone] [facility] 00[address] [place] 2021-01-27 2021-01-27 Patient Doctor [facility] 1.2.840.114 [id number] Univers 00:00:00 00:00:00 Secure Msg Unassigned, Health 350.1.13.10 ity of [place] 4.2.7.2.686 Tk as Watson?Blea [phone] Ok dical colton 198 [facility] 2021-01-17 2021-01-17 Hospital [facility] 1.2.840.114 [id number] Univers 09:28:27 23:59:00 Encounter Kevin Garciaton 350.1.13.10 ity of [place].2.[place] [phone] [facility] [address] [place] 2021-01-17 2021-01-17 Office [facility] 1.2.840.114 [id number] Univers 10:08:28 10:23:28 Visit Kevin [facility] 350.1.13.10 it y of Surgical 4.2.7.2.686 Tk as Specialti [phone] Ok dical es 198 [facility] 2021-01-17 2021-01-17 Outpatient R KANU [facility] [id number] Univers 09:45:00 09:45:00 KEVIN ity of [facility] 2021-01-17 2021-01-17 Orders Doctor LILI 1.2.840.114 [id number] Univers 00:00:00 00:00:00 Only Unassigned, KARI 350.1.13.10 ity of [place] HOSPITAL 4.2.7.2.686 Tk as [phone] [facility] [address] [place] 2021-01-16 2021-01-16 Telephone [facility] 1.2.435.895 [id number] Univers 00:00:00 00:00:00 Kevni Wilson 350.1.13.10 i ty of [place].2.[place] Profess[place] [id number] Ok dical nal 198 [facility] 2021-01-13 2021-01-13 Refill [facility] 1.2.840.114 [id number] Univers 00:00:00 00:00:00 Kevin S Health 350.1.13.10 it y of Surgical 4.2.7.2.686 Tk as Specialti [id number] Ok dical es 198 [facility] 2021-01-07 2021-01-07 [facility] 1.2.201.365 [id number] Univers 18:50:00 23:18:00 Edgardo Wilson 350.1.13.10 ity of [place] 4[place]2.7.2.686 [place] [phone] [facility] 0[address] [place] 2021-01-07 2021-01-07 Office Juanjose, CHYNAIT 1.2.840.114 [id number] Univers 15:32:44 16:45:26 Visit Brock R Y HEALTH 350.1.13.10 ity of CLINICS 4.2.7.2.[place] [id number] [facility] 205 [place] 2021-01-07 2021-01-07 Outpatient R JUANJOSE [facility] [id number] Univers 00:00:00 00:00:00 BROCK ity [facility] 2021-01-07 2021-01-07 Letter Doctor LILI 1.2.840.114 [id number] Univers 00:00:00 00:00:00 (Out) Unassigned, KARI 350.1.13.10 ity of [place] [facility]OSPITAL 4.2.7.2.686 Tk as [phone] [facility] [address] [place] 2021-01-01 2021-01-01 Office Juanjose [facility] 1.2.840.114 [id number] Univers 15:14:09 15:59:22 Visit Brock R Y HEALTH 350.1.13.10 ity of CLINICS 4[place]2.7.2.[place] [phone] [facility] [address] [place] 2021-01-01 2021-01-01 Outpatient [facility] [id number] Univers 15:00:00 15:00:00 BROCK ity of [facility] 2021-01-01 2021-01-01 Orders Doctor LILI 1.2.840.114 [id number] Univers 00:00:00 00:00:00 Only Unassigned, KARI 350.1.13.10 ity of [place] [facility] 4.2.7.2.686 Tk as [id number] [facility] [address] [place] 2020-11-08 2020-11-08 [facility] 1.2.840.114 [id number] Univers 00:00:00 00:00:00 [facility] 350.1.13.10 it y of Surgical 4.2.7.2.686 Tk as Specialti [id number] [address] 2020-09-29 2020-09-29 [facility] 1.2.840.114 [id number] 46 00:00:00 00:00:00 [facility] 350.1.13.10 Surgical 4.2.7.2.686 Specialti [id number] [address] 2020-09-29 2020-09-29 [facility] 1.2.840.114 [id number] Univers 00:00:00 00:00:00 [facility] 350.1.13.10 it y of Surgical 4.2.7.2.686 Tk as Specialti [id number] Me dical es [address] [place] 2020-09-17 2020-09-17 Outpatient MARIELA, [facility] [id number] [address] [place] 00:00:00 00:00:00 AHMED [address] 2020-09-17 2020-09-17 Outpatient MARIELA, [facility] [id number] [address] [place] 00:00:00 00:00:00 AHMED [address] 2020-09-17 2020-09-17 Outpatient MARIELA, [facility] [id number] 20[address] [place] 00:00:00 00:00:00 AHMED [address] 2020-09-03 2020-09-03 Outpatient MARIELA, [facility] [id number] [address] [place] 00:00:00 00:00:00 AHMED [address] 2020-08-27 2020-08-27 Outpatient [facility], [facility] [id number] [address] [place] 00:00:00 00:00:00 AHMED [address] 2020-08-06 2020-08-06 [facility] 1.2.840.114 [id number] 98 00:00:00 00:00:00 [facility] 350.1.13.10 Surgical 4.2.7.2.686 Specialti [phone] es [address] [place] 2020-08-06 2020-08-06 [facility] 1.2.840.114 [id number] Univers 00:00:00 00:00:00 [facility] 350.1.13.10 it y of Surgical 4.2.7.2.686 Tk as Specialti [phone] Ok dical es [address] [place] 2020-06-18 2020-06-18 Miguelina Bobby [facility] 1.2.840.114 [id number] 28 00:00:00 00:00:00 [facility] 350.1.13.10 Surgical 4.2.7.2.686 Specialti [id number] es [address] [place] 2020-06-18 2020-06-18 Miguelina Bobby [facility] [id number] Univers 00:00:00 00:00:00 [facility] 350.1.13.10 it y of Surgical 4.2.7.2.686 Tk as Specialti [phone] Ok dical es 198 [facility] 2020-01-15 2020-01-15 [facility] [id number] 00:00:00 00:00:00 [facility] 350.1.13.10 Surgical 4.2.7.2.686 Specialti [id number] es [address] [place] [address] 2020-01-15 2020-01-15 [facility] [id number] Univers 00:00:00 00:00:00 [facility] 350.1.13.10 it y of Surgical 4.2.7.2.686 Tk as Specialti [id number] Ok dical es 198 [facility] 2019-11-22 2019-11-22 [facility] 1.2.840.114 [id number] 14:00:24 16:25:45 Visit [facility] 350.1.13.10 Surgical 4.2.7.2.686 Specialti [id number] es [address] [place] 2019-11-22 2019-11-22 Office [facility] [id number] Univers 14:00:24 16:25:45 Visit [facility] S [facility] 350.1.13.10 it y of Surgical 4.2.7.2.686 Tk as Specialti [id number] Ok dical es 198 [facility] 2019-11-22 2019-11-22 [id number] Univers 14:45:00 14:45:00 KEVIN lisa [facility] 2019-11-20 2019-11-20 Outpatient R TARUN [facility] [id number] Univers 15:00:00 15:00:00 DESEAN keller [facility] 2019-11-16 2019-11-16 [facility] 1.2.840.114 [id number] Univers 00:00:00 00:00:00 [facility] 350.1.13.10 it y of Surgical 4.2.7.2.686 Tk as Specialti [id number] Me dical es [address] [place] 2019-10-17 2019-10-17 Ambulatory nullFlavo MNA [id number] Memoria 15:30:00 15:30:00 Pre-Reg r Neurology 01 l Radha [place] 2019-10-17 2019-10-17 Ambulatory nullFlavo MNA [id number] Memoria 15:30:00 15:30:00 Pre-Reg r Neurology 01 l [facility] 2019-10-17 2019-10-17 Ambulatory nullFlavo MNA [id number] Memoria 15:30:00 15:30:00 Pre-Reg r Neurology 01 [facility] 2019-10-17 2019-10-17 Outpatient MHIE MHIE [id number] Memoria 10:30:00 10:30:00 01 [facility] 2019-10-17 2019-10-17 Outpatient MHIE MHIE [id number] Memoria 10:30:00 10:30:00 [facility] 2019-10-17 2019-10-17 Outpatient Winifred, MHMISCHER MHMISCHER [id number] 10:30:00 10:30:00 Ernie Shimon 2019-10-17 2019-10-17 Outpatient Winifred, MHMISCHER MHMISCHER [id number] 10:30:00 10:30:00 Ernie [facility] 2019-10-02 2019-10-02 Miguelina Bobby [facility] 1.2.840.114 [id number] Univers 00:00:00 00:00:00 [facility] 350.1.13.10 it y of Surgical 4.2.7.2.686 Tk as Specialti [id number] Me dical es 198 [facility] 2019-09-05 2019-09-06 Outpatient nullFlavo MNA [id number] Memoria 15:00:00 04:59:59 [facility] 2019-[facility] 2019-09-06 Outpatient nullFlavo MNA [id number] Memoria 15:00:00 04:59:59 [facility] 2019-09-05 2019-09-06 Outpatient nullFlavo MNA [id number] Memoria 15:00:00 04:59:59 r Neurology 00 [place] 2019-09-05 2019-09-05 Outpatient FANTA Vitale TOÑOSCHER [id number] 10:00:00 23:59:59 Ernie 00 Shimon 2019-09-05 2019-09-05 Outpatient FANTA VitaleSCHER [id number] 10:00:00 23:59:59 Ernie 00 Shimon 2019-09-05 2019-09-05 Outpatient MHIE IE [id number] Memoria 10:00:00 10:00:00 00 l Lee 2019-09-05 2019-09-05 Outpatient MHIE IE [id number] Memoria 10:00:00 10:00:00 00 [facility] 2019-08-27 2019-08-27 [facility] 1.2.840.114 [id number] Univers 00:00:00 00:00:00 [facility] 350.1.13.10 it y of Surgical 4.2.7.2.686 Tk as Specialti [phone] Ok dical es 198 [facility] 2019-07-16 2019-07-16 Refill [facility] [id number] Univers 00:00:00 00:00:[address] [facility] 350.1.13.10 it y of Surgical 4.2.7.2.686 Tk as Specialti [id number] Ok dical es 198 [facility] 2019-01-26 2019-01-26 [facility] 1.2.840.114 [id number] Univers 00:00:00 00:00:[address] [facility] 350.1.13.10 it y of Surgical 4.2.7.2.686 Tk as Specialti [id number] Ok dical es 198 [facility] Results Test Description Test Time Test Comments [...] 3267) clear Lab Interpretation (test code = 77591-2) [facility] [id number] 21:37:00 Test Item Value Reference Range Interpretation [...] 3267) Lab Interpretation (test code Abnormal = 35873-3) [facility]
[2022-08-18] MEDS ORDERED: CYCLOBENZAPRINE 10 MG TAB ONE (11:11)
[2022-08-18] MEDS ORDERED: KETOROLAC 30 MG/ML INJ ONE (11:11)
[2022-08-18 11:44] LABS: Absolute Lymphocytes (CBC) 1.4 K/uL (0.7-4.9); Hematocrit 39.4 % (39.6-49.0); Lymphocytes % 29.9 % (15.3-44.8); MCV 92.6 fL (80-100); MPV 8.3 fL (7.6-11.3); RBC Red Blood Cell Count 4.26 M/uL (4.33-5.43)
[2022-08-18 12:02] LABS: Potassium 3.8 mmol/L (3.5-5.1); Troponin High Sensitivity 15.8 pg/mL (<58.9)
--- NOTE | 2022-08-18 12:54 | ER ---
Nurse's Notes [facility] Name: Ethan Hall Age: 52 yrs Sex: Male : 1970 Arrival Date: 08/18/2022 Time: 10:42 Bed 15 Private MD: Diagnosis: Headache;Essential (primary) hypertension Presentation: 08/18 10:49 Chief complaint: High blood pressure, headache, fatigue, and SOB x 6 days, BP this hb morning was 202/112. Coronavirus screen: At this time, the client does not indicate any symptoms associated with coronavirus-19. Ebola Screen: No symptoms or risks identified at this time. Initial Sepsis Screen: Does the patient meet any 2 criteria? No. Patient's initial sepsis screen is negative. Does the patient have a suspected source of infection? No. Patient's initial sepsis screen is negative. Risk Assessment: Do you want to hurt yourself or someone else? Patient reports no desire to harm self or others. Onset of symptoms was August 13, 2022. 10:49 Method Of Arrival: Ambulatory hb 10:49 Acuity: CHRISTINA 3 hb Historical: - Allergies: 10:51 No Known Allergies; hb - PMHx: 10:51 Hernia; Hypertension; hb - Immunization history:: Adult Immunizations unknown. - Social history:: Smoking status: Patient denies any tobacco usage or history of. Screenin:02 [facility] ED Fall Risk Assessment (Adult) History of falling in the last 3 months, ph including since admission No falls in past 3 months (0 pts) Confusion or Disorientation No (0 pts) Intoxicated or Sedated No (0 pts) Impaired Gait No (0 pts) Mobility Assist Device Used No (0 pt) Altered Elimination No (0 pt) Score/Fall Risk Level 0 - 2 = Low Risk. Abuse screen: Denies threats or abuse. Denies injuries from another. Nutritional screening: No deficits noted. Tuberculosis screening: No symptoms or risk factors identified. Assessment: 11:20 General: Appears in no apparent distress. comfortable, Behavior is calm, cooperative, nj1 appropriate for age. Pain: Complains of pain in Head Pain currently is 6 out of 10 on a pain scale. Neuro: No deficits noted. Level of Consciousness is awake, alert, Oriented to person, place, time, situation. Cardiovascular: No deficits noted. Patient's skin is warm and dry. Respiratory: No deficits noted. Airway is patent Respiratory effort is even, unlabored, Respiratory pattern is regular. 12:20 General: Appears in no apparent distress. comfortable, Behavior is calm, cooperative, eh3 appropriate for age. Pain: Complains of pain in back of head Pain does not radiate. Pain currently is 6 out of 10 on a pain scale. Neuro: Level of Consciousness is awake, alert, obeys commands, Oriented to person, place, time, situation. Cardiovascular: Capillary refill < 3 seconds Patient's skin is warm and dry. Respiratory: Airway is patent Respiratory effort is even, unlabored, Respiratory pattern is regular, symmetrical. GI: No signs and/or symptoms were reported involving the gastrointestinal system. Abdomen is round non-distended. : No signs and/or symptoms were reported regarding the genitourinary system. EENT: No signs and/or symptoms were reported regarding the EENT system. Derm: No signs and/or symptoms reported regarding the dermatologic system. Skin is pink, warm \T\ dry. Musculoskeletal: No signs and/or symptoms reported regarding the musculoskeletal system. Circulation, motion, and sensation intact. Range of motion: intact in all extremities. Vital Signs: 10:49 BP 168 / 98; Pulse 89; Resp 18; Temp 98.3; Pulse Ox 100% on R/A; Weight 129.73 kg; hb Height 5 ft. 7 in. ; Pain 6/10; 11:25 BP 167 / 91; Pulse 84; Resp 18; Pulse Ox 98% on R/A; Pain 6/10; nj1 12:20 BP 163 / 96; Pulse 70; Resp 18; Pulse Ox 96% on R/A; eh3 10:49 Body Mass Index 44.79 (129.73 kg, 170.18 cm) hb 10:49 Pain Scale: Adult hb 11:25 Pain Scale: Adult nj1 ED Course: 10:42 Patient arrived in ED. am2 10:43 Parker Felipe MD is Attending Physician. bs3 10:51 Triage completed. hb 10:51 Arm band placed on. hb 11:01 Alexandrea Ontiveros, RN is Primary Nurse. ph 11:03 Patient has correct armband on for positive identification. Bed in low position. Call ph light in reach. Side rails up X 1. ekg monitor tech on. Pulse ox on. NIBP on. 11:23 Inserted saline lock: 20 gauge in left antecubital area, using aseptic technique. Blood nj1 collected. Missed attempt(s): 20 gauge in right antecubital area. Bleeding controlled, band aid applied, catheter tip intact. 12:20 Door closed. Noise minimized. Lights dimmed. 3 Administered Medications: 11:20 Drug: Cyclobenzaprine PO 10 mg Route: PO; nj1 12:48 Follow up: Response: No adverse reaction; Pain is unchanged, physician notified 3 11:25 Drug: Ketorolac IVP 15 mg Route: IVP; Site: left antecubital; nj1 12:48 Follow up: Response: Pain is unchanged, physician notified 3 Medication: 12:22 VIS not applicable for this client. ph Outcome: 12:53 Discharge ordered by . bs3 Signatures: Alexandrea Ontiveros RN RN Rachel Enriquez RN RN Aleida Salazar [facility] Carmita Ontiveros RN RN 3 Parker Felipe MD MD bs3 Malinda Knight RN RN nj1
--- NOTE | 2022-08-18 12:55 | EDPHYS ---
Physician Documentation [facility] Name: Ethan Hall Age: 52 yrs Sex: Male : 1970 Arrival Date: 08/18/2022 Time: 10:42 Bed 15 Private MD: ED Physician Parker Felipe HPI: 08/18 11:02 This 52 yrs old Black Male presents to ER via Ambulatory with complaints of High Blood bs3 Pressure, Headache, fatigue. 11:02 52-year-old male history of uncontrolled hypertension seen here 1 month ago and bs3 prescribed lisinopril presents with a left posterior headache that started last week is worse with movement of his neck and palpation better with rest it was not maximal intensity at onset not associated with syncope no associated numbness tingling or weakness he is concerned because he checked his blood pressure over the last several days and it is elevated. He has not followed with a pcp. No chest pain, sob, no nausea, or vomiting. He notes chronic pitting edema in his lower extremities. . Historical: - Allergies: 10:51 No Known Allergies; hb - PMHx: 10:51 Hernia; Hypertension; hb - Immunization history:: Adult Immunizations unknown. - Social history:: Smoking status: Patient denies any tobacco usage or history of. ROS: 11:04 Constitutional: Negative for fever, chills bs3 11:04 All other systems are negative. Exam: 11:04 Constitutional: This is a well developed, well nourished patient who is awake, alert, bs3 and in no acute distress. Head/Face: Normocephalic, atraumatic. Eyes: Pupils equal round and reactive to light, extra-ocular motions intact. Lids and lashes normal. ENT: mmm, no posterior phyarngeal erythema Neck: Trachea midline, no thyromegaly, no neck stiffness, he has paraspinal tenderness in the upper cervical region his pain is worse with movements laterally Chest/axilla: Normal chest wall appearance and motion. Nontender with no deformity. No lesions are appreciated. Cardiovascular: Regular rate and rhythm with a normal S1 and S2. symmetric pulses in upper extremities Respiratory: Lungs have equal breath sounds bilaterally, clear to auscultation, no respiratory distress Abdomen/GI: Soft, non-tender, no rebound or guarding Skin: Warm, dry with normal turgor. Normal color with no rashes, no lesions, and no evidence of cellulitis. MS/ Extremity: Pulses equal, no cyanosis. Neurovascular intact. Full, normal range of motion. 1+ pitting edema b/l Vital Signs: 10:49 BP 168 / 98; Pulse 89; Resp 18; Temp 98.3; Pulse Ox 100% on R/A; Weight 129.73 kg; hb Height 5 ft. 7 in. ; Pain 6/10; 11:25 BP 167 / 91; Pulse 84; Resp 18; Pulse Ox 98% on R/A; Pain 6/10; nj1 12:20 BP 163 / 96; Pulse 70; Resp 18; Pulse Ox 96% on R/A; eh3 10:49 Body Mass Index 44.79 (129.73 kg, 170.18 cm) hb 10:49 Pain Scale: Adult hb 11:25 Pain Scale: Adult nj1 MDM: 10:43 Patient medically screened. bs3 11:04 Differential diagnosis: hypertensive crisis, Malignant HTN, Cervicogenic headache, bs3 meningitis. Data reviewed: vital signs, nurses notes. ED course: Patient is well-appearing here he seems mostly anxious regarding his uncontrolled high blood pressure which she has had since his 30s but notes that he only occasionally takes blood pressure medication his history/physical are not consistent with subarachnoid hemorrhage, meningitis, encephalitis, dissection it is likely cervicogenic related to musculature we will treat pain will check basic labs to rule out endorgan damage counseled at length regarding the need to follow-up with primary care. 12:52 ED course: Labs negative for acute pathology patient feeling better advised to keep a bs3 blood pressure journal we will refill medications for 2 weeks until he can follow-up with primary care return precautions given. 08/18 11:04 Order name: Basic Metabolic Panel; Complete Time: 12:26 bs3 08/18 11:04 Order name: CBC with Diff; Complete Time: 12:26 bs3 08/18 11:04 Order name: Troponin HS; Complete Time: 12:26 bs3 08/18 12:26 Interpretation: Within normal limits: Troponin HS 15.8. bs3 Administered Medications: 11:20 Drug: Cyclobenzaprine PO 10 mg Route: PO; nj1 12:48 Follow up: Response: No adverse reaction; Pain is unchanged, physician notified eh3 11:25 Drug: Ketorolac IVP 15 mg Route: IVP; Site: left antecubital; nj1 12:48 Follow up: Response: Pain is unchanged, physician notified eh3 Disposition Summary: 08/18/22 12:53 Discharge Ordered Location: Home bs3 Problem: new bs3 Symptoms: have improved bs3 Condition: Stable bs3 Diagnosis - Headache bs3 - Essential (primary) hypertension bs3 Followup: bs3 - With: Private Physician - When: 1 week - Reason: Re-evaluation by your physician Discharge Instructions: - Discharge Summary Sheet bs3 - Cervicogenic Headache bs3 - Hypertension, Adult bs3 Forms: - Medication Reconciliation Form bs3 - Thank You Letter bs3 - Antibiotic Education bs3 - Prescription Opioid Use bs3 Prescriptions: - Lisinopril 20 mg Oral Tablet - take 1 tablet by ORAL route once daily for 14 days; 14 tablet; Refills: 0, bs3 Product Selection Permitted Signatures: Dispatcher [employer] Alexandrea Piña RN RN Rachel Enriquez RN RN Parker Felipe MD MD 3 Malinda Knight RN RN nj1 Carmita Ontiveros RN 3 Corrections: (The following items were deleted from the chart) 11:04 11:02 52-year-old male history of uncontrolled hypertension seen here 1 month ago and bs3 prescribed lisinopril presents with a left posterior headache that started last week is worse with movement of his neck and palpation better with rest it was not maximal intensity at onset not associated with syncope no associated numbness tingling or weakness he is concerned because he checked his blood pressure over the last several days and it is elevated. bs3
[2022-08-18 14:07] VITALS: TEMP 98.3
[2022-08-18 14:11] VITALS: BP 169/92; O2SAT 94
== END 2022-08-18 13:16 | disposition home or self-care (01) ==
LOC: ER 10:37
DX: R51.9 Headache, unspecified (principal); I10 Essential (primary) hypertension; R53.83 Other fatigue; R60.9 Edema, unspecified
CPT/HCPCS: 36415; 80048; 84484; 85025; 96374; 99284

== ENCOUNTER 2022-10-27 18:13 | Emergency (ER) | payer BC ==
--- OUTSIDE RECORDS SUMMARY | 2022-10-27 18:19 | XMS REPORT | Continuity of Care Document ---
:1970 Author Organization [facility] t Address [address] [place] [address] Care Team Providers Name Role Phone Asked, No Pcp Primary Care Physician Unavailable Kevin Palacios Attending Clinician Doctor Unassigned, [place] Attending Clinician Unavailable Leo Vo MD Attending Clinician Pob, [facility] Main Attending Clinician Unavailable LEO VO Attending Clinician Unavailable Aleida Lobo Attending Clinician Carmen Chen MD Attending Clinician CARMEN CHEN Attending Clinician Unavailable ALEIDA CHINCHILLA Attending Clinician Unavailable DESEAN MCNEIL Attending Clinician Unavailable KEVIN BOBBY Attending Clinician Unavailable Desean Mcneil MD Attending Clinician Edgardo Olivares MD Attending Clinician Brock Iqbal Attending Clinician BROCK SOW Attending Clinician Unavailable DEV SIERRA Attending Clinician Unavailable Ernie Vitale Attending Clinician CARMEN CHEN Admitting Clinician Unavailable Camren Chen MD Admitting Clinician Payers Payer Name Policy Type Policy Number Effective Date Expiration Date S jasmin [employer] [place] [id number] 2020 00:00:00 Problems Condition Condition Condition Status Onset Resolution Last Treating Co mments Source Name Details Category Date Date Treatment Clinician Date Colon Colon Disease Active Overview: Univer s cancer cancer 09-11 Formattin ity of screening screening 00:00: [place] 00 note Medical might be Branch different from the original. Added automatic ally from request for surgery [id number] Venous Venous Disease Active Univers insufficie insufficie 7-28 it y of ncy of ncy of 00:00: [place] both lower both lower 00 Me dical extremitie extremitie Br anch s s Venous Venous Disease Recurre Univers reflux reflux nce 7 ity of 00:00: [place] 00 Medical Branch [...] heart failure failure Cholelithi Cholelithi Disease Active 2019-0 M ethodi asis asis 2-11 st without without 00:00: Hospita cholecysti cholecysti 00 l tis tis Pulmonary Pulmonary Disease Active 2017-06 Overview: Methodi HTN HTN 2-[address] 00:00: g of this Hospita 00 note l might be different from the original. Added automatic ally from request for surgery [id number] Diastolic Diastolic Disease Active 2017-06 Met hodi dysfunctio dysfunctio 07-24 st n n 00:00: Hospita 00 l EMELI EMELI Disease Active 2017-06 Methodi (obstructi (obstructi 07-05 ve sleep ve sleep 00:00: Hospit a [...] Active Univers ALLERGIE Class ity of S [facility] No Known No Known Active Memori a Medicati Medicati l on on Lee Allergranjan Allergranjan s s Family History Family Member Diagnosis Comments Start Date Stop Date Source Maternal grandfather Heart attack [facility] Maternal grandmother [facility] Natural mother Diabetes [facility] Natural mother Hypertension [facility] Paternal grandfather [facility] Paternal grandmother [facility] Natural sister Hypertension [facility] [place] [facility] Social History Social Habit Start Date Stop Date Quantity Comments Source Gender identity 2020-08-12 Identifies as male M binaodist 21:39:46 gender (finding) Hospital Sexual orientation 2020-08-12 Heterosexual Meth odist 21:39:46 (finding) Hospital History of Social 2022-08-14 2022-08-[address] function 00:00:00 00:00:00 Hospital Exposure to 2021-12-24 2022-01-03 Not sure University of SARS-CoV-2 (event) 00:00:00 06:28:00 [facility] Alcohol intake 2018-08-24 2018-08-24 [facility] alcohol (finding) Hospita l History SDOH 2018-05-05 2018-05-05 3 [facility] [employer] 00:00:00 00:00:00 Hospital History SDMA Food 2018-05-05 2018-05-[address] Worry 00:00:00 00:00:00 Hospital History SDOH Food 2018-05-05 2018-05-[address] Scarcity 00:00:00 00:00:00 Hospital History SDMA 2018-05-05 2018-05-05 2 [facility] Med 00:00:00 00:00:00 Hospital History SDOH 2018-05-05 2018-05-05 2 [facility] Non-Med 00:00:00 00:00:00 Hospita l Education 2018-04-20 2018-04-20 11 [facility] 00:00:00 00:00:00 Hospital Alcohol Comment 2018-04-20 2018-04-20 socially [facility] 00:00:00 00:00:00 Hospital Tobacco use and 2017-07-07 2017-07-07 Smokeless tobacco Un iversity of exposure 00:00:00 00:00:00 non-user [facility] Sex Assigned At [birth year] Universit y of 00:00:00 00:00:00 [facility] Smoking Status Start Date Stop Date Source Social History [facility] Medications Ordered Filled Start Stop Current Ordering Indication Dosage Frequency Signature Comments Components Source Medication Medication Date Date Medication? Clinician (SIG) Name Name DICLOFENAC 2022-0 Yes TAKE ONE Univers 75 mg EC 4-18 TABLET BY ity of tablet 00:00: MOUTH [place] 00 TWICE A DAY WITH A Branch MEAL ( EVERY MORNING AND EVERY EVENING ) diclofenac 2022-0 Yes 75mg Take 1 Univers 75 mg EC 3-22 tablet by ity of tablet 00:00: mouth in [place] 00 the Medical morning Branch and 1 tablet in the evening. Take with meals. diclofenac 2022-3- No [id number] 75mg Take 1 Univers 75 mg EC 3-22 04-18 tablet by ity o f tablet 00:00: 00:00 mouth in [place] 00 :00 the Medical morning Branch and 1 tablet in the evening. Take with meals. tamsulosin Yes [id number] .4mg Take 1 Univers (FLOMAX) 2-28 capsule by ity o f 0.4 mg 24 00:00: [place] hr capsule the morning. Branch tamsulosin Yes [id number] .4mg Take 1 Univers (FLOMAX) 2-28 capsule by ity o f 0.4 mg 24 00:00: [place] hr capsule 00 the morning. Branch tamsulosin 0 Yes [id number] .4mg Take 1 Univers (FLOMAX) 2-28 capsule by ity o f 0.4 mg 24 00:00: [place] hr capsule 00 the morning. [place] meloxicam 0 Yes 7.5mg Take 1 Univers 7.5 mg 2-15 tablet by ity of tablet 00:00: mouth in [place] 00 the Medical morning. Branch meloxicam 0 Yes 7.5mg Take 1 Univers 7.5 mg 2-15 tablet by ity of tablet 00:00: mouth in [place] 00 the Medical morning. Branch meloxicam 0 Yes 7.5mg Take 1 Univers 7.5 mg 2-15 tablet by ity of tablet 00:00: mouth in [place] 00 the Medical morning. Branch meloxicam 0 Yes 7.5mg Take 1 Univers 7.5 mg 2-15 tablet by ity of tablet 00:00: mouth in [place] 00 the Medical morning. Branch MELOXICAM 2021-06 Yes Take 1 U nivers 7.5 mg 2-22 tablet by ity of tablet 00:00: mouth once [place] 00 daily Medical Branch MELOXICAM 2021-06 Yes Take 1 U nivers 7.5 mg 2-22 tablet by ity of tablet 00:00: mouth once [place] 00 daily Medical Branch MELOXICAM 2021-06 Yes Take 1 U nivers 7.5 mg 2-22 tablet by ity of tablet 00:00: mouth once [place] 00 daily Medical Branch MELOXICAM 2021-06- No Take [...] DAILY WITH Branch MEALS DICLOFENAC 2021-06- No [id number] TAKE 1 Univers 75 mg EC 0-31 11-29 TABLET BY ity o f tablet 00:00: 00:00 MOUTH [place] 00 :00 TWICE Medical DAILY WITH Branch MEALS tamsulosin 2021-06 Yes [id number] .4mg Take 1 Univers (FLOMAX) 0-25 capsule by ity o f 0.4 mg 24 00:00: [place] capsule 00 the Medical morning. Branch tamsulosin 2021-06 Yes [id number] .4mg Take 1 Univers (FLOMAX) 0-25 capsule by ity o f 0.4 mg 24 00:00: [place] hr capsule the Medical morning. Branch tamsulosin 2021-06 Yes [id number] .4mg Take 1 Univers (FLOMAX) 0-25 capsule by ity o f 0.4 mg 24 00:00: [place] hr capsule the Medical morning. Branch tamsulosin 2021-06 Yes [id number] .4mg Take 1 Univers (FLOMAX) 0-25 capsule by ity o f 0.4 mg 24 00:00: [place] hr capsule the Medical morning. Branch tamsulosin 2021-06 Yes [id number] .4mg Take 1 Univers (FLOMAX) 0-25 capsule by ity o f 0.4 mg 24 00:00: [place] capsule 00 the Medical morning. Branch tamsulosin 2021-06 Yes [id number] .4mg Take 1 Univers (FLOMAX) 0-25 capsule by ity o f 0.4 mg 24 00:00: [place] 00 the Medical morning. Branch tamsulosin 2021-06 Yes [id number] .4mg Take 1 Univers (FLOMAX) 0-25 capsule by ity o f 0.4 mg 24 00:00: [place] hr capsule the Medical morning. Branch tamsulosin 2021-06 Yes [id number] .4mg Take 1 Univers (FLOMAX) 0-25 capsule by ity o f 0.4 mg 24 00:00: [place] 00 the Medical morning. Branch tamsulosin 2021-06- No [id number] .4mg Take 1 Univers (FLOMAX) 0-25 02-27 capsule by ity of 0.4 mg 24 00:00: 00:00 mouth in [place] hr capsule 00 :00 the Medical morning. Branch DICLOFENAC Yes TAKE [...] 00:00: mouth once daily Medical Branch MELOXICAM Yes Take 1 U nivers 7.5 mg 9-27 tablet by ity of tablet 00:00: mouth daily Medical Branch MELOXICAM Yes Take 1 U nivers 7.5 mg 9-27 tablet by ity of tablet 00:00: mouth once daily Medical Branch MELOXICAM 2021- No [id number] Take 1 Univers 7.5 mg 9-27 11-29 tablet by ity of tablet 00:00: 00:00 mouth once [place] 00 :[place] daily Medical Branch DICLOFENAC 2021- No TAKE 1 Univers 75 mg EC 9-27 10-31 TABLET BY ity o f tablet 00:00: 00:00 MOUTH [place] 00 :00 TWICE Medical DAILY WITH Branch MEALS tamsulosin Yes [id number] .4mg Take 1 Univers (FLOMAX) 9-02 capsule by ity o f 0.4 mg 24 00:00: [place] capsule 00 the Medical morning. Branch tamsulosin 2021-0 Yes [id number] .4mg Take 1 Univers (FLOMAX) 9-02 capsule by ity o f 0.4 mg 24 00:00: [place] capsule 00 the Medical morning. Branch tamsulosin 2021-0 2021- No [id number] .4mg Take 1 Univers (FLOMAX) 9-02 10-24 capsule by ity of 0.4 mg 24 00:00: 00:00 mouth in [place] hr capsule 00 :00 the Medical morning. Branch MELOXICAM 2021-0 Yes Take 1 U nivers 7.5 mg 8-30 tablet by ity of tablet 00:00: mouth once [place] daily Medical Branch MELOXICAM 2021-0 Yes Take 1 U nivers 7.5 mg 8-30 tablet by ity of tablet 00:00: mouth once [place] daily Medical Branch MELOXICAM 2021-0 2021- No Take 1 Univers 7.5 mg 8-30 09-27 tablet by ity of tablet 00:00: 00:00 mouth once [place] 00 :00 daily Medical Branch tamsulosin 0 Yes [id number] .4mg Take 1 Univers (FLOMAX) 8-01 capsule by ity o f 0.4 mg 24 00:00: [place] hr capsule 00 the Medical morning. Branch tamsulosin 2021-0 Yes [id number] .4mg Take 1 Univers (FLOMAX) 8-01 capsule by ity o f 0.4 mg 24 00:00: [place] hr capsule 00 the Medical morning. Branch tamsulosin 2021-0 Yes [id number] .4mg Take 1 Univers (FLOMAX) 8-01 capsule by ity o f 0.4 mg 24 00:00: [place] capsule 00 the Medical morning. Branch tamsulosin 2021-0 Yes [id number] .4mg Take 1 Univers (FLOMAX) 8-01 capsule by ity o f 0.4 mg 24 00:00: [place] capsule 00 the Medical morning. Branch tamsulosin 2021-0 2022- No [id number] .4mg Take 1 Univers (FLOMAX) 01-05 capsule [...] TWICE Medical DAILY WITH Branch MEALS DICLOFENAC Yes TAKE 1 Univers 75 mg [...] by ity of tablet 00:00: mouth once [place] 00 daily Medical Branch MELOXICAM 2021-0 Yes Take 1 U nivers 7.5 mg 6-30 tablet by ity of tablet 00:00: mouth once [place] 00 daily Medical Branch MELOXICAM 2021-0 Yes Take 1 U nivers 7.5 mg 6-30 tablet by ity of tablet 00:00: mouth once [place] 00 daily Medical Branch MELOXICAM 2021-0 2021- No Take 1 Univers 7.5 mg 6-30 08-30 tablet by ity of tablet 00:00: 00:00 mouth [place] 00 :[place] daily Medical Branch aspirin 81 2021-0 Yes 81mg Take 81 mg U nivers mg EC 4-21 by mouth. ity of tablet 12:42: [place] 39 Medical Branch metoprolol 2021-0 Yes 25mg Take 25 mg U nivers tartrate 25 4-21 by mouth. ity of mg tablet 12:42: [address] chlorthalid 0 Yes 50mg Take 50 mg Univers one 50 mg 4-21 by mouth. ity o f tablet 12:42: [address] losartan 0 Yes 100mg Take 100 Univ ers 100 mg 4-21 mg by ity of tablet 12:42: mouth. [address] aspirin 81 0 Yes 81mg Take 81 mg U nivers mg EC 4-21 by mouth. ity of tablet 12:42: [address] metoprolol 0 Yes 25mg Take 25 mg U nivers tartrate 25 4-21 by mouth. ity of mg tablet 12:42: [address] chlorthalid 0 Yes 50mg Take 50 mg Univers one 50 mg 4-21 by mouth. ity o f tablet 12:42: [address] losartan 0 Yes 100mg Take 100 Univ ers 100 mg 4-21 mg by ity of tablet 12:42: mouth. [address] aspirin 81 0 Yes 81mg Take 81 mg U nivers mg EC 4-21 by mouth. ity of tablet 12:42: [address] metoprolol 0 Yes 25mg Take 25 mg U nivers tartrate 25 4-21 by mouth. ity of mg tablet 12:42: [address] chlorthalid 0 Yes 50mg Take 50 mg Univers one 50 mg 4-21 by mouth. ity o f tablet 12:42: [address] losartan 0 Yes 100mg Take 100 Univ ers 100 mg 4-21 mg by ity of tablet 12:42: mouth. [address] aspirin 81 0 Yes 81mg Take 81 mg U nivers mg EC 4-21 by mouth. ity of tablet 12:42: [address] metoprolol 0 Yes 25mg Take 25 mg U nivers tartrate 25 4-21 by mouth. ity of mg tablet 12:42: [address] chlorthalid 0 Yes 50mg Take 50 mg Univers one 50 mg 4-21 by mouth. ity o f tablet 12:42: [address] losartan 0 Yes 100mg Take 100 Univ ers 100 mg 4-21 mg by ity of tablet 12:42: mouth. [address] aspirin 81 0 Yes 81mg Take 81 mg U nivers mg EC 4-21 by mouth. ity of tablet 12:42: [address] metoprolol 0 Yes 25mg Take 25 mg U nivers tartrate 25 4-21 by mouth. ity of mg tablet 12:42: [address] chlorthalid 0 Yes 50mg Take 50 mg Univers one 50 mg 4-21 by mouth. ity o f tablet 12:42: [address] losartan 0 Yes 100mg Take 100 Univ ers 100 mg 4-21 mg by ity of tablet 12:42: mouth. [address] aspirin 81 0 Yes 81mg Take 81 mg U nivers mg EC 4-21 by mouth. ity of tablet 12:42: [address] metoprolol Yes 25mg Take 25 mg U nivers tartrate 25 4-21 by mouth. ity of mg tablet 12:42: [address] chlorthalid 0 Yes 50mg Take 50 mg Univers one 50 mg 4-21 by mouth. ity o f tablet 12:42: [address] losartan 0 Yes 100mg Take 100 Univ ers 100 mg 4-21 mg by ity of tablet 12:42: mouth. [address] aspirin 81 0 Yes 81mg Take 81 mg U nivers mg EC 4-21 by mouth. ity of tablet 12:42: [address] metoprolol 0 Yes 25mg Take 25 mg U nivers tartrate 25 4-21 by mouth. ity of mg tablet 12:42: [address] chlorthalid 0 Yes 50mg Take 50 mg Univers one 50 mg 4-21 by mouth. ity o f tablet 12:42: [address] losartan 0 Yes 100mg Take 100 Univ ers 100 mg 4-21 mg by ity of tablet 12:42: mouth. [address] aspirin 81 0 Yes 81mg Take 81 mg U nivers mg EC 4-21 by mouth. ity of tablet 12:42: [address] metoprolol 2021-0 Yes 25mg Take 25 mg U nivers tartrate 25 4-21 by mouth. ity of mg tablet 12:42: [address] chlorthalid 0 Yes 50mg Take 50 mg Univers one 50 mg 4-21 by mouth. ity o f tablet 12:42: [address] losartan 0 Yes 100mg Take 100 Univ ers 100 mg 4-21 mg by ity of tablet 12:42: mouth. [address] aspirin 81 0 Yes 81mg Take 81 mg U nivers mg EC 4-21 by mouth. ity of tablet 12:42: [address] metoprolol 0 Yes 25mg Take 25 mg U nivers tartrate 25 4-21 by mouth. ity of mg tablet 12:42: [address] chlorthalid 0 Yes 50mg Take 50 mg Univers one 50 mg 4-21 by mouth. ity o f tablet 12:42: [address] losartan 0 Yes 100mg Take 100 Univ ers 100 mg 4-21 mg by ity of tablet 12:42: mouth. [address] aspirin 81 0 Yes 81mg Take 81 mg U nivers mg EC 4-21 by mouth. ity of tablet 12:42: [address] metoprolol 0 Yes 25mg Take 25 mg U nivers tartrate 25 4-21 by mouth. ity of mg tablet 12:42: [address] chlorthalid 0 Yes 50mg Take 50 mg Univers one 50 mg 4-21 by mouth. ity o f tablet 12:42: [address] losartan 0 Yes 100mg Take 100 Univ ers 100 mg 4-21 mg by ity of tablet 12:42: mouth. [address] aspirin 81 0 Yes 81mg Take 81 mg U nivers mg EC 4-21 by mouth. ity of tablet 12:42: [address] metoprolol 0 Yes 25mg Take 25 mg U nivers tartrate 25 4-21 by mouth. ity of mg tablet 12:42: [address] chlorthalid 0 Yes 50mg Take 50 mg Univers one 50 mg 4-21 by mouth. ity o f tablet 12:42: [address] losartan 0 Yes 100mg Take 100 Univ ers 100 mg 4-21 mg by ity of tablet 12:42: mouth. [address] aspirin 81 0 Yes 81mg Take 81 mg U nivers mg EC 4-21 by mouth. ity of tablet 12:42: [address] metoprolol 0 Yes 25mg Take 25 mg U nivers tartrate 25 4-21 by mouth. ity of mg tablet 12:42: [address] chlorthalid 0 Yes 50mg Take 50 mg Univers one 50 mg 4-21 by mouth. ity o f tablet 12:42: [address] losartan 0 Yes 100mg Take 100 Univ ers 100 mg 4-21 mg by ity of tablet 12:42: mouth. [address] aspirin 81 0 Yes 81mg Take 81 mg U nivers mg EC 4-21 by mouth. ity of tablet 12:42: [address] metoprolol Yes 25mg Take 25 mg U nivers tartrate 25 4-21 by mouth. ity of mg tablet 12:42: [address] chlorthalid 0 Yes 50mg Take 50 mg Univers one 50 mg 4-21 by mouth. ity o f tablet 12:42: [address] losartan 0 Yes 100mg Take 100 Univ ers 100 mg 4-21 mg by ity of tablet 12:42: mouth. [address] aspirin 81 0 Yes 81mg Take 81 mg U nivers mg EC 4-21 by mouth. ity of tablet 12:42: [address] metoprolol 0 Yes 25mg Take 25 mg U nivers tartrate 25 4-21 by mouth. ity of mg tablet 12:42: [address] chlorthalid 0 Yes 50mg Take 50 mg Univers one 50 mg 4-21 by mouth. ity o f tablet 12:42: [address] losartan 0 Yes 100mg Take 100 Univ ers 100 mg 4-21 mg by ity of tablet 12:42: mouth. [address] aspirin 81 0 Yes 81mg Take 81 mg U nivers mg EC 4-21 by mouth. ity of tablet 12:42: [address] metoprolol 0 Yes 25mg Take 25 mg U nivers tartrate 25 4-21 by mouth. ity of mg tablet 12:42: [address] chlorthalid 2021-0 Yes 50mg Take 50 mg Univers one 50 mg 4-21 by mouth. ity o f tablet 12:42: [address] losartan 2021-0 Yes 100mg Take 100 Univ ers 100 mg 4-21 mg by ity of tablet 12:42: mouth. [address] aspirin 81 2021-0 Yes 81mg Take 81 mg U nivers mg EC 4-21 by mouth. ity of tablet 12:42: [address] metoprolol 2021-0 Yes 25mg Take 25 mg U nivers tartrate 25 4-21 by mouth. ity of mg tablet 12:42: [address] chlorthalid 0 Yes 50mg Take 50 mg Univers one 50 mg 4-21 by mouth. ity o f tablet 12:42: [address] losartan 0 Yes 100mg Take 100 Univ ers 100 mg 4-21 mg by ity of tablet 12:42: mouth. [address] aspirin 81 2021-0 Yes 81mg Take 81 mg U nivers mg EC 4-21 by mouth. ity of tablet 12:42: [address] metoprolol 0 Yes 25mg Take 25 mg U nivers tartrate 25 4-21 by mouth. ity of mg tablet 12:42: [address] chlorthalid 2021-0 Yes 50mg Take 50 mg Univers one 50 mg 4-21 by mouth. ity o f tablet 12:42: [address] losartan 0 Yes 100mg Take 100 Univ ers 100 mg 4-21 mg by ity of tablet 12:42: mouth. [address] aspirin 81 2021-0 Yes 81mg Take 81 mg U nivers mg EC 4-21 by mouth. ity of tablet 12:42: [address] metoprolol 2021-0 Yes 25mg Take 25 mg U nivers tartrate 25 4-21 by mouth. ity of mg tablet 12:42: [address] chlorthalid 2021-0 Yes 50mg Take 50 mg Univers one 50 mg 4-21 by mouth. ity o f tablet 12:42: [address] losartan 2021-0 Yes 100mg Take 100 Univ ers 100 mg 4-21 mg by ity of tablet 12:42: mouth. [place] [address] Medical Branch peg-electro 2021-0 Yes [id number] Take as Univers lyte soln 4-07 directed ity of 236-22.74-6 00:00: [place] .74 -5.86 00 colonoscop Medi jessica gram y Branch solution peg-electro 2021-0 Yes [id number] Take as Univers lyte soln 4-07 directed ity of 236-22.74-6 00:00: before [place] .74 -5.86 00 colonoscop Medi jessica gram y Branch solution peg-electro 2021-0 Yes [id number] Take as Univers lyte soln 4-07 directed ity of 236-22.74-6 00:00: before [place] .74 -5.86 00 colonoscop Medi jessica gram y Branch solution peg-electro 2021-0 Yes [id number] Take as Univers lyte soln 4-07 directed ity of 236-22.74-6 00:00: before [place] .74 -5.86 00 colonoscop Medi jessica gram y Branch solution peg-electro 2021-0 Yes [id number] Take as Univers lyte soln 4-07 directed ity of 236-22.74-6 00:00: before [place] .74 -5.86 00 colonoscop Medi jessica gram y Branch solution peg-electro 2021-0 Yes [id number] Take as Univers lyte soln 4-07 directed ity of 236-22.74-6 00:00: before [place] .74 -5.86 00 colonoscop Medi jessica gram y Branch solution peg-electro 2021-0 Yes [id number] Take as Univers lyte soln 4-07 directed ity of 236-22.74-6 00:00: before [place] .74 -5.86 00 colonoscop Medi jessica gram y Branch solution peg-electro 2021-0 Yes [id number] Take as Univers lyte soln 4-07 directed ity of 236-22.74-6 00:00: before [place] .74 -5.86 00 colonoscop Medi jessica gram y Branch solution peg-electro 2021-0 Yes [id number] Take as Univers lyte soln 4-07 directed ity of 236-22.74-6 00:00: before [place] .74 -5.86 00 colonoscop Medi jessica gram y Branch solution peg-electro 2021-0 Yes [id number] Take as Univers lyte soln 4-07 directed ity of 236-22.74-6 00:00: before [place] .74 -5.86 00 colonoscop Medi jessica gram y Branch solution peg-electro 2021-0 Yes [id number] Take as Univers lyte soln 4-07 directed ity of 236-22.74-6 00:00: before [place] .74 -5.86 00 colonoscop Medi jessica gram y Branch solution peg-electro 2021-0 Yes [id number] Take as Univers lyte soln 4-07 directed ity of 236-22.74-6 00:00: before [place] .74 -5.86 00 colonoscop Medi jessica gram y Branch solution peg-electro 2021-0 Yes [id number] Take as Univers lyte soln 4-07 directed ity of 236-22.74-6 00:00: before [place]74 -5.86 00 colonoscop Medi jessica gram y Branch solution peg-electro 2021-0 Yes [id number] Take as Univers lyte soln 4-07 directed ity of 236-22.74-6 00:00: before [place] .74 -5.86 00 colonoscop Medi jessica gram y Branch solution peg-electro 2021-0 Yes [id number] Take as Univers lyte soln 4-07 directed ity of 236-22.74-6 00:00: before [place]74 -5.86 00 colonoscop Medi jessica gram y Branch solution peg-electro 2021-0 Yes [id number] Take as Univers lyte soln 4-07 directed ity of 236-22.74-6 00:00: before [place]74 -5.86 00 colonoscop Medi jessica gram y Branch solution peg-electro 2021-0 Yes [id number] Take as Univers lyte soln 4-07 directed ity of 236-22.74-6 00:00: before [place] .74 -5.86 00 colonoscop Medi jessica gram y Branch solution peg-electro 2021-0 Yes [id number] Take as Univers lyte soln 4-07 directed ity of 236-22.74-6 00:00: [place] -5.86 00 colonoscop Medi jessica gram y Branch solution carvediloL Yes Univers 12.5 mg 6-30 ity of tablet 00:00: [place] Medical Branch carvediloL 0 Yes Univers 12.5 mg 6-30 ity of tablet 00:00: [place] [address] Medical Branch carvediloL Yes Univers 12.5 mg 6-30 ity of tablet 00:00: [place] Medical Branch carvediloL Yes Univers 12.5 mg 6-30 ity of tablet 00:00: [place] [address] Medical Branch carvediloL Yes Univers 12.5 mg 6-30 ity of tablet 00:00: [place] [address] Medical Branch carvediloL Yes Univers 12.5 mg 6-30 ity of tablet 00:00: [place] [address] Medical Branch carvediloL 0 Yes Univers 12.5 mg 6-30 ity of tablet 00:00: [place] [address] Medical Branch carvediloL Yes Univers 12.5 mg 6-30 ity of tablet 00:00: [place] [address] Medical Branch carvediloL 0 Yes Univers 12.5 mg 6-30 ity of tablet 00:00: [place] [address] Medical Branch carvediloL Yes Univers 12.5 mg 6-30 ity of tablet 00:00: [place] [address] Medical Branch carvediloL 0 Yes Univers 12.5 mg 6-30 ity of tablet 00:00: [place] [address] Medical Branch carvediloL 0 Yes Univers 12.5 mg 6-30 ity of tablet 00:00: [place] [address] Medical Branch carvediloL 0 Yes Univers 12.5 mg 6-30 ity of tablet 00:00: [place] [address] Medical Branch carvediloL 0 Yes Univers 12.5 mg 6-30 ity of tablet 00:00: [place] [address] Medical Branch carvediloL 0 Yes Univers 12.5 mg 6-30 ity of tablet 00:00: [place] [address] Medical Branch carvediloL 2020-0 Yes Univers 12.5 mg 6-30 ity of tablet 00:00: [place] [address] Medical Branch carvediloL 2020-0 Yes Univers 12.5 mg 6-30 ity of tablet 00:00: [address] carvediloL 2020-0 Yes Univers 12.5 mg 6-30 ity of tablet 00:00: [address] aspirin 2020-0 Yes 81mg Take 81 mg Meth maria teresa (ECOTRIN) 4-[address] 81 MG 15:06: [facility] 23 l coated tablet metoprolol 2020-0 Yes 25mg Take 25 mg M ethodi tartrate 4-[address] (LOPRESSOR) 15:06: Hospit a 25 mg 23 l tablet aspirin 2020-0 Yes 81mg Take 81 mg Meth maria teresa (ECOTRIN) 4-[address] 81 MG 15:06: [facility] 23 l coated tablet metoprolol 0 Yes 25mg Take 25 mg M ethodi tartrate 4-[address] (LOPRESSOR) 15:06: Hospit a 25 mg 23 l tablet aspirin 2020-0 Yes 81mg Take 81 mg Meth maria teresa (ECOTRIN) 4-14 by mouth. st 81 MG 15:06: Hospita enteric 23 l coated tablet metoprolol 2020-0 Yes 25mg Take 25 mg M ethodi tartrate 4-[address] (LOPRESSOR) 15:06: Hospit a 25 mg 23 l tablet NIFEdipine 2020-0 2021- No 120mg QD Take 2 Met hodi XL 4-14 04-[address] (PROCARDIA 00:00: 04:59 (120 mg Hos melania XL) 60 MG 00 :00 total) by l 24 hr mouth tablet daily. NIFEdipine 2020-0 2021- No 120mg QD Take 2 Met hodi XL 4-14 04-[address] (PROCARDIA 00:00: 04:59 (120 mg Hos melania XL) 60 MG 00 :00 total) by l 24 hr mouth tablet daily. potassium 0 Yes Methodi chloride 3-30 st (K-DUR) 10 00:00: Hospita MEQ CR 00 l tablet potassium 2020-0 Yes [facility] chloride 3-30 st (K-DUR) 10 00:00: Hospita MEQ CR 00 l tablet potassium 2020-0 Yes [facility] chloride 3-30 st (K-DUR) 10 00:00: Hospita MEQ CR 00 l tablet gabapentin 0 Yes [facility] (NEURONTIN) 3-05 st 300 mg 00:00: Hospita capsule 00 l gabapentin 2020-0 Yes [facility] (NEURONTIN) 3-05 st 300 mg 00:00: Hospita capsule 00 l gabapentin 2020-0 Yes [facility] (NEURONTIN) 3-05 st 300 mg 00:00: Hospita capsule 00 l furosemide 0 Yes 20mg QD Take 20 mg M ethodi (LASIX) 20 2-[address] mg tablet 00:00: daily. Hospit a l furosemide Yes 20mg QD Take 20 mg M ethodi (LASIX) 20 2-[address] mg tablet 00:00: daily. Hospit a 00 l furosemide Yes 20mg QD Take 20 mg M ethodi (LASIX) 20 2-[address] mg tablet 00:00: daily. Hospit a 00 l Aspirin 81 2020-0 Yes 81 mg = 1 Me moria MG Enteric 3-31 tab, PO, l Coated 14:40: Daily, # [place] Tablet 00 90 tab, 3 Refill(s) Hydrochloro 2020-0 Yes 50 mg = [...] tab, PO, l tablet 14:40: Daily, 0 [place] 00 Refill(s) metoprolol 2020-0 Yes 12.5 mg = Me moria tartrate 25 3-31 0.5 tab, l mg oral 14:40: PO, BID, 0 Herm tabby tablet 00 Refill(s) Hydrochloro 2020-0 Yes 50 mg [...] tab, PO, l tablet 14:40: Daily, 0 [place] 00 Refill(s) Aspirin 81 2020-0 Yes 81 mg = 1 Me moria MG Enteric 3-31 tab, PO, l Coated 14:40: Daily, # [place] Tablet 00 90 tab, 3 Refill(s) losartan 2020-0 Yes 100 mg = [...] BID, 0 Herm tabby tablet 00 Refill(s) Hydrochloro 2020-0 Yes 50 mg = 1 M emoria thiazide 50 3-31 tab, PO, l MG Oral 14:40: Daily, 0 Peter n Tablet 00 Refill(s) Acetaminoph 2020-0 Yes 1 tab, PO, Memoria en 325 MG / 3-31 Q6H, PRN l Hydrocodone 14:40: Pain, # 28 [place] Bitartrate 00 tab, 0 7.5 MG Oral [...] tab, PO, l Coated 14:40: Daily, # [place] Tablet 00 90 tab, 3 Refill(s) metoprolol 2020-0 Yes 12.5 mg = Me moria tartrate 25 3-31 0.5 tab, l mg oral 14:40: PO, BID, 0 Herm tabby tablet 00 Refill(s) losartan 2020-0 Yes 100 mg = 1 Mem oria 100 mg oral 3-31 tab, PO, l tablet 14:40: Daily, 0 [place] 00 Refill(s) Hydrochloro 2020-0 Yes 50 mg [...] tab, PO, l Coated 14:40: Daily, # [place] Tablet 00 90 tab, 3 Refill(s) metoprolol [...] tab, PO, l Coated 14:40: Daily, # [place] Tablet 00 90 tab, 3 Refill(s) metoprolol 2020-0 Yes 12.5 mg = Me moria tartrate 25 3-31 0.5 tab, l mg oral 14:40: PO, BID, 0 Herm tabby tablet 00 Refill(s) losartan 2020-0 Yes 100 mg = 1 Mem oria 100 mg oral 3-31 tab, PO, l tablet 14:40: Daily, 0 [place] 00 Refill(s) Hydrochloro 2020-0 Yes 50 mg = 1 M emoria thiazide 50 3-31 tab, PO, l MG Oral 14:40: Daily, 0 Peter n Tablet 00 Refill(s) Acetaminoph 2020-0 Yes 1 tab, PO, Memoria en 325 MG / 3-31 Q6H, PRN l Hydrocodone 14:40: Pain, # 28 [place] Bitartrate 00 tab, 0 7.5 MG Oral Refill(s) Tablet Aspirin 81 2020-0 Yes 81 mg = 1 Me moria MG Enteric 3-31 tab, PO, l Coated 14:40: Daily, # [place] Tablet 00 90 tab, 3 Refill(s) Aspirin [...] BID, 0 Herm tabby tablet 00 Refill(s) Aspirin 81 2020-0 Yes 81 mg = 1 Me moria MG Enteric 3-31 tab, PO, l Coated 14:40: Daily, # [place] Tablet 00 90 tab, 3 Refill(s) metoprolol 2020-0 Yes 12.5 mg = Me moria tartrate 25 3-31 0.5 tab, l mg oral 14:40: PO, BID, 0 Herm tabby tablet 00 Refill(s) losartan 2020-0 Yes 100 mg = 1 Mem oria 100 mg oral 3-31 tab, PO, l tablet 14:40: Daily, 0 [place] 00 Refill(s) Hydrochloro 2020-0 Yes 50 mg = 1 M emoria thiazide 50 3-31 tab, PO, l MG Oral 14:40: Daily, 0 Peter n Tablet 00 Refill(s) Acetaminoph 2020-0 Yes 1 tab, PO, Memoria en 325 MG / 3-31 Q6H, PRN l Hydrocodone 14:40: Pain, # 28 [place] Bitartrate 00 tab, 0 7.5 MG Oral Refill(s) Tablet losartan 2020-0 Yes 100 mg = 1 [...] PRN l Hydrocodone 14:40: Pain, # 28 [place] Bitartrate 00 tab, 0 7.5 MG Oral [...] tab, PO, l tablet 14:40: Daily, 0 [place] 00 Refill(s) losartan 2020-0 Yes 100 mg [...] PRN l Hydrocodone 14:40: Pain, # 28 [place] Bitartrate 00 tab, 0 7.5 MG Oral [...] PRN l Hydrocodone 14:40: Pain, # 28 [place] Bitartrate 00 tab, 0 7.5 MG Oral Refill(s) Tablet losartan 2020-0 Yes 100 mg = 1 Mem oria 100 mg oral 3-31 tab, PO, l tablet 14:40: Daily, 0 [place] 00 Refill(s) metoprolol 2020-0 Yes 12.5 mg = Me moria tartrate 25 3-31 0.5 tab, l mg oral 14:40: PO, BID, 0 Herm tabby tablet 00 Refill(s) losartan 2020-0 Yes 100 mg = 1 Mem oria 100 mg oral 3-31 tab, PO, l tablet 14:40: Daily, 0 [place] 00 Refill(s) Hydrochloro 2020-0 Yes 50 mg = 1 M emoria thiazide 50 3-31 tab, PO, l MG Oral 14:40: Daily, 0 Peter n Tablet 00 Refill(s) diclofenac Yes TAKE 1 Metho [...] Source Systolic blood 2022-01-05 21:19:00 154 mm[Hg] [facility] pressure [facility] Diastolic blood 2022-01-05 21:19:00 88 mm[Hg] [facility] Heart rate 2022-01-05 21:18:00 78 /min [facility] Body height 2022-01-05 21:18:00 170.2 cm [facility] Body weight 2022-01-05 21:18:00 125.193 kg [facility] BMI 2022-01-05 21:18:00 43.23 kg/m2 [facility] Oxygen saturation 2022-01-05 21:18:00 95 /min [facility] in Arterial blood Medical Br anch by Pulse oximetry Systolic (mm Hg) 2019-09-05 14:34:00 Daryl lashell [place] Diastolic (mm Hg) 2019-09-05 14:34:00 Mem orial [place] Heart Rate 2019-09-05 14:34:00 [facility] [place] Respitory Rate 2019-09-05 14:34:00 Muna Umanzor Height 2019-09-05 14:34:00 [facility] 2019-09-05 14:34:00 [facility] BMI Calculated 2019-09-05 14:34:00 Muna Umanzor Procedures Procedure Date / Time Performing Clinician Source Performed AUTHORIZATION FOR 2022-09-02 05:01:00 [facility] AUTHORIZATION FOR 2022-03-27 05:01:00 [facility] Branch POCT URINALYSIS AUTO 2022-01-05 21:35:00 Leo Vo [facility] Plan of Care Planned Activity Planned Date Details Comments Source Future Scheduled 2022-09-29 COVID-19 VACCINE (#1) [facility] Test 12:13:53 [code = COVID-19 VACCINE (#1)] Future Scheduled 2022-09-29 Hepatitis C screening [facility] Test 12:13:53 (procedure) [code = 088836382] Future Scheduled 2022-09-29 COLONOSCOPY SCREENING [facility] Hospital Test 12:13:53 [code = COLONOSCOPY SCREENING] Future Scheduled 2022-09-29 SHINGLES VACCINES ([address] [facility] Hospital Test 12:13:53 of 2) [code = SHINGLES VACCINES (1 of 2)] Future Scheduled 2022-09-29 INFLUENZA VACCINE Method [facility] Hospital Test 12:13:53 [code = INFLUENZA VACCINE] Future Scheduled 2022-07-23 [facility] 16:30[facility]27 [code = COVID-19 VACCINE (#1)] Future Scheduled 2022-07-23 Hepatitis C screening [facility] Test 16:30:27 (procedure) [code = [id number]] Future Scheduled 2022-07-23 [facility] 16:30:27 [code = COLONOSCOPY SCREENING] Future Scheduled 2022-07-23 SHINGLES VACCINES (1 Met [facility] Test 16:30:27 of 2) [code = SHINGLES VACCINES (1 of 2)] Future Scheduled 2022-07-23 INFLUENZA VACCINE Method ist Hospital Test 16:30:27 [code = INFLUENZA VACCINE] Future Scheduled 2022-06-02 COVID-19 VACCINE (#1) [facility] Test 09:17:35 [code = COVID-19 VACCINE (#1)] Future Scheduled 2022-06-02 Hepatitis C screening [facility] Test 09:17:35 (procedure) [code = [id number]] Future Scheduled 2022-06-02 COLONOSCOPY SCREENING [facility] Test 09:17:35 [code = COLONOSCOPY SCREENING] Future Scheduled 2022-06-02 SHINGLES VACCINES ([address] [facility] Hospital Test 09:17:35 of 2) [code = SHINGLES VACCINES (1 of 2)] Future Scheduled 2022-06-02 INFLUENZA VACCINE Method ist Hospital Test 09:17:35 [code = INFLUENZA VACCINE] Encounters Start End Encounter Admission Attending Care Care Encounter Source Date/Time Date/Time Type Type Clinicians Facility Department ID 2022-01-02 Outpatient [facility] [id number] Common 09:24:04 [facility] 2022-01-01 Outpatient [facility] [id number] Common 08:54:04 [facility] 2021-04-07 Emergency [facility] [id number] Univers 12:55:22 ity of [facility] 2022-09-22 2022-09-22 [facility] 1.2.840.114 [id number] Univers 00:00:00 00:00:00 [facility] 350.1.13.10 it y of [place] 4.2.7.2.686 Tk as WATSON?BLEA [phone] [facility] [address] MEDICAL OFFICE BUILDING 2022-09-02 2022-09-02 Orders Doctor LILI 1.2.840.114 [id number] Univers 00:00:00 00:00:00 Only Unassigned, KARI 350.1.13.10 ity of [place] [facility] 4.2.7.2.686 Tk as [phone] [place] [address] Branch 2022-08-03 2022-08-03 Refill [facility] 1.2.840.114 [id number] Univers 00:00:00 00:00:00 Leo ROSELINESILVIA 350.1.13.10 i ty of [place] [phone] Ar justino [facility] [address] BUILDING 2022-07-17 2022-07-17 Refcalista Vo [facility] 1.2.840.114 [id number] Univers 00:00:00 00:00:00 Leo [place] 350.1.13.10 i ty of [place] [phone] [facility] 204 [facility] 2022-07-17 2022-07-17 Refill [facility] 1.2.840.114 [id number] Univers 00:00:00 00:00:00 Unassigned, HEALTH 350.1.13.10 ity [place] 4.2.7.2.686 Tk as WATSON?BLEA [phone] Ar justino [place] [address] [facility] 2022-07-07 2022-07-07 Refill [facility] 1.2.840.114 [id number] Univers 00:00:00 00:00:00 [facility] 350.1.13.10 i ty [place] [phone] [facility] 204 [facility] 2022-05-28 2022-05-28 Miguelina [facility] 1.2.840.114 [id number] Univers 00:00:00 00:00:00 Kevin S HEALTH 350.1.13.10 it y of [place] 4.2.7.2.686 Tk as WATSON?BLEA [phone] Ar justino [place] [address] [facility] 2022-05-02 2022-05-02 Miguelina [facility] 1.2.840.114 [id number] Univers 00:00:00 00:00:00 Kevin S HEALTH 350.1.13.10 it y of [place] 4.2.7.2.686 Tk as WATSON?BLEA [phone] Ar justino [place] [address] [facility] 2022-04-28 2022-04-28 Miguelina [facility] 1.2.840.114 [id number] Univers 00:00:00 00:00:00 Kevin S HEALTH 350.1.13.10 it y of [place] 4.2.7.2.686 Tk as WATSON?BLEA [phone] Ar justino [place] [address] [facility] 2022-04-05 2022-04-05 Miguelina [facility] 1.2.840.114 [id number] Univers 00:00:00 00:00:00 Kevin S HEALTH 350.1.13.10 it y [facility] 4.2.7.2.686 Tk as WATSON?BLEA [phone] [facility] JOHN [address] [facility] 2022-03-30 2022-03-30 Miguelina [facility] 1.2.840.114 [id number] Univers 00:00:00 00:00:00 Leo [facility] 350.1.13.10 i ty [facility] 4.[place] [phone] [facility] 204 [facility] 2022-03-27 2022-03-27 Orders Doctor LILI 1.2.840.114 [id number] Univers 00:00:00 00:00:00 Only Unassigned, KARI 350.1.13.10 ity of [place] [facility] 4.2.7.2.686 Tk as [phone] [address] 2022-03-03 2022-03-03 Miguelina [facility] 1.2.840.114 [id number] Univers 00:00:00 00:00:00 Kevin S HEALTH 350.1.13.10 it y of [facility] 4.2.7.2.686 Tk as WATSON?BLEA [phone] [facility] [address] 2022-02-06 2022-02-06 Miguelina [facility] 1.2.840.114 [id number] Univers 00:00:00 00:00:00 Leo [facility] 350.1.13.10 i ty of [facility] 4[place]2.[place] [phone] [facility] 204 [facility] 2022-02-01 2022-02-01 Miguelina [facility] 1.2.840.114 [id number] Univers 00:00:00 00:00:00 Ekvin S HEALTH 350.1.13.10 it y of [facility] 4.2.7.2.686 Tk as WATSON?BLEA [phone] Ar justino [place] 198 [facility] OFFICE [facility] 2022-01-05 2022-01-05 Adult Specialist Sania, Gilberto Lab Main [facility] 1.2.8 40.114 [id number] Univers 17:00:00 17:15:00 Visit Gilda [facility] 350.1.13.10 ity of [place] [phone] Ar dical NAL 353 [facility] 2022-01-05 2022-01-05 Outpatient R [facility] [id number] Univers 16:00:00 17:12:08 [facility] ity [facility] 2022-01-05 2022-01-05 Office [facility] 1.2.840.114 [id number] Univers 16:00:00 17:00:00 Visit [facility] 350.1.13.10 i ty of [place] [phone] Ar dical NAL 204 [facility] 2022-01-05 2022-01-05 Outpatient R [facility] [id number] Univers 16:00:00 16:00:00 [facility] 2022-01-05 2022-01-05 Orders Doctor LILI 1.2.840.114 [id number] Univers 00:00:00 00:00:00 Only Unassigned, KARI 350.1.13.10 ity of [place] [facility] 4.2.7.2.686 Tk as [phone] [address] 2021-12-30 2021-12-30 Miguelina [facility] 1.2.840.114 [id number] Univers 00:00:00 00:00:00 [facility] 350.1.13.10 it y of [place] 4.2.7.2.686 Tk as WATSON?BLEA [phone] Ar justino [place] 198 [facility] OFFICE [facility] 2021-12-04 2021-12-04 Miguelina [facility] 1.2.840.114 [id number] Univers 00:00:00 00:00:00 Kevin S HEALTH 350.1.13.10 it y of [place] 4.2.7.2.686 Tk as WATSON?BLEA [phone] Ar dical JOHNEY [address] MEDICAL OFFICE BUILDING 2021-12-04 2021-12-04 Miguelina Chinchilla, CHYNAIT 1.2.872.197 [id number] Univers 00:00:00 00:00:00 Aleida Y HEALTH 350.1.13.10 i ty of [place] [phone] [facility] [address] 2021-09-30 2021-09-30 Adult Specialist Sania, Adc Lab Main [facility] 1.2.8 40.114 [id number] Univers 09:45:00 10:00:00 Visit Carmen Chen 350.1.13.10 ity [facility] [place] [phone] Ar dicneymar [facility] 353 [facility] 2021-09-30 2021-09-30 Outpatient [facility] [id number] Univers 09:45:00 09:45:00 CARMEN keller [facility] 2021-09-29 2021-09-29 Patient [facility] 1.2.840.114 [id number] Univers 00:00:00 00:00:00 Secure Msg Carmen Horner SPECIALTY 350.1.13.10 ity of [facility] 4.2.7.2.[place] CENTER AT [phone] Ar justino [address] 2021-09-25 2021-09-25 Outpatient R [facility] GIE [id number] Univers 08:47:00 12:42:00 CARMEN keller of [facility] 2021-09-25 2021-09-25 Hospital [facility] 1.2.840.114 [id number] Univers 08:47:00 12:42:00 Encounter Carmen CHRISTENSEN 350.1.13.10 ity of [facility] 4.2.7.2.686 Tk as BLDG [phone] [facility] [address] 2021-09-25 2021-09-25 Surgery April [facility] 1.2.475.989 [id number] Univers 10:40:00 11:25:00 Carmen Evens ICALarry 350.1.13.10 ity of [place] 4.2.7.2.686 Tk as BLDG [phone] [facility] [address] 2021-09-25 2021-09-25 Outpatient R APRIL [facility] [id number] Univers 08:15:00 08:15:00 CARMEN keller [facility] 2021-09-25 2021-09-25 Orders Doctor LILI 1.2.840.114 [id number] Univers 00:00:00 00:00:00 Only Unassigned, KARI 350.1.13.10 ity of [place] HOSPITAL 4.2.7.2.686 Tk as [phone] [facility] [address] 2021-09-11 2021-09-11 Office CHYNA Ch[place] 1.2.272.768 [id number] Univers 12:30:00 13:00:00 Visit [facility] 350.1.13.10 i ty of [place] [phone] [facility] [address] 2021-09-11 2021-09-11 Outpatient [facility] [id number] Univers 12:30:00 12:30:00 ALEIDA keller [facility] 2021-09-09 2021-09-09 Refill Doctor [facility] 1.2.840.114 [id number] Univers 00:00:00 00:00:00 Unassigned, HEALTH 350.1.13.10 ity of [place] SURGICAL 4.2.7.2.686 Tk as SPECIALTI [phone] Ar justino [address] 2021-04-21 2021-04-21 Refill Doctor [facility] 1.2.840.114 [id number] Univers 00:00:00 00:00:00 Unassigned, HEALTH 350.1.13.10 ity [place] 4.2.7.2.686 Tk as WATSON?BLEA [phone] Ar justino [address] MEDICAL OFFICE BUILDING 2021-04-04 2021-04-04 Outpatient R TARUN, [facility] [id number] Univers 08:00:00 08:00:00 DESEAN ity [facility] 2021-04-04 2021-04-04 Outpatient R KANU, [facility] [id number] Univers 08:00:00 08:00:00 KEVIN ity [facility] 2021-03-30 2021-03-30 Refill Doctor [facility] 1.2.840.114 [id number] Univers 00:00:00 00:00:00 Unassigned, Health 350.1.13.10 ity [place] 4.2.7.2.686 Tk as Watson?Blea [phone] Me dical maricruz [address] [place] [address] 2021-03-30 2021-03-30 Refill Doctor [facility] 1.2.840.114 [id number] Univers 00:00:00 00:00:00 Unassigned, Health 350.1.13.10 ity of [place] Surgical 4.2.7.2.686 Tk as Specialti [phone] Me dical es 198 [facility] 2021-03-28 2021-03-28 Refill Doctor [facility] 1.2.840.114 [id number] Univers 00:00:00 00:00:00 Unassigned, Health 350.1.13.10 ity of [place] Surgical 4.2.7.2.686 Tk as Specialti [phone] Me dical es 198 [facility] 2021-03-28 2021-03-28 Refill Doctor [facility] 1.2.840.114 [id number] Univers 00:00:00 00:00:00 Unassigned, Health 350.1.13.10 ity of [place] 4.2.7.2.686 Tk as Watson?Blea [phone] Ar dical maricruz 198 [facility] 2021-02-25 2021-02-25 Patient Kanu [facility] 1.2.840.114 [id number] Univers 00:00:00 00:00:00 Secure Msg Kevin S Health 350.1.13.10 ity of [place] 4.2.7.2.686 Tk as Watson?Blea [phone] Me dical maricruz 198 [facility] Office [facility] 2021-02-21 2021-02-21 Office [facility] 1.2.150.321 [id number] Univers 08:15:00 08:26:53 [facility] 350.1.13.10 it y of [place] 4.2.7.2.686 Tk as WATSON?BLEA [phone] Me dical MARICRUZ 198 [facility] OFFICE [facility] 2021-02-21 2021-02-21 [facility] [id number] Univers 08:15:00 08:26:53 [facility] 2021-02-21 2021-02-21 [facility] [id number] Univers 08:15:00 08:15:00 [facility] 2021-02-16 2021-02-16 Refcalista [facility] 1.2.840.114 [id number] Univers 00:00:00 00:00:00 [facility] 350.1.13.10 it y of Surgical 4.2.7.2.686 Tk as Specialti [phone] Me dical es 198 [facility] 2021-02-16 2021-02-16 Refcalista [facility] 1.2.840.114 [id number] Univers 00:00:00 00:00:00 Kevin S Health 350.1.13.10 it y of Surgical 4.2.7.2.686 Tk as Specialti [phone] Me dical es 198 [facility] 2021-02-14 2021-02-14 Office [facility] 1.2.840.114 [id number] Univers 08:11:41 09:02:17 Visit Kevin S Health 350.1.13.10 it y of [place] 4.2.7.2.686 Tk as Watson?Blea [phone] Me dical maricruz 198 [facility] Office [facility] 2021-02-14 2021-02-14 Out[facility] [id number] Univers 08:00:00 08:00:00 [facility] 2021-02-04 2021-02-04 Office [facility] 1.2.840.114 [id number] Univers 13:39:04 14:04:51 Visit Kevin [facility] 350.1.13.10 it y of [place] 4.2.7.2.686 Tk as Watson?Blea [phone] Ar dical maricrzu 198 [facility] Office [facility] 2021-02-04 2021-02-04 [facility] [id number] Univers 13:30:00 13:30:00 KEVIN ity of [facility] 2021-02-04 2021-02-04 Orders Doctor LILI 1.2.840.114 [id number] Univers 00:00:00 00:00:00 Only Unassigned, KARI 350.1.13.10 ity of [place] [facility] 4.2.7.2.686 Tk as [id number] [facility] [address] 2021-01-27 2021-01-27 Patient Doctor [facility] 1.2.840.114 [id number] Univers 00:00:00 00:00:00 Secure Msg Unassigned, Health 350.1.13.10 ity of [place] 4.2.7.2.686 Tk as Watson?Blea [phone] Ar dical maricruz 198 [facility] Office [facility] 2021-01-17 2021-01-17 Hospital [facility] 1.2.840.114 [id number] Univers 09:28:27 23:59:00 Encounter Kevin [place] 350.1.13.10 ity of [place] [phone] [facility] [address] 2021-01-17 2021-01-17 Office [facility] 1.2.840.114 [id number] Univers 10:08:28 10:23:28 Visit Kevin [facility] 350.1.13.10 it y of Surgical 4.2.7.2.686 Tk as Specialti [phone] Ar justino manny 198 [facility] 2021-01-17 2021-01-17 [facility] [id number] Univers 09:45:00 09:45:00 KEVIN ity of [facility] 2021-01-17 2021-01-17 Orders Doctor LILI 1.2.840.114 [id number] Univers 00:00:00 00:00:00 Only Unassigned, KARI 350.1.13.10 ity of [place] [facility] 4.2.7.2.686 Tk as [phone] [facility] [address] 2021-01-16 2021-01-16 Telephone [facility] [place] [id number] Univers 00:00:00 00:00:00 Kevin [place] 350.1.13.10 i [place] [phone] Ar dical nal 198 [facility] 2021-01-13 2021-01-13 Refill [facility] [place] 1.2.840.114 [id number] Univers 00:00:00 00:00:00 [facility] 350.1.13.10 it y of Surgical 4.2.7.2.686 Tk as Specialti [phone] Ar dical 198 [facility] 2021-01-07 2021-01-07 Emergency [facility] [id number] Univers 18:50:00 23:18:00 Edgardo Christine Herndon 350.1.13.10 ity [place] [phone] [facility] [address] [place] 2021-01-07 2021-01-07 Office OLIVIA Sow 1.2.840.114 [id number] Univers 15:32:44 16:45:26 Visit Brock [facility] 350.1.13.10 ity [place] [phone] [facility] [address] 2021-01-07 2021-01-07 Outpatient R [facility] [id number] Univers 00:00:00 00:00:00 BROCK ity of [facility] 2021-01-07 2021-01-07 Letter Doctor LILI 1.2.840.114 [id number] Univers 00:00:00 00:00:00 (Out) Unassigned, KARI 350.1.13.10 ity of [place] [facility] 4.2.7.2.686 Tk as [phone] [facility] [address] 2021-01-01 2021-01-01 Office CHYNA Sow 1.2.840.114 [id number] Univers 15:14:09 15:59:22 Visit Brock R HEALTH 350.1.13.10 ity of [place] [phone] [facility] [address] 2021-01-01 2021-01-01 Outpatient R [facility] [id number] Univers 15:00:00 15:00:00 BROCK ity of [facility] 2021-01-01 2021-01-01 Orders Doctor LILI 1.2.840.114 [id number] Univers 00:00:00 00:00:00 Only Unassigned, KARI 350.1.13.10 ity of [place] [facility] 4.2.7.2.686 Tk as [phone] [facility] 00[address] Branch 2020-11-08 2020-11-08 [facility] 1.2.840.114 [id number] Univers 00:00:00 00:00:00 [facility] 350.1.13.10 it y of Surgical 4.2.7.2.686 Tk as Specialti [phone] [facility] 2020-09-29 2020-09-29 [facility] 1.2.840.114 [id number] 00:00:00 00:00:00 [facility] 350.1.13.10 Surgical 4.2.7.2.686 Specialti [phone] es 198 [place] 2020-09-29 2020-09-29 [facility] 1.2.840.114 [id number] Univers 00:00:00 00:00:00 [facility] 350.1.13.10 it y of Surgical 4.2.7.2.686 Tk as Specialti [phone] Ar dical es 198 [facility] 2020-09-17 2020-09-17 Outpatient MARIELA, [facility] [id number] [place] 00:00:00 00:00:00 AHMED [address] 2020-09-17 2020-09-17 Outpatient MARIELA, [facility] [id number] [place] 00:00:00 00:00:00 AHMED [address] 2020-09-17 2020-09-17 Outpatient MARIELA, [facility] [id number] [place] 00:00:00 00:00:00 AHMED [address] 2020-09-03 2020-09-03 Outpatient MARIELA, [facility] [id number] [place] 00:00:00 00:00:00 AHMED [address] [facility] 2020-08-27 2020-08-27 Outpatient MARIELA, [facility] [id number] [place] 00:00:00 00:00:00 AHMED 6[address] [facility] 2020-08-06 2020-08-06 [facility] 1.2.840.114 [id number] 00:00:00 00:00:00 [facility] 350.1.13.10 Surgical 4.2.7.2.686 Specialti [phone] es [address] [place] 2020-08-06 2020-08-06 [facility] 1.2.840.114 [id number] Univers 00:00:00 00:00:00 [facility] 350.1.13.10 it y of Surgical 4.2.7.2.686 Tk as Specialti [phone] Ar dical es [address] [place] 2020-06-18 2020-06-18 [facility] 1.2.840.114 [id number] Univers 00:00:00 00:00:00 [facility] 350.1.13.10 it y of Surgical 4.2.7.2.686 Tk as Specialti [phone] Me dical es [address] [place] 2020-06-18 2020-06-18 [facility] 1.2.840.114 [id number] 00:00:00 00:00:00 [facility] 350.1.13.10 Surgical 4.2.7.2.686 Specialti [phone] es [address] [place] 2020-01-15 2020-01-15 [facility] 1.2.840.114 [id number] Univers 00:00:00 00:00:00 [facility] 350.1.13.10 it y of Surgical 4.2.7.2.686 Tk as Specialti [phone] Me dical es 198 [facility] 2020-01-15 2020-01-15 [facility] 1.2.840.114 [id number] 00:00:00 00:00:00 [facility] 350.1.13.10 Surgical 4.2.7.2.686 Specialti [phone] es [address] [place] 2019-11-22 2019-11-22 Office [facility] 1.2.840.114 [id number] Univers 14:00:24 16:25:45 Visit [facility] 350.1.13.10 it y of Surgical 4.2.7.2.686 Tk as Specialti [phone] Ar dical es 198 [facility] 2019-11-22 2019-11-22 Office [facility] 1.2.840.114 [id number] 14:00:24 16:25:45 Visit [facility] 350.1.13.10 Surgical 4.2.7.2.686 Specialti [id number] es [address] [place] 2019-11-22 2019-11-22 [facility] [id number] Univers 14:45:00 14:45:00 KEVIN lisa [facility] 2019-11-20 2019-11-20 [facility] [id number] Univers 15:00:00 15:00:00 DESEANBOBBI keller [facility] 2019-11-16 2019-11-16 Telephone [facility] 1.2.840.114 [id number] Univers 00:00:00 00:00:00 [facility] 350.1.13.10 it y of Surgical 4.2.7.2.686 Tk as Specialti [phone] Me dical es 198 [facility] 2019-10-17 2019-10-17 Ambulatory nullFlavo MNA [id number] Memoria 15:30:00 15:30:00 Pre-Reg r Neurology 01 l Radha Lee 2019-10-17 2019-10-17 Ambulatory nullFlavo MNA [id number] Memoria 15:30:00 15:30:00 Pre-Reg r Neurology 01 l Radha Lee 2019-10-17 2019-10-17 Ambulatory nullFlavo MNA [id number] Memoria 15:30:00 15:30:00 Pre-Reg r Neurology 01 l [place] 2019-10-17 2019-10-17 Outpatient MHIE MHIE [id number] [place] 10:30:00 10:30:00 01 l [place] 2019-10-17 2019-10-17 Outpatient MHIE MHIE [id number] [place] 10:30:00 10:30:00 01 larry [place] 2019-10-17 2019-10-17 Outpatient AGUS VitaleSCHER MHMISCHER [id number] 10:30:00 10:30:00 Ernie Shimon 2019-10-17 2019-10-17 Outpatient AGUS VitaleSCHSWATI MHMISCHER [id number] 10:30:00 10:30:00 Ernie Shimon 2019-10-02 2019-10-02 [facility] 1.2.840.114 [id number] Univers 00:00:00 00:00:00 [facility] 350.1.13.10 it y of Surgical 4.2.7.2.686 Tk as Specialti [phone] Ar dical es [address] [place] 2019-09-05 2019-09-06 Outpatient nullFlavo MNA [id number] Memoria 15:00:00 04:59:59 r Neurology 00 l Henderson Lee 2019-09-05 2019-09-06 Outpatient nullFlavo MNA [id number] Memoria 15:00:00 04:59:59 r Neurology 00 l Henderson Lee 2019-09-05 2019-09-06 Outpatient nullFlavo MNA [id number] Memoria 15:00:00 04:59:59 r Neurology 00 l Henderson [place] 2019-09-05 2019-09-05 Outpatient AGUS VitaleSCHER MHMISCHER [id number] 10:00:00 23:59:59 Ernie 00 Shimon 2019-09-05 2019-09-05 [facility] [id number] 10:00:00 23:59:59 Ernie 00 Shimon 2019-09-05 2019-09-05 Outpatient [facility] R[facility] [id number] 10[facility]00[facility]00 00 larry [place] 2019-09-05 2019-09-05 [facility] [id number] [facility] 10:00:00 10:00:00 [facility] 2019-08-27 [facility] 1.2.840.114 [id number] Univers 00:00:00 00:00:00 [facility] 350.1.13.10 it y of Surgical 4.2.7.2.686 Tk as Specialti [phone] Ar dical es 198 [facility] 2019-07-16 2019-07-16 Refill [facility] 1.2.489.319 [id number] Univers 00:00:00 00:00:00 Desean Mendez [employer] 350.1.13.10 it y of Surgical 4.2.7.2.686 Tk as Specialti [phone] Ar dical es 198 [facility] 2019-01-26 2019-01-26 Telephone [facility] 1.2.840.114 [id number] Univers 00:00:00 00:00:00 Desean Mendez [employer] 350.1.13.10 it y of Surgical 4.2.7.2.686 Tk as Specialti [phone] Ar dical es 198 [facility] Results Test Description Test Time Test Comments [...] 3267) clear Lab Interpretation (test code = 07277-6) [facility]normal [facility] [id number] 21:37:00 Test Item Value Reference Range Interpretation [...] 3267) Lab Interpretation (test code Abnormal = 34005-2) [facility]
[2022-10-27] MEDS ORDERED: dexAMETHasone 10 MG/ML VIAL ONE (19:42)
[2022-10-27] MEDS ORDERED: KETOROLAC 30 MG/ML INJ ONE (19:43)
--- NOTE | 2022-10-27 20:05 | RAD REPORT ---
EXAM DESCRIPTION: Shoulder Right 2 View - 10/27/2022 7:15 pm CLINICAL HISTORY: shoulder pain COMPARISON: No comparisons TECHNIQUE: Internal and external rotation views of the right shoulder were obtained. FINDINGS: There is no fracture or dislocation. AC joint is normal in appearance. No acute or suspici ous findings. IMPRESSION: Negative two-view right shoulder examination.
--- NOTE | 2022-10-27 20:21 | RAD REPORT ---
EXAM DESCRIPTION: CT - C Spine Wo Con - 10/27/2022 7:28 pm CLINICAL HISTORY: Reticular Right arm pain, neck pain COMPARISON: 07/09/20[address] C-[address]. TECHNIQUE: Axial noncontrast CT images of the cervical spine were obtained with sagittal and coronal reconstruction images generated and reviewed. All CT scans are performed using dose optimization technique as appropriate and may include automated exposure control or mA/KV adjustment according to patient size. FINDINGS: Cervical body height heights are maintained. Straightening of normal cervical lordosis. Multilevel degenerate changes, stable, with mild disc height loss at C7-T1, and mild facet arthropath y with partial ankylosis at C3-4 on the right. No fracture or acute bony abnormality. No paraspinal mass or hematoma. IMPRESSION: No acute traumatic findings of the cervical spine. Stable multilevel degenerative change s as above.
--- NOTE | 2022-10-27 20:42 | ER ---
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 Coronavirus screen: At this time, the client does not indicate any symptoms associated with coronavirus-19. Ebola Screen: Patient negative for fever greater than or equal to 101.5 degrees Fahrenheit, and additional compatible Ebola Virus Disease symptoms Patient denies exposure to infectious person. Patient denies travel to an Ebola-affected area in the 21 days before illness onset. No symptoms or risks identified at this time. Initial Sepsis Screen: Does the patient meet any 2 criteria? No. Patient's initial sepsis screen is negative. Does the patient have a suspected source of infection? No. Patient's initial sepsis screen is negative. Risk Assessment: Do you want to hurt yourself or someone else? Patient reports no desire to harm self or others. Onset of symptoms was October 26, 2022. 18:27 Method Of Arrival: Ambulatory iw 18:27 Acuity: CHRISTINA 4 iw Historical: - Allergies: 18:28 No Known Allergies; iw - Home Meds: 19:35 aspirin 81 mg Oral TbEC 1 tab once daily [Active]; carvedilol 12.5 mg Oral tab 1 tab 2 eh3 times per day [Active]; chlorthalidone 50 mg Oral tab 1 tab once daily [Active]; losartan 100 mg Oral tab 1 tab once daily [Active]; losartan-hydrochlorothiazide 100-25 mg Oral tab 1 tab once daily [Active]; metoprolol tartrate 25 mg Oral tab 1 tab once daily [Active]; - PMHx: 18:28 Hernia; Hypertension; iw - PSHx: 19:35 hernia repair; eh3 - Immunization history:: Adult Immunizations up to date. - Social history:: Smoking status: unknown. Screenin:35 [facility] ED Fall Risk Assessment (Adult) Score/Fall Risk Level 0 - 2 = Low Risk. Abuse eh3 screen: Denies threats or abuse. Denies injuries from another. Nutritional screening: No deficits noted. Tuberculosis screening: No symptoms or risk factors identified. Assessment: 19:35 General: Appears in no apparent distress. uncomfortable, Behavior is calm, cooperative, eh3 appropriate for age. Pain: Complains of pain in right arm. Neuro: Level of Consciousness is awake, alert, obeys commands, Oriented to person, place, time, situation. Cardiovascular: Capillary refill < 3 seconds Patient's skin is warm and dry. Respiratory: Airway is patent Respiratory effort is even, unlabored, Respiratory pattern is regular, symmetrical. GI: Abdomen is round non-distended. Derm: Skin is pink, warm \T\ dry. Musculoskeletal: Circulation, motion, and sensation intact. 20:30 Reassessment: Patient appears in no apparent distress at this time. Patient and/or eh3 family updated on plan of care and expected duration. Pain level reassessed. Patient is alert, oriented x 3, equal unlabored respirations, skin warm/dry/pink. Vital Signs: 18:27 BP 148 / 88; Pulse 89; Resp 18; Temp 98.2; Pulse Ox 98% ; Weight 124.74 kg; Height 5 iw ft. 7 in. ; Pain 6/10; 18:27 Body Mass Index 43.07 (124.74 kg, 170.18 cm) iw 18:27 Pain Scale: Adult iw ED Course: 18:15 Patient arrived in ED. mr 18:17 Hakeem Sierra PA is PHCP. [facility] 18:17 Josr Harris MD is Attending Physician. [facility] 18:28 Triage completed. iw 18:28 Arm band placed on. iw 19:17 Shoulder Right (2 View) XRAY In Process Unspecified. EDMS 19:30 CT C Spine In Process Unspecified. EDMS 19:35 Carmita Ontiveros, RN is Primary Nurse. eh3 19:35 Patient has correct armband on for positive identification. Bed in low position. Call 3 light in reach. 20:48 No provider procedures requiring assistance completed. Patient did not have IV access eh3 during this emergency room visit. Administered Medications: 19:40 Drug: Ketorolac IM 30 mg Route: IM; Site: right deltoid; eh3 21:00 Follow up: Response: No adverse reaction eh3 19:41 Drug: Dexamethasone IM 10 mg Route: IM; Site: left deltoid; 3 21:00 Follow up: Response: No adverse reaction 3 Medication: 20:48 VIS not applicable for this client. 3 Outcome: 20:42 Discharge ordered by MD. maciel 21:00 Discharged to home ambulatory. 3 21:00 Condition: stable 21:00 Discharge instructions given to patient, Instructed on discharge instructions, follow up and referral plans. medication usage, Demonstrated understanding of instructions, follow-up care, medications, Prescriptions given X 3. 21:01 Patient left the ED. 3 Signatures: Dispatcher [employer] EDMS Hakeem Sierra PA PA jmm Rivera, Mary mr Adrianne Wagoner RN RN Carmita Ontiveros RN RN 3 Corrections: (The following items were deleted from the chart) 18:28 18:27 BP 148 / 88; Pulse 89bpm; Resp 97bpm; Pulse Ox 98%; Temp 98.2F; 124.74 kg; Height iw 5 ft. 7 in.; BMI: 43.0; Pain 6/10, Adult; iw
--- NOTE | 2022-10-27 20:42 | EDPHYS ---
Physician Documentation [facility] Name: Ethan Hall Age: 52 yrs Sex: Male : 1970 Arrival Date: 10/27/2022 Time: 18:13 Bed 9 Private MD: ED Physician Josr Harris HPI: 10/27 18:23 This 52 yrs old Black Male presents to ER via Ambulatory with complaints of Arm Pain, jmm Shoulder Pain. 18:23 Is a 52-year-old male with history of hypertension the presents emerged part with [facility] complaints of right shoulder pain. Pain radiates down the right arm. Denies any known injury. Denies shortness of breath.. Historical: - Allergies: 18:28 No Known Allergies; iw - Home Meds: 19:35 aspirin 81 mg Oral TbEC 1 tab once daily [Active]; carvedilol 12.5 mg Oral tab 1 tab 2 eh3 times per day [Active]; chlorthalidone 50 mg Oral tab 1 tab once daily [Active]; losartan 100 mg Oral tab 1 tab once daily [Active]; losartan-hydrochlorothiazide 100-25 mg Oral tab 1 tab once daily [Active]; metoprolol tartrate 25 mg Oral tab 1 tab once daily [Active]; - PMHx: 18:28 Hernia; Hypertension; iw - PSHx: 19:35 hernia repair; eh3 - Immunization history:: Adult Immunizations up to date. - Social history:: Smoking status: unknown. ROS: 18:23 Constitutional: Negative for fever, chills, and weight loss, Cardiovascular: Negative jmm for chest pain, palpitations, and edema, Respiratory: Negative for shortness of breath, cough, wheezing, and pleuritic chest pain. 18:23 MS/extremity: Positive for pain. 18:23 All other systems are negative. Exam: 18:23 Constitutional: This is a well developed, well nourished patient who is awake, alert, jmm and in no acute distress. Head/Face: atraumatic. Eyes: EOMI, no conjunctival erythema appreciated ENT: Moist Mucus Membranes 18:23 Chest/axilla: Normal chest wall appearance and motion. Cardiovascular: Regular rate and rhythm. No edema appreciated Respiratory: Normal respirations, no respiratory distress appreciated Abdomen/GI: Non distended Back: Normal ROM 18:23 Neck: ROM/movement: pain, that is mild, with any movement. 18:23 Musculoskeletal/extremity: Right trapezius mildly tender to palpation, painful abduction appreciated to the right shoulder. Full radial pulse. 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 18:23 Neuro: Orientation: is normal, Mentation: is normal, Memory: is normal. 18:23 Psych: Behavior/mood is pleasant, cooperative. Vital Signs: 18:27 BP 148 / 88; Pulse 89; Resp 18; Temp 98.2; Pulse Ox 98% ; Weight 124.74 kg; Height 5 iw ft. 7 in. ; Pain 6/10; 18:27 Body Mass Index 43.07 (124.74 kg, 170.18 cm) iw 18:27 Pain Scale: Adult iw MDM: 18:23 Patient medically screened. [facility] 22:21 Differential diagnosis: Cervical radiculopathy, osteoarthritis. Data reviewed: vital [facility] signs, nurses notes, radiologic studies, CT scan, plain films. 22:21 I considered the following discharge prescriptions or medication management in the [facility] emergency department Medications were administered in the Emergency Department. See MAR. Counseling: I had a detailed discussion with the patient and/or guardian regarding: the historical points, exam findings, and any diagnostic results supporting the discharge/admit diagnosis, lab results, radiology results, the need for outpatient follow up, to return to the emergency department if symptoms worsen or persist or if there are any questions or concerns that arise at home. ED course: Patient states feeling much better. Patient advised to follow-up with spine for further evaluation. Patient understood and agrees plan of care.. 10/27 18:26 Order name: CT C Spine; Complete Time: 20:31 [facility] 10/27 18:26 Order name: Shoulder Right (2 View) XRAY; Complete Time: 20:31 [facility] Administered Medications: 19:40 Drug: Ketorolac IM 30 mg Route: IM; Site: right deltoid; 3 21:00 Follow up: Response: No adverse reaction eh3 19:41 Drug: Dexamethasone IM 10 mg Route: IM; Site: left deltoid; eh3 21:00 Follow up: Response: No adverse reaction eh3 Disposition Summary: 10/27/22 20:42 Discharge Ordered Location: Home [facility] Condition: Stable [facility] Diagnosis - Cervical disc disorder with radiculopathy jmm Followup: [facility] - With: Private Physician - When: 2 - 3 days - Reason: Recheck today's complaints, Continuance of care, Re-evaluation by your physician Discharge Instructions: - Discharge Summary Sheet jmm - Cervical Radiculopathy [facility] Forms: - Work release form jmm - Medication Reconciliation Form [facility] - Thank You Letter shimon - Antibiotic Education jm - Prescription Opioid Use [facility] Prescriptions: - Ultracet 37.5-325 mg Oral Tablet - take 1 tablet by ORAL route every 6 hours As needed - for up to 5 days; do not jmm exceed 8 tablets per day.; 12 tablet; Refills: 0, Product Selection Permitted - Zanaflex 4 mg Oral Tablet - take 1 tablet by ORAL route every 8 hours As needed; 20 tablet; Refills: 0, [facility] Product Selection Permitted - Medrol ([place]) 4 mg Oral Tablets, Dose Pack - take 1 tablet by ORAL route as directed - follow package instructions; 1 jmm packet; Refills: 0, Product Selection Permitted Signatures: Dispatcher [employer] Hakeem Pena PA PA jmm Williams, Irene, RN RN iw Carmita Ontiveros RN RN eh3
[2022-10-27 21:34] VITALS: BP 148/88; TEMP 98.2; O2SAT 98
== END 2022-10-27 21:01 | disposition home or self-care (01) ==
LOC: ER 18:13
DX: M50.10 Cervical disc disorder with radiculopathy, unspecified cervical region (principal); I10 Essential (primary) hypertension; Z79.82 Long term (current) use of aspirin
CPT/HCPCS: 72125; 73030; J1100

== ENCOUNTER 2022-12-09 18:57 | Emergency (ER) | payer BC ==
--- OUTSIDE RECORDS SUMMARY | 2022-12-09 19:02 | XMS REPORT | Continuity of Care Document ---
:[address] [facility] t Address [address] [place] [address] Care Team Providers Name Role Phone Asked, No Pcp Primary Care Physician Unavailable eKvin Palacios Attending Clinician Doctor Unassigned, [place] Attending Clinician Unavailable Adriel Vo MD Attending Clinician Pob, [facility] Main Attending Clinician Unavailable ADRIEL VO Attending Clinician Unavailable Victor Manuel Lobo Attending Clinician Oleg Chen MD Attending Clinician OLEG CHEN Attending Clinician Unavailable VICTOR MANUEL CHINCHILLA Attending Clinician Unavailable DESEAN MCNEIL Attending Clinician Unavailable KEVIN BOBBY Attending Clinician Unavailable Desean Mcneil MD Attending Clinician Edgardo Olivares MD Attending Clinician Jerrell Iqbal Attending Clinician JERRELL SOW Attending Clinician Unavailable DEV SIERRA Attending Clinician Unavailable Ernie Vitale Attending Clinician OLEG CHEN Admitting Clinician Unavailable Oleg Chen MD Admitting Clinician Payers Payer Name Policy Type Policy Number Effective Date Expiration Date S jasmin [employer] [place] [id number] 2020 00:00:00 Problems Condition Condition Condition Status Onset Resolution Last Treating Co mments Source Name Details Category Date Date Treatment Clinician Date Colon Colon Disease Active Overview: Univer s cancer cancer 09-11 Formatt[place] ity of screening screening 00:00: [place] of [place] 00 note Medical might be Branch different from the original. Added automatic ally from request for surgery [id number] Venous Venous Disease Active Univers insufficie insufficie [...] Added automatic ally from request for surgery [id number] Diastolic Diastolic Disease Active 2017-06 Met hodi [...] Active Univers ALLERGIE Class ity of S [facility] No Known No Known Active Memori a Medicati Medicati l on on [place] Allergranjan Allergranjan s s Family History Family Member Diagnosis Comments Start Date Stop Date Source Maternal grandfather Heart attack [facility] Maternal grandmother [facility] Natural mother Diabetes [facility] Natural mother Hypertension [facility] Paternal grandfather [facility] Paternal grandmother [facility] Natural sister [facility]pertension [facility] Social History Social Habit Start Date Stop Date Quantity Comments Source Gender identity 2020-08-12 Identifies as male M binaodist 21:39:46 gender (finding) Hospital Sexual orientation 2020-08-12 Heterosexual Meth odist 21:39:46 (finding) Hospital History of Social 2022-08-14 2022-08-[address] function 00:00:00 00:00:00 Hospital Exposure to 2021-12-24 2022-01-03 Not sure University of SARS-CoV-2 (event) 00:00:00 06:28:00 [facility] Alcohol intake 2018-08-24 2018-08-24 [facility] alcohol (finding) Hospita l History SDOH 2018-05-05 2018-05-05 3 [facility] [employer] 00:00:00 00:00:00 Hospital History SDID Food 2018-05-05 2018-05-[address] Worry 00:00:00 00:00:00 Hospital History SDOH Food 2018-05-05 2018-05-[address] Scarcity 00:00:00 00:00:00 Hospital History SDID 2018-05-05 2018-05-05 2 [facility] Med 00:00:00 00:00:00 Hospital History SDOH 2018-05-05 2018-05-05 2 [facility] Non-Med 00:00:00 00:00:00 Hospita l Education 2018-04-20 2018-04-20 11 [facility] 00:00:00 00:00:00 Hospital Alcohol Comment 2018-04-20 2018-04-20 socially [facility] 00:00:00 00:00:00 Hospital Tobacco use and 2017-07-07 2017-07-07 Smokeless tobacco Un iversity of exposure 00:00:00 00:00:00 non-user [facility] Sex Assigned At [birth year] Universit y of 00:00:00 00:00:00 [facility] Smoking Status Start Date Stop Date Source Social History [facility] Medications Ordered Filled Start Stop Current Ordering Indication Dosage Frequency Signature Comments Components Source Medication Medication Date Date Medication? Clinician (SIG) Name Name diclofenac 2022-0 Yes 75mg Take 1 Univers 75 mg EC 5-30 tablet by ity of tablet 00:00: mouth in [place] 00 the [facility] morning Branch and 1 tablet in the evening. Take with meals. diclofenac 3-0 Yes 75mg Take 1 Univers 75 mg EC 5-30 tablet by ity of tablet 00:00: mouth in [place] 00 the [facility] and 1 tablet in the evening. Take with meals. DICLOFENAC 2022-0 Yes TAKE ONE Univers 75 mg EC 4-18 TABLET BY ity of tablet 00:00: MOUTH [place] 00 TWICE A Medical DAY WITH A Branch MEAL ( EVERY MORNING AND EVERY EVENING ) DICLOFENAC 2022-0 2022- No [id number] TAKE ONE Univers 75 mg EC 4-18 05-30 TABLET BY ity o f tablet 00:00: 00:00 MOUTH [place] 00 :00 TWICE A Medical DAY WITH A Branch MEAL ( EVERY MORNING AND EVERY EVENING ) DICLOFENAC 2022-0 2022- No TAKE ONE Univers 75 mg EC 4-18 05-30 TABLET BY ity o f tablet 00:00: 00:00 MOUTH [place] 00 :00 TWICE A Medical DAY WITH A Branch MEAL ( EVERY MORNING AND EVERY EVENING ) diclofenac 2022-0 Yes [id number] 75mg Take 1 Univers 75 mg EC 3-22 tablet by ity of tablet 00:00: mouth in [place] 00 the [facility] and 1 tablet in the evening. Take with meals. diclofenac 2022-0 2022- No 75mg Take 1 Univers 75 mg EC 3-22 04-18 tablet by ity o f tablet 00:00: 00:00 mouth in [place] 00 :00 the [facility] Branch and 1 tablet in the evening. Take with meals. tamsulosin 2022-0 Yes [id number] .4mg Take 1 Univers (FLOMAX) 2-28 capsule by ity o f 0.4 mg 24 00:00: [place] hr capsule 00 the morning. Branch tamsulosin 3-0 Yes [id number] .4mg Take 1 Univers (FLOMAX) 2-28 capsule by ity o f 0.4 mg 24 00:00: [place] hr capsule 00 the morning. Branch tamsulosin 2022-0 Yes [id number] .4mg Take 1 Univers (FLOMAX) 2-28 capsule by ity o f 0.4 mg 24 00:00: [place] hr capsule the Medical morning. Branch tamsulosin 2022-0 Yes [id number] .4mg Take 1 Univers (FLOMAX) 2-28 capsule by ity o f 0.4 mg 24 00:00: [place] hr capsule 00 the Medical morning. Branch tamsulosin 2022-0 Yes [id number] .4mg Take 1 Univers (FLOMAX) 2-28 capsule by ity o f 0.4 mg 24 00:00: [place] hr capsule 00 the Medical morning. Branch meloxicam Yes [id number] 7.5mg Take 1 Univers 7.5 mg 2-15 tablet by ity of tablet 00:00: mouth in [place] 00 the Medical morning. Branch meloxicam Yes 7.5mg Take 1 Univers 7.5 mg 2-15 tablet by ity of tablet 00:00: mouth in [place] 00 the Medical morning. Branch meloxicam Yes 7.5mg Take 1 Univers 7.5 mg 2-15 tablet by ity of tablet 00:00: mouth in [place] the Medical morning. Branch meloxicam Yes 7.5mg Take 1 Univers 7.5 mg 2-15 tablet by ity of tablet 00:00: mouth in [place] 00 the Medical morning. Branch meloxicam Yes 7.5mg Take 1 Univers 7.5 mg 2-15 tablet by ity of tablet 00:00: mouth in [place] 00 the Medical morning. Branch meloxicam Yes 7.5mg Take 1 Univers 7.5 mg 2-15 tablet by ity of tablet 00:00: mouth in [place] 00 the Medical morning. Branch MELOXICAM 2021-06 Yes Take 1 U nivers 7.5 mg 2-22 tablet by ity of tablet 00:00: mouth once [place] 00 daily Medical Branch MELOXICAM 2021-06 Yes Take 1 U nivers 7.5 mg 2-22 tablet by ity of tablet 00:00: mouth once [place] 00 daily Medical Branch MELOXICAM 2021-06 Yes [...] DAILY WITH Branch MEALS tamsulosin 2021-06 Yes [id number] .4mg Take 1 Univers (FLOMAX) 0-25 capsule by ity o f 0.4 mg 24 00:00: [place] capsule 00 the Medical morning. Branch tamsulosin 2021-06 Yes [id number] .4mg Take 1 Univers (FLOMAX) 0-25 capsule by ity o f 0.4 mg 24 00:00: [place] 00 the Medical morning. Branch tamsulosin 2021-06 Yes [id number] .4mg Take 1 Univers (FLOMAX) 0-25 capsule by ity o f 0.4 mg 24 00:00: [place] hr capsule 00 the Medical morning. Branch tamsulosin 2021-06 Yes [id number] .4mg Take 1 Univers (FLOMAX) 0-25 capsule by ity o f 0.4 mg 24 00:00: [place] hr capsule 00 the Medical morning. Branch tamsulosin 2021-06 Yes [id number] .4mg Take 1 Univers (FLOMAX) 0-25 capsule by ity o f 0.4 mg 24 00:00: [place] hr capsule 00 the Medical morning. Branch tamsulosin 2021-06 Yes [id number] .4mg Take 1 Univers (FLOMAX) 0-25 capsule by ity o f 0.4 mg 24 00:00: [place] hr capsule 00 the Medical morning. Branch tamsulosin 2021-06 Yes [id number] .4mg Take 1 Univers (FLOMAX) 0-25 capsule by ity o f 0.4 mg 24 00:00: [place] hr capsule 00 the Medical morning. Branch tamsulosin 2021-06 Yes [id number] .4mg Take 1 Univers (FLOMAX) 0-25 capsule by ity o f 0.4 mg 24 00:00: [place] capsule 00 the Medical morning. Branch tamsulosin 2021-06- No [id number] .4mg Take 1 Univers (FLOMAX) 0-25 02-27 capsule by ity of 0.4 mg 24 00:00: 00:00 mouth [place] hr capsule 00 :00 the Medical morning. Branch DICLOFENAC Yes [id number] TAKE 1 Univers 75 mg EC 9-27 [...] 00:00: mouth once daily Medical Branch DICLOFENAC 0 Yes TAKE [...] 2021- No Take 1 Univers 7.5 mg 9-27 11-29 tablet by ity of tablet 00:00: 00:00 mouth [place] 00 :00 daily Medical Branch DICLOFENAC 2021-0 2021- No TAKE 1 Univers 75 mg EC 9-27 10-31 TABLET BY ity o f tablet 00:00: 00:00 MOUTH [place] 00 :00 TWICE Medical DAILY WITH Branch MEALS tamsulosin Yes [id number] .4mg Take 1 Univers (FLOMAX) 9-02 capsule by ity o f 0.4 mg 24 00:00: [place] hr capsule 00 the Medical morning. Branch tamsulosin Yes [id number] .4mg Take 1 Univers (FLOMAX) 9-02 capsule by ity o f 0.4 mg 24 00:00: [place] hr capsule 00 the Medical morning. Branch tamsulosin 2021- No [id number] .4mg Take 1 Univers (FLOMAX) 9-02 10-24 capsule by ity of 0.4 mg 24 00:00: 00:00 mouth in [place] hr capsule 00 :00 the Medical morning. Branch MELOXICAM Yes Take 1 U nivers 7.5 mg 8-30 tablet by ity of tablet 00:00: mouth once [place] 00 daily Medical Branch MELOXICAM Yes Take 1 U nivers 7.5 mg 8-30 tablet by ity of tablet 00:00: mouth once [place] 00 daily Medical Branch MELOXICAM 2021- No Take 1 Univers 7.5 mg 8-30 09-27 tablet by ity of tablet 00:00: 00:00 mouth [place] 00 :00 daily Medical Branch tamsulosin Yes [id number] .4mg Take 1 Univers (FLOMAX) 8-01 capsule by ity o f 0.4 mg 24 00:00: [place] hr capsule 00 the Medical morning. Branch tamsulosin Yes [id number] .4mg Take 1 Univers (FLOMAX) 8-01 capsule by ity o f 0.4 mg 24 00:00: [place] hr capsule 00 the Medical morning. Branch tamsulosin Yes [id number] .4mg Take 1 Univers (FLOMAX) 8-01 capsule by ity o f 0.4 mg 24 00:00: [place] hr capsule 00 the Medical morning. Branch tamsulosin Yes [id number] .4mg Take 1 Univers (FLOMAX) 8-01 capsule by ity o f 0.4 mg 24 00:00: [place] hr capsule 00 the Medical morning. Branch tamsulosin 2021- No [id number] .4mg Take 1 Univers (FLOMAX) 8-01 09-02 capsule by ity of 0.4 mg 24 00:00: 00:00 mouth in [place] hr capsule 00 :00 the Medical morning. Branch DICLOFENAC Yes TAKE 1 Univers 75 mg EC 7-26 TABLET BY ity of tablet 00:00: MOUTH [place] 00 TWICE Medical DAILY WITH Branch MEALS DICLOFENAC Yes TAKE 1 Univers 75 mg EC 7-26 TABLET BY ity of tablet 00:00: MOUTH [place] TWICE Medical DAILY WITH Branch MEALS DICLOFENAC 0 Yes TAKE 1 Univers 75 mg EC 7-26 TABLET BY ity of tablet 00:00: MOUTH TWICE Medical DAILY WITH Branch MEALS DICLOFENAC 0 Yes TAKE 1 Univers 75 mg EC 7-26 TABLET BY ity of tablet 00:00: MOUTH TWICE Medical DAILY WITH Branch MEALS DICLOFENAC 0 Yes TAKE 1 Univers 75 mg EC 7-26 TABLET BY ity of tablet 00:00: MOUTH TWICE Medical DAILY WITH Branch MEALS DICLOFENAC 2021-0 2021- No TAKE 1 Univers 75 mg EC 7-26 09-27 TABLET BY ity o f tablet 00:00: 00:00 MOUTH [place] 00 :00 TWICE Medical DAILY WITH Branch MEALS MELOXICAM 0 Yes Take 1 U nivers 7.5 mg 6-30 tablet by ity of tablet 00:00: mouth once [place] daily Medical Branch MELOXICAM 0 Yes Take 1 U nivers 7.5 mg 6-30 tablet by ity of tablet 00:00: mouth once [place] daily Medical Branch MELOXICAM 0 Yes Take 1 U nivers 7.5 mg 6-30 tablet by ity of tablet 00:00: mouth once [place] daily Medical Branch MELOXICAM 2021-0 2021- No Take 1 Univers 7.5 mg 6-30 08-30 tablet by ity of tablet 00:00: 00:00 mouth [place] 00 :00 daily Medical Branch aspirin 81 0 Yes 81mg Take 81 mg U nivers mg EC 4-21 by mouth. ity of tablet 12:42: [address] metoprolol Yes 25mg Take 25 mg U nivers tartrate 25 4-21 by mouth. ity of mg tablet 12:42: [address] chlorthalid 0 Yes 50mg Take 50 mg Univers one 50 mg 4-21 by mouth. ity o f tablet 12:42: [address] losartan 0 Yes 100mg Take 100 Univ ers 100 mg 4-21 mg by ity of tablet 12:42: mouth. [address] aspirin 81 2021-0 Yes 81mg Take 81 mg U nivers mg EC 4-21 by mouth. ity of tablet 12:42: [address] metoprolol 2021-0 Yes 25mg Take 25 mg U nivers tartrate 25 4-21 by mouth. ity of mg tablet 12:42: [address] chlorthalid 2021-0 Yes 50mg Take 50 mg Univers one 50 mg 4-21 by mouth. ity o f tablet 12:42: [address] losartan 0 Yes 100mg Take 100 Univ ers 100 mg 4-21 mg by ity of tablet 12:42: mouth. [address] aspirin 81 0 Yes 81mg Take 81 mg U nivers mg EC 4-21 by mouth. ity of tablet 12:42: [address] metoprolol 0 Yes 25mg Take 25 mg U nivers tartrate 25 4-21 by mouth. ity of mg tablet 12:42: [address] chlorthalid 0 Yes 50mg Take 50 mg Univers one 50 mg 4-21 by mouth. ity o f tablet 12:42: [address] losartan 0 Yes 100mg Take 100 Univ ers 100 mg 4-21 mg by ity of tablet 12:42: mouth. [address] aspirin 81 2021-0 Yes 81mg Take 81 mg U nivers mg EC 4-21 by mouth. ity of tablet 12:42: [address] metoprolol 2021-0 Yes 25mg Take 25 mg U nivers tartrate 25 4-21 by mouth. ity of mg tablet 12:42: [address] chlorthalid 2021-0 Yes 50mg Take 50 mg Univers one 50 mg 4-21 by mouth. ity o f tablet 12:42: [address] losartan 2021-0 Yes 100mg Take 100 Univ ers 100 mg 4-21 mg by ity of tablet 12:42: mouth. [address] aspirin 81 2021-0 Yes 81mg Take 81 mg U nivers mg EC 4-21 by mouth. ity of tablet 12:42: [address] metoprolol 2021-0 Yes 25mg Take 25 mg U nivers tartrate 25 4-21 by mouth. ity of mg tablet 12:42: [address] chlorthalid 2021-0 Yes 50mg Take 50 mg Univers one 50 mg 4-21 by mouth. ity o f tablet 12:42: [address] losartan 2021-0 Yes 100mg Take 100 Univ ers 100 mg 4-21 mg by ity of tablet 12:42: mouth. [address] aspirin 81 0 Yes 81mg Take 81 mg U nivers mg EC 4-21 by mouth. ity of tablet 12:42: [address] metoprolol 0 Yes 25mg Take 25 mg U nivers tartrate 25 4-21 by mouth. ity of mg tablet 12:42: [address] chlorthalid 0 Yes 50mg Take 50 mg Univers one 50 mg 4-21 by mouth. ity o f tablet 12:42: [address] losartan 0 Yes 100mg Take 100 Univ ers 100 mg 4-21 mg by ity of tablet 12:42: mouth. [address] aspirin 81 0 Yes 81mg Take 81 mg U nivers mg EC 4-21 by mouth. ity of tablet 12:42: [address] metoprolol 0 Yes 25mg Take 25 mg U nivers tartrate 25 4-21 by mouth. ity of mg tablet 12:42: [address] chlorthalid 0 Yes 50mg Take 50 mg Univers one 50 mg 4-21 by mouth. ity o f tablet 12:42: [address] losartan 0 Yes 100mg Take 100 Univ ers 100 mg 4-21 mg by ity of tablet 12:42: mouth. [address] aspirin 81 0 Yes 81mg Take 81 mg U nivers mg EC 4-21 by mouth. ity of tablet 12:42: [address] metoprolol 0 Yes 25mg Take 25 mg U nivers tartrate 25 4-21 by mouth. ity of mg tablet 12:42: [address] chlorthalid 0 Yes 50mg Take 50 mg Univers one 50 mg 4-21 by mouth. ity o f tablet 12:42: [address] losartan 0 Yes 100mg Take 100 Univ ers 100 mg 4-21 mg by ity of tablet 12:42: mouth. [address] aspirin 81 2022-0 Yes 81mg Take 81 mg U nivers mg EC 4-21 by mouth. ity of tablet 12:42: [address] metoprolol 0 Yes 25mg Take 25 mg U nivers tartrate 25 4-21 by mouth. ity of mg tablet 12:42: [address] chlorthalid 0 Yes 50mg Take 50 mg Univers one 50 mg 4-21 by mouth. ity o f tablet 12:42: [address] losartan 0 Yes 100mg Take 100 Univ ers 100 mg 4-21 mg by ity of tablet 12:42: mouth. [address] aspirin 81 0 Yes 81mg Take 81 mg U nivers mg EC 4-21 by mouth. ity of tablet 12:42: [address] metoprolol Yes 25mg Take 25 mg U nivers tartrate 25 4-21 by mouth. ity of mg tablet 12:42: [address] chlorthalid Yes 50mg Take 50 mg Univers one 50 mg 4-21 by mouth. ity o f tablet 12:42: [address] losartan Yes 100mg Take 100 Univ ers 100 mg 4-21 mg by ity of tablet 12:42: mouth. [address] aspirin 81 0 Yes 81mg Take 81 mg U nivers mg EC 4-21 by mouth. ity of tablet 12:42: [address] metoprolol Yes 25mg Take 25 mg U nivers tartrate 25 4-21 by mouth. ity of mg tablet 12:42: [address] chlorthalid 0 Yes 50mg Take 50 mg Univers one 50 mg 4-21 by mouth. ity o f tablet 12:42: [address] losartan 0 Yes 100mg Take 100 Univ ers 100 mg 4-21 mg by ity of tablet 12:42: mouth. [address] aspirin 81 0 Yes 81mg Take 81 mg U nivers mg EC 4-21 by mouth. ity of tablet 12:42: [address] metoprolol 0 Yes 25mg Take 25 mg U nivers tartrate 25 4-21 by mouth. ity of mg tablet 12:42: [address] chlorthalid 2022-0 Yes 50mg Take 50 mg Univers one 50 mg 4-21 by mouth. ity o f tablet 12:42: [address] losartan 0 Yes 100mg Take 100 Univ ers 100 mg 4-21 mg by ity of tablet 12:42: mouth. [address] aspirin 81 0 Yes 81mg Take 81 mg U nivers mg EC 4-21 by mouth. ity of tablet 12:42: [address] metoprolol 0 Yes 25mg Take 25 mg U nivers tartrate 25 4-21 by mouth. ity of mg tablet 12:42: [address] chlorthalid 0 Yes 50mg Take 50 mg Univers one 50 mg 4-21 by mouth. ity o f tablet 12:42: [address] losartan 0 Yes 100mg Take 100 Univ ers 100 mg 4-21 mg by ity of tablet 12:42: mouth. [address] aspirin 81 0 Yes 81mg Take 81 mg U nivers mg EC 4-21 by mouth. ity of tablet 12:42: [address] metoprolol 0 Yes 25mg Take 25 mg U nivers tartrate 25 4-21 by mouth. ity of mg tablet 12:42: [address] chlorthalid 0 Yes 50mg Take 50 mg Univers one 50 mg 4-21 by mouth. ity o f tablet 12:42: [address] losartan 0 Yes 100mg Take 100 Univ ers 100 mg 4-21 mg by ity of tablet 12:42: mouth. [address] aspirin 81 2021-0 Yes 81mg Take 81 mg U nivers mg EC 4-21 by mouth. ity of tablet 12:42: [address] metoprolol 0 Yes 25mg Take 25 mg U nivers tartrate 25 4-21 by mouth. ity of mg tablet 12:42: [address] chlorthalid 0 Yes 50mg Take 50 mg Univers one 50 mg 4-21 by mouth. ity o f tablet 12:42: [address] losartan 2021-0 Yes 100mg Take 100 Univ ers 100 mg 4-21 mg by ity of tablet 12:42: mouth. [address] aspirin 81 2021-0 Yes 81mg Take 81 mg U nivers mg EC 4-21 by mouth. ity of tablet 12:42: [address] metoprolol 0 Yes 25mg Take 25 mg U nivers tartrate 25 4-21 by mouth. ity of mg tablet 12:42: [address] chlorthalid 0 Yes 50mg Take 50 mg Univers one 50 mg 4-21 by mouth. ity o f tablet 12:42: [address] losartan 0 Yes 100mg Take 100 Univ ers 100 mg 4-21 mg by ity of tablet 12:42: mouth. [address] aspirin 81 0 Yes 81mg Take 81 mg U nivers mg EC 4-21 by mouth. ity of tablet 12:42: [address] metoprolol Yes 25mg Take 25 mg U nivers tartrate 25 4-21 by mouth. ity of mg tablet 12:42: [address] chlorthalid Yes 50mg Take 50 mg Univers one 50 mg 4-21 by mouth. ity o f tablet 12:42: [address] losartan 0 Yes 100mg Take 100 Univ ers 100 mg 4-21 mg by ity of tablet 12:42: mouth. [address] aspirin 81 0 Yes 81mg Take 81 mg U nivers mg EC 4-21 by mouth. ity of tablet 12:42: [address] metoprolol Yes 25mg Take 25 mg U nivers tartrate 25 4-21 by mouth. ity of mg tablet 12:42: [address] chlorthalid 0 Yes 50mg Take 50 mg Univers one 50 mg 4-21 by mouth. ity o f tablet 12:42: [address] losartan 0 Yes 100mg Take 100 Univ ers 100 mg 4-21 mg by ity of tablet 12:42: mouth. [address] aspirin 81 0 Yes 81mg Take 81 mg U nivers mg EC 4-21 by mouth. ity of tablet 12:42: [address] metoprolol 0 Yes 25mg Take 25 mg U nivers tartrate 25 4-21 by mouth. ity of mg tablet 12:42: [address] chlorthalid 2022-0 Yes 50mg Take 50 mg Univers one 50 mg 4-21 by mouth. ity o f tablet 12:42: [address] losartan 0 Yes 100mg Take 100 Univ ers 100 mg 4-21 mg by ity of tablet 12:42: mouth. [address] aspirin 81 0 Yes 81mg Take 81 mg U nivers mg EC 4-21 by mouth. ity of tablet 12:42: [address] metoprolol Yes 25mg Take 25 mg U nivers tartrate 25 4-21 by mouth. ity of mg tablet 12:42: [address] chlorthalid Yes 50mg Take 50 mg Univers one 50 mg 4-21 by mouth. ity o f tablet 12:42: [address] losartan Yes 100mg Take 100 Univ ers 100 mg 4-21 mg by ity of tablet 12:42: mouth. [address] peg-electro 0 Yes [id number] Take as Univers lyte soln 4-07 directed ity of 236-22.74-6 00:00: [place] .[place] -5.86 00 colonoscop Medi jessica gram y Branch solution peg-electro 2021-0 Yes [id number] Take as Univers lyte soln 4-07 directed ity of 236-22.74-6 00:00: [place] .[place] -5.86 00 colonoscop Medi jessica gram y Branch solution peg-electro 2021-0 Yes [id number] Take as Univers lyte soln 4-07 directed ity of 236-22.74-6 00:00: [place] -5.86 00 colonoscop Medi jessica gram y Branch solution peg-electro 2021-0 Yes [id number] Take as Univers lyte soln 4-07 directed ity of 236-22.74-6 00:00: [place] -5.86 00 colonoscop Medi jessica gram y Branch solution peg-electro 2021-0 Yes [id number] Take as Univers lyte soln 4-07 directed ity of 236-22.74-6 00:00: [place] .[place] -5.86 00 colonoscop Medi jessica gram y Branch solution peg-electro 2021-0 Yes [id number] Take as Univers lyte soln 4-07 directed ity of 236-22.74-6 00:00: [place] -5.86 00 colonoscop Medi jessica gram y Branch solution peg-electro 2021-0 Yes [id number] Take as Univers lyte soln 4-07 directed ity of 236-22.74-6 00:00: before [place] -5.86 00 colonoscop Medi jessica gram y Branch solution peg-electro 2021-0 Yes [id number] Take as Univers lyte soln 4-07 directed ity of 236-22.74-6 00:00: [place] .[place] -5.86 00 colonoscop Medi jessica gram y Branch solution peg-electro 2021-0 Yes [id number] Take as Univers lyte soln 4-07 directed ity of 236-22.74-6 00:00: before [place] -5.86 00 colonoscop Medi jessica gram y Branch solution peg-electro 2021-0 Yes [id number] Take as Univers lyte soln 4-07 directed ity of 236-22.74-6 00:00: before [place] .[place] -5.86 00 colonoscop Medi jessica gram y Branch solution peg-electro 2021-0 Yes [id number] Take as Univers lyte soln 4-07 directed ity of 236-22.74-6 00:00: [place] .[place] -5.86 00 colonoscop Medi jessica gram y Branch solution peg-electro 2021-0 Yes [id number] Take as Univers lyte soln 4-07 directed ity of 236-22.74-6 00:00: [place] -5.86 00 colonoscop Medi jessica gram y Branch solution peg-electro 2021-0 Yes [id number] Take as Univers lyte soln 4-07 directed ity of 236-22.74-6 00:00: [place] -5.86 00 colonoscop Medi jessica gram y Branch solution peg-electro 2021-0 Yes [id number] Take as Univers lyte soln 4-07 directed ity of 236-22.74-6 00:00: [place] -5.86 00 colonoscop Medi jessica gram y Branch solution peg-electro 2021-0 Yes [id number] Take as Univers lyte soln 4-07 directed ity of 236-22.74-6 00:00: [place] -5.86 00 colonoscop Medi jessica gram y Branch solution peg-electro 2021-0 Yes [id number] Take as Univers lyte soln 4-07 directed ity of 236-22.74-6 00:00: [place] -5.86 00 colonoscop Medi jessica gram y Branch solution peg-electro 2021-0 Yes [id number] Take as Univers lyte soln 4-07 directed ity of 236-22.74-6 00:00: [place] -5.86 00 colonoscop Medi jessica gram y Branch solution peg-electro 2021-0 Yes [id number] Take as Univers lyte soln 4-07 directed ity of 236-22.74-6 00:00: [place] -5.86 00 colonoscop Medi jessica gram y Branch solution peg-electro 2021-0 Yes [id number] Take as Univers lyte soln 4-07 directed ity of 236-22.74-6 00:00: [place] -5.[place] 00 colonoscop Medi jessica gram y Branch solution peg-electro 2021-0 Yes [id number] Take as Univers lyte soln 4-07 directed ity of 236-22.74-6 00:00: [place] .[place] -5.86 00 colonoscop Medi jessica gram y Branch solution carvediloL 0 Yes Univers 12.5 mg 6-30 ity of tablet 00:00: 00 Medical Branch carvediloL 0 Yes Univers 12.5 mg 6-30 ity of tablet 00:00: 00 Medical Branch carvediloL 2020-0 Yes Univers 12.5 mg 6-30 ity of tablet 00:00: Medical Branch carvediloL 2020-0 Yes Univers 12.5 mg 6-30 ity of tablet 00:00: Medical Branch carvediloL 2020-0 Yes Univers 12.5 mg 6-30 ity of tablet 00:00: Medical Branch carvediloL 2020-0 Yes Univers 12.5 mg 6-30 ity of tablet 00:00: Medical Branch carvediloL Yes Univers 12.5 mg 6-30 ity of tablet 00:[place]: [place] [facility] carvediloL 0 Yes Univers 12.5 mg 6-30 ity of tablet 00:00: [place] [facility] carvediloL 0 Yes Univers 12.5 mg 6-30 ity of tablet 00:00: [place] [facility] carvediloL Yes Univers 12.5 mg 6-30 ity of tablet 00:00: [place] [facility] carvediloL Yes Univers 12.5 mg 6-30 ity of tablet 00:00: [place] [facility] carvediloL Yes Univers 12.5 mg 6-30 ity of tablet 00:00: [place] [facility] carvediloL Yes Univers 12.5 mg 6-30 ity of tablet 00:00: [place] [facility] carvediloL Yes Univers 12.5 mg 6-30 ity of tablet 00:00: [place] [facility] carvediloL Yes Univers 12.5 mg 6-30 ity of tablet 00:00: [place] [facility] carvediloL Yes Univers 12.5 mg 6-30 ity of tablet 00:00: [place] [facility] carvediloL 0 Yes Univers 12.5 mg 6-30 ity of tablet 00:00: [place] [facility] carvediloL 0 Yes Univers 12.5 mg 6-30 ity of tablet 00:00: [place] [facility] carvediloL Yes Univers 12.5 mg 6-30 ity of tablet 00:00: [place] [facility] carvediloL 0 Yes Univers 12.5 mg 6-30 ity of tablet 00:00: [place] [facility] aspirin 0 Yes 81mg Take 81 mg Meth maria [...] l 24 hr mouth tablet daily. potassium 2020-0 Yes [facility] chloride [facility] [...] Hospita MEQ CR 00 l tablet gabapentin 2020-0 Yes [facility] (NEURONTIN) 3-05 [facility] 300 mg 00:00: Hospita capsule 00 l gabapentin 2020-0 Yes [facility] (NEURONTIN) [facility]-05 [facility] 300 mg 00:00: Hospita capsule 00 l gabapentin 2020-0 Yes [facility] (NEURONTIN) [facility]-05 [facility] 300 mg 00:00: Hospita capsule 00 l gabapentin 2020-0 Yes [facility] (NEURONTIN) [facility]-05 [facility] 300 mg 00:00: Hospita capsule 00 l furosemide 2020-0 Yes 20mg QD Take 20 mg M [...] BID, 0 Herm tabby tablet 00 Refill(s) metoprolol 2020-0 Yes 12.5 mg = Me moria tartrate 25 3-31 0.5 tab, l mg oral 14:40: PO, BID, 0 Herm tabby tablet 00 Refill(s) losartan 2020-0 Yes 100 mg = 1 Mem oria 100 mg oral 3-31 tab, PO, l tablet 14:40: Daily, 0 [place] 00 Refill(s) metoprolol 2020-0 Yes 12.5 mg = Me moria tartrate 25 3-31 0.5 tab, l mg oral 14:40: PO, BID, 0 Herm tabby tablet 00 Refill(s) metoprolol 2020-0 Yes 12.5 mg = Me moria tartrate 25 3-31 0.5 tab, l mg oral 14:40: PO, BID, 0 Herm tabby tablet 00 Refill(s) Hydrochloro 2020-0 Yes 50 mg = 1 M emoria thiazide 50 3-31 tab, PO, l MG Oral 14:40: Daily, 0 Peter n Tablet 00 Refill(s) losartan 2020-0 Yes 100 mg = 1 Mem oria 100 mg oral 3-31 tab, PO, l tablet 14:40: Daily, 0 [place] 00 Refill(s) Acetaminoph 2020-0 Yes 1 tab, PO, Memoria en 325 MG / 3-31 Q6H, PRN l Hydrocodone 14:40: Pain, # 28 [place] Bitartrate 00 tab, 0 7.5 MG Oral [...] tab, PO, l tablet 14:40: Daily, 0 [place] 00 Refill(s) Hydrochloro 2020-0 Yes 50 mg [...] tab, PO, l Coated 14:40: Daily, # [place] Tablet 00 90 tab, 3 Refill(s) metoprolol [...] PRN l Hydrocodone 14:40: Pain, # 28 [place] Bitartrate 00 tab, 0 7.5 MG Oral Refill(s) Tablet Aspirin 81 2020-0 Yes 81 mg = 1 Me moria MG Enteric 3-31 tab, PO, l Coated 14:40: Daily, # [place] Tablet 00 90 tab, 3 Refill(s) metoprolol 2020-0 Yes 12.5 mg = Me moria tartrate 25 3-31 0.5 tab, l mg oral 14:40: PO, BID, 0 Herm tabby tablet 00 Refill(s) losartan 2020-0 Yes 100 mg = 1 Mem oria 100 mg oral 3-31 tab, PO, l tablet 14:40: Daily, 0 [place] 00 Refill(s) Hydrochloro 2020-0 Yes 50 mg [...] tab, PO, l Coated 14:40: Daily, # [place] Tablet 00 90 tab, 3 Refill(s) metoprolol [...] PRN l Hydrocodone 14:40: Pain, # 28 [place] Bitartrate 00 tab, 0 7.5 MG Oral Refill(s) Tablet Aspirin 81 2020-0 Yes 81 mg = 1 Me moria MG Enteric 3-31 tab, PO, l Coated 14:40: Daily, # [place] Tablet 00 90 tab, 3 Refill(s) metoprolol 2020-0 Yes 12.5 mg = Me moria tartrate 25 3-31 0.5 tab, l mg oral 14:40: PO, BID, 0 Herm tabby tablet 00 Refill(s) losartan 2020-0 Yes 100 mg = 1 Mem oria 100 mg oral 3-31 tab, PO, l tablet 14:40: Daily, 0 [place] 00 Refill(s) Hydrochloro 2020-0 Yes 50 mg = 1 M emoria thiazide 50 3-31 tab, PO, l MG Oral 14:40: Daily, 0 Peter n Tablet 00 Refill(s) Acetaminoph 2020-0 Yes 1 tab, PO, Memoria en 325 MG / 3-31 Q6H, PRN l Hydrocodone 14:40: Pain, # 28 [place] Bitartrate 00 tab, 0 7.5 MG Oral [...] tablet 14:40: Daily, 0 [place] 00 Refill(s) metoprolol 2020-0 Yes 12.5 mg [...] tab, PO, l tablet 14:40: Daily, 0 [place] 00 Refill(s) Hydrochloro 2020-0 Yes 50 mg [...] Daily, 0 Peter n Tablet 00 Refill(s) losartan 2020-0 Yes 100 mg [...] PRN l Hydrocodone 14:40: Pain, # 28 [place] Bitartrate 00 tab, 0 7.5 MG Oral Refill(s) Tablet Hydrochloro 2020-0 Yes 50 mg = 1 M emoria thiazide 50 3-31 tab, PO, l MG Oral 14:40: Daily, 0 Peter n Tablet 00 Refill(s) Aspirin 81 2020-0 Yes 81 mg = 1 Me moria MG Enteric 3-31 tab, PO, l Coated 14:40: Daily, # [place] Tablet 00 90 tab, 3 Refill(s) metoprolol 2020-0 Yes 12.5 mg = Me moria tartrate 25 3-31 0.5 tab, l mg oral 14:40: PO, BID, 0 Herm tabby tablet 00 Refill(s) losartan 2020-0 Yes 100 mg = 1 Mem oria 100 mg oral 3-31 tab, PO, l tablet 14:40: Daily, 0 [place] 00 Refill(s) Hydrochloro 2020-0 Yes 50 mg [...] PRN l Hydrocodone 14:40: Pain, # 28 [place] Bitartrate 00 tab, 0 7.5 MG Oral Refill(s) Tablet Aspirin 81 2020-0 Yes 81 mg = 1 Me moria MG Enteric 3-31 tab, PO, l Coated 14:40: Daily, # [place] Tablet 00 90 tab, 3 Refill(s) metoprolol 2019-0 Yes 12.5 mg = Me moria tartrate 25 3-31 0.5 tab, l mg oral 14:40: PO, BID, 0 Herm tabby tablet 00 Refill(s) losartan 2019-0 Yes 100 mg = 1 Mem oria 100 mg oral 3-31 tab, PO, l tablet 14:40: Daily, 0 [place] 00 Refill(s) Aspirin 81 2019-0 Yes 81 mg = 1 Me moria MG Enteric 3-31 tab, PO, l Coated 14:40: Daily, # Ele Tablet 00 90 tab, 3 Refill(s) Hydrochloro 2020-0 Yes 50 mg = 1 M emoria thiazide 50 3-31 tab, PO, l MG Oral 14:40: Daily, 0 Peter n Tablet 00 Refill(s) Acetaminoph 2019-0 Yes 1 tab, PO, Memoria en 325 MG / 3-31 Q6H, PRN l Hydrocodone 14:40: Pain, # 28 [place] Bitartrate 00 tab, 0 7.5 MG Oral Refill(s) Tablet Aspirin 81 2019-0 Yes 81 mg = 1 Me moria MG Enteric 3-31 tab, PO, l Coated 14:40: Daily, # [place] Tablet 00 90 tab, 3 Refill(s) diclofenac Yes TAKE 1 Metho di [...] 00:00: mouth. Hospit a 00 l meloxicam 2018- Yes 7.5mg Take 7.5 Met [facility] (MOBIC) 7.5 5-[address] mg tablet 00:00: mouth. Hospit a 00 l meloxicam Yes 7.5mg Take 7.5 Met hodi (MOBIC) 7.5 5-[address] mg tablet 00:00: mouth. Hospit a 00 l Vital Signs Vital Name Observation Time Observation Value Comments Source Systolic blood 2022-01-05 21:19:00 154 mm[Hg] [facility] pressure [facility] Diastolic blood 2022-01-05 21:19:00 88 mm[Hg] [facility] Heart rate 2022-01-05 21:18:00 78 /min [facility] Body height 2022-01-05 21:18:00 170.2 cm [facility] Body weight 2022-01-05 21:18:00 125.193 kg [facility] BMI 2022-01-05 21:18:00 43.23 kg/m2 [facility] Oxygen saturation 2022-01-05 21:18:00 95 /min [facility] in Arterial blood Medical Br anch by Pulse oximetry Systolic (mm Hg) 2019-09-05 14:34:00 Daryl Howard Diastolic (mm Hg) 2019-09-05 14:34:00 Rubén Howard Heart Rate 2019-09-05 14:34:00 Saúl Howard Respitory Rate 2019-09-05 14:34:00 Muna Umanzor Height 2019-09-05 14:34:00 167.64 cm Saúl Howard Weight 2019-09-05 14:34:00 Saúl Howard BMI Calculated 2019-09-05 14:34:00 Muna Umanzor Procedures Procedure Date / Time Performing Clinician Source Performed AUTHORIZATION FOR 2022-09-02 05:01:00 Doctor Unassigned, [facility] Name Medical Branch AUTHORIZATION FOR 2022-03-27 05:01:00 Doctor Unassigned, No Univ ersity [facility] Name Medical Branch POCT URINALYSIS AUTO 2022-01-05 21:35:00 Adriel Vo [facility] Plan of Care Planned Activity Planned Date Details Comments Source Future Scheduled 2022-11-23 Screening for [facility] Test 16:58:20 malignant neoplasm of colon (procedure) [code = 359788459] Future Scheduled 2022-11-23 Screening for [facility] Test 16:58:20 malignant neoplasm of colon (procedure) [code = 854287167] Future Scheduled 2022-11-23 Screening for [facility] Test 16:58:20 malignant neoplasm of colon (procedure) [code = 125642353] Future Scheduled 2022-11-23 COVID-19 VACCINE (#[facility]:58:20 [code = COVID-19 VACCINE (#1)] Future Scheduled 2022-11-23 [facility] 16:58:20 (procedure) [code = 862445698] Future Scheduled 2022-11-23 Screening for [facility] Test 16:58:20 malignant neoplasm of colon (procedure) [code = 687783944] Future Scheduled 2022-11-23 Screening for [facility] Test 16:58:20 malignant neoplasm of colon (procedure) [code = 392711741] Future Scheduled 2022-11-23 SHINGLES VACCINES (1 [facility] 16:58:20 of 2) [code = SHINGLES VACCINES (1 of 2)] Future Scheduled 2022-11-23 INFLUENZA VACCINE [facility] Test 16:58:20 [code = INFLUENZA VACCINE] Future Scheduled 2022-09-29 COVID-19 VACCINE (#1) [facility] 12:13:53 [code = COVID-19 VACCINE (#1)] Future Scheduled 2022-09-29 [facility] C screening [facility] 12:13:53 (procedure) [code = 860035961] Future Scheduled 2022-09-29 COLONOSCOPY SCREENING [facility] Test 12:13:53 [code = COLONOSCOPY SCREENING] Future Scheduled 2022-09-29 SHINGLES VACCINES (1 Met [facility] Test 12:13:53 of 2) [code = SHINGLES VACCINES (1 of 2)] Future Scheduled 2022-09-29 INFLUENZA VACCINE [facility] Test 12:13:53 [code = INFLUENZA VACCINE] Future Scheduled 2022-07-23 COVID-19 VACCINE (#1) [facility] Test 16:30:27 [code = COVID-19 VACCINE (#1)] Future Scheduled 2022-07-23 [facility] 16:30:27 (procedure) [code = 249282962] Future Scheduled 2022-07-23 [facility] 16:30:27 [code = COLONOSCOPY SCREENING] Future Scheduled 2022-07-23 SHINGLES VACCINES (1 Met [facility] Test 16:30:27 of 2) [code = SHINGLES VACCINES (1 of 2)] Future Scheduled 2022-07-23 INFLUENZA VACCINE [facility] Test 16:30:27 [code = INFLUENZA VACCINE] Future Scheduled 2022-06-02 COVID-19 [facility]ACCINE (#[facility] 09:17:35 [code = COVID-19 VACCINE (#1)] Future Scheduled 2022-06-02 [facility] C [facility] 09:17:35 (procedure) [code = 060119389] Future Scheduled 2022-06-02 [facility] 09:17:35 [code = COLONOSCOPY SCREENING] Future Scheduled 2022-06-02 SHINGLES VACCINES ([facility] 09:17:35 of 2) [code = SHINGLES VACCINES (1 of 2)] Future Scheduled 2022-06-02 INFLUENZA VACCINE [facility] Test 09:17:35 [code = INFLUENZA VACCINE] Encounters Start End Encounter Admission Attending Care Care Encounter Source Date/Time Date/Time Type Type Clinicians Facility Department ID 2022-01-02 Outpatient [facility] [id number] Common 09:24:04 [facility] 2022-01-01 Outpatient [facility] [id number] Common 08:54:04 [facility] 2021-04-07 Emergency [facility] [id number] Univers 12:55:22 ity of [facility] 2022-11-03 2022-11-03 RefLILI Rhodes 1.2.840.114 [id number] Univers 00:00:00 00:00:00 Kevin King KARI 350.1.13.10 it y of [facility] 4.2.7.2.686 Tk as [phone] [facility] [address] [place] 2022-09-22 2022-09-22 Refcalista Bobby [facility] 1.2.840.114 [id number] Univers 00:00:00 00:00:00 Kevin [facility] 350.1.13.10 it y of [place] 4.2.7.2.686 Tk as [place]?BLEA [phone] Al justino SEGURA [address] [place] MEDICAL OFFICE BUILDING 2022-09-02 2022-09-02 Orders Doctor LILI 1.2.840.114 [id number] Univers 00:00:00 00:00:00 Only Unassigned, KARI 350.1.13.10 ity of [place] [facility] 4.2.7.2.686 Tk as [phone] [facility] 009 Branch 2022-08-03 2022-08-03 [facility]calista [facility] 1.2.840.114 [id number] Univers 00:00:00 00:00:00 Adriel [place] 350.1.13.10 i ty of [place].2.[place] [phone] Al justino CAMEJO 204 Branch BUILDING 2022-07-17 2022-07-17 Refcalista Vo [facility] 1.2.840.114 [id number] Univers 00:00:00 00:00:00 Adriel [place] 350.1.13.10 i ty [facility] 4.2.7.2.[place] [phone] Al dical NAL 204 [facility] 2022-07-17 2022-07-17 Miguelina Ferreira [facility] 1.2.840.114 [id number] Univers 00:00:00 00:00:00 Unassigned, HEALTH 350.1.13.10 ity of [place] 4.2.7.2.686 Tk as [place]?BLEA [id number] Al justino SEGURA 198 [facility] OFFICE [facility] 2022-07-07 2022-07-07 Miguelina Vo [facility] 1.2.840.114 [id number] Univers 00:00:00 00:00:00 [facility] 350.1.13.10 i ty [facility] 4[place]2.[place].2.[place] [phone] Al justino CAMEJO 204 [facility] 2022-05-28 2022-05-28 Miguelina Bobby [facility] 1.2.840.114 [id number] Univers 00:00:00 00:00:00 Kevin S HEALTH 350.1.13.10 it y of [place] 4.2.7.2.686 Tk as [place]?BLEA [phone] Al justino SEGURA 198 [facility] OFFICE [facility] 2022-05-02 2022-05-02 Miguelina Bobby MEROMA 1.2.840.114 [id number] Univers 00:00:00 00:00:00 Kevin S HEALTH 350.1.13.10 it y of [place] 4.2.7.2.686 Tk as [place]?BLEA [phone] Al justino SEGURA 198 [facility] OFFICE [facility] 2022-04-28 2022-04-28 Miguelina Bobby [facility] 1.2.840.114 [id number] Univers 00:00:00 00:00:00 Kevin S HEALTH 350.1.13.10 it y of [place] 4.2.7.2.686 Tk as [place]?BLEA [phone] Al justino SEGURA 198 [facility] OFFICE [facility] 2022-04-05 2022-04-05 Miguelina Bobby [facility]OMA 1.2.840.114 [id number] Univers 00:00:00 00:00:00 Kevin S HEALTH 350.1.13.10 it y of [place] 4.2.7.2.686 Tk as [place]?BLEA [phone] Al dical KNEY [address] [place] MEDICAL OFFICE [facility] 2022-03-30 2022-03-30 Miguelina [facility] 1.2.840.114 [id number] Univers 00:00:00 00:00:00 Adriel [place] 350.1.13.10 i ty [facility] 4.2.7.2.[place] [phone] Al dical NAL 204 [facility] 2022-03-27 2022-03-27 Orders Doctor LILI 1.2.840.114 [id number] Univers 00:00:00 00:00:00 Only Unassigned, KARI 350.1.13.10 ity of [place] [facility] 4.2.7.2.686 Tk as [phone] [address] 2022-03-03 2022-03-03 Miguelina [facility] 1.2.840.114 [id number] Univers 00:00:00 00:00:00 Kevin S HEALTH 350.1.13.10 it y [facility] 4.2.7.2.686 Tk as [place]?BLEA [phone] [facility] [address] [facility] OFFICE [facility] 2022-02-06 2022-02-06 Miguelina [facility] 1.2.840.114 [id number] Univers 00:00:00 00:00:00 Adriel [place] 350.1.13.10 i ty [facility] 4.2.7.[place] [phone] Al dical NAL 204 [facility] 2022-02-01 2022-02-01 Miguelina [facility] 1.2.840.114 [id number] Univers 00:00:00 00:00:00 Kevin S HEALTH 350.1.13.10 it y of [place] 4.2.7.2.686 Tk as [place]?BLEA [phone] Al justino LOPEZALTAF 198 [facility] OFFICE [facility] 2022-01-05 2022-01-05 Freight Rate Analyst Sania, Adc Lab Main [facility] 1.2.8 40.114 [id number] Univers 17:00:00 17:15:00 Visit Gilad [facility] 350.1.13.10 ity of [facility] 4.2.7.2.[place] [phone] Al jessicaneymar [facility] 353 [facility] 2022-01-05 2022-01-05 Outpatient R [facility] [id number] Univers 16:00:00 17:12:08 [facility] ity [facility] 2022-01-05 2022-01-05 Office [facility] 1.2.840.114 [id number] Univers 16:00:00 17:00:00 Visit [facility] 350.1.13.10 i ty of [place] 4[place]2.7.2.[place] [phone] [facility] 204 [facility] 2022-01-05 2022-01-05 Outpatient R [facility] [id number] Univers 16:00:00 16:00:00 ADRIEL ity [facility] 2022-01-05 2022-01-05 Orders Doctor LILI 1.2.840.114 [id number] Univers 00:00:00 00:00:00 Only Unassigned, KARI 350.1.13.10 ity of [place] [facility] 4.2.7.2.686 Tk as [id number] [address] 2021-12-30 2021-12-30 Miguelina [facility] 1.2.840.114 [id number] Univers 00:00:00 00:00:00 Kevin S HEALTH 350.1.13.10 it y of [place] 4.2.7.2.686 Tk as [place]?BLEA [phone] Al jessicaneymar SEGURA 198 [facility] 2021-12-04 2021-12-04 Miguelina [facility] 1.2.840.114 [id number] Univers 00:00:00 00:00:00 Kevin S HEALTH 350.1.13.10 it y of [place] 4.2.7.2.686 Tk as [place]?BLEA [phone] Al dical KNEY [address] [place] MEDICAL OFFICE BUILDING 2021-12-04 2021-12-04 OLIVIA Cortes 1.2.438.498 [id number] Univers 00:00:00 00:00:00 Victor Manuel Y [facility] 350.1.13.10 i ty of [facility] 4.2.7.2.686 [place] [phone] [facility] [address] [place] 2021-09-30 2021-09-30 Freight Rate Analyst Sania, Adc Lab Main [facility] 1.2.8 40.114 [id number] Univers 09:45:00 10:00:00 Visit [facility]leg [facility]13.10 [facility] [place]2.7.2.[place] [phone] Al dicneymar NAL 353 [facility] 2021-09-30 2021-09-30 Outpatient R APRIL [facility] [id number] Univers 09:45:00 09:45:00 OLEG keller [facility] 2021-09-29 2021-09-29 Patient [facility] 1.2.840.114 [id number] Univers 00:00:00 00:00:00 Secure Msg Oleg Horner [facility] 350.1.13.10 ity of [facility] 4.2.7.2.[place] CENTER AT [phone] Al jessicamt JANAE 2 [facility] 2021-09-25 2021-09-25 Outpatient R [facility] GIE [id number] Univers 08:47:00 12:42:00 OLEG keller [facility] 2021-09-25 2021-09-25 Hospital [facility] 1.2.840.114 [id number] Univers 08:47:00 12:42:00 Encounter Oleg CHRISTENSEN 350.1.13.10 ity of [facility] 4.2.7.2.686 Tk as BLDG [id number] [facility] [address] [place] 2021-09-25 2021-09-25 Surgery April [facility] 1.2.646.780 [id number] Univers 10:40:00 11:25:00 Oleg Horner ICA 350.1.13.10 ity of [place] 4.2.7.2.686 Tk as BLDG [id number] [facility] [address] [place] 2021-09-25 2021-09-25 Outpatient R APRIL [facility] [id number] Univers 08:15:00 08:15:00 OLEG keller [facility] 2021-09-25 2021-09-25 Orders Doctor LILI 1.2.840.114 [id number] Univers 00:00:00 00:00:00 Only Unassigned, KARI 350.1.13.10 ity of [place] [facility] 4.2.7.2.686 Tk as [phone] [facility] [address] [place] 2021-09-11 2021-09-11 Office Renée [facility] 1.2.428.560 [id number] Univers 12:30:00 13:00:00 [facility] 350.1.13.10 i ty of [facility] [place]2.7.2.[place] [id number] [facility] [address] [place] 2021-09-11 2021-09-11 Outpatient R RENÉE [facility] [id number] Univers 12:30:00 12:30:00 VICTOR MANUEL keller [facility] 2021-09-09 2021-09-09 Refill Doctor [facility] 1.2.840.114 [id number] Univers 00:00:00 00:00:00 Unassigned, HEALTH 350.1.13.10 ity of [place] [facility]GICAL 4.2.7.2.686 Tk as SPECIALTI [phone] Al justino ROBLERO 198 [facility] 2021-04-21 2021-04-21 Refill Doctor [facility] 1.2.840.114 [id number] Univers 00:00:00 00:00:00 Unassigned, HEALTH 350.1.13.10 ity [place] 4.2.7.2.686 Tk as WATSON?BLEA [phone] Al justino KNEY [address] [place] MEDICAL OFFICE BUILDING 2021-04-04 2021-04-04 Outpatient R TARUN [facility] [id number] Univers 08:00:00 08:00:00 DESEAN keller [facility] 2021-04-04 2021-04-04 Outpatient R KANU MEROMA [facility] [id number] Univers 08:00:00 08:00:00 KEVIN ity [facility] 2021-03-30 2021-03-30 Refill Doctor [facility] 1.2.840.114 [id number] Univers 00:00:00 00:00:00 Unassigned, Health 350.1.13.10 ity of [place] 4.2.7.2.686 Tk as Watson?Blea [phone] Me dical kney 198 [facility] Office [facility] 2021-03-30 2021-03-30 Refill Doctor [facility] 1.2.840.114 [id number] Univers 00:00:00 00:00:00 Unassigned, Health 350.1.13.10 ity of [place] [facility] 4.2.7.2.686 Tk as Specialti [id number] Me dical es 198 [facility] 2021-03-28 2021-03-28 Refill Doctor [facility] 1.2.840.114 [id number] Univers 00:00:00 00:00:00 Unassigned, Health 350.1.13.10 ity of [place] [facility] 4.2.7.2.686 Tk as Specialti [phone] Me dical es 198 [facility] 2021-03-28 2021-03-28 Refill Doctor [facility] 1.2.840.114 [id number] Univers 00:00:00 00:00:00 Unassigned, Health 350.1.13.10 ity of [place] 4.2.7.2.686 Tk as Watson?Blea [phone] Al dical kney [address] [place] [address] 2021-02-25 2021-02-25 Patient Kanu [facility] 1.2.840.114 [id number] Univers 00:00:00 00:00:00 Secure [facility] 350.1.13.10 ity of [place] 4.2.7.2.686 Tk as Watson?Blea [phone] Al dical kney 198 [facility] 2021-02-21 2021-02-21 Office [facility] [id number] [id number] Univers 08:15:00 08:26:53 Visit Desean HEALTH 350.1.13.10 it y of [place] 4.2.7.2.686 Tk as WATSON?BLEA [phone] Al dicneymar SEGURA 198 [facility] OFFICE [facility] 2021-02-21 2021-02-21 [facility] [id number] Univers 08:15:00 08:26:53 DESEAN keller [facility] 2021-02-21 2021-02-21 [facility] [id number] Univers 08:15:00 08:15:00 DESEAN lisa [facility] 2021-02-16 2021[facility]02-[facility] 1.2.840.114 [id number] Univers 00:00:00 00:00:00 [facility] 350.1.13.10 it y of Surgical 4.2.7.2.686 Tk as Specialti [phone] Al dical es 198 [facility] 2021-02-16 2021-02-16 [facility] 1.2.840.114 [id number] Univers 00:00:00 00:00:00 [facility] 350.1.13.10 it y of Surgical 4.2.7.2.686 Tk as Specialti [phone] Al dical es 198 [facility] 2021-02-14 2021-02-14 Office [facility] 1.2.840.114 [id number] Univers 08:11:41 09:02:17 Visit [facility] 350.1.13.10 it y of [place] 4.2.7.2.686 Tk as Watson?Blea [phone] Me dical colton 198 [facility] 2021-02-14 2021-02-14 [facility] [id number] Univers 08:00:00 08:00:00 KEVIN [facility] 2021-02-04 2021-02-04 Office [facility] 1.2.840.114 [id number] Univers 13:39:04 14:04:51 Visit [facility] 350.1.13.10 it y of [place] 4.2.7.2.686 Tk as Watson?Blea [phone] Al jessicaneymar segura 198 [facility] Office [facility] 2021-02-04 2021-02-04 Outpatient R KANU [facility] [id number] Univers 13:30:00 13:30:00 KEVIN ity of [facility] 2021-02-04 2021-02-04 Orders Doctor LILI 1.2.840.114 [id number] Univers 00:00:00 00:00:00 Only Unassigned, KARI 350.1.13.10 ity of [place] [facility] 4.2.7.2.686 Tk as [phone] [facility] 00[address] [place] 2021-01-27 2021-01-27 Patient Doctor [facility] 1.2.840.114 [id number] Univers 00:00:00 00:00:00 Secure Msg Unassigned, Health 350.1.13.10 ity of [place] 4.2.7.2.686 Tk as Watson?Blea [phone] Al jessicaneymar segura [address] [place] [address] Office [facility] 2021-01-17 2021-01-17 [facility] Kanu [facility] 1.2.840.114 [id number] Univers 09:28:27 23:59:00 Encounter Kevin Wilson 350.1.13.10 ity of [place] [phone] [facility] 807 [place] 2021-01-17 2021-01-17 Office [facility] 1.2.840.114 [id number] Univers 10:08:28 10:23:28 Visit [facility] 350.1.13.10 it y of Surgical 4.2.7.2.686 Tk as Specialti [phone] Al justino manny 198 [facility] 2021-01-17 2021-01-17 Outpatient R KANU [facility] [id number] Univers 09:45:00 09:45:00 KEVIN ity of [facility] 2021-01-17 2021-01-17 Orders Doctor LILI 1.2.840.114 [id number] Univers 00:00:00 00:00:00 Only Unassigned, KARI 350.1.13.10 ity of [place] [facility] 4.2.7.2.686 Tk as [phone] [facility] [address] [place] 2021-01-16 2021-01-16 Telephone [facility] 1.2.669.606 [id number] Univers 00:00:00 00:00:00 Kevin King [place] 350.1.13.10 i ty of [place] [phone] Al dical nal 198 [facility] 2021-01-13 2021-01-13 Refill [facility] 1.2.840.114 [id number] Univers 00:00:00 00:00:00 [facility] 350.1.13.10 it y of Surgical 4.2.7.2.686 Tk as Specialti [phone] Al dical es 198 [facility] 2021-01-07 2021-01-07 Emergency [facility] 1.2.064.626 [id number] Univers 18:50:00 23:18:00 Edgardo Wilson 350.1.13.10 ity of [place] [phone] [facility] 0[address] [place] 2021-01-07 2021-01-07 Office OLIVIA Sow 1.2.840.114 [id number] Univers 15:32:44 16:45:26 Visit Jerrell R Y HEALTH 350.1.13.10 ity of [place] [phone] [facility] [address] 2021-01-07 2021-01-07 Outpatient R PATRICIA [facility] [id number] Univers 00:00:00 00:00:00 JERRELL ity of [facility] 2021-01-07 2021-01-07 Letter Doctor LILI 1.2.840.114 [id number] Univers 00:00:00 00:00:00 (Out) Unassigned, KARI 350.1.13.10 ity of [place] [facility] 4.2.7.2.686 Tk as [phone] [facility] [address] [place] 2021-01-01 2021-01-01 Office OLIVIA Sow 1.2.840.114 [id number] Univers 15:14:09 15:59:22 Visit Jerrell R Y HEALTH 350.1.13.10 ity of [place] [phone] [facility] [address] 2021-01-01 2021-01-01 Outpatient R PATRICIA [facility] [id number] Univers 15:00:00 15:00:00 JERRELL ity of [facility] 2021-01-01 2021-01-01 Orders Doctor LILI 1.2.840.114 [id number] Univers 00:00:00 00:00:00 Only Unassigned, KARI 350.1.13.10 ity of [place] [facility] 4.2.7.2.686 Tk as [phone] [facility] [address] [place] 2020-11-08 2020-11-08 [facility] 1.2.840.114 [id number] Univers 00:00:00 00:00:00 [facility] 350.1.13.10 it y of Surgical 4.2.7.2.686 Tk as Specialti [phone] Al dical es 198 [facility] 2020-09-29 2020-09-29 [facility] 1.2.840.114 [id number] 00:00:00 00:00:00 [facility] 350.1.13.10 Surgical 4.2.7.2.686 Specialti [phone] es 198 [place] 2020-09-29 2020-09-29 [facility] 1.2.840.114 [id number] Univers 00:00:00 00:00:00 [facility] 350.1.13.10 it y of Surgical 4.2.7.2.686 Tk as Specialti [phone] Al dical es 198 [facility] 2020-09-17 2020-09-17 Outpatient MARIELA [facility] [id number] [place] 00:00:00 00:00:00 AHMED [address] 2020-09-17 2020-09-17 Outpatient MARIELA, [facility] [id number] [place] 00:00:00 00:00:00 AHMED [address] 2020-09-17 2020-09-17 Outpatient MARIELA, [facility] [id number] [place] 00:00:00 00:00:00 AHMED [address] 2020-09-03 2020-09-03 Outpatient MARIELA, [facility] [id number] [place] 00:00:00 00:00:00 AHMED [address] 2020-08-27 2020-08-27 Outpatient MARIELA, [facility] [id number] [place] 00:00:00 00:00:00 AHMED 659 [facility] 2020-08-06 2020-08-06 [facility] 1.2.840.114 [id number] 00:00:00 00:00:00 [facility] 350.1.13.10 Surgical 4.2.7.2.686 Specialti [phone] es 198 [place] 2020-08-06 2020-08-06 Miguelina [facility] 1.2.840.114 [id number] Univers 00:00:00 00:00:00 [facility] 350.1.13.10 it y of Surgical 4.2.7.2.686 Tk as Specialti [phone] Al dical es [address] [place] 2020-06-18 2020-06-18 Miguelina [facility] 1.2.840.114 [id number] 00:00:00 00:00:00 [facility] 350.1.13.10 Surgical 4.2.7.2.686 Specialti [phone] es 198 [place] 2020-06-18 2020-06-18 Miguelina [facility] 1.2.840.114 [id number] Univers 00:00:00 00:00:00 [facility] 350.1.13.10 it y of Surgical 4.2.7.2.686 Tk as Specialti [phone] Me dical es 198 [address] [place] 2020-01-15 2020-01-15 [facility] 1.2.840.114 [id number] 00:00:00 00:00:00 [facility] 350.1.13.10 Surgical 4.2.7.2.686 Specialti [phone] es 198 [place] 2020-01-15 2020-01-15 [facility] 1.2.840.114 [id number] Univers 00:00:00 00:00:00 [facility] 350.1.13.10 it y of Surgical 4.2.7.2.686 Tk as Specialti [phone] Me dical es 198 [facility] 2019-11-22 2019-11-22 [facility] 1.2.840.114 [id number] 14:00:24 16:25:45 Visit Kevin King [facility] 350.1.13.10 Surgical 4.2.7.2.686 Specialti [phone] es 198 [place] 2019-11-22 2019-11-22 Office [facility] 1.2.840.114 [id number] Univers 14:00:24 16:25:45 Visit [facility] 350.1.13.10 it y of Surgical 4.2.7.2.686 Tk as Specialti [phone] Me dical es 198 [facility] 2019-11-22 2019-11-22 [facility] [id number] Univers 14:45:00 14:45:00 KEVIN [facility] 2019-11-20 2019-11-20 [facility] [id number] Univers 15:00:00 15:00:00 DESEAN lisa [facility] 2019-11-16 2019-11-16 Telephone [facility] 1.2.840.114 [id number] Univers 00:00:00 00:00:00 [facility] 350.1.13.10 it y of Surgical 4.2.7.2.686 Tk as Specialti [phone] Me dical es 198 [facility] 2019-10-17 2019-10-17 Ambulatory nullFlavo MNA [id number] Memoria 15:30:00 15:30:00 Pre-Reg r Neurology 01 l [place] 2019-10-17 2019-10-17 Ambulatory nullFlavo MNA [id number] Memoria 15:30:00 15:30:00 Pre-Reg r Neurology 01 l Radha [place] 2019-10-17 2019-10-17 Ambulatory nullFlavo MNA [id number] Memoria 15:30:00 15:30:00 Pre-Reg r Neurology 01 l Radha [place] 2019-10-17 2019-10-17 Outpatient MHIE MHIE [id number] [place] 10:30:00 10:30:00 01 larry [place] 2019-10-17 2019-10-17 Outpatient MHIE MHIE [id number] [place] 10:30:00 10:30:00 larry [place] 2019-10-17 2019-10-17 Outpatient AGUS VitaleSCHER MHMISCHER [id number] 10:30:00 10:30:00 Ernie Shimon 2019-10-17 2019-10-17 Outpatient AGUS VitaleSCHER MHMISCHER [id number] 10:30:00 10:30:00 Ernie Shimon 2019-10-02 2019-10-02 Miguelina Bobby [facility] 1.2.840.114 [id number] Univers 00:00:00 00:00:00 [facility] 350.1.13.10 it y of Surgical 4.2.7.2.686 Tk as Specialti [phone] Al dical es [address] [place] 2019-09-05 2019-09-06 Outpatient nullFlavo MNA [id number] Memoria 15:00:00 04:59:59 r Neurology 00 l [place] 2019-09-05 2019-09-06 Outpatient nullFlavo MNA [id number] Mem[facility] 15:00:00 04:59:59 r Neurology 00 l [place] 2019-09-05 2019-09-06 Outpatient nullFlavo MNA [id number] Memoria 15:00:00 04:59:59 r Neurology 00 l [facility] 2019-09-05 2019-09-05 Outpatient AGUS VitaleSCHER MHMISCHER [id number] 10:00:00 23:59:59 Ernie 00 Shimon 2019-09-05 2019-09-05 Outpatient Krell, [facility] [id number] 10:00:00 23:59:59 Ernie 00 Shimon 2019-09-05 2019-09-05 Outpatient CAPRI FAROOQ [id number] [place] 10:00:00 10:00:00 00 larry [place] 2019-09-05 2019-09-05 Outpatient CAPRI FAROOQ [id number] [place] 10:00:00 10:00:00 00 l [place] 2019-08-27 2019-08-27 [facility] 1.2.840.114 [id number] Univers 00:00:00 00:00:00 Kevin Magma [employer]ing 350.1.13.10 it y of Surgical 4.2.7.2.686 Tk as Specialti [phone] Al dical es 198 [facility] 2019-07-16 2019-07-16 Refill [facility] 1.2.308.300 [id number] Univers 00:00:00 00:00:00 Desean Mendez [employer] 350.1.13.10 it y of Surgical 4.2.7.2.686 Tk as Specialti [phone] Al dical es 198 [facility] 2019-01-26 2019-01-26 [place] [facility] 1.2.840.114 [id number] Univers 00:00:00 00:00:00 Desean Mendez [employer] 350.1.13.10 it y of Surgical 4.2.7.2.686 Tk as Specialti [phone] Al dicmt es 198 [facility] Results Test Description Test Time [...] 3267) clear Lab Interpretation (test code = 60102-7) [facility] [id number] 21:37:00 Test Item Value Reference Range Interpretation [...] 3267) Lab Interpretation (test code Abnormal = 63257-1) [facility]
[2022-12-09] MEDS ORDERED: MORPHINE 4 MG/ML SYR ONE (20:08)
[2022-12-09] MEDS ORDERED: ONDANSETRON 4 MG/2 ML VIAL ONE (20:08)
[2022-12-09] MEDS ORDERED: ASPIRIN 81 MG CHEWABLE TABLET ONE (20:15)
[2022-12-09] MEDS ORDERED: LIDOCAINE 1% 20 ML MDV ONE (20:15)
[2022-12-09 20:21] LABS: Absolute Lymphocytes (CBC) 1.8 K/uL (0.7-4.9); Hematocrit 42.1 % (39.6-49.0); Lymphocytes % 16.9 % (15.3-44.8); MCV 94.9 fL (80-100); MPV 8.3 fL (7.6-11.3); RBC Red Blood Cell Count 4.44 M/uL (4.33-5.43)
--- NOTE | 2022-12-09 20:29 | RAD REPORT ---
EXAM DESCRIPTION: Joel Single View12/09/2022 8:21 pm CLINICAL HISTORY: Chest pain COMPARISON: July 2022 FINDINGS: The lungs appear clear of acute infiltrate. The heart is normal size IMPRESSION: No acute abnormalities displayed
[2022-12-09 20:52] LABS: Protime INR 1.07
[2022-12-09 21:07] LABS: Albumin 3.8 g/dL (3.4-5.0); Bilirubin Direct 0.1 mg/dL (0-0.2); Bilirubin Indirect, Calculated 0.3 mg/dL (0.2-0.8); Bilirubin Total 0.4 mg/dL (0.2-1.0); Magnesium 2.1 mg/dL (1.6-2.4); Potassium 3.6 mEq/L (3.5-5.1); Protein, Total 7.8 g/dL (6.4-8.2); Troponin High Sensitivity 7.1 pg/mL (<58.9)
[2022-12-09] MEDS ORDERED: NA CHLORIDE 0.9% 1,000 ML ONE (21:28)
[2022-12-09] MEDS ORDERED: SMZ./TMP. 800/160 MG TABLET ONE (22:05)
--- NOTE | 2022-12-09 22:11 | EDPHYS ---
Physician Documentation [facility] Name: Ethan Hall Age: 52 yrs Sex: Male : 1970 Arrival Date: 12/09/2022 Time: 18:57 Bed 11 Private MD: ED Physician Guerrero Hernandez HPI: 12/09 19:37 This 52 yrs old Black Male presents to ER via Ambulatory with complaints of Abscess, sb4 Chest Pain. 19:37 52 year old male with past medical history of hypertension on amlodipine who presents sb4 with c/o worsening left mid back abscess that has been worsening over the past 4 days, states he was able to squeeze some fluid out of it yesterday. He additionally states that he started experiencing left sided chest pain on his way to the ED. reports that it is intermittent, does not radiate, no associated symptoms. Historical: - Allergies: 19:35 No Known Allergies; lg3 - Home Meds: 19:35 amlodipine 5 mg tablet daily [Active]; lg3 - PMHx: 19:35 Hernia; Hypertension; lg3 - PSHx: 19:35 hernia repair; Cholecystectomy; lg3 - Immunization history:: Adult Immunizations up to date, Client reports having NOT received the Covid vaccine. - Social history:: Smoking status: Patient denies any tobacco usage or history of. Patient uses alcohol, occasionally. ROS: 19:37 Constitutional: Negative for fever, chills, and weight loss, Eyes: Negative for injury, sb4 pain, redness, and discharge, ENT: Negative for injury, pain, and discharge, Neck: Negative for injury, pain, and swelling, Respiratory: Negative for shortness of breath, cough, wheezing, and pleuritic chest pain, Abdomen/GI: Negative for abdominal pain, nausea, vomiting, diarrhea, and constipation, Back: Negative for injury and pain, MS/Extremity: Negative for injury and deformity, Neuro: Negative for headache, weakness, numbness, tingling, and seizure, Psych: Negative for depression, anxiety, suicide ideation, homicidal ideation, and hallucinations. 19:37 Cardiovascular: Positive for chest pain, Negative for edema, orthopnea, palpitations, paroxysmal nocturnal dyspnea. 19:37 Skin: Positive for abscess. Exam: 19:37 Constitutional: This is a well developed, well nourished patient who is awake, alert, sb4 and in no acute distress. Head/Face: Normocephalic, atraumatic. Eyes: Extra-ocular motions intact. Periorbital areas with no swelling, redness, or edema. ENT: Mucous membranes moist. Cardiovascular: Regular rate and rhythm with a normal S1 and S2. Respiratory: Lungs have equal breath sounds bilaterally, clear to auscultation and percussion. No rales, rhonchi or wheezes noted. No increased work of breathing, no retractions or nasal flaring. Abdomen/GI: Soft, non-tender, no distension. Back: No spinal tenderness. No costovertebral tenderness. Full range of motion. MS/ Extremity: Pulses equal, no cyanosis. Neurovascular intact. Full, normal range of motion. Neuro: Awake and alert, GCS 15, oriented to person, place, time, and situation. Cranial nerves II-XII grossly intact. Motor strength 5/5 in all extremities. Sensory grossly intact. Cerebellar exam normal. Normal gait. Psych: Awake, alert, with orientation to person, place and time. Behavior, mood, and affect are within normal limits. 19:37 Skin: abscess, that is moderate sized, approximately 3 cm(s), with induration, with surrounding cellulitis, that is moderate. Vital Signs: 19:30 BP 167 / 106; Pulse 106; Resp 17 S; Temp 100(O); Pulse Ox 100% on R/A; Weight 127.01 kg lg3 (R); Height 5 ft. 7 in. (R); 22:24 BP 156 / 102; Pulse 93; Resp 17; Pulse Ox 97% on R/A; Pain 0/10; cm10 19:30 Body Mass Index 43.85 (127.01 kg, 170.18 cm) lg3 22:24 Pain Scale: Adult cm10 Procedures: 20:57 I \T\ D: Incision and drainage was performed for an abscess of the left subscapular area sb4 Prepped with Betadine, Anesthetized with 5 ml's 1% Lidocaine w/ Epi. Incised with #11 blade. Drained moderate amount purulent fluid. serosanguinous fluid. bloody fluid. Loculations removed. Abscess cavity explored. Packed with sterile gauze, Dressing: sterile 4x4 gauze, the patient tolerated the procedure well. MDM: 18:59 Patient medically screened. sb4 19:37 Differential diagnosis: abscess, cellulitis, insect bite, ACS, aortic dissection, sb4 angina. 22:09 Data reviewed: vital signs, nurses notes, lab test result(s), EKG, radiologic studies, sb4 and as a result, I will discharge patient. Consideration of Admission/Observation Escalation of care including admission/observation considered. Care significantly affected by the following chronic conditions: Hypertension. 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 Medication response: morphine markedly relieved the patient's pain. Symptoms have improved. Response to treatment: the patient's symptoms have markedly improved after treatment. 12/09 19:36 Order name: Basic Metabolic Panel; Complete Time: 21:12 sb4 12/09 19:36 Order name: CBC with Diff; Complete Time: 20:33 sb4 12/09 19:36 Order name: LFT's; Complete Time: 21:12 sb4 12/09 19:36 Order name: Magnesium; Complete Time: 21:12 sb4 12/09 19:36 Order name: NT PRO-BNP; Complete Time: 21:12 sb4 12/09 19:36 Order name: PT-INR; Complete Time: 20:57 sb4 12/09 19:36 Order name: Troponin HS; Complete Time: 21:12 sb4 12/09 19:36 Order name: Lactate w/ 2H reflex if indic.; Complete Time: 20:57 sb4 12/09 19:36 Order name: XRAY Chest (1 view); Complete Time: 20:33 sb4 12/09 19:36 Order name: EKG; Complete Time: 19:37 sb4 12/09 19:36 Order name: Cardiac monitoring; Complete Time: 20:05 sb4 12/09 19:36 Order name: EKG - Nurse/Tech; Complete Time: 19:56 sb4 12/09 19:36 Order name: IV Saline Lock; Complete Time: 20:05 sb4 12/09 19:36 Order name: Labs collected and sent; Complete Time: 20:05 sb4 12/09 19:36 Order name: O2 Per Protocol; Complete Time: 20:05 sb4 12/09 19:36 Order name: O2 Sat Monitoring; Complete Time: 20:05 sb4 12/09 19:36 Order name: Incision \T\ Drainage Setup; Complete Time: 20:05 sb4 12/09 20:21 Order name: Misc. Order: RECOLLECT GREEN AND BLUE TOP; Complete Time: 20:31 rv1 EC:37 Rate is 107 beats/min. Rhythm is regular, Sinus tachycardia. SD interval is normal at sb4 130 msec. QRS interval is normal at 78 msec. QT interval is normal at 308 msec. Clinical impression: NSR w/ Non-specific ST/T Changes. Interpreted by me. Reviewed by me. Administered Medications: 20:05 Drug: morphine IVP or IV 4 mg Route: IVP; Infused Over: 4 mins; Site: right antecubital;lg3 22:03 Follow up: Response: No adverse reaction cm10 20:05 Drug: Ondansetron IVP 4 mg Route: IVP; Site: right antecubital; lg3 22:03 Follow up: Response: No adverse reaction cm10 20:09 Drug: Aspirin PO Chewable Tablet 324 mg Route: PO; lg3 21:18 Drug: Lidocaine Infiltration (1 %) 20 ml {Note: Given by GRAYSON Choe} Volume: 20 ml; cm10 Route: Infiltration; 21:35 Drug: NS 0.9% IV 1000 ml Route: IV; Rate: 1 bolus; Site: right antecubital; cm10 22:03 Drug: Trimethoprim-Sulfamethoxazole PO (160 mg-800 mg (DS) 1 tablet Route: PO; cm10 Disposition: 12/10 17:22 Co-signature as Attending Physician, Guerrero Hernandez MD I reviewed the patient's care rn provided by the Advanced Practice Provider and agree with the diagnosis and treatment plan. Disposition Summary: 12/09/22 22:10 Discharge Ordered Location: Home sb4 Problem: new sb4 Symptoms: have improved sb4 Condition: Stable sb4 Diagnosis - Cutaneous abscess of back [any part, except buttock] sb4 - Chest pain, unspecified sb4 Followup: sb4 - With: - When: 1 week - Reason: Further diagnostic work-up, Recheck today's complaints, Re-evaluation by your physician Discharge Instructions: - Discharge Summary Sheet sb4 - Skin Abscess sb4 - Incision and Drainage sb4 - Nonspecific Chest Pain, Adult, Pyze-uh-Wnxa sb4 Forms: - Medication Reconciliation Form sb4 - Thank You Letter sb4 - Antibiotic Education sb4 - Prescription Opioid Use sb4 - [email or web address] sb4 Prescriptions: - Bactrim DS 800-160 mg Oral Tablet - take 1 tablet by ORAL route every 12 hours for 10 days; 20 tablet; Refills: 0, sb4 Product Selection Permitted Signatures: Dispatcher [employer] EDGuerrero Ojeda MD MD rn Gibson, Lacie, RN RN [email or web address] Zenaida Chatterjee, PAMaury PAMaury sb4 Maureen Willis rv1 Aileen Beltrán RN RN cm10
--- NOTE | 2022-12-09 22:11 | ER ---
Nurse's Notes [facility] Name: Ethan Hall Age: 52 yrs Sex: Male : 1970 Arrival Date: 12/09/2022 Time: 18:57 Bed 11 Private MD: Diagnosis: Cutaneous abscess of back [any part, except buttock];Chest pain, unspecified Presentation: 12/09 19:30 Chief complaint: Patient states: large knot started growing on my back a few days ago. lg3 i squeezed on it yesterday and white stuff with blood came out and it smelled bad. its really hot and hurts. i started having left sided chest pain on the way here. Coronavirus screen: Client denies travel out of the [place] in the last 14 days. At this time, the client does not indicate any symptoms associated with coronavirus-19. Ebola Screen: No symptoms or risks identified at this time. Initial Sepsis Screen: Does the patient meet any 2 criteria? No. Patient's initial sepsis screen is negative. Does the patient have a suspected source of infection? Yes: Skin breakdown/wound. Risk Assessment: Do you want to hurt yourself or someone else? Patient reports no desire to harm self or others. Onset of symptoms is unknown. 19:30 Method Of Arrival: Ambulatory lg3 19:30 Acuity: CHRISTINA 3 lg3 Triage Assessment: 19:35 General: Appears in no apparent distress. uncomfortable, Behavior is calm, cooperative. lg3 Pain: Complains of pain in back and chest. EENT: No deficits noted. No signs and/or symptoms were reported regarding the EENT system. Neuro: No deficits noted. Harrington Agitation-Sedation Scale (RASS): 0 - Alert and Calm Level of Consciousness is awake, alert, obeys commands, Oriented to person, place, time, situation. Cardiovascular: Reports chest pain. Respiratory: No deficits noted. Airway is patent Respiratory effort is even, unlabored, Respiratory pattern is regular, symmetrical. GI: No deficits noted. No signs and/or symptoms were reported involving the gastrointestinal system. : No deficits noted. No signs and/or symptoms were reported regarding the genitourinary system. Derm: Skin is intact, is healthy with good turgor, Skin is dry, Skin is normal, Skin temperature is warm Wound noted back. Musculoskeletal: No deficits noted. No signs and/or symptoms reported regarding the musculoskeletal system. Circulation, motion, and sensation intact. Range of motion: intact in all extremities. Historical: - Allergies: 19:35 No Known Allergies; lg3 - Home Meds: 19:35 amlodipine 5 mg tablet daily [Active]; lg3 - PMHx: 19:35 Hernia; Hypertension; lg3 - PSHx: 19:35 hernia repair; Cholecystectomy; lg3 - Immunization history:: Adult Immunizations up to date, Client reports having NOT received the Covid vaccine. - Social history:: Smoking status: Patient denies any tobacco usage or history of. Patient uses alcohol, occasionally. Screenin:38 [facility] ED Fall Risk Assessment (Adult) History of falling in the last 3 months, lg3 including since admission No falls in past 3 months (0 pts). Abuse screen: Denies threats or abuse. Denies injuries from another. Nutritional screening: No deficits noted. Tuberculosis screening: No symptoms or risk factors identified. Assessment: 19:50 General: see triage assessment . lg3 22:10 Reassessment: Patient appears in no apparent distress at this time. No changes from cm10 previously documented assessment. Patient and/or family updated on plan of care and expected duration. Pain level reassessed. Patient is alert, oriented x 3, equal unlabored respirations, skin warm/dry/pink. Patient states feeling better. Patient states symptoms have improved. 22:25 Reassessment: Pt leaving A\T\Ox4, ambulatory with steady gait. Provider, Daija made cm10 aware that pt had received morphine 2 hrs ago and provider states that it is ok to D/C pt. 22:26 Pain: Pain does not radiate. Pain began gradually. cm10 Vital Signs: 19:30 BP 167 / 106; Pulse 106; Resp 17 S; Temp 100(O); Pulse Ox 100% on R/A; Weight 127.01 kg lg3 (R); Height 5 ft. 7 in. (R); 22:24 BP 156 / 102; Pulse 93; Resp 17; Pulse Ox 97% on R/A; Pain 0/10; cm10 19:30 Body Mass Index 43.85 (127.01 kg, 170.18 cm) lg3 22:24 Pain Scale: Adult cm10 ED Course: 18:58 Patient arrived in ED. rg4 18:59 [facility]enaida Chatterjee [facility]C [facility] sb4 18:59 Guerrero Hernandez MD is Attending Physician. sb4 19:32 EKG done, by regulatory technician. reviewed by Guerrero Hernandez MD. oe 19:35 Triage completed. lg3 19:35 Arm band placed on right wrist. lg3 20:05 Basic Metabolic Panel Sent. lg3 20:05 CBC with Diff Sent. lg3 20:05 LFT's Sent. lg3 20:05 Magnesium Sent. lg3 20:05 NT PRO-BNP Sent. lg3 20:05 PT-INR Sent. lg3 20:05 Troponin HS Sent. lg3 20:06 Lactate w/ 2H reflex if indic. Sent. lg3 20:23 XRAY Chest (1 view) In Process Unspecified. EDMS 20:38 Inserted saline lock: 20 gauge in right antecubital area, using aseptic technique. lg3 Patient maintains SpO2 saturation greater than 95% on room air. 20:38 Patient has correct armband on for positive identification. Placed in gown. Bed in low lg3 position. Call light in reach. Side rails up X 1. Client placed on continuous cardiac and pulse oximetry monitoring. NIBP monitoring applied. monitoring tech on. Door closed. Noise minimized. Warm blanket given. 22:10 Jayy Talley MD is Referral Physician. sb4 22:24 No provider procedures requiring assistance completed. IV discontinued, intact, cm10 bleeding controlled, No redness/swelling at site. Pressure dressing applied. Administered Medications: 20:05 Drug: morphine IVP or IV 4 mg Route: IVP; Infused Over: 4 mins; Site: right antecubital;lg3 22:03 Follow up: Response: No adverse reaction cm10 20:05 Drug: Ondansetron IVP 4 mg Route: IVP; Site: right antecubital; lg3 22:03 Follow up: Response: No adverse reaction cm10 20:09 Drug: Aspirin PO Chewable Tablet 324 mg Route: PO; lg3 21:18 Drug: Lidocaine Infiltration (1 %) 20 ml {Note: Given by MONIQUE Choe.} Volume: 20 ml; cm10 Route: Infiltration; 21:35 Drug: NS 0.9% IV 1000 ml Route: IV; Rate: 1 bolus; Site: right antecubital; cm10 22:03 Drug: Trimethoprim-Sulfamethoxazole PO (160 mg-800 mg (DS) 1 tablet Route: PO; cm10 Medication: 22:26 VIS not applicable for this client. cm10 Outcome: 22:10 Discharge ordered by . min 22:24 Discharged to home ambulatory. cm10 22:24 Condition: good 22:24 Discharge instructions given to patient, Instructed on discharge instructions, follow up and referral plans. medication usage, Demonstrated understanding of instructions, follow-up care, medications, Prescriptions given X 1. 22:27 Patient left the ED. cm10 Signatures: Dispatcher [employer] EDChristine Billings rg4 Galileo Montalvo Lacie, RN RN lg3 Zenaida Chatterjee, PA-C PA-C [email or web address] Aileen Beltrán, RN RN cm10
[2022-12-09 22:33] VITALS: TEMP 100
[2022-12-09 22:35] VITALS: BP 156/102; O2SAT 97
--- NOTE | 2022-12-10 12:14 | EKG ---
Test Date: 2022-12-09 Test Time: 19:21:15 House Furnishings Supervisor: CINDY MEASUREMENT RESULTS: Intervals: Rate: 107 ID: [id number] QRSD: 78 QT: 308 QTc: 411 [place]: P: 71 ID: [id number] QRS: 6 T: 17 INTERPRETIVE STATEMENTS: Sinus tachycardia Nonspecific T wave abnormality Abnormal ECG Compared to ECG 07/09/2022 08:13:36 T-wave abnormality now present Sinus rhythm no longer present Myocardial infarct finding no longer present Electronically Signed On 12-10-22 12:12:52 CDT by Alfredo Reno
== END 2022-12-09 22:27 | disposition home or self-care (01) ==
LOC: ER 18:57
PROC: 0H96XZZ Drainage of Back Skin, External Approach (ICD-10-PCS; principal; 2022-12-09)
DX: L02.212 Cutaneous abscess of back [any part, except buttock and flank] (principal); L03.312 Cellulitis of back [any part except buttock and flank]; R07.9 Chest pain, unspecified; I10 Essential (primary) hypertension
CPT/HCPCS: 93005; 85025; 80048; 36415; 83735; 85610; 80076; 83605; 84484; 83880; 71045; 96375; 96374; 99285; 10060; J2001; J2405; J7030

== ENCOUNTER 2023-11-10 18:45 | Emergency (ER) | payer BC ==
[2023-11-10 19:35] LABS: Specific Gravity 1.023 (1.005-1.030); Urine Bilirubin NEGATIVE (Negative); Urine Blood Negative (Negative); Urine Clarity Clear (Clear); Urine Color Light-Yellow (Yellow); Urine Glucose NEGATIVE (Negative); Urine Ketones TRACE (Negative); Urine Microscopic Reflex YN NO UMIC; Urine Nitrite NEGATIVE (Negative); Urine Protein NEGATIVE (Negative); Urine Urobilinogen Normal (Normal)
--- NOTE | 2023-11-10 19:53 | RAD REPORT ---
EXAM DESCRIPTION: CT - Abdomen Pelvis Wo Contrast - 11/10/2023 7:40 pm CLINICAL HISTORY: Abdominal pain. ABD PAIN COMPARISON: <Comparisons> TECHNIQUE: CT imaging of the abdomen and pelvis was performed without contrast. Solid organ, bowel a nd vascular assessment is limited due to lack of IV and oral contrast. All CT scans are performed using dose optimization technique as appropriate and may include automated exposure control or mA/KV adjustment according to patient size. FINDINGS: The lower lung phelps are clear.Cholecystectomy clips. The liver, spleen, pancreas, adrenal glands and kidneys are within normal limits for a limited non-co ntrast examination. No bowel obstruction, free air, free fluid or abscess. Prominent sigmoid diverticulosis coli without diverticulitis. Moderate stool throughout the colon. Anterior hernia mesh present. The appendix is no rmal. Mild lumbar degenerative changes. IMPRESSION: No acute intra-abdominal or pelvic findings. Prominent sigmoid diverticulosis coli witho ut diverticulitis. A limited non-contrast examination was performed as detailed.
[2023-11-10 20:10] LABS: Absolute Basophils 0.1 K/uL (0-0.5); Absolute Eosinophils 0.2 K/uL (0-0.5); Absolute Lymphocytes (CBC) 2.5 K/uL (0.7-4.9); Absolute Monocytes 0.7 K/uL (0.1-1.3); Absolute Neutrophil 4.3 K/uL (1.8-8.0); Basophils % 1.6 % (0-1.3); Eosinophils % 2.1 % (0-4.4); Hematocrit 40.9 % (39.6-49.0); Hemoglobin 13.5 g/dL (13.6-17.9); Lymphocytes % 31.9 % (15.3-44.8); MCH 31.1 pg (27.0-35.0); MCV 94.4 fL (80-100); MPV 7.7 fL (7.6-11.3); Monocytes % 8.6 % (3.3-12.3); Neutrophils % 55.8 % (41.7-73.7); Nucleated Red Blood Cells % 0.1 % (0-0); Platelets 304 thou/uL (152-406); RBC Red Blood Cell Count 4.33 M/uL (4.33-5.43); Red Cell Distribution Width 14.6 % (12.1-15.2)
[2023-11-10 20:30] LABS: Albumin 3.7 g/dL (3.4-5.0); Albumin/Globulin Ratio 0.9 (1.1-1.8); Anion Gap 10.2 mEq/L (5.0-15.0); Bilirubin Total 0.4 mg/dL (0.2-1.0); Globulin 4.2 g/dL (2.3-3.5); Potassium 4.2 mEq/L (3.5-5.1); Protein, Total 7.9 g/dL (6.4-8.2)
--- NOTE | 2023-11-10 20:41 | EDPHYS ---
Physician Documentation [facility] Name: Ethan Hall Age: 53 yrs Sex: Male : 1970 Arrival Date: 11/10/2023 Time: 18:45 Bed 8 Private MD: ED Physician Wolfgang Vazquez HPI: 11/09 20:39 This 53 yrs old Black Male presents to ER via Ambulatory with complaints of Abdominal kb Pain, Back Pain. 20:39 Pt is a 53 year old male who presents for left flank pain that radiates to left lower kb quadrant that started 2 days ago. Denies n/v/d. States he has noticed foul smelling urine and has been urinating more frequently over the last two days. Denies feve.r . Historical: - Allergies: 19:03 No Known Allergies; ap3 - PMHx: 19:03 Hernia; Hypertension; ap3 - PSHx: 19:03 Cholecystectomy; hernia repair; ap3 - Immunization history:: Client reports having NOT received the Covid vaccine. Flu vaccine is not up to date. - Infectious Disease History:: Denies. - Social history:: Smoking status: Patient denies any tobacco usage or history of. ROS: 20:38 Constitutional: As per HPI kb Exam: 20:38 Constitutional: This is a well developed, well nourished patient who is awake, alert, kb and in no acute distress. Head/Face: Normocephalic, atraumatic. ENT: Moist Mucous membranes Cardiovascular: Regular rate Respiratory: Respirations even and unlabored. No increased work of breathing. Talking in full sentences Skin: Warm, dry with normal turgor. Normal color. MS/ Extremity: Pulses equal, no cyanosis. Neurovascular intact. Full, normal range of motion. Neuro: Awake and alert, GCS 15, oriented to person, place, time, and situation. Moves all extremities. Normal gait. 20:38 Abdomen/GI: Inspection: obese Bowel sounds: normal, Palpation: soft, in all quadrants, mild abdominal tenderness, in the left lower quadrant, 20:38 Back: CVA tenderness, that is mild, is noted on the left, Vital Signs: 19:01 BP 150 / 99; Pulse 81; Resp 18; Temp 98.1(O); Pulse Ox 99% ; Weight 117.93 kg; Height 5 ap3 ft. 7 in. ; Pain 5/10; 20:06 BP 162 / 84; Pulse 75; Resp 18; Pulse Ox 97% on R/A; km8 19:01 Body Mass Index 40.72 (117.93 kg, 170.18 cm) ap3 19:01 Pain Scale: Adult ap3 Ujsta Coma Score: 20:06 Eye Response: spontaneous(4). Motor Response: obeys commands(6). Verbal Response: km8 oriented(5). Total: 15. MDM: 18:50 Patient medically screened. kb 20:38 Differential diagnosis: diverticulitis, non-specific abd pain, Pyelonephritis, kb Ureterolithiasis, urinary tract infection. Data reviewed: vital signs, nurses notes. Counseling: I had a detailed discussion with the patient and/or guardian regarding the historical points, exam findings, and any diagnostic results supporting the discharge/admit diagnosis, lab results, radiology results, the need for outpatient follow up, a family practitioner, to return to the emergency department if symptoms worsen or persist or if there are any questions or concerns that arise at home. 11/09 19:05 Order name: CBC with Diff; Complete Time: 20:19 kb 11/09 19:05 Order name: CMP; Complete Time: 20:34 kb 11/09 19:05 Order name: Lipase; Complete Time: 20:34 kb 11/09 19:05 Order name: Urinalysis w/ reflexes; Complete Time: 19:40 kb 11/09 19:05 Order name: CT Abd/Pelvis - Without Contrast; Complete Time: 19:59 kb 11/09 19:05 Order name: IV Saline Lock; Complete Time: 19:58 kb 11/09 19:05 Order name: Labs collected and sent; Complete Time: 19:58 kb Administered Medications: No medications were administered Disposition Summary: 11/10/23 20:40 Discharge Ordered Notes: Location: Home kb Condition: Stable kb Diagnosis - Abdominal pain, unspecified kb Followup: kb - With: Emergency Department - When: As needed - Reason: Worsening of condition Followup: kb - With: Private Physician - When: 2 - 3 days - Reason: Recheck today's complaints, Continuance of care, Re-evaluation by your physician Discharge Instructions: - Discharge Summary Sheet kb - Abdominal Pain, Adult, [id number] kb - Flank Pain, Adult, [id number] kb Forms: - Medication Reconciliation Form kb - Antibiotic Education kb - Prescription Opioid Use kb - Patient Portal Instructions kb - Leadership Thank You Letter kb Signatures: Dispatcher [employer] Flores Mac FNP-C FNP-Ckb Prokisch, Amanda, RN RN ap3
--- NOTE | 2023-11-10 20:41 | ER ---
Nurse's Notes [facility] Name: Ethan Hall Age: 53 yrs Sex: Male : 1970 Arrival Date: 11/10/2023 Time: 18:45 Bed 8 Private MD: Diagnosis: Abdominal pain, unspecified Presentation: 11/09 19:01 Chief complaint: Patient states: he has been having left lower back pain for approx 2 ap3 days that rotates around to the left lower abdomen. patient also reports foul urine and frequent bowel movements during this time. patient rates his pain as a 5/10 on the pain scale. Coronavirus screen: At this time, the client does not indicate any symptoms associated with coronavirus-19. Ebola Screen: No symptoms or risks identified at this time. Initial Sepsis Screen: Does the patient meet any 2 criteria? No. Patient's initial sepsis screen is negative. Does the patient have a suspected source of infection? No. Patient's initial sepsis screen is negative. Risk Assessment: Do you want to hurt yourself or someone else? Patient reports no desire to harm self or others. Onset of symptoms was November 08, 2023. 19:01 Method Of Arrival: Ambulatory ap3 19:01 Acuity: CHRISTINA 3 ap3 Triage Assessment: 19:03 General: Appears in no apparent distress. Behavior is calm, cooperative, appropriate ap3 for age. Pain: Complains of pain in left low back Pain radiates to left lower quadrant Pain currently is 5 out of 10 on a pain scale. at worst was 9 out of 10 on a pain scale. Pain began 2-3 days ago. Neuro: Level of Consciousness is awake, alert, obeys commands, Oriented to person, place, time, situation, Appropriate for age. Cardiovascular: Patient's skin is warm and dry. Respiratory: Airway is patent Respiratory effort is even, unlabored, Respiratory pattern is regular, symmetrical. GI: Reports lower abdominal pain. Historical: - Allergies: 19:03 No Known Allergies; ap3 - PMHx: 19:03 Hernia; Hypertension; ap3 - PSHx: 19:03 Cholecystectomy; hernia repair; ap3 - Immunization history:: Client reports having NOT received the Covid vaccine. Flu vaccine is not up to date. - Infectious Disease History:: Denies. - Social history:: Smoking status: Patient denies any tobacco usage or history of. Screenin:04 [facility] ED Fall Risk Assessment (Adult) History of falling in the last 3 months, ap3 including since admission No falls in past 3 months (0 pts) Confusion or Disorientation No (0 pts) Intoxicated or Sedated No (0 pts) Impaired Gait No (0 pts) Mobility Assist Device Used No (0 pt) Altered Elimination No (0 pt) Score/Fall Risk Level 0 - 2 = Low Risk Oriented to surroundings, Maintained a safe environment, Educated pt \T\ family on fall prevention, incl call for assistance when getting out of bed, Assessed \T\ reinforced patient's understanding of fall precautions, Provided non-skid footwear, Hourly rounding (assess needs \T\ fall precautionary measures) done, Used ambulatory aids as needed (educated on \T\ assisted with), Used gait belt as appropriate. Abuse screen: Denies threats or abuse. Nutritional screening: No deficits noted. Tuberculosis screening: No symptoms or risk factors identified. Assessment: 20:06 General: Appears in no apparent distress. comfortable, Behavior is calm, cooperative, km8 appropriate for age. Pain: Complains of pain in left low back Pain radiates to left lower quadrant Pain currently is 5 out of 10 on a pain scale. Quality of pain is described as aching, pressure, sharp, Pain began 2-3 days ago. Is intermittent, Aggravated by repositioning, walking. Neuro: Level of Consciousness is awake, alert, obeys commands, Oriented to person, place, time, situation. Cardiovascular: Denies chest pain, shortness of breath, Patient's skin is warm and dry. Respiratory: Airway is patent Respiratory effort is even, unlabored, Respiratory pattern is regular, symmetrical. GI: Abdomen is obese, Bowel sounds present X 4 quads. Abdomen is tender to palpation in left lower quadrant Reports lower abdominal pain, diarrhea, Patient currently denies nausea, vomiting. : Reports urinary frequency. EENT: No signs and/or symptoms were reported regarding the EENT system. Derm: No signs and/or symptoms reported regarding the dermatologic system. Skin is intact, is healthy with good turgor, Skin is dry, Skin is pink, warm \T\ dry. normal, Skin temperature is warm. Musculoskeletal: No signs and/or symptoms reported regarding the musculoskeletal system. Range of motion: intact in all extremities. 20:48 Reassessment: Patient appears in no apparent distress at this time. Patient and/or jb4 family updated on plan of care and expected duration. Pain level reassessed. Patient is alert, oriented x 3, equal unlabored respirations, skin warm/dry/pink. Vital Signs: 19:01 BP 150 / 99; Pulse 81; Resp 18; Temp 98.1(O); Pulse Ox 99% ; Weight 117.93 kg; Height 5 ap3 ft. 7 in. ; Pain 5/10; 20:06 BP 162 / 84; Pulse 75; Resp 18; Pulse Ox 97% on R/A; km8 19:01 Body Mass Index 40.72 (117.93 kg, 170.18 cm) ap3 19:01 Pain Scale: Adult ap3 Justa Coma Score: 20:06 Eye Response: spontaneous(4). Motor Response: obeys commands(6). Verbal Response: km8 oriented(5). Total: 15. ED Course: 18:46 Patient arrived in ED. rg4 18:50 Flores Montano FNP-C [facility]. kb 18:50 Wolfgang Vazquez MD is Attending Physician. kb 19:03 Triage completed. ap3 19:04 Arm band placed on right wrist. ap3 19:41 CT Abd/Pelvis - Without Contrast In Process Unspecified. EDMS 19:56 Inserted saline lock: 20 gauge in right antecubital area, using aseptic technique. ty Blood collected. 19:56 Initial lab(s) drawn, by me, sent to lab. ty 19:59 CBC with Diff Sent. ty 19:59 CMP Sent. ty 19:59 Lipase Sent. ty 20:02 Krystyna Mauricio, REINA is Primary Nurse. km8 20:06 Patient has correct armband on for positive identification. Bed in low position. Call km8 light in reach. Side rails up X 1. Provided Education on: call light use. Pulse ox on. NIBP on. 20:06 No provider procedures requiring assistance completed. km8 20:48 IV discontinued, intact, bleeding controlled, No redness/swelling at site. Pressure jb4 dressing applied. Administered Medications: No medications were administered Medication: 20:06 VIS not applicable for this client. km8 Outcome: 20:40 Discharge ordered by . kb 20:48 Discharged to home ambulatory, jb4 20:48 Condition: stable 20:48 Discharge instructions given to patient, Instructed on discharge instructions, follow up and referral plans. Demonstrated understanding of instructions, follow-up care, 20:48 Patient left the ED. jb4 Signatures: Dispatcher [employer] EDFlores Batres, BATCH MIXER-C BATCH MIXER-Christine Cho rg4 Shubham Mistry, RN RN jb4 Aleida Ryan RN RN ap3 Krystyna Mauricio RN RN km8 Suresh Rothman ty Corrections: (The following items were deleted from the chart) 19:59 19:59 Inserted saline lock: 20 gauge in right antecubital area, using aseptic ty technique. Blood collected. ty
[2023-11-10 21:08] VITALS: BP 162/84; TEMP 98.1; O2SAT 97
== END 2023-11-10 20:48 | disposition home or self-care (01) ==
LOC: ER 18:45
DX: R10.32 Left lower quadrant pain (principal)
CPT/HCPCS: 36415; 74176; 80053; 81003; 83690; 85025; 99284

== ENCOUNTER 2024-04-11 17:52 | Emergency (ER) | payer BC ==
[2024-04-11] MEDS ORDERED: ONDANSETRON 4 MG/2 ML VIAL ONE (18:27)
[2024-04-11] MEDS ORDERED: KETOROLAC 30 MG/ML INJ ONE (18:27)
[2024-04-11] MEDS ORDERED: NA CHLORIDE 0.9% 1,000 ML ONE (18:27)
[2024-04-11 18:47] LABS: Absolute Basophils 0.1 K/uL (0-0.5); Absolute Eosinophils 0.1 K/uL (0-0.5); Absolute Lymphocytes (CBC) 1.6 K/uL (0.7-4.9); Absolute Monocytes 0.6 K/uL (0.1-1.3); Absolute Neutrophil 5.8 K/uL (1.8-8.0); Basophils % 1.2 % (0-1.3); Eosinophils % 1.6 % (0-4.4); Hemoglobin 13.8 g/dL (13.6-17.9); Lymphocytes % 19.6 % (15.3-44.8); MCH 31.2 pg (27.0-35.0); MCHC 33.6 g/dL (32.0-36.0); MCV 92.9 fL (80-100); MPV 7.8 fL (7.6-11.3); Monocytes % 7.7 % (3.3-12.3); Neutrophils % 69.9 % (41.7-73.7); Nucleated Red Blood Cells % 0.1 % (0-0); Platelets 291 thou/uL (152-406); RBC Red Blood Cell Count 4.41 M/uL (4.33-5.43); Red Cell Distribution Width 15.3 % (12.1-15.2)
[2024-04-11 19:02] LABS: Sqamous Epithelial <5 /HPF (None Seen); Urine Bacteria <20 /HPF (<20); Urine Bilirubin NEGATIVE (Negative); Urine Blood Negative (Negative); Urine Clarity Extremely Turbid (Clear); Urine Color Light-Yellow (Yellow); Urine Culture Reflex Order NOT NEEDED; Urine Glucose NEGATIVE (Negative); Urine Ketones NEGATIVE (Negative); Urine Microscopic Reflex YN ORDER UMIC; Urine Mucus Slight /HPF (None Seen); Urine Nitrite NEGATIVE (Negative); Urine Protein TRACE (Negative); Urine RBC <5 /HPF (None Seen); Urine Urobilinogen Normal (Normal); Urine WBC <5 /HPF (<5); Urine pH 5.5 (5.0-7.0)
[2024-04-11 19:12] LABS: Albumin 3.4 g/dL (3.4-5.0); Albumin/Globulin Ratio 0.8 (1.1-1.8); Anion Gap 7.8 mEq/L (5.0-15.0); Bilirubin Total 0.6 mg/dL (0.2-1.0); Globulin 4.5 g/dL (2.3-3.5); Potassium 3.8 mEq/L (3.5-5.1); Protein, Total 7.9 g/dL (6.4-8.2)
--- NOTE | 2024-04-11 19:47 | RAD REPORT ---
EXAMINATION: CT ABDOMEN AND PELVIS WITHOUT CONTRAST CLINICAL INDICATION: PAIN TECHNIQUE: CT abdomen and pelvis was performed, without IV contrast, as per department protocol. Axia l, sagittal and coronal reconstructions were obtained. One or more of the following dose reduction techniques were used: Automated exposure control, adjustment of the mA and kV according to the patien t size, and iterative reconstruction. Unless otherwise specified, incidental findings do not require dedicated imaging follow-up. COMPARISON: 11/10/2023 FINDINGS: The lack of intravenous contrast limits the sensitivity of this exam for evaluation of solid visceral organs, vascular structures, and retroperitoneum. LOWER CHEST: The visualized lung bases are clear. Small lymph nodes noted at the gastroesophageal ebony ction. LIVER:Normal in size and contour. No focal lesion. Cholecystectomy clips. SPLEEN: Normal size. No focal lesion. PANCREAS: No mass, ductal dilation, or ayaan-pancreatic fluid. ADRENALS: Normal; no mass. KIDNEYS AND URETERS: Normal size and contour. No hydronephrosis. 18 mm cyst medial anterior left kidn ey. URINARY BLADDER: Normal contour. GASTROINTESTINAL TRACT: There is significant inflammation noted in the region of the ileocecal valve measuring 4 cm length in totality. Several diverticula are present which appear inflamed in the region. There is eccentric wall thickening seen measuring up to 2.8 cm. There is mild diverticulosis coli of the sigmoid colon without diverticulitis. APPENDIX: Normal appendix. LYMPH NODES: Enlarged lymph nodes are seen in the mesocolon adjacent to the inflamed segment measurin g up to 13 mm. MUSCULOSKELETAL: No acute or suspicious osseous abnormality. ADDITIONAL FINDINGS: Anterior hernia mesh. IMPRESSION: 4 cm length of the ascending colon in the region of the ileocecal valve shows mild to moderate inflam mation and surrounding lymphadenopathy. This may be related to localized acute diverticulitis or mass/malignancy. Recommend colonoscopy follow-up for direct visualization of this region.
--- NOTE | 2024-04-11 20:19 | EDPHYS ---
Physician Documentation [facility] Name: Ethan Hall Age: 54 yrs Sex: Male : 1970 Arrival Date: 04/11/2024 Time: 17:52 Bed 19 Private MD: ED Physician Josr Harris HPI: 04/11 20:14 This 54 yrs old Black Male presents to ER via Ambulatory with complaints of Back Pain, kb Abdominal Pain, Vomiting. 20:14 Pt is a 54 year old male who presents for right flank pain that radiates to right lower kb quadrant that began 3-4 days ago. states he had some nausea associated with it and started vomiting at the end of the work day today. Denies fever, diarrhea, urinary symptoms. . Historical: - Allergies: 18:16 No Known Allergies; tm6 - Home Meds: 20:39 amlodipine 5 mg tablet daily [Active]; lisinopril 40 mg Oral tablet daily [Active]; kj2 - PMHx: 18:16 Hernia; Hypertension; tm6 - PSHx: 18:16 Cholecystectomy; hernia repair; tm6 - Immunization history:: Client reports having NOT received the Covid vaccine. - Infectious Disease History:: Denies. - Social history:: Smoking status: Patient denies any tobacco usage or history of. Patient uses alcohol, occasionally. ROS: 20:10 Constitutional: As per HPI kb Exam: 20:10 Constitutional: This is a well developed, well nourished patient who is awake, alert, kb and in no acute distress. Head/Face: Normocephalic, atraumatic. ENT: Moist Mucous membranes Cardiovascular: Regular rate Respiratory: Respirations even and unlabored. No increased work of breathing. Talking in full sentences Skin: Warm, dry with normal turgor. Normal color. MS/ Extremity: Pulses equal, no cyanosis. Neurovascular intact. Full, normal range of motion. Neuro: Awake and alert, GCS 15, oriented to person, place, time, and situation. 20:10 Abdomen/GI: Inspection: abdomen appears normal, Bowel sounds: normal, Palpation: soft, in all quadrants, moderate abdominal tenderness, in the right upper quadrant and right lower quadrant, 20:10 : CVA tenderness, on the right, Vital Signs: 18:14 BP 125 / 81; Pulse 116; Resp 19; Temp 100(O); Pulse Ox 96% on R/A; MAP 95 mmHg; Weight tm6 127.01 kg; Height 5 ft. 7 in. ; Pain 8/10; 19:24 BP 120 / 71; Pulse 100; Resp 18; Temp 98; Pulse Ox 100% on R/A; kj2 20:42 BP 124 / 74; Pulse 90; Resp 18; Temp 97.9; Pulse Ox 100% ; kj2 18:14 Body Mass Index 43.85 (127.01 kg, 170.18 cm) tm6 18:14 Pain Scale: Adult tm6 MDM: 18:00 Medical Screening Exam initiated kb 20:16 Differential diagnosis: non-specific abd pain, Pyelonephritis, kidney stone, kb diverticulitis, obstruction. Data reviewed: vital signs, nurses notes. Historians other than the Patient: Spouse/Significant Other: . Counseling: I had a detailed discussion with the patient and/or guardian regarding the historical points, exam findings, and any diagnostic results supporting the discharge/admit diagnosis, lab results, radiology results, the need for outpatient follow up, a family practitioner, a global category manager, to return to the emergency department if symptoms worsen or persist or if there are any questions or concerns that arise at home. ED course: Pt educated on CT results and given a printed copy. Will treat for diverticulitis and pt will call GI tomorrow to make appt for colonoscopy. Educated on possibility of mass and importance of follow up. Verbal understanding received. . 04/11 18:15 Order name: CBC with Diff; Complete Time: 18:50 kb 04/11 18:15 Order name: CMP; Complete Time: 19:15 kb 04/11 18:15 Order name: Lipase; Complete Time: 19:15 kb 04/11 18:15 Order name: Urinalysis w/ reflexes; Complete Time: 19:04 kb 04/11 18:15 Order name: CT Stone Protocol; Complete Time: 19:50 kb 04/11 18:15 Order name: IV Saline Lock; Complete Time: 18:50 kb 04/11 18:15 Order name: Labs collected and sent; Complete Time: 18:50 kb Administered Medications: 18:35 Drug: TORadol - Ketorolac IVP 15 mg IVP once Route: IVP; Site: right antecubital; jb4 20:52 Follow up: Response: No adverse reaction kj2 18:35 Drug: Ondansetron IVP 4 mg IVP once; over 2 minutes Route: IVP; Site: right antecubital;jb4 20:52 Follow up: Response: No adverse reaction kj2 18:35 Drug: NS 0.9% IV 1000 ml IV at 1 bolus Per protocol; to be given as a bolus over 60 jb4 minutes Route: IV; Rate: 1 bolus; Site: right antecubital; 20:53 Follow up: IV Status: Completed infusion; IV Intake: 1000ml kj2 20:51 Drug: Ciprofloxacin PO 500 mg PO once Route: PO; kj2 20:52 Follow up: Response: Medication administered at discharge. kj2 20:51 Drug: metroNIDAZOLE PO 500 mg PO once Route: PO; kj2 20:51 Follow up: Response: Medication administered at discharge. kj2 Disposition Summary: 04/11/24 20:18 Discharge Ordered Notes: Location: Home kb Condition: Stable kb Diagnosis - Diverticulitis of intestine, part unspecified, without perforation or abscess kb without bleeding Followup: kb - With: Emergency Department - When: As needed - Reason: Worsening of condition Followup: kb - With: Private Physician - When: 2 - 3 days - Reason: Recheck today's complaints, Continuance of care, Re-evaluation by your physician Discharge Instructions: - Discharge Summary Sheet kb - Diverticulitis, [id number] kb Forms: - Medication Reconciliation Form kb - Antibiotic Education kb - Prescription Opioid Use kb - Patient Portal Instructions kb - Leadership Thank You Letter kb Prescriptions: - Flagyl 500 mg Oral Tablet - take 1 tablet ORAL route every 8 hours for 10 days; 30 tablet; Refills: 0, kb Product Selection Permitted - Zofran 4 mg Oral tablet - take 1 tablet ORAL route every 6 hours As needed; 12 tablet; Refills: 0, kb Product Selection Permitted - Cipro 500 mg Oral tablet - take 1 tablet ORAL route every 12 hours for 10 days; 20 tablet; Refills: 0, kb Product Selection Permitted Signatures: Dispatcher [employer] Flores Mac FNP-C FNP-Shubham Lr, RN RN jb4 Josh Patel RN RN tm6 Cate Sarmiento RN RN kj2 Corrections: (The following items were deleted from the chart) 18:15 18:15 Stone Protocol+CT.RAD.BRZ ordered. EDMS EDMS
--- NOTE | 2024-04-11 20:19 | ER ---
Nurse's Notes [facility] Name: Ethan Hall Age: 54 yrs Sex: Male : 1970 Arrival Date: 04/11/2024 Time: 17:52 Bed 19 Private MD: Diagnosis: Diverticulitis of intestine, part unspecified, without perforation or abscess without bleeding Presentation: 04/11 18:14 Chief complaint: Patient states: right lower back pain x5 days, radiates to right lower tm6 quadrant. Nausea and vomiting. Coronavirus screen: Client denies travel out of the [place] in the last 14 days. Ebola Screen: Patient negative for fever greater than or equal to 101.5 degrees Fahrenheit, and additional compatible Ebola Virus Disease symptoms Patient denies exposure to infectious person. Patient denies travel to an Ebola-affected area in the 21 days before illness onset. No symptoms or risks identified at this time. Initial Sepsis Screen: Does the patient meet any 2 criteria? HR > 90 bpm. Does the patient have a suspected source of infection? No. Patient's initial sepsis screen is negative. Risk Assessment: Do you want to hurt yourself or someone else? Patient reports no desire to harm self or others. Onset of symptoms was April 07, 2024. 18:14 Method Of Arrival: Ambulatory tm6 18:14 Acuity: CHRISTINA 3 tm6 Triage Assessment: 18:16 General: Appears uncomfortable, Behavior is calm, cooperative. Pain: Complains of pain tm6 in right low back Pain radiates to right lower quadrant Pain currently is 8 out of 10 on a pain scale. Pain began 5 days ago. EENT: No signs and/or symptoms were reported regarding the EENT system. Neuro: Level of Consciousness is awake, alert, obeys commands, Oriented to person, place, time, situation. Cardiovascular: Patient's skin is warm and dry. Respiratory: Airway is patent Respiratory effort is even, unlabored, Respiratory pattern is regular, symmetrical. GI: Abdomen is round Reports nausea, vomiting. GI: Reports lower abdominal pain, Pain is 8 out of 10 on a pain scale. : Reports pain in right flank(s). Derm: No signs and/or symptoms reported regarding the dermatologic system. Musculoskeletal: Circulation, motion, and sensation intact. Historical: - Allergies: 18:16 No Known Allergies; tm6 - Home Meds: 20:39 amlodipine 5 mg tablet daily [Active]; lisinopril 40 mg Oral tablet daily [Active]; kj2 - PMHx: 18:16 Hernia; Hypertension; tm6 - PSHx: 18:16 Cholecystectomy; hernia repair; tm6 - Immunization history:: Client reports having NOT received the Covid vaccine. - Infectious Disease History:: Denies. - Social history:: Smoking status: Patient denies any tobacco usage or history of. Patient uses alcohol, occasionally. Screenin:10 [facility] ED Fall Risk Assessment (Adult) History of falling in the last 3 months, rs5 including since admission No falls in past 3 months (0 pts) Confusion or Disorientation No (0 pts) Intoxicated or Sedated No (0 pts) Impaired Gait No (0 pts) Mobility Assist Device Used No (0 pt) Altered Elimination No (0 pt) Score/Fall Risk Level 0 - 2 = Low Risk Oriented to surroundings, Maintained a safe environment. Abuse screen: Denies threats or abuse. Nutritional screening: No deficits noted. Tuberculosis screening: No symptoms or risk factors identified. Assessment: 18:10 General: Appears uncomfortable, Behavior is calm, cooperative. Pain: Complains of pain rs5 in right lower quadrant Pain currently is 8 out of 10 on a pain scale. Quality of pain is described as aching, Is continuous. Neuro: Level of Consciousness is awake, alert, obeys commands, Oriented to person, place, time, situation. Cardiovascular: Patient's skin is warm and dry. Respiratory: Airway is patent Respiratory effort is even, unlabored, Respiratory pattern is regular, symmetrical. GI: Abdomen is round non-distended, Abd is soft and non tender X 4 quads. GI: Reports nausea. : No signs and/or symptoms were reported regarding the genitourinary system. EENT: No signs and/or symptoms were reported regarding the EENT system. Derm: Skin is intact, Skin is pink, warm \T\ dry. Musculoskeletal: Range of motion: intact in all extremities. 19:00 Reassessment: Patient appears in no apparent distress at this time. Patient and/or kj2 family updated on plan of care and expected duration. Pain level reassessed. Patient is alert, oriented x 3, equal unlabored respirations, skin warm/dry/pink. 19:21 Reassessment: Patient and/or family updated on plan of care and expected duration. Pain rs5 level reassessed. Patient is alert, oriented x 3, equal unlabored respirations, skin warm/dry/pink. 20:41 Reassessment: Patient appears in no apparent distress at this time. Patient and/or kj2 family updated on plan of care and expected duration. Pain level reassessed. Patient is alert, oriented x 3, equal unlabored respirations, skin warm/dry/pink. Vital Signs: 18:14 BP 125 / 81; Pulse 116; Resp 19; Temp 100(O); Pulse Ox 96% on R/A; MAP 95 mmHg; Weight tm6 127.01 kg; Height 5 ft. 7 in. ; Pain 8/10; 19:24 BP 120 / 71; Pulse 100; Resp 18; Temp 98; Pulse Ox 100% on R/A; kj2 20:42 BP 124 / 74; Pulse 90; Resp 18; Temp 97.9; Pulse Ox 100% ; kj2 18:14 Body Mass Index 43.85 (127.01 kg, 170.18 cm) tm6 18:14 Pain Scale: Adult tm6 ED Course: 17:55 Patient arrived in ED. mr 18:00 [facility] kb 18:00 Josr Harris MD is Attending Physician. kb 18:10 Patient has correct armband on for positive identification. Placed in gown. Bed in low rs5 position. Call light in reach. Side rails up X2. 18:10 No provider procedures requiring assistance completed. rs5 18:16 Triage completed. tm6 18:16 Shiva Titus, RN is Primary Nurse. rs5 18:16 Arm band placed on right wrist. tm6 18:30 Initial lab(s) drawn, by me, sent to lab. Inserted saline lock: 18 gauge in right jb4 antecubital area, using aseptic technique. Blood collected. 19:30 CT Stone Protocol In Process Unspecified. EDMS 20:40 Provided Education on: disease process. kj2 20:41 IV discontinued, intact, bleeding controlled, No redness/swelling at site. Pressure kj2 dressing applied. Administered Medications: 18:35 Drug: TORadol - Ketorolac IVP 15 mg IVP once Route: IVP; Site: right antecubital; jb4 20:52 Follow up: Response: No adverse reaction kj2 18:35 Drug: Ondansetron IVP 4 mg IVP once; over 2 minutes Route: IVP; Site: right antecubital;jb4 20:52 Follow up: Response: No adverse reaction kj2 18:35 Drug: NS 0.9% IV 1000 ml IV at 1 bolus Per protocol; to be given as a bolus over 60 jb4 minutes Route: IV; Rate: 1 bolus; Site: right antecubital; 20:53 Follow up: IV Status: Completed infusion; IV Intake: 1000ml kj2 20:51 Drug: Ciprofloxacin PO 500 mg PO once Route: PO; kj2 20:52 Follow up: Response: Medication administered at discharge. kj2 20:51 Drug: metroNIDAZOLE PO 500 mg PO once Route: PO; kj2 20:51 Follow up: Response: Medication administered at discharge. kj2 Medication: 19:22 VIS not applicable for this client. rs5 Intake: 20:53 IV: 1000ml; Total: 1000ml. kj2 Outcome: 20:18 Discharge ordered by . kb 20:40 Discharged to home ambulatory, with family, kj2 20:41 Condition: stable kj2 20:41 Discharge instructions given to patient, Instructed on discharge instructions, follow up and referral plans. medication usage, Demonstrated understanding of instructions, follow-up care, medications, 20:53 Patient left the ED. kj2 Signatures: Dispatcher [employer] EDMS Flores Montano, DOCUMENTATION NURSE-C DOCUMENTATION NURSE-Ckb Rebecca Zuniga, Reg Reg mr Shubham Mistry, RN RN jb4 Shiva Titus RN RN rs5 Josh Patel RN RN tm6 Cate Sarmiento RN RN kj2
[2024-04-11] MEDS ORDERED: CIPROFLOXACIN HCL 500 MG TAB ONE (20:45)
[2024-04-11] MEDS ORDERED: metroNIDAZOLE 500 MG TABLET ONE (20:45)
[2024-04-11 21:08] VITALS: O2SAT 100
[2024-04-11 21:18] VITALS: BP 124/74; TEMP 97.9
== END 2024-04-11 20:53 | disposition home or self-care (01) ==
LOC: ER 17:52
DX: K57.32 Diverticulitis of large intestine without perforation or abscess without bleeding (principal); I10 Essential (primary) hypertension
CPT/HCPCS: 85025; 81001; 36415; 83690; 80053; 76377; 74176; J2405; J7030

== ENCOUNTER 2024-09-14 12:57 | Emergency (ER) | payer BC, OTHER ==
[2024-09-14 14:38] LABS: Absolute Basophils 0.1 K/uL (0-0.5); Absolute Eosinophils 0.2 K/uL (0-0.5); Absolute Lymphocytes (CBC) 1.4 K/uL (0.7-4.9); Absolute Monocytes 0.6 K/uL (0.1-1.3); Absolute Neutrophil 6.6 K/uL (1.8-8.0); Basophils % 0.7 % (0-1.3); Hematocrit 37.7 % (39.6-49.0); Hemoglobin 13.1 g/dL (13.6-17.9); Lymphocytes % 15.7 % (15.3-44.8); MCH 32.2 pg (27.0-35.0); MCHC 34.6 g/dL (32.0-36.0); MPV 7.5 fL (7.6-11.3); Monocytes % 7.2 % (3.3-12.3); Neutrophils % 74.4 % (41.7-73.7); Platelets 275 thou/uL (152-406); RBC Red Blood Cell Count 4.06 M/uL (4.33-5.43); Red Cell Distribution Width 14.4 % (12.1-15.2)
[2024-09-14 14:53] LABS: Albumin 3.6 g/dL (3.4-5.0); Albumin/Globulin Ratio 0.9 (1.1-1.8); Bilirubin Total 0.5 mg/dL (0.2-1.0); Globulin 4.1 g/dL (2.3-3.5); Protein, Total 7.7 g/dL (6.4-8.2)
[2024-09-14] MEDS ORDERED: NA CHLORIDE 0.9% 1,000 ML ONE (15:28)
[2024-09-14] MEDS ORDERED: MORPHINE 4 MG/ML SYR ONE (15:28)
--- NOTE | 2024-09-14 16:50 | RAD REPORT ---
EXAMINATION: CT Abdomen Pelvis W Contrast CLINICAL INDICATION: Male, 54 years old. ABD PAIN TECHNIQUE: CT abdomen and pelvis was performed, after the administration of IV contrast, as per [facility] protocol. Axial, sagittal and coronal reconstructions were obtained. One or more of the following dose reduction techniques were used: Automated exposure control, adjustment of the mA and k V according to patient size, and iterative reconstruction. Unless otherwise specified, incidental findings do not require dedicated imaging follow-up. COMPARISON: 09/22/2021 FINDINGS: LOWER CHEST: The visualized lung bases are clear. LIVER: Normal in size and contour. No focal lesion. BILIARY SYSTEM: Status post cholecystectomy. SPLEEN: Normal size. No focal lesion. PANCREAS: No mass, ductal dilation, or ayaan-pancreatic fluid. ADRENALS: Normal; no mass. KIDNEYS: Normal size and contour. No hydronephrosis. Stable small bilateral cortical cystic lesions. URINARY BLADDER: Unremarkable. GASTROINTESTINAL TRACT: Few small diverticula of the terminal ileum again seen. Inflammatory changes with fat stranding centered on a medially projecting diverticulum of the terminal ileum, see series 201 image 51, and series 202 image 33 among others. No adjacent fluid collections or soft tissue gas. No evidence of free air, significant intra-abdominal free fluid, bowel obstruction or abscess. Extensive diverticulosis throughout the colon, without other evidence of acute diverticulitis. APPENDIX: Normal appendix. LYMPH NODES: No lymphadenopathy. MUSCULOSKELETAL: No acute or suspicious osseous abnormality. ADDITIONAL FINDINGS: Sequelae of ventral hernia mesh repair. IMPRESSION: Sequelae of acute diverticulitis of the terminal ileum, without evidence of complications. Other incidental findings including extensive colonic diverticulosis, without evidence of colonic acu te diverticulitis. THIS REPORT CONTAINS FINDINGS THAT MAY BE CRITICAL TO PATIENT CARE. The findings were verbally commun icated via telephone to Wolfgang Vazquez M.D. on 09/14/2024 4:17 PM.
--- NOTE | 2024-09-14 17:23 | EDPHYS ---
Physician Documentation [facility] Name: Ethan Hall Age: 54 yrs Sex: Male : 1970 Arrival Date: 09/14/2024 Time: 12:57 Bed 4 Private MD: ED Physician Devin Orosco HPI: 09/14 13:13 This 54 yrs old Black Male presents to ER via Unassigned with complaints of Abdominal ms3 Pain. 13:13 Patient has a past medical history of hypertension and diverticulitis. He is presenting ms3 to the ER for sharp LLQ abdominal pain that began on Wednesday. Patient does not endorse any alleviating or inciting factors. Patient endorses black stools, headache, nausea, and belching. Patient denies shortness of breath, vomiting, chest pain, dysuria, and hematuria. . Historical: - Allergies: 13:21 No Known Allergies; iw - PMHx: 13:21 Hypertension; Hernia; iw - PSHx: 13:21 Cholecystectomy; hernia repair; iw - Immunization history:: Adult Immunizations not up to date. - Infectious Disease History:: Denies. - Social history:: Smoking status: Patient denies any tobacco usage or history of. ROS: 13:13 Eyes: Negative for blurry vision, visual disturbance, ms3 13:13 ENT: Negative for sinus congestion, sore throat, 13:13 Neck: Negative for acute changes, 13:13 Cardiovascular: Negative for chest pain, palpitations, 13:13 Respiratory: Negative for cough, shortness of breath, wheezing, 13:13 Abdomen/GI: Positive for abdominal pain, nausea, black/tarry stool, Negative for vomiting, 13:13 Back: Negative for radiated pain, 13:13 : Negative for hematuria, burning with urination, acute changes, 13:13 MS/extremity: Negative for pain, paresthesias, 13:13 Skin: Negative for acute changes, 13:13 Neuro: Positive for headache, Negative for weakness, 21:51 Constitutional: Negative for fever, and chills. ms3 Exam: 21:18 Constitutional: This is a well developed, well nourished patient who is awake, alert, ms3 and in no acute distress. Chest/axilla: Normal chest wall appearance and motion. Nontender with no deformity. Cardiovascular: Regular rate and rhythm with a normal S1 and S2. No gallops, murmurs, or rubs. Normal PMI, no JVD. No pulse deficits. Respiratory: Lungs have equal breath sounds bilaterally, clear to auscultation and percussion. No rales, rhonchi or wheezes noted. No increased work of breathing, no retractions or nasal flaring. Abdomen/GI: Soft, non-tender, with normal bowel sounds. No distension or tympany. No guarding or rebound. No evidence of tenderness throughout. Skin: Warm, dry with normal turgor. Normal color with no rashes, no lesions, and no evidence of cellulitis. MS/ Extremity: Pulses equal, no cyanosis. Neurovascular intact. Full, normal range of motion. Neuro: Awake and alert, GCS 15, oriented to person, place, time, and situation. Cranial nerves II-XII grossly intact. Motor strength 5/5 in all extremities. Sensory grossly intact. Cerebellar exam normal. Normal gait. Vital Signs: 13:20 BP 125 / 85; Pulse 110; Resp 18; Temp 97.6; Pulse Ox 97% ; Weight 122.47 kg; Height 5 iw ft. 7 in. ; Pain 6/10; 15:33 BP 128 / 77; Pulse 94; Resp 18; Temp 97.9; Pulse Ox 99% on R/A; ph 17:02 BP 134 / 78; Pulse 94; Resp 18; Pulse Ox 100% on R/A; ph 13:20 Body Mass Index 42.29 (122.47 kg, 170.18 cm) iw 13:20 Pain Scale: Adult iw MDM: 13:12 Medical Screening Exam initiated ms3 21:50 Differential diagnosis: diverticulitis, non-specific abd pain, pancreatitis. Data ms3 reviewed: vital signs, nurses notes, lab test result(s), radiologic studies, and as a result, I will discharge patient. I considered the following discharge prescriptions or medication management in the emergency department Medications were administered in the Emergency Department. See MAR. Counseling: I had a detailed discussion with the patient and/or guardian regarding the historical points, exam findings, and any diagnostic results supporting the discharge/admit diagnosis, lab results, radiology results, the need for outpatient follow up, to return to the emergency department if symptoms worsen or persist or if there are any questions or concerns that arise at home. Special discussion: Based on the patient's Hx, exam, and Dx evaluation, there is no indication for emergent surgery or inpatient Tx. It is understood by the patient/guardian that if the Sx's persist or worsen they need to return immediately for re-evaluation. ED course: Discussed labs and CT findings with patient. Patient to follow-up with primary care physician and GI in 2 to 3 days. Patient understands and agrees with plan. All questions were answered. Return precautions discussed include worsening symptoms, or any other concerns. Patient given prescription for Augmentin. On reevaluation patient symptoms improved, patient is alert and oriented x 4, no apparent distress, nontoxic-appearing, speaking full sentences, ambulatory in the emergency department. 09/14 13:01 Order name: CBC with Diff; Complete Time: 15:28 ms3 09/14 13:01 Order name: CMP; Complete Time: 15:28 ms3 09/14 13:01 Order name: Lipase; Complete Time: 15:28 ms3 09/14 14:01 Order name: CT Abd/Pelvis - IV Contrast Only; Complete Time: 17:07 ms3 09/14 13:01 Order name: IV Saline Lock; Complete Time: 14:31 ms3 09/14 13:01 Order name: Labs collected and sent; Complete Time: 14:31 ms3 Administered Medications: 15:33 Drug: morphine IVP or IV 4 mg IVP once over 4 mins Route: IVP; Infused Over: 4 mins; ph Site: right antecubital; 17:38 Follow up: Response: No adverse reaction ph 15:33 Drug: NS 0.9% IV 1000 ml IV at 1000 ml once; to be given as a bolus over 60 minutes ph Route: IV; Rate: 1000 ml; Site: right antecubital; 17:36 Follow up: Response: No adverse reaction; IV Status: Completed infusion; IV Intake: ph 1000ml Disposition Summary: 09/14/24 17:23 Discharge Ordered Notes: Location: Home ms3 Condition: Stable ms3 Diagnosis - Diverticulitis of large intestine without perforation or abscess without bleeding ms3 Followup: ms3 - With: Adrian Harris DO - When: 2 - 3 days - Reason: Recheck today's complaints Followup: ms3 - With: Shimon Lay MD - When: 2 - 3 days - Reason: Recheck today's complaints Discharge Instructions: - Discharge Summary Sheet ms3 - High-Fiber Eating Plan ms3 - Diverticulitis, [id number] ms3 Forms: - Medication Reconciliation Form ms3 - Antibiotic Education ms3 - Prescription Opioid Use ms3 - Patient Portal Instructions ms3 - Leadership Thank You Letter ms3 Prescriptions: - Augmentin 875-125 mg Oral Tablet - take 1 tablet ORAL route every 12 hours for 10 days; 20 tablet; Refills: 0, ms3 Product Selection Permitted Signatures: Dispatcher [employer] Adrianne Hall, REINA RN Alexandrea Ontiveros RN RN Devin Orosco, DO ms3 Corrections: (The following items were deleted from the chart) 13:01 13:01 CBC+H.LAB.BRZ ordered. EDMS EDMS 13:01 13:01 COMPREHENSIVE METABOLIC PANEL+C.LAB.BRZ ordered. EDMS EDMS 13:01 13:01 LIPASE+C.LAB.BRZ ordered. EDMS EDMS 14:01 14:01 Abdomen Pelvis W Con+CT.RAD.BRZ ordered. EDMS EDMS 21:52 13:13 Patient has a past medical history of hypertension and diverticulitis. He is ms3 presenting to the ER for sharp LLQ abdominal pain that began on Wednesday. Patient does not endorse any alleviating or inciting factors. Patient endorses black stools, headache, nausea, and belching. Patient denies shortness of breath, vomiting, chest pain, dysuria, and hematuria. . ms3
--- NOTE | 2024-09-14 17:23 | ER ---
Nurse's Notes [facility] Name: Ethan Hall Age: 54 yrs Sex: Male : 1970 Arrival Date: 09/14/2024 Time: 12:57 Bed 4 Private MD: Diagnosis: Diverticulitis of large intestine without perforation or abscess without bleeding Presentation: 09/14 13:20 Chief complaint: Patient states: left abd pain since Wednesday , having frequent BM that iw are black in color. Coronavirus screen: At this time, the client does not indicate any symptoms associated with coronavirus-19. Ebola Screen: No symptoms or risks identified at this time. Initial Sepsis Screen: Does the patient meet any 2 criteria? No. Patient's initial sepsis screen is negative. Does the patient have a suspected source of infection? No. Patient's initial sepsis screen is negative. Risk Assessment: Do you want to hurt yourself or someone else? Patient reports no desire to harm self or others. Onset of symptoms was September 12, 2024. 13:20 Method Of Arrival: Ambulatory iw 13:20 Acuity: CHRISTINA 3 iw Historical: - Allergies: 13:21 No Known Allergies; iw - PMHx: 13:21 Hypertension; Hernia; iw - PSHx: 13:21 Cholecystectomy; hernia repair; iw - Immunization history:: Adult Immunizations not up to date. - Infectious Disease History:: Denies. - Social history:: Smoking status: Patient denies any tobacco usage or history of. Screenin:35 [facility] ED Fall Risk Assessment (Adult) History of falling in the last 3 months, ph including since admission No falls in past 3 months (0 pts) Confusion or Disorientation No (0 pts) Intoxicated or Sedated No (0 pts) Impaired Gait No (0 pts) Mobility Assist Device Used No (0 pt) Altered Elimination No (0 pt) Score/Fall Risk Level 0 - 2 = Low Risk Oriented to surroundings, Maintained a safe environment, Hourly rounding (assess needs \T\ fall precautionary measures) done. Abuse screen: Denies threats or abuse. Denies injuries from another. Nutritional screening: No deficits noted. Tuberculosis screening: No symptoms or risk factors identified. Assessment: 15:24 Reassessment: Patient and/or family updated on plan of care and expected duration. Pain ll1 level reassessed. 15:34 General: Appears in no apparent distress. uncomfortable, Behavior is calm, cooperative, ph Denies fever. Pain: Complains of pain in left lower quadrant. Neuro: Level of Consciousness is awake, alert, obeys commands, Oriented to person, place, time, situation. Cardiovascular: Capillary refill < 3 seconds in bilateral fingers Patient's skin is warm and dry. Respiratory: Airway is patent Respiratory effort is even, unlabored, Respiratory pattern is regular, symmetrical. GI: Abdomen is round Bowel sounds present X 4 quads. Abd is soft X 4 quads Reports lower abdominal pain, nausea. Derm: Skin is pink, warm \T\ dry. 17:02 Reassessment: Patient appears in no apparent distress at this time. Patient and/or ph family updated on plan of care and expected duration. Pain level reassessed. Patient is alert, oriented x 3, equal unlabored respirations, skin warm/dry/pink. Vital Signs: 13:20 BP 125 / 85; Pulse 110; Resp 18; Temp 97.6; Pulse Ox 97% ; Weight 122.47 kg; Height 5 iw ft. 7 in. ; Pain 6/10; 15:33 BP 128 / 77; Pulse 94; Resp 18; Temp 97.9; Pulse Ox 99% on R/A; ph 17:02 BP 134 / 78; Pulse 94; Resp 18; Pulse Ox 100% on R/A; ph 13:20 Body Mass Index 42.29 (122.47 kg, 170.18 cm) iw 13:20 Pain Scale: Adult iw ED Course: 12:59 Patient arrived in ED. mr 13:00 Devin Orosco DO is Attending Physician. ms3 13:21 Triage completed. iw 13:21 Arm band placed on. iw 14:31 CBC with Diff Sent. cc6 14:31 CMP Sent. cc6 14:31 Lipase Sent. cc6 14:31 Initial lab(s) drawn, by me, sent to lab. Inserted saline lock: 20 gauge in right cc6 antecubital area, using aseptic technique. Blood collected. Flushed with 10 mL NS. 15:11 CT Abd/Pelvis - IV Contrast Only In Process Unspecified. EDMS 15:23 Alexandrea Ontiveros, REINA is Primary Nurse. ph 15:24 Patient placed in an exam room, on a stretcher. ll1 15:35 Patient has correct armband on for positive identification. Bed in low position. Call ph light in reach. Side rails up X 1. Pulse ox on. NIBP on. Door closed. Noise minimized. 17:22 Adrian Harris DO is Referral Physician. ms3 17:22 Shimon Lay MD is Referral Physician. ms3 17:40 No provider procedures requiring assistance completed. IV discontinued, intact, ph bleeding controlled, No redness/swelling at site. Pressure dressing applied. Administered Medications: 15:33 Drug: morphine IVP or IV 4 mg IVP once over 4 mins Route: IVP; Infused Over: 4 mins; ph Site: right antecubital; 17:38 Follow up: Response: No adverse reaction ph 15:33 Drug: NS 0.9% IV 1000 ml IV at 1000 ml once; to be given as a bolus over 60 minutes ph Route: IV; Rate: 1000 ml; Site: right antecubital; 17:36 Follow up: Response: No adverse reaction; IV Status: Completed infusion; IV Intake: ph 1000ml Medication: 15:35 VIS not applicable for this client. ph Intake: 17:36 IV: 1000ml; Total: 1000ml. ph Outcome: 17:23 Discharge ordered by . ms3 17:40 Discharged to home ambulatory, with significant other, ph 17:40 Condition: good 17:40 Discharge instructions given to patient, Instructed on discharge instructions, follow up and referral plans. medication usage, Demonstrated understanding of instructions, follow-up care, medications, Prescriptions given X 1, 17:41 Patient left the ED. ph Signatures: Dispatcher [employer] EDPA Rebecca Zuniga, Reg Reg mr Adrianne Wagoner RN RN Alexandrea Ontiveros RN RN Vivi Torres RN RN ll1 Devin Orosco DO DO ms3 Fatou Moraes cc6
[2024-09-14 18:05] VITALS: TEMP 97.9
[2024-09-14 18:07] VITALS: BP 134/78; O2SAT 100
== END 2024-09-14 17:41 | disposition home or self-care (01) ==
LOC: ER 12:57
DX: K57.32 Diverticulitis of large intestine without perforation or abscess without bleeding (principal); I10 Essential (primary) hypertension
CPT/HCPCS: 96361; 85025; 36415; 83690; 80053; 74177; 96374; 99284; Q9967; J7030

== ENCOUNTER 2024-09-29 17:56 | Emergency (ER) | payer BC, OTHER ==
[2024-09-29] MEDS ORDERED: NA CHLORIDE 0.9% 1,000 ML ONE (18:26)
[2024-09-29] MEDS ORDERED: MORPHINE 4 MG/ML SYR ONE (18:26)
[2024-09-29] MEDS ORDERED: ONDANSETRON 4 MG/2 ML VIAL ONE (18:26)
[2024-09-29 19:10] LABS: Hemoglobin 13.6 g/dL (13.6-17.9); MCH 31.3 pg (27.0-35.0); MPV 7.5 fL (7.6-11.3); Monocytes % 11.7 % (3.3-12.3); Platelets 278 thou/uL (152-406); RBC Red Blood Cell Count 4.35 M/uL (4.33-5.43); Red Cell Distribution Width 14.1 % (12.1-15.2)
[2024-09-29 19:11] LABS: Absolute Lymphocytes (CBC) 0.7 K/uL (0.7-4.9); Absolute Monocytes 0.7 K/uL (0.1-1.3); Absolute Neutrophil 4.3 K/uL (1.8-8.0); Basophils % 0.7 % (0-1.3); Eosinophils % 0.6 % (0-4.4); Nucleated Red Blood Cells % 0.1 % (0-0)
[2024-09-29 19:19] LABS: Sqamous Epithelial <5 /HPF (None Seen); Urine Bacteria None Seen /HPF (<20); Urine Crystals Unidentified Few /HPF (None Seen); Urine Microscopic Reflex YN ORDER UMIC; Urine Mucus 2+ /HPF (None Seen); Urine RBC <5 /HPF (None Seen); Urine WBC <5 /HPF (<5)
[2024-09-29 19:20] LABS: Specific Gravity 1.015 (1.005-1.030); Urine Bilirubin Negative (Negative); Urine Blood Negative (Negative); Urine Clarity Clear (Clear); Urine Color Yellow (Yellow); Urine Culture Reflex Order NOT NEEDED; Urine Glucose Negative (Negative); Urine Ketones Negative (Negative); Urine Nitrite Negative (Negative); Urine Protein Negative (Negative); Urine Urobilinogen Normal (Normal)
[2024-09-29 19:28] LABS: Albumin 3.7 g/dL (3.4-5.0); Albumin/Globulin Ratio 0.8 (1.1-1.8); Anion Gap 7.5 mEq/L (5.0-15.0); Bilirubin Total 0.7 mg/dL (0.2-1.0); Globulin 4.7 g/dL (2.3-3.5); Potassium 3.5 mEq/L (3.5-5.1); Protein, Total 8.4 g/dL (6.4-8.2)
[2024-09-29] MEDS ORDERED: ACETAMINOPHEN 500 MG TAB ONE (19:29)
[2024-09-29] MEDS ORDERED: IBUPROFEN 400 MG TAB ONE (19:29)
--- NOTE | 2024-09-29 20:31 | RAD REPORT ---
EXAMINATION: CT Abdomen Pelvis W Contrast CLINICAL INDICATION: Male, 54 years old. ABD PAIN TECHNIQUE: CT abdomen and pelvis was performed, after the administration of IV contrast, as per [facility] protocol. Axial, sagittal and coronal reconstructions were obtained. One or more of the following dose reduction techniques were used: Automated exposure control, adjustment of the mA and k V according to patient size, and iterative reconstruction. Unless otherwise specified, incidental findings do not require dedicated imaging follow-up. COMPARISON: 09/14/2024 FINDINGS: LOWER CHEST: Left basilar nodular atelectasis, stable. LIVER: Normal in size and contour. No focal lesion. BILIARY SYSTEM: No suspicious abnormalities. SPLEEN: Normal size. No focal lesion. PANCREAS: No mass, ductal dilation, or ayaan-pancreatic fluid. ADRENALS: Subcentimeter right adrenal fat density rounded lesions up to 8 mm in size, suggesting smal l myelolipomas.. No suspicious left adrenal lesions KIDNEYS: Normal size and contour. No hydronephrosis. Small fluid density cortical cysts, largest dorothy uring up to 2.1 cm along the left upper pole URINARY BLADDER: Unremarkable. GASTROINTESTINAL TRACT: Reviewed diverticulosis throughout the colon. Focal wall thickening along a d iverticulum of the proximal to mid sigmoid colon projecting anteriorly with adjacent fat stranding and mucosal hyperenhancement. Small ovoid focus with central fat density present more to the right wi thin the omentum measuring 1.4 cm, suggesting a small omental infarct or prominent lymph node. No appreciable fluid collections. No evidence of free air, significant intra-abdominal free fluid, bowel obstruction or abscess. APPENDIX: Appendix surgically absent. LYMPH NODES: No lymphadenopathy. MUSCULOSKELETAL: No acute or suspicious osseous abnormality. ADDITIONAL FINDINGS: Diastasis recti. Sequelae of ventral hernia mesh repair.. IMPRESSION: Findings of acute proximal to mid sigmoid diverticulitis. No evidence of complications.
[2024-09-29] MEDS ORDERED: CIPROFLOXACIN HCL 500 MG TAB ONE (21:18)
[2024-09-29] MEDS ORDERED: metroNIDAZOLE 500 MG TABLET ONE (21:18)
--- NOTE | 2024-09-29 22:32 | ER ---
Nurse's Notes [facility] Name: Ethan Hall Age: 54 yrs Sex: Male : 1970 Arrival Date: 09/29/2024 Time: 17:56 Bed 4 Private MD: Diagnosis: Diverticulitis of large intestine without perforation or abscess without bleeding Presentation: 09/29 18:21 Chief complaint: Patient states: Left flank pain, body aches, fever - last Tylenol 1500 ld1 Tylenol. Coronavirus screen: At this time, the client does not indicate any symptoms associated with coronavirus-19. Ebola Screen: No symptoms or risks identified at this time. Initial Sepsis Screen: Does the patient meet any 2 criteria? No. Patient's initial sepsis screen is negative. Does the patient have a suspected source of infection? No. Patient's initial sepsis screen is negative. Risk Assessment: Do you want to hurt yourself or someone else? Patient reports no desire to harm self or others. Onset of symptoms was September 29, 2024. 18:21 Method Of Arrival: Ambulatory ld1 18:21 Acuity: CHRISTINA 2 ld1 Triage Assessment: 18:23 General: Appears in no apparent distress. comfortable, Behavior is calm, cooperative, ld1 appropriate for age. Pain: Complains of pain in left low back Pain does not radiate. Pain currently is 6 out of 10 on a pain scale. Quality of pain is described as throbbing, Pain began suddenly, Is continuous. EENT: No signs and/or symptoms were reported regarding the EENT system. Neuro: Level of Consciousness is awake, alert, obeys commands, Oriented to person, place, time, situation. Cardiovascular: Capillary refill < 3 seconds Patient's skin is warm and dry. Respiratory: Airway is patent Respiratory effort is even, unlabored. GI: Abdomen is round non-distended. : No signs and/or symptoms were reported regarding the genitourinary system. Derm: No signs and/or symptoms reported regarding the dermatologic system. Musculoskeletal: No signs and/or symptoms reported regarding the musculoskeletal system. Historical: - Allergies: 18:23 No Known Allergies; ld1 - PMHx: 18:23 Hernia; Hypertension; ld1 - PSHx: 18:23 Cholecystectomy; hernia repair; ld1 - Immunization history:: Adult Immunizations up to date. - Infectious Disease History:: Denies. - Social history:: Smoking status: Patient denies any tobacco usage or history of. Screenin:48 [facility] ED Fall Risk Assessment (Adult) History of falling in the last 3 months, hb including since admission No falls in past 3 months (0 pts) Confusion or Disorientation No (0 pts) Intoxicated or Sedated Yes (3 pts) Impaired Gait Yes (1 pt) Mobility Assist Device Used Altered Elimination No (0 pt) Score/Fall Risk Level 3 or more points = High Risk Oriented to surroundings, Maintained a safe environment, Educated pt \T\ family on fall prevention, incl call for assistance when getting out of bed. Abuse screen: Abuse screen: Denies threats or abuse. Denies injuries from another. Nutritional screening: No deficits noted. Tuberculosis screening: No symptoms or risk factors identified. Assessment: 18:48 General: Appears in no apparent distress. Behavior is calm, cooperative. Pain: Pain hb currently is 6 out of 10 on a pain scale. Neuro: Level of Consciousness is awake, alert, obeys commands, Oriented to person, place, time, situation. Cardiovascular: Patient's skin is warm and dry. Respiratory: Respiratory effort is even, unlabored, Respiratory pattern is regular, symmetrical. GI: Reports diarrhea, nausea. : No signs and/or symptoms were reported regarding the genitourinary system. EENT: No signs and/or symptoms were reported regarding the EENT system. Derm: Skin is pink, warm \T\ dry. Musculoskeletal: Reports left flank pain. 19:30 Reassessment: Patient appears in no apparent distress at this time. General: Appears in bm8 no apparent distress. comfortable, Behavior is calm, cooperative, appropriate for age. 19:30 Pain: Complains of pain in abdomen Pain currently is 4 out of 10 on a pain scale. bm8 Quality of pain is described as aching, crampy. Neuro: Level of Consciousness is awake, alert, obeys commands, Oriented to person, place, time, situation. Cardiovascular: Denies chest pain, Capillary refill < 3 seconds in bilateral fingers Patient's skin is warm and dry. Respiratory: Airway is patent Respiratory effort is even, unlabored, Respiratory pattern is regular, symmetrical. GI: Abdomen is round obese, Bowel sounds present X 4 quads. Abdomen is tender to palpation in suprapubic area, right lower quadrant and left lower quadrant. 20:20 Reassessment: Patient appears in no apparent distress at this time. Patient and/or bm8 family updated on plan of care and expected duration. Pain level reassessed. Patient is alert, oriented x 3, equal unlabored respirations, skin warm/dry/pink. Patient states feeling better. 21:21 Reassessment: Patient and/or family updated on plan of care and expected duration. Pain ha1 level reassessed. Patient is alert, oriented x 3, equal unlabored respirations, skin warm/dry/pink. Patient states symptoms have improved. 22:56 Reassessment: Patient appears in no apparent distress at this time. Patient and/or bm8 family updated on plan of care and expected duration. Pain level reassessed. Patient is alert, oriented x 3, equal unlabored respirations, skin warm/dry/pink. Patient denies pain at this time. Patient states feeling better. Patient states symptoms have improved. Vital Signs: 18:21 BP 149 / 100; Pulse 116; Resp 18; Temp 100.3(TE); Pulse Ox 96% on R/A; Weight 127.01 ld1 kg; Height 5 ft. 7 in. ; Pain 6/10; 19:30 BP 135 / 75; Pulse 111; Resp 18; Temp 101.9; Pulse Ox 95% ; Pain 4/10; bm8 20:20 Pulse 111; Resp 20; Temp 100.7; Pulse Ox 96% ; Pain 3/10; bm8 21:22 BP 112 / 61; Pulse 100; Resp 19 S; Temp 100.4; Pulse Ox 95% on R/A; ha1 21:28 BP 112 / 61; Pulse 96; Resp 18; Temp 98.9; Pulse Ox 96% ; Pain 3/10; bm8 22:56 BP 113 / 67; Pulse 81; Resp 17; Temp 98.5; Pulse Ox 96% ; Pain 0/10; bm8 18:21 Body Mass Index 43.85 (127.01 kg, 170.18 cm) ld1 18:21 Pain Scale: Adult ld1 19:30 Pain Scale: Adult bm8 20:20 Pain Scale: Adult bm8 21:28 Pain Scale: Adult bm8 22:56 Pain Scale: Adult bm8 Weippe Coma Score: 19:30 Eye Response: spontaneous(4). Motor Response: obeys commands(6). Verbal Response: bm8 oriented(5). Total: 15. 20:20 Eye Response: spontaneous(4). Motor Response: obeys commands(6). Verbal Response: bm8 oriented(5). Total: 15. 21:28 Eye Response: spontaneous(4). Motor Response: obeys commands(6). Verbal Response: bm8 oriented(5). Total: 15. 22:56 Eye Response: spontaneous(4). Motor Response: obeys commands(6). Verbal Response: bm8 oriented(5). Total: 15. ED Course: 17:59 Patient arrived in ED. im 18:06 Edgar Palafox MD is Attending Physician. ap3 18:06 Austin Godfrey FNP-C is PHCP. ap3 18:21 Gonzalo Cruz, REINA is Primary Nurse. jl7 18:23 Triage completed. ld1 18:23 Arm band placed on right wrist. ld1 18:46 First set of blood cultures drawn by me. jl7 18:48 Patient has correct armband on for positive identification. Bed in low position. Call hb light in reach. Provided Education on: POC. 18:57 Inserted saline lock: 20 gauge in left antecubital area, using aseptic technique. Blood jl7 collected. Flushed with 10 mL NS. 18:57 Initial lab(s) drawn, by mo, sent to lab. Second set of blood cultures drawn by me. jl7 18:58 CBC with Diff Sent. hb 18:58 CMP Sent. hb 18:58 Lipase Sent. hb 19:47 CT Abd/Pelvis - IV Contrast Only In Process Unspecified. EDMS 22:56 Client placed on continuous cardiac and pulse oximetry monitoring. NIBP monitoring bm8 applied. Pulse ox on. NIBP on. 22:56 No provider procedures requiring assistance completed. IV discontinued, intact, bm8 bleeding controlled, No redness/swelling at site. Pressure dressing applied. Administered Medications: 19:05 Drug: Ondansetron IVP 4 mg IVP once; over 2 minutes Route: IVP; Site: left antecubital; jl7 20:10 Follow up: Response: No adverse reaction bm8 19:05 Drug: morphine IVP or IV 4 mg IVP once over 4 mins Route: IVP; Infused Over: 4 mins; jl7 Site: left antecubital; 20:10 Follow up: Response: No adverse reaction bm8 19:05 Drug: NS 0.9% IV 1000 ml IV at 1 bolus Per protocol; to be given as a bolus over 60 jl7 minutes Route: IV; Rate: 1 bolus; Site: left antecubital; 20:10 Follow up: Response: No adverse reaction; IV Status: Completed infusion bm8 19:37 Drug: Acetaminophen PO 1000 mg PO once Route: PO; bm8 20:10 Follow up: Response: No adverse reaction bm8 19:37 Drug: Ibuprofen PO 800 mg PO once Route: PO; bm8 20:10 Follow up: Response: No adverse reaction bm8 21:13 CANCELLED (Change to PO): [id number] mg 200 ml IVPB once over 60 mins dr5 21:13 CANCELLED (Change to PO): [id number] mg 100 ml IVPB once over 30 mins dr5 21:21 Drug: Ciprofloxacin PO 500 mg PO once Route: PO; ha1 22:56 Follow up: Response: No adverse reaction bm8 21:21 Drug: metroNIDAZOLE PO 500 mg PO once Route: PO; ha1 22:56 Follow up: Response: No adverse reaction bm8 Medication: 18:48 VIS not applicable for this client. hb Outcome: 22:32 Discharge ordered by MD. dr5 22:56 Discharged to home ambulatory, bm8 22:56 Condition: stable 22:56 Discharge instructions given to patient, family, Instructed on discharge instructions, follow up and referral plans. no drinking with medication, no driving heavy equipment, medication usage, safety practices, Demonstrated understanding of instructions, follow-up care, medications, Prescriptions given X 2, 22:58 Patient left the ED. bm8 Signatures: Dispatcher [employer] EDMS Rachel Enriquez RN RN hb Gonzalo Cruz RN RN jl7 Aleida Ryan RN RN [id number] Gin Orosco RN RN ld1 Aniyah Hazel RN RN ha1 Jesica Benitez Brad RN RN bm8 Austin Godfrey, RV BODY MECHANIC-C RV BODY MECHANIC-Cdr5 Corrections: (The following items were deleted from the chart) 18:51 18:48 [facility] ED Fall Risk Assessment (Adult) History of falling in the last 3 months, hb including since admission No falls in past 3 months (0 pts) Confusion or Disorientation Yes (5 pts) Intoxicated or Sedated No (0 pts) Impaired Gait Yes (1 pt) Mobility Assist Device Used Altered Elimination No (0 pt) Score/Fall Risk Level 3 or more points = High Risk Oriented to surroundings, Maintained a safe environment, Educated pt \T\ family on fall prevention, incl call for assistance when getting out of bed, hb
--- NOTE | 2024-09-29 22:32 | EDPHYS ---
Physician Documentation [facility] Name: Ethan Hall Age: 54 yrs Sex: Male : 1970 Arrival Date: 09/29/2024 Time: 17:56 Bed 4 Private MD: ED Physician Edgar Palafox HPI: 09/29 20:09 This 54 yrs old Black Male presents to ER via Ambulatory with complaints of Abdominal dr5 Pain, Nausea, Diarrhea, Fever. 20:09 The patient presents with abdominal pain in the left lower quadrant. Onset: The dr5 symptoms/episode began/occurred 3 day(s) ago. . 09/30 01:32 Patient reports he was recently treated with Augmentin for diverticulitis a couple dr5 weeks ago which resolved. Patient reports that this is new and started 3 days ago with a fever and left lower quadrant abdominal pain.. Historical: - Allergies: 09/29 18:23 No Known Allergies; ld1 - PMHx: 18:23 Hernia; Hypertension; ld1 - PSHx: 18:23 Cholecystectomy; hernia repair; ld1 - Immunization history:: Adult Immunizations up to date. - Infectious Disease History:: Denies. - Social history:: Smoking status: Patient denies any tobacco usage or history of. ROS: 09/30 01:32 Constitutional: as per hpi dr5 Exam: 01:32 Constitutional: This is a well developed, well nourished patient who is awake, alert, dr5 and in no acute distress. Head/Face: Normocephalic, atraumatic. Eyes: Pupils equal round and reactive to light, extra-ocular motions intact. Lids and lashes normal. Conjunctiva and sclera are non-icteric and not injected. Cornea within normal limits. Periorbital areas with no swelling, redness, or edema. ENT: Nares patent. No nasal discharge, no septal abnormalities noted. Tympanic membranes are normal and external auditory canals are clear. Oropharynx with no redness, swelling, or masses, exudates, or evidence of obstruction, uvula midline. Mucous membranes moist. Chest/axilla: Normal chest wall appearance and motion. Nontender with no deformity. No lesions are appreciated. Cardiovascular: Regular rate and rhythm with a normal S1 and S2. Normal PMI, no JVD. No pulse deficits. Respiratory: Lungs have equal breath sounds bilaterally, clear to auscultation. No rales, rhonchi or wheezes noted. No increased work of breathing, no retractions or nasal flaring. 01:32 Back: No spinal tenderness. No costovertebral tenderness. Full range of motion. Skin: Warm, dry with normal turgor. Normal color with no rashes, no lesions, and no evidence of cellulitis. Neuro: Awake and alert, GCS 15, oriented to person, place, time, and situation. Cranial nerves II-XII grossly intact. Motor strength 5/5 in all extremities. Sensory grossly intact. Cerebellar exam normal. Normal gait. 01:32 Abdomen/GI: Inspection: abdomen appears normal, Palpation: moderate abdominal tenderness, in the left lower quadrant, Vital Signs: 09/29 18:21 BP 149 / 100; Pulse 116; Resp 18; Temp 100.3(TE); Pulse Ox 96% on R/A; Weight 127.01 ld1 kg; Height 5 ft. 7 in. ; Pain 6/10; 19:30 BP 135 / 75; Pulse 111; Resp 18; Temp 101.9; Pulse Ox 95% ; Pain 4/10; bm8 20:20 Pulse 111; Resp 20; Temp 100.7; Pulse Ox 96% ; Pain 3/10; bm8 21:22 BP 112 / 61; Pulse 100; Resp 19 S; Temp 100.4; Pulse Ox 95% on R/A; ha1 21:28 BP 112 / 61; Pulse 96; Resp 18; Temp 98.9; Pulse Ox 96% ; Pain 3/10; bm8 22:56 BP 113 / 67; Pulse 81; Resp 17; Temp 98.5; Pulse Ox 96% ; Pain 0/10; bm8 18:21 Body Mass Index 43.85 (127.01 kg, 170.18 cm) ld1 18:21 Pain Scale: Adult ld1 19:30 Pain Scale: Adult bm8 20:20 Pain Scale: Adult bm8 21:28 Pain Scale: Adult bm8 22:56 Pain Scale: Adult bm8 Justa Coma Score: 19:30 Eye Response: spontaneous(4). Motor Response: obeys commands(6). Verbal Response: bm8 oriented(5). Total: 15. 20:20 Eye Response: spontaneous(4). Motor Response: obeys commands(6). Verbal Response: bm8 oriented(5). Total: 15. 21:28 Eye Response: spontaneous(4). Motor Response: obeys commands(6). Verbal Response: bm8 oriented(5). Total: 15. 22:56 Eye Response: spontaneous(4). Motor Response: obeys commands(6). Verbal Response: bm8 oriented(5). Total: 15. MDM: 18:14 Medical Screening Exam initiated dr5 09/30 01:32 Differential diagnosis: diverticulitis, pancreatitis, urinary tract infection. Data dr5 reviewed: vital signs, nurses notes, lab test result(s), radiologic studies, CT scan. Consideration of Admission/Observation Escalation of care including admission/observation considered. Considered admission if diverticulitis was perforated or abscess.. Care significantly affected by the following chronic conditions: Hypertension. Care significantly affected by the following Social Determinants of Health: Poor access to healthcare and/or lack of insurance, Poor access to transportation, Problems related to employment. Counseling: I had a detailed discussion with the patient and/or guardian regarding the historical points, exam findings, and any diagnostic results supporting the discharge/admit diagnosis, the presence of at least one elevated blood pressure reading (>120/80) during this emergency department visit, lab results, radiology results, the need for outpatient follow up, for definitive care, a family practitioner, a project planner, to return to the emergency department if symptoms worsen or persist or if there are any questions or concerns that arise at home. Medication response: ibuprofen administration has improved the patient's temperature, ibuprofen administration has improved the patient's pain, acetaminophen administration has lowered the patient's temperature. Response to treatment: the patient's symptoms have markedly improved after treatment. Admission orders: after a detailed discussion of the patient's condition and case, the admit orders are written by me. ED course: Will will put patient on Cipro and Flagyl and have patient follow primary care doctor. Discussed lab results with patient and printed out and given to patient for follow-up. No white blood cell count, no abscess or [place] noted on CT scan. Educated to not drink alcohol with Flagyl. All questions answered. Strict ER precautions given. 09/29 18:19 Order name: CBC with Diff; Complete Time: 19:17 ld1 09/29 18:19 Order name: CMP; Complete Time: 19:33 ld1 09/29 18:19 Order name: Lipase; Complete Time: 19:33 ld1 09/29 18:19 Order name: Urinalysis w/ reflexes; Complete Time: 19:24 ld1 09/29 18:19 Order name: Blood Culture Adult (2) ld1 09/29 18:19 Order name: Lactate w/ 2H reflex if indic.; Complete Time: 19:33 ld1 09/29 18:19 Order name: CT Abd/Pelvis - IV Contrast Only; Complete Time: 20:48 ld1 09/29 18:19 Order name: IV Saline Lock; Complete Time: 18:58 ld1 09/29 18:19 Order name: Labs collected and sent; Complete Time: 18:58 ld1 Administered Medications: 09/29 19:05 Drug: Ondansetron IVP 4 mg IVP once; over 2 minutes Route: IVP; Site: left antecubital; jl7 20:10 Follow up: Response: No adverse reaction bm8 19:05 Drug: morphine IVP or IV 4 mg IVP once over 4 mins Route: IVP; Infused Over: 4 mins; jl7 Site: left antecubital; 20:10 Follow up: Response: No adverse reaction bm8 19:05 Drug: NS 0.9% IV 1000 ml IV at 1 bolus Per protocol; to be given as a bolus over 60 jl7 minutes Route: IV; Rate: 1 bolus; Site: left antecubital; 20:10 Follow up: Response: No adverse reaction; IV Status: Completed infusion bm8 19:37 Drug: Acetaminophen PO 1000 mg PO once Route: PO; bm8 20:10 Follow up: Response: No adverse reaction bm8 19:37 Drug: Ibuprofen PO 800 mg PO once Route: PO; bm8 20:10 Follow up: Response: No adverse reaction bm8 21:13 CANCELLED (Change to PO): [id number] mg 200 ml IVPB once over 60 mins dr5 21:13 CANCELLED (Change to PO): [id number] mg 100 ml IVPB once over 30 mins dr5 21:21 Drug: Ciprofloxacin PO 500 mg PO once Route: PO; ha1 22:56 Follow up: Response: No adverse reaction bm8 21:21 Drug: metroNIDAZOLE PO 500 mg PO once Route: PO; ha1 22:56 Follow up: Response: No adverse reaction bm8 Disposition: 09/30 19:27 Co-signature as Attending Physician, Edgar Palafox MD I reviewed the patient's care rt provided by the Advanced Practice Provider and agree with the diagnosis and treatment plan. Disposition Summary: 09/29/24 22:32 Discharge Ordered Notes: Location: Home dr5 Condition: Stable dr5 Diagnosis - Diverticulitis of large intestine without perforation or abscess without bleeding dr5 Followup: dr5 - With: Emergency Department - When: As needed - Reason: Worsening of condition Followup: dr5 - With: Private Physician - When: 1 - 2 days - Reason: Recheck today's complaints, Continuance of care, Re-evaluation by your physician Discharge Instructions: - Discharge Summary Sheet dr5 - Diverticulitis dr5 Forms: - Medication Reconciliation Form dr5 - Antibiotic Education dr5 - Patient Portal Instructions dr5 - Leadership Thank You Letter dr5 Prescriptions: - Cipro 500 mg Oral Tablet - take 1 tablet ORAL route every 12 hours for 10 days; 20 tablet; Refills: 0, dr5 Product Selection Permitted - Flagyl 500 mg Oral Tablet - take 1 tablet ORAL route every 12 hours for 7 days; 14 tablet; Refills: 0, dr5 Product Selection Permitted Signatures: Dispatcher [employer] Gonzalo Valadez RN RN jl7 Gin Orosco RN RN ld1 Aniyah Hazel RN RN ha1 Edgar Palafox MD MD rt Siddhartha David RN RN bm8 Austin Godfrey, RAYA-C [employer] WORKER-Cdr5 Corrections: (The following items were deleted from the chart) 09/29 21:13 20:50 Ciprofloxacin IVPB 400 mg 200 ml IVPB once over 60 mins ordered. dr5 dr5 21:13 20:50 metroNIDAZOLE IVPB 500 mg 100 ml IVPB once over 30 mins ordered. dr5 dr5
[2024-09-30 01:02] VITALS: O2SAT 96
[2024-09-30 01:04] VITALS: BP 113/67; TEMP 98.5
== END 2024-09-29 22:58 | disposition home or self-care (01) ==
LOC: ER 17:56
DX: K57.32 Diverticulitis of large intestine without perforation or abscess without bleeding (principal)
CPT/HCPCS: 96361; 87040 ×2; 85025; 81001; 36415; 83605; 83690; 80053; 74177; 96375; 96374; 99284; Q9967; J2405; J7030

== ENCOUNTER 2024-10-15 15:53 | Inpatient (IN) | payer BC, OTHER ==
[2024-10-15 16:52] LABS: Absolute Basophils 0.1 K/uL (0-0.5); Absolute Eosinophils 0.2 K/uL (0-0.5); Absolute Lymphocytes (CBC) 1.2 K/uL (0.7-4.9); Absolute Monocytes 0.9 K/uL (0.1-1.3); Absolute Neutrophil 8.2 K/uL (1.8-8.0); Basophils % 0.6 % (0-1.3); Eosinophils % 1.7 % (0-4.4); Hemoglobin 12.5 g/dL (13.6-17.9); Lymphocytes % 11.2 % (15.3-44.8); MCH 30.9 pg (27.0-35.0); MCHC 33.8 g/dL (32.0-36.0); MCV 91.4 fL (80-100); MPV 7.4 fL (7.6-11.3); Monocytes % 8.1 % (3.3-12.3); Neutrophils % 78.4 % (41.7-73.7); Platelets 321 thou/uL (152-406); RBC Red Blood Cell Count 4.05 M/uL (4.33-5.43); Red Cell Distribution Width 14.4 % (12.1-15.2)
[2024-10-15 16:57] LABS: Albumin 3.5 g/dL (3.4-5.0); Albumin/Globulin Ratio 0.8 (1.1-1.8); Anion Gap 10.2 mEq/L (5.0-15.0); Bilirubin Total 0.9 mg/dL (0.2-1.0); Globulin 4.6 g/dL (2.3-3.5); Potassium 4.2 mEq/L (3.5-5.1); Protein, Total 8.1 g/dL (6.4-8.2)
[2024-10-15] MEDS ORDERED: MORPHINE 4 MG/ML SYR ONE ×2 (17:24→23:09)
[2024-10-15] MEDS ORDERED: ONDANSETRON 4 MG/2 ML VIAL ONE ×2 (17:24→23:09)
--- NOTE | 2024-10-15 17:24 | RAD REPORT ---
EXAMINATION: CT ABDOMEN AND PELVIS WITH CONTRAST CLINICAL INDICATION: ABD PAIN TECHNIQUE: CT abdomen and pelvis was performed, after the administration of IV contrast, [facility]. Axial, sagittal and coronal reconstructions were obtained. One or more of the following dose reduction techniques were used: Automated exposure control, adjustment of the mA and k V according to patient size, and iterative reconstruction. Unless otherwise specified, incidental findings do not require dedicated imaging follow-up. COMPARISON: 09/29/2024 FINDINGS: LOWER CHEST: The visualized lung bases are clear. LIVER: Normal in size and contour. No focal lesion. Cholecystectomy clips. SPLEEN: Normal size. No focal lesion. PANCREAS: No mass, ductal dilation, or ayaan-pancreatic fluid. ADRENALS: Normal; no mass. KIDNEYS: Normal size and contour. No hydronephrosis. Bilateral renal lesions which are either benign in appearance or too small to accurately characterize but statistically benign. GASTROINTESTINAL TRACT: Moderate inflammatory changes are seen in the left lower quadrant descending colon where numerous diverticula are present compatible with moderate diverticulitis. This appears to be a different portion of the colon inflamed compared to the prior study. APPENDIX: Normal appendix. LYMPH NODES: No lymphadenopathy. MUSCULOSKELETAL: No acute or suspicious osseous abnormality. ADDITIONAL FINDINGS: Anterior abdominal wall hernia mesh. IMPRESSION: [id number] acute diverticulitis suspected involving the distal descending colon. This is a diff erent section of the colon involved compared to the prior study. No abscess or other complication is evident. After appropriate treatment, follow-up colonoscopy would be suggested to directly visuali ze this region.
[2024-10-15] MEDS ORDERED: PIPERACIL/TAZO 3.375 GM VIAL IV ONE (17:36)
[2024-10-15] MEDS ORDERED: NA CHLORIDE 0.9% 100 ML ONE (17:36)
--- NOTE | 2024-10-15 18:16 | ER ---
Nurse's Notes [facility] Name: Ethan Hall Age: 54 yrs Sex: Male : 1970 Arrival Date: 10/15/2024 Time: 15:53 Bed 20 Private MD: Diagnosis: Diverticulitis of large intestine without perforation or abscess without bleeding Presentation: 10/15 16:12 Chief complaint: Patient states: Left lower back pain radiating to LLQ, pt reports he aa5 was diagnosed with diverticulitis a few weeks ago but pain got worse 4 days ago. Reports has colonoscopy scheduled with GI on 10/24/2024. Coronavirus screen: At this time, the client does not indicate any symptoms associated with coronavirus-19. Ebola Screen: Patient denies travel to an Ebola-affected area in the 21 days before illness onset. Initial Sepsis Screen: Does the patient meet any 2 criteria? HR > 90 bpm. Does the patient have a suspected source of infection? No. Patient's initial sepsis screen is negative. Risk Assessment: Do you want to hurt yourself or someone else? Patient reports no desire to harm self or others. Onset of symptoms was October 2024. 16:12 Acuity: CHRISTINA 3 aa5 16:12 Method Of Arrival: Ambulatory aa5 Historical: - Allergies: 16:14 No Known Allergies; aa5 - PMHx: 16:11 Hernia; Hypertension; aa5 - PSHx: 16:11 Cholecystectomy; hernia repair; aa5 - Immunization history:: Adult Immunizations unknown. - Infectious Disease History:: Denies. - Social history:: Smoking status: Patient denies any tobacco usage or history of. - Family history:: not pertinent. - Hospitalizations: : No recent hospitalization is reported. Screenin:26 [facility] ED Fall Risk Assessment (Adult) History of falling in the last 3 months, me1 including since admission No falls in past 3 months (0 pts) Confusion or Disorientation No (0 pts) Intoxicated or Sedated No (0 pts) Impaired Gait No (0 pts) Mobility Assist Device Used No (0 pt) Altered Elimination No (0 pt) Score/Fall Risk Level 0 - 2 = Low Risk Maintained a safe environment, Provided non-skid footwear, Hourly rounding (assess needs \T\ fall precautionary measures) done. Abuse screen: Denies threats or abuse. Nutritional screening: No deficits noted. Tuberculosis screening: No symptoms or risk factors identified. Assessment: 16:26 General: Appears uncomfortable, ill, obese, well groomed, well developed, Behavior is me1 calm, cooperative, appropriate for age, Reports Left lower back pain radiating to LLQ, pt reports he was diagnosed with diverticulitis a few weeks ago but pain got worse 4 days ago. Reports has colonoscopy scheduled with GI on 10/24/2024. Pain: Complains of pain in left low back and left mid back Pain radiates to left lower quadrant Pain currently is 6 out of 10 on a pain scale. Quality of pain is described as sharp, shooting, Pain began gradually, Is continuous. Neuro: Level of Consciousness is awake, alert, obeys commands, Oriented to person, place, time, situation, Appropriate for age. Cardiovascular: Patient's skin is warm and dry. Respiratory: Airway is patent Respiratory effort is even, unlabored, Respiratory pattern is regular, symmetrical. GI: Reports diarrhea, nausea, since intermittently for 4 days. : No signs and/or symptoms were reported regarding the genitourinary system. EENT: No signs and/or symptoms were reported regarding the EENT system. Derm: Skin is intact, is healthy with good turgor, Skin is pink, warm \T\ dry. Musculoskeletal: No signs and/or symptoms reported regarding the musculoskeletal system. Vital Signs: 16:12 BP 155 / 92; Pulse 100; Resp 16 S; Temp 98.8(O); Pulse Ox 100% on R/A; Weight 120.2 kg aa5 (M); Height 5 ft. 7 in. (R); 17:00 BP 160 / 98; Pulse 101; Resp 18; Pulse Ox 100% ; me1 17:42 Pain 4/10; me1 18:00 BP 171 / 93; Pulse 104; Resp 18; Pulse Ox 99% ; me1 18:47 BP 134 / 86; Pulse 116; Resp 18; Pulse Ox 95% ; me1 16:12 Body Mass Index 41.50 (120.20 kg, 170.18 cm) aa5 17:42 Pain Scale: Adult me1 ED Course: 15:58 Patient arrived in ED. cj3 16:04 Guerrero Hernandez MD is Attending Physician. rn 16:11 Arm band placed on. aa5 16:13 Triage completed. aa5 16:14 Mera Baker, RN is Primary Nurse. me1 16:25 CBC with Diff Sent. me1 16:25 CMP Sent. me1 16:25 Lipase Sent. me1 16:25 Initial lab(s) drawn, by me, sent to lab. Inserted saline lock: 22 gauge in right me1 antecubital area, using aseptic technique. 16:26 Patient has correct armband on for positive identification. Bed in low position. Call me1 light in reach. Side rails up X2. Provided Education on: POC. Verbalized understanding.. Client placed on continuous cardiac and pulse oximetry monitoring. NIBP monitoring applied. Pulse ox on. NIBP on. 16:26 No provider procedures requiring assistance completed. me1 17:18 CT Abd/Pelvis - IV Contrast Only In Process Unspecified. EDNJ 18:16 Valente Driver MD is Hospitalizing Provider. rn Administered Medications: 17:28 Drug: morphine IVP or IV 4 mg IVP once over 4 mins Route: IVP; Infused Over: 4 mins; me1 Site: right antecubital; 17:42 Follow up: Pain 4/10 Adult; Response: No adverse reaction; Pain is decreased me1 17:28 Drug: Ondansetron IVP 4 mg IVP once; over 2 minutes Route: IVP; Site: right antecubital;me1 17:42 Follow up: Response: No adverse reaction; Nausea is decreased me1 17:42 Drug: Piperacillin-Tazobactam IVPB 3.375 grams IVPB once over 60 mins; (mix in NS 100 me1 mL) Route: IVPB; Infused Over: 60 mins; Site: right antecubital; 18:44 Follow up: Response: No adverse reaction; IV Status: Completed infusion me1 Medication: 16:26 VIS not applicable for this client. me1 Outcome: 18:16 Decision to Hospitalize by Provider. rn 05 14:37 Patient left the ED. ll1 Signatures: Dispatcher [employer] EDMS Guerrero Hernandez MD MD rn Calderon, Audri RN RN aa5 Vivi Cannon RN RN ll1 Mera Baker, REINA RN me1 Do Chirinos 3 Corrections: (The following items were deleted from the chart) 10/15 16:16 16:12 BP 155 / 92; Pulse 100bpm; Resp 16bpm; Spontaneous; Pulse Ox 100% RA; Temp 98.8F aa5 Oral; 90.72 kg Reported; Height 5 ft. 7 in. Reported; BMI: 31.3; aa5 16:26 16:12 Chief complaint: Patient states: Left lower back pain radiating to LLQ, pt me1 reports he was diagnosed with diverticulitis a few weeks ago but pain got worse 4 days ago. Reports has colonoscopy scheduled with GI on 10/24/2024 aa5
--- NOTE | 2024-10-15 18:16 | EDPHYS ---
Physician Documentation [facility] Name: Ethan Hall Age: 54 yrs Sex: Male : 1970 Arrival Date: 10/15/2024 Time: 15:53 Bed 20 Private MD: ED Physician Guerrero Hernandez HPI: 10/15 17:46 This 54 yrs old Black Male presents to ER via Ambulatory with complaints of Back Pain - rn LOWER, Abdominal Pain - LOWER. 17:46 The patient presents with abdominal pain in the left upper quadrant, in the left lower rn quadrant. Patient reports 2 visits recently for diverticulitis, has been on 3 different antibiotics. Initially felt better but pain recently worsened over the last couple days. Pain with movement and palpation. Reports nausea.. Historical: - Allergies: 16:14 No Known Allergies; aa5 - PMHx: 16:11 Hernia; Hypertension; aa5 - PSHx: 16:11 Cholecystectomy; hernia repair; aa5 - Immunization history:: Adult Immunizations unknown. - Infectious Disease History:: Denies. - Social history:: Smoking status: Patient denies any tobacco usage or history of. - Family history:: not pertinent. - Hospitalizations: : No recent hospitalization is reported. ROS: 17:46 Constitutional: Negative for fever, chills, and weight loss, Cardiovascular: Negative rn for chest pain, palpitations, and edema, Respiratory: Negative for shortness of breath, cough, wheezing, and pleuritic chest pain, Abdomen/GI: Positive for abdominal pain MS/Extremity: Negative for injury and deformity, Skin: Negative for injury, rash, and discoloration, Neuro: Negative for headache, weakness, numbness, tingling, and seizure, Exam: 17:46 Constitutional: This is a well developed, well nourished patient who is awake, alert, rn and in no acute distress. Cardiovascular: Regular rate and rhythm with a normal S1 and S2. No gallops, murmurs, or rubs. Normal PMI, no JVD. No pulse deficits. Respiratory: Lungs have equal breath sounds bilaterally, clear to auscultation and percussion. No rales, rhonchi or wheezes noted. No increased work of breathing, no retractions or nasal flaring. Abdomen/GI: Positive for left lower quadrant and left upper quadrant tenderness and guarding. No distention. MS/ Extremity: Pulses equal, no cyanosis. Neuro: Awake and alert, GCS 15 Vital Signs: 16:12 BP 155 / 92; Pulse 100; Resp 16 S; Temp 98.8(O); Pulse Ox 100% on R/A; Weight 120.2 kg aa5 (M); Height 5 ft. 7 in. (R); 17:00 BP 160 / 98; Pulse 101; Resp 18; Pulse Ox 100% ; me1 17:42 Pain 4/10; me1 18:00 BP 171 / 93; Pulse 104; Resp 18; Pulse Ox 99% ; me1 18:47 BP 134 / 86; Pulse 116; Resp 18; Pulse Ox 95% ; me1 16:12 Body Mass Index 41.50 (120.20 kg, 170.18 cm) aa5 17:42 Pain Scale: Adult me1 MDM: 16:04 Medical Screening Exam initiated rn 18:14 Differential diagnosis: diverticulitis. Differential diagnosis: Bowel perforation. Data rn reviewed: vital signs, nurses notes, lab test result(s), radiologic studies, CT scan, and as a result, I will admit patient. Consideration of Admission/Observation Patient was admitted/placed on observation. Escalation of care including admission/observation considered. Counseling: I had a detailed discussion with the patient and/or guardian regarding the historical points, exam findings, and any diagnostic results supporting the discharge/admit diagnosis, lab results, radiology results, the need for further work-up and treatment in the hospital. ED course: This is third presentation to this ER for diverticulitis, has 2 discharges on different oral antibiotics and has failed. Still has persistent diverticulitis. No evidence of perforation or complication. Will admit to hospital for this time for IV antibiotics.. 10/15 16:05 Order name: CBC with Diff; Complete Time: 17:23 rn 10/15 16:05 Order name: CMP; Complete Time: 17:11 rn 10/15 16:05 Order name: Lipase; Complete Time: 17:11 rn 10/16 05:25 Order name: CBC with Automated Diff EDME 10/16 05:34 Order name: Comprehensive Metabolic Panel EDME 10/15 16:05 Order name: CT Abd/Pelvis - IV Contrast Only; Complete Time: 17:27 rn 10/15 16:05 Order name: IV Saline Lock; Complete Time: 16:25 rn 10/15 16:05 Order name: Labs collected and sent; Complete Time: 16:25 rn Administered Medications: 17:28 Drug: morphine IVP or IV 4 mg IVP once over 4 mins Route: IVP; Infused Over: 4 mins; me1 Site: right antecubital; 17:42 Follow up: Pain 4/10 Adult; Response: No adverse reaction; Pain is decreased me1 17:28 Drug: Ondansetron IVP 4 mg IVP once; over 2 minutes Route: IVP; Site: right antecubital;me1 17:42 Follow up: Response: No adverse reaction; Nausea is decreased me1 17:42 Drug: Piperacillin-Tazobactam IVPB 3.375 grams IVPB once over 60 mins; (mix in NS 100 me1 mL) Route: IVPB; Infused Over: 60 mins; Site: right antecubital; 18:44 Follow up: Response: No adverse reaction; IV Status: Completed infusion me1 Disposition Summary: 10/15/24 18:16 Hospitalization Ordered Notes: Hospitalization Status: Inpatient Admission rn Provider: Valente Driver rn Condition: Stable rn Problem: new rn Symptoms: have worsened rn Bed/Room Type: Standard rn Location: Telemetry/MedSurg (Inpatient)(10/16/24 13:41) [facility] Room Assignment: [facility](10/16/24 13:41) 6 Diagnosis - Diverticulitis of large intestine without perforation or abscess without bleeding rn Forms: - Medication Reconciliation Form rn - SBAR form rn - Leadership Thank You Letter rn Signatures: Dispatcher [employer] EDMS Guerrero Hernandez MD MD rn Calderon, Audri RN RN aa5 Ines Stewart RN RN Tegan Ordonez 6 Mera Baker RN RN me1 Corrections: (The following items were deleted from the chart) 16:05 16:05 CBC+H.LAB.BRZ ordered. EDMS EDMS 16:05 16:05 COMPREHENSIVE METABOLIC PANEL+C.LAB.BRZ ordered. EDMS EDMS 16:05 16:05 LIPASE+C.LAB.BRZ ordered. EDMS EDMS 16:05 16:05 Abdomen Pelvis W Con+CT.RAD.BRZ ordered. EDMS EDMS 21:36 18:16 Telemetry/MedSurg (Inpatient) rn cg 21:36 18:16 rn cg 10/16 13:41 10/15 21:36 [facility] bc6 10/16 13:41 10/15 21:36 [facility] bc6
--- NOTE | 2024-10-15 19:37 | P.HP ---
Certification for Inpatient Patient admitted to: Inpatient With expected LOS: >2 Midnights Patient will require the following post-hospital care: None Practitioner: I am a practitioner with admitting privileges, knowledge of patient current condition, hospital course, and medical plan of care. Services: Services provided to patient in accordance with Admission requirements found in Title 42 Section 412.3 of the Code of Federal Regulations Patient History Date of Service: 10/16/24 Reason for admission: Diverticulitis. History of Present Illness: Patient is a pleasant 54 years old male with past medical history of renal cyst, hypertension, COVID, ventral hernia, who reports to the ER today complaining of worsening pain left lower back pain, radiating to his left lower abdomen. Patient states he started having severe left lower back pain yesterday morning, radiating to his left lower abdomen, states throughout the day the pain progressive worsening with associated nausea but no vomiting which then prompted him to report to the ER. Patient states he have had failed outpatient antibiotics x 2 times. Patient states in May/2024 he visited the ER and was diagnosed with diverticulitis, ordered antibiotics and sent home, states about a week after taking the antibiotics, he started having severe pain again same location and fever, visited ER and was diagnosed with diverticulitis, prescribed antibiotics, and sent home, states he took the complete antibiotic, he took the last tablet on Wednesday last week. States this morning again the pain started same location, same symptoms, but states the pain today was more excruciating, and constant, from his lower back radiating to his left lower abdomen with no associated fever this time. States the pain is aggravated when moving, or palpation, describes the pain as sharp, aching, and constant. Patient has bilateral lower extremities pitting edema with no associated adventitious breath sounds, or shortness of breath. Allergies No Known Allergies Allergy (Verified 03/25/20 22:09) Home Medications: Amlodipine Besylate 1 tab PO BEDTIME 03/26/20 Aspirin 1 tab PO DAILY 03/26/20 Furosemide [Lasix] 20 mg PO DAILY #30 tablet 03/26/20 Levofloxacin [Levaquin] 500 mg PO DAILY #5 tablet 03/26/20 Losartan Potassium 1 tab PO DAILY 03/26/20 Metoprolol Tartrate 12.5 mg PO BID 03/26/20 Potassium Chloride [K-Dur] 10 meq PO DAILY #30 tab.er.prt 03/26/20 - Past Medical/Surgical History Diabetic: No -: hypertension -: hernia repair - Social History Smoking Status: Never smoker Alcohol use: No CD- Drugs: No Caffeine use: Yes Review of Systems 10-point ROS is otherwise unremarkable Gastrointestinal: Nausea, Vomiting, Abdominal Pain Physical Examination - Physical Exam General: Alert, In no apparent distress, Oriented x3 HEENT: Atraumatic, Normocephalic, PERRLA, Mucous membr. moist/pink, Sclerae nonicteric Gastrointestinal: No guarding, Tenderness - Studies Laboratory Data (last 24 hrs) 10/15/24 10/15/24 16:23 16:23 WBC 10.50 Hgb 12.5 L Hct 37.0 L Plt Count 321 Sodium 138 Potassium 4.2 BUN 11 Creatinine 0.97 Glucose 87 Total Bilirubin 0.9 AST 17 ALT 42 Alkaline Phosphatase 75 Lipase 32 Male Exam - Male Exam Testicular exam: No masses, Non-tender Assessment and Plan - Plan Patient is a pleasant 54-year-old male admitted to inpatient medical surgical unit with diagnosis of recurrent diverticulitis with associated nausea but no vomiting. Patient denies of any chest pain or shortness of breath. Patient has a left shift of 78.4. Patient also has 3+ pitting edema bilateral lower extremities with no associated shortness of breath. (1) diverticulitis. Left shift 78.4, WBC 10.50. Failed outpatient antibiotics x 2 times. -Ceftriaxone 1 g IV daily. -Metronidazole 500 mg IV every 6 hours. -Morphine 4 mg IV every 4 hours as needed. -IV D51/2 NS 100 mL/hr. Patient appears dehydrated because he has not been eating or drinking. -Zofran 4 mg IV every 6 hours as needed. (2) bilateral lower extremities pitting edema. Patient states he has had the pitting edema for a long time. On admission assessment, patient has 2+ pitting edema. - Order an echocardiogram. (3) chronic hypertension - To resume patient home medication when reconciled. (4) explained the entire treatment plan to the patient, solicit questions an swered and voiced understanding. Discharge Plan: Home - Advance Directives Does patient have a Living Will: No Does patient have a Durable POA for Healthcare: No - Code Status/Comfort Care Code Status Assessed: Yes Code Status: Full Code
[2024-10-15] MEDS: METRONIDAZOLE 500mg IVPB 500 MG/100 ML BAG IV SCH (20:00)
[2024-10-15] MEDS: D5 0.45 NS 1,000 ML IV SCH (20:00)
[2024-10-15] MEDS ORDERED: ACETAMINOPHEN 325 MG TABLET ONE (20:09)
[2024-10-15] MEDS ORDERED: D5 0.45 NS 1,000 ML IV ONE (20:10)
[2024-10-15] MEDS ORDERED: METRONIDAZOLE 500mg IVPB 500 MG/100 ML BAG IV ONE (20:10)
[2024-10-15] MEDS: ACETAMINOPHEN 325 MG TABLET PO PRN (20:18)
[2024-10-15 21:07] VITALS: BMI 41.5
[2024-10-15] MEDS: MORPHINE 4 MG/ML SYR IV PRN (23:17)
[2024-10-15] MEDS: ONDANSETRON 4 MG/2 ML VIAL IV PRN (23:17)
[2024-10-16] MEDS ORDERED: METRONIDAZOLE 500mg IVPB 500 MG/100 ML BAG IV ONE ×4 (00:44→13:27)
[2024-10-16] MEDS ORDERED: MORPHINE 4 MG/ML SYR ONE ×2 (03:23→08:04)
[2024-10-16 05:15] LABS: Absolute Basophils 0.1 K/uL (0-0.5); Absolute Eosinophils 0.1 K/uL (0-0.5); Absolute Lymphocytes (CBC) 1.2 K/uL (0.7-4.9); Absolute Monocytes 1.2 K/uL (0.1-1.3); Absolute Neutrophil 8.7 K/uL (1.8-8.0); Basophils % 0.6 % (0-1.3); Eosinophils % 0.6 % (0-4.4); Hematocrit 33.3 % (39.6-49.0); Hemoglobin 11.3 g/dL (13.6-17.9); Lymphocytes % 10.3 % (15.3-44.8); MCH 31.2 pg (27.0-35.0); MCV 91.7 fL (80-100); MPV 7.3 fL (7.6-11.3); Monocytes % 10.7 % (3.3-12.3); Neutrophils % 77.8 % (41.7-73.7); Platelets 266 thou/uL (152-406); RBC Red Blood Cell Count 3.63 M/uL (4.33-5.43); Red Cell Distribution Width 14.4 % (12.1-15.2)
[2024-10-16] MEDS ORDERED: ACETAMINOPHEN 325 MG TABLET ONE (05:15)
[2024-10-16] MEDS ORDERED: NA CHLORIDE 0.9% 1,000 ML ONE (05:27)
[2024-10-16 05:34] LABS: Albumin 3.1 g/dL (3.4-5.0); Albumin/Globulin Ratio 0.8 (1.1-1.8); Anion Gap 7.6 mEq/L (5.0-15.0); Potassium 3.6 mEq/L (3.5-5.1); Protein, Total 7.1 g/dL (6.4-8.2)
[2024-10-16] MEDS ORDERED: CEFTRIAXONE 1000 MG/VIAL ONE (08:04)
[2024-10-16] MEDS ORDERED: ENOXAPARIN 40 MG/0.4 ML SQ ONE (08:04)
[2024-10-16] MEDS: ENOXAPARIN 40 MG/0.4 ML SQ SCH (08:16)
[2024-10-16] MEDS: CEFTRIAXONE 1,000 MG in NA CHLORIDE 0.9% 50 ML IVPB SCH (08:16)
--- NOTE | 2024-10-16 12:28 | ECHO ---
HEIGHT: 5 ft 7 in WEIGHT: 265 lb 0 oz DATE OF STUDY: 10/16/[address]: Raul Brown NP 2-DIMENSIONAL: YES M.MODE: YES DOPPLER: YES COLOR FLOW: YES TDS: NO PORTABLE: YES DEFINITY: NO BUBBLE STUDY: NO DIAGNOSIS: PITTING EDEMA CARDIAC HISTORY: CATHERIZATION: NO SURGERY: NO PROSTHETIC VALVE: NO PACEMAKER: NO MEASUREMENTS (cm) DIASTOLIC (NORMALS) SYSTOLIC (NORMALS) IVSd 1.2 (0.6-1.2) LA Diam 3.7 (1.9-4.0) LVEF 60-65% LVIDd 4.0 (3.5-5.7) LVIDs 2.7 (2.0-3.5) %FS 33% LVPWd 1.3 (0.6-1.2) Ao Diam 2.9 (2.0-3.7) 2 DIMENSIONAL ASSESSMENT: RIGHT ATRIUM: NORMAL LEFT ATRIUM: NORMAL RIGHT VENTRICLE: NORMAL LEFT VENTRICLE: NORMAL TRICUSPID VALVE: TRACE OF TRICUSPID REGURGITATION MITRAL VALVE: NORMAL PULMONIC VALVE: NORMAL AORTIC VALVE: NORMAL PERICARDIAL EFFUSION: NONE AORTIC ROOT: NORMAL LEFT VENTRICULAR WALL MOTION: NORMAL. DOPPLER/COLOR FLOW: NORMAL. COMMENTS: 1. NORMAL LEFT VENTRICULAR SYSTOLIC FUNCTION, EJECTION FRACTION 60-65%, NORMAL WALL MOTION. 2. NORMAL DIASTOLIC FUNCTION. 3. NORMAL FILLING PRESSURE (RIGHT ATRIAL PRESSURE 0-5mmHg) 4. SEVERE PULMONARY HYPERTENSION (RIGHT VENTRICULAR SYSTOLIC PRESSURE GREATER THAN 60mmHg) TECHNOLOGIST: DILLON ORTIZ
[2024-10-16] MEDS ORDERED: HYDROCODONE/APAP 5/325 MG TAB ONE (13:27)
[2024-10-16] MEDS: HYDROCODONE/APAP 5/325 MG TAB PO PRN (13:31)
[2024-10-16 14:51] VITALS: O2SAT 95
--- NOTE | 2024-10-16 15:26 | P.PN ---
Date of Service: 10/16/24 Subjective: No acute events overnight Still having significant left lower quadrant abdominal pain radiating to back ROS: 10 point ROS as noted above, otherwise negative Physical exam GEN: Alert, oriented, NAD HEENT: Normal conjunctiva, sclera anicteric CV: Regular rate and rhythm, no edema Pulm: Nonlabored respirations on room air ABD: Soft, moderate left lower quadrant abdominal tenderness, nondistended MSK: No joint tenderness Integumentary: No rashes Neuro: Normal speech, normal affect Vitals reviewed Assessment: Acute diverticulitis-failed outpatient management Hypertension Lower extremity edema Plan: Acute diverticulitis-failed outpatient management Continue IV antibiotics As needed pain medications and antiemetics Serial abdominal exams Daily CBC Consider repeat imaging in 48 to 72 hours if symptoms are not improving or are worsening Hypertension Continue home medications Lower extremity edema Echo shows normal systolic and diastolic function Also shows significant pulmonary hypertension DVT PPX: Lovenox Code status: Full code Time Spent Managing Pts Care (In Minutes): 35
[2024-10-17 04:51] LABS: Hematocrit 32.9 % (39.6-49.0); Hemoglobin 11.1 g/dL (13.6-17.9); MCH 31.2 pg (27.0-35.0); MCHC 33.9 g/dL (32.0-36.0); MCV 92.1 fL (80-100); MPV 7.7 fL (7.6-11.3); Platelets 258 thou/uL (152-406); RBC Red Blood Cell Count 3.57 M/uL (4.33-5.43); Red Cell Distribution Width 14.4 % (12.1-15.2)
[2024-10-17 05:00] LABS: Anion Gap 7.8 mEq/L (5.0-15.0); Potassium 3.8 mEq/L (3.5-5.1)
[2024-10-17] MEDS: POTASSIUM CL SA 10 MEQ TAB PO ONE (08:59)
--- NOTE | 2024-10-17 10:12 | P.PN ---
Date of Service: 10/17/24 Subjective: No acute events overnight Still having significant left lower quadrant abdominal pain radiating to back-no significant change in pain ROS: 10 point ROS as noted above, otherwise negative Physical exam GEN: Alert, oriented, NAD HEENT: Normal conjunctiva, sclera anicteric CV: Regular rate and rhythm, no edema Pulm: Nonlabored respirations on room air ABD: Soft, moderate left lower quadrant abdominal tenderness, nondistended MSK: No joint tenderness Integumentary: No rashes Neuro: Normal speech, normal affect Vitals reviewed Assessment: Acute diverticulitis-failed outpatient management Hypertension Lower extremity edema Plan: Acute diverticulitis-failed outpatient management Continue IV antibiotics As needed pain medications and antiemetics Serial abdominal exams Daily CBC Consider repeat imaging in 48 to 72 hours if symptoms are not improving or are worsening States tolerating diet, feeling a little better, poss DC tomorrow if still doing ok Hypertension Continue home medications Lower extremity edema Echo shows normal systolic and diastolic function Also shows significant pulmonary hypertension DVT PPX: Lovenox Code status: Full code Time Spent Managing Pts Care (In Minutes): 35
[2024-10-18 06:46] LABS: Hematocrit 32.6 % (39.6-49.0); Hemoglobin 11.2 g/dL (13.6-17.9); MCH 31.5 pg (27.0-35.0); MCHC 34.2 g/dL (32.0-36.0); MCV 92.1 fL (80-100); MPV 7.8 fL (7.6-11.3); Platelets 273 thou/uL (152-406); RBC Red Blood Cell Count 3.54 M/uL (4.33-5.43); Red Cell Distribution Width 14.1 % (12.1-15.2)
[2024-10-18 07:12] LABS: Anion Gap 8.2 mEq/L (5.0-15.0); Potassium 4.2 mEq/L (3.5-5.1)
--- NOTE | 2024-10-18 11:12 | RAD REPORT ---
EXAMINATION: Abdomen Pelvis W Contrast CLINICAL INDICATION: Male, 54 years old.R/o bowel perforation/abscess TECHNIQUE: CT abdomen and pelvis was performed, after the administration of IV contrast, as per [facility] protocol. Axial, sagittal and coronal reconstructions were obtained. One or more of the following dose reduction techniques were used: Automated exposure control, adjustment of the mA and/o r kV according to patient size, and/or iterative reconstruction. Unless otherwise specified, incidental findings do not require dedicated imaging follow-up. [id number]. COMPARISON: 10/15/2024 FINDINGS: LOWER CHEST: No acute process identified.No significant pericardial effusion. Mild circumferential th ickening of the distal esophagus which could reflect esophagitis. UPPER GI: No significant abnormality. LIVER: No significant focal abnormality. GALLBLADDER/BILE DUCTS: Cholecystomy? PANCREAS: No mass, ductal dilation, or ayaan-pancreatic fluid. SPLEEN: Unremarkable. ADRENALS: No adrenal masses. KIDNEYS AND URETERS: No hydronephrosis.Low density and/or too small to characterize renal lesions whi ch are statistically benign.No renal calculi.No ureteral calculi. ABDOMINAL AORTA AND OTHER VESSELS: Normal caliber aorta and IVC. PERITONEUM: No abnormal free fluid. No free air. LYMPH NODES: No pathologic lymphadenopathy. ABDOMINAL WALL: Prior ventral hernia repair. SMALL BOWEL/COLON: Inflammatory changes are again seen at the descending colon. No free air is identi fied. No abscess. Oral contrast traverses this portion of bowel and is without evidence of leak.No bowel obstruction normal appendix URINARY BLADDER: Underdistended but grossly unremarkable. REPRODUCTIVE ORGANS: No pathologic process. MUSCULOSKELETAL: No acute or suspicious osseous abnormality. ADDITIONAL FINDINGS: None. IMPRESSION: Similar findings of inflammation of the descending colon consistent with acute diverticulitis. No per foration, abscess, or bowel obstruction. Enteric contrast traverses the entire bowel.
--- NOTE | 2024-10-18 11:35 | P.DS ---
Admission Date: 10/15/24 Discharge Date: 10/18/24 Disposition: ROUTINE DISCHARGE Discharge Condition: GOOD Reason for Admission: Diverticulitis. Brief History of Present Illness: Patient is a pleasant 54 years old male with past medical history of renal cyst, hypertension, COVID, ventral hernia, who reports to the ER today complaining of worsening pain left lower back pain, radiating to his left lower abdomen. Patient states he started having severe left lower back pain yesterday morning, radiating to his left lower abdomen, states throughout the day the pain progressive worsening with associated nausea but no vomiting which then prompted him to report to the ER. Patient states he have had failed outpatient antibiotics x 2 times. Patient states in May/2024 he visited the ER and was diagnosed with diverticulitis, ordered antibiotics and sent home, states about a week after taking the antibiotics, he started having severe pain again same location and fever, visited ER and was diagnosed with diverticulitis, prescribed antibiotics, and sent home, states he took the complete antibiotic, he took the last tablet on Wednesday last week. States this morning again the pain started same location, same symptoms, but states the pain today was more excruciating, and constant, from his lower back radiating to his left lower abdomen with no associated fever this time. States the pain is aggravated when moving, or palpation, describes the pain as sharp, aching, and constant. Patient has bilateral lower extremities pitting edema with no associated adventitious breath sounds, or shortness of breath. Hospital Course: Assessment: Acute diverticulitis-failed outpatient management Hypertension Lower extremity edema Patient was admitted to the hospital for acute diverticulitis. He had recently been treated with oral antibiotics for this but his pain still persisted. He has been to the hospital treated with IV antibiotics for 3 days. His pain is improved but he still having some discomfort he rates around a 4 or 5 out of 10 currently. His white blood cell count has improved significantly, he has been afebrile and tolerating a diet. His ongoing discomfort a repeat CT was performed today which did not show any complications including perforation, abscess. He has some chronic lower extremity edema during hospitalization and echocardiogram was performed. Echocardiogram showed normal LVEF, diastolic function but he did have severe pulmonary hypertension with right ventricular systolic pressures greater than 60 mmHg. Patient without any shortness of breath, room air sats normal. This was discussed with patient, recommend outpatient follow-up with pulmonology. Additionally on the CT today there was some distal esophageal thickening, recommend outpatient EGD which she is currently having arranged given his ongoing GI issues. He already has a GI doctor that he is going to follow-up with. Prescription for antibiotics for an additional 10 days sent to his pharmacy with Augmentin/Flagyl. Vital Signs/Physical Exam: Temp Pulse Resp BP Pulse Ox 97.6 F 83 18 137/72 99 10/18/24 08:00 10/18/24 08:00 10/18/24 08:00 10/18/24 08:00 10/18/24 08:00 General: Alert, In no apparent distress, Oriented x3 HEENT: Atraumatic, PERRLA Neck: Supple, JVD not distended Respiratory: Clear to auscultation bilaterally, Normal air movement Cardiovascular: Regular rate/rhythm, Normal S1 S2 Gastrointestinal: Normal bowel sounds, No tenderness Musculoskeletal: No tenderness Neurological: Normal speech, Normal affect Laboratory Data at Discharge: WBC 5.30 thou/uL (4.3-10.9) 10/18/24 06:26 Hgb 11.2 g/dL (13.6-17.9) L 10/18/24 06:26 Hct 32.6 % (39.6-49.0) L 10/18/24 06:26 Plt Count 273 thou/uL (152-406) 10/18/24 06:26 Sodium 141 mEq/L (136-145) 10/18/24 06:26 Potassium 4.2 mEq/L (3.5-5.1) 10/18/24 06:26 BUN 13 mg/dL (7-18) 10/18/24 06:26 Creatinine 0.93 mg/dL (0.70-1.30) 10/18/24 06:26 Glucose 100 mg/dL (74-106) 10/18/24 06:26 Total Bilirubin 1.0 mg/dL (0.2-1.0) 10/16/24 05:00 AST 14 U/L (15-37) L 10/16/24 05:00 ALT 35 U/L (16-61) 10/16/24 05:00 Alkaline Phosphatase 66 U/L (45-117) 10/16/24 05:00 Lipase 32 U/L (13-75) 10/15/24 16:23 Home Medications: Amlodipine [Norvasc*] 5 mg PO DAILY 10/17/24 Amox/Clavulanate [Augmentin 875-125 Tab] 875 mg PO BID 10 Days #20 tab 10/18/24 metroNIDAZOLE [Flagyl] 500 mg PO Q8H 10 Days #30 tab 10/18/24 New Medications: Amox/Clavulanate [Augmentin 875-125 Tab] 875 mg PO BID 10 Days #20 tab metroNIDAZOLE [Flagyl] 500 mg PO Q8H 10 Days #30 tab Physician Discharge Instructions: Patient was admitted to the hospital for acute diverticulitis. He had recently been treated with oral antibiotics for this but his pain still persisted. He has been to the hospital treated with IV antibiotics for 3 days. His pain is improved but he still having some discomfort he rates around a 4 or 5 out of 10 currently. His white blood cell count has improved significantly, he has been afebrile and tolerating a diet. His ongoing discomfort a repeat CT was performed today which did not show any complications including perforation, abscess. He has some chronic lower extremity edema during hospitalization and echocardiogram was performed. Echocardiogram showed normal LVEF, diastolic function but he did have severe pulmonary hypertension with right ventricular systolic pressures greater than 60 mmHg. Patient without any shortness of breath, room air sats normal. This was discussed with patient, recommend outp atient follow-up with pulmonology. Additionally on the CT today there was some distal esophageal thickening, recommend outpatient EGD which she is currently having arranged given his ongoing GI issues. He already has a GI doctor that he is going to follow-up with. Prescription for antibiotics for an additional 10 days sent to his pharmacy with Augmentin/Flagyl. [facility] [employer] Call Jennifer Marin RN at [phone] for questions or concerns after discharge. Expect a call within 1-2 business days of discharge. Diet: low fiber Activity: Ad stephen Followup: Edward Rowe MD [ACTIVE - CAN ADMIT] - 1-2 Weeks EULOGIO CONSTANTINO [Primary Care Provider] - 1-2 Weeks Time spent managing pt's care (in minutes): 46
[2024-10-18 12:31] VITALS: BP 137/78; TEMP 97.7
== END 2024-10-18 13:23 | disposition home or self-care (01) | DRG 392 ==
LOC: ER 15:53 → ERHOLD 19:25 → 2ND 10-16 13:58
PROVIDERS: ADMIT Hospitalist; ATTEND Internal Medicine
DX: K57.32 Diverticulitis of large intestine without perforation or abscess without bleeding (principal); I27.20 Pulmonary hypertension, unspecified; I10 Essential (primary) hypertension; R60.0 Localized edema; Z86.16 Personal history of COVID-19; Z79.82 Long term (current) use of aspirin; Z90.49 Acquired absence of other specified parts of digestive tract; Z79.899 Other long term (current) drug therapy
CPT/HCPCS: 36415; 74177; 80048; 80053; 83690; 85025; 85027; 93306; 96365; 96375; 99284; J0696; J1650; J2405; J2543; J7030; J7799; Q9967

== ENCOUNTER 2025-01-22 12:46 | Emergency (ER) | payer BC, OTHER ==
[2025-01-22 13:40] LABS: Absolute Lymphocytes (CBC) 1.1 K/uL (0.7-4.9); Hematocrit 41.3 % (39.6-49.0); Hemoglobin 13.8 g/dL (13.6-17.9); MCH 30.6 pg (27.0-35.0); MCHC 33.4 g/dL (32.0-36.0); MCV 91.8 fL (80-100); MPV 7.6 fL (7.6-11.3); Nucleated RBC Absolute Count 0.0 (0-0); Nucleated Red Blood Cells % 0.0 % (0-0); RBC Red Blood Cell Count 4.50 M/uL (4.33-5.43); White Blood Count 9.60 thou/uL (4.3-10.9)
[2025-01-22 13:58] LABS: ALT/SGPT 27.0 U/L (16-61); AST/SGOT 12.0 U/L (15-37); Albumin 3.5 g/dL (3.4-5.0); Albumin/Globulin Ratio 0.9 (1.1-1.8); Alkaline Phosphatase 71.0 U/L (45-117); Anion Gap 5.7 mEq/L (5.0-15.0); BUN Blood Urea Nitrogen 18.0 mg/dL (7-18); Globulin 3.8 g/dL (2.3-3.5); Glucose Level 91.0 mg/dL (74-106); Lipase 55.0 U/L (13-75); Potassium 3.7 mEq/L (3.5-5.1)
[2025-01-22] MEDS ORDERED: KETOROLAC 30 MG/ML INJ ONE (15:01)
--- NOTE | 2025-01-22 15:21 | RAD REPORT ---
EXAMINATION: CT ABDOMEN AND PELVIS WITH CONTRAST CLINICAL INDICATION: Abdominal pain. Left lower quadrant pain TECHNIQUE: CT abdomen and pelvis was performed, after the administration of 100 cc Isovue-300.. Sagit owen and coronal reconstructions were obtained. One or more of the following dose reduction techniques were used: Automated exposure control, adjustment of the mA and kV according to patient si ze, and iterative reconstruction. Unless otherwise specified, incidental findings do not require dedicated imaging follow-up. [id number]. Oral contrast was not given which limits evaluation of bowel and appendix. COMPARISON: .October 2024 FINDINGS: Liver, spleen, pancreas, and adrenals appear unremarkable Cholecystectomy Small renal cysts Thickening of the wall of the descending colon. Adjacent diverticula. Mild to moderate stranding with in the adjacent fat. No free air. No abscess. Postsurgical changes ventral hernia repair. : IMPRESSION: Mild to moderate diverticulitis descending colon.
--- NOTE | 2025-01-22 15:31 | EDPHYS ---
Physician Documentation [facility] Name: Ethan Hall Age: 54 yrs Sex: Male : 1970 Arrival Date: 01/22/2025 Time: 12:46 Bed 6 Private MD: ED Physician Devin Orosco HPI: 01/22 15:55 This 54 yrs old Black Male presents to ER via Ambulatory with complaints of Abdominal ms3 Pain. 15:55 54-year-old male with past medical history of hernia, hypertension [place] [facility] [place] for left lower quadrant abdominal pain that is been ongoing for 6 months. Patient states his discomfort is an 8/10 at home and is currently 6/10. Patient endorses nausea, vomiting. Patient denies fevers or chills. Patient endorses having CTs and MRIs and he was told he had masses on his kidney.. Historical: - Allergies: 13:40 No Known Allergies; iw - PMHx: 13:40 Hernia; Hypertension; iw - PSHx: 13:40 Cholecystectomy; hernia repair; iw - Immunization history:: Adult Immunizations up to date. - Infectious Disease History:: Denies. - Social history:: Smoking status: Patient denies any tobacco usage or history of. ROS: 15:55 Constitutional: Negative for fever, and chills. Cardiovascular: Negative for chest ms3 pain, and palpitations. Respiratory: Negative for shortness of breath, cough, wheezing, and pleuritic chest pain, 15:55 MS/Extremity: Negative for injury and deformity, Skin: Negative for injury, rash, and discoloration, 15:55 Abdomen/GI: Positive for abdominal pain, nausea and vomiting, Exam: 15:55 Constitutional: This is a well developed, well nourished patient who is awake, alert, ms3 and in no acute distress. Cardiovascular: Regular rate and rhythm with a normal S1 and S2. No gallops, murmurs, or rubs. Normal PMI, no JVD. No pulse deficits. Respiratory: Lungs have equal breath sounds bilaterally, clear to auscultation and percussion. No rales, rhonchi or wheezes noted. No increased work of breathing, no retractions or nasal flaring. MS/ Extremity: Pulses equal, no cyanosis. Neurovascular intact. Full, normal range of motion. 15:55 Abdomen/GI: Inspection: abdomen appears normal, obese Bowel sounds: normal, in all quadrants, Palpation: moderate abdominal tenderness, in the left lower quadrant, Vital Signs: 13:40 BP 151 / 99; Pulse 97; Resp 18; Temp 99.5(O); Pulse Ox 98% on R/A; Weight 122.47 kg; iw Height 5 ft. 7 in. ; Pain 6/10; 13:40 Body Mass Index 42.29 (122.47 kg, 170.18 cm) iw 13:40 Pain Scale: Adult iw MDM: 13:13 Medical Screening Exam initiated ms3 15:55 Differential diagnosis: diverticulitis. Data reviewed: vital signs, nurses notes, lab ms3 test result(s), radiologic studies, and as a result, I will discharge patient. I considered the following discharge prescriptions or medication management in the emergency department Medications were administered in the Emergency Department. See MAR. Counseling: I had a detailed discussion with the patient and/or guardian regarding the historical points, exam findings, and any diagnostic results supporting the discharge/admit diagnosis, lab results, radiology results, the need for outpatient follow up, to return to the emergency department if symptoms worsen or persist or if there are any questions or concerns that arise at home. Special discussion: Based on the patient's Hx, exam, and Dx evaluation, there is no indication for emergent surgery or inpatient Tx. It is understood by the patient/guardian that if the Sx's persist or worsen they need to return immediately for re-evaluation. ED course: Discussed CT findings of diverticulitis. Patient with normal white blood count and without other systemic signs of illness. Patient to follow-up with gastroenterology regarding diverticulitis. Patient understands and agrees with plan. All questions were answered. Patient given prescription for Augmentin. Return precautions discussed include fevers, worsening abdominal pain, inability to tolerate p.o., or any other concerns.. 01/22 12:49 Order name: CBC with Diff; Complete Time: 14:41 ms3 01/22 12:49 Order name: CMP; Complete Time: 14:41 ms3 01/22 12:49 Order name: Lipase; Complete Time: 14:41 ms3 01/22 14:42 Order name: CT Abd/Pelvis - IV Contrast Only; Complete Time: 15:29 ms3 01/22 12:49 Order name: IV Saline Lock; Complete Time: 13:26 ms3 01/22 12:49 Order name: Labs collected and sent; Complete Time: 13: ms3 Administered Medications: 15:10 Drug: Ketorolac IVP 10 mg 10 mg IVP once Route: IVP; Site: left antecubital; bp 15:54 Follow up: Response: No adverse reaction hb 15:54 Drug: HYDROcodone-acetaminophen PO 5 mg-325 mg 1 tabs PO once Route: PO; hb 15:54 Follow up: Response: Medication administered at discharge. hb Disposition Summary: 01/22/25 15:30 Discharge Ordered Notes: Location: Home ms3 Condition: Stable ms3 Diagnosis - Diverticulitis of large intestine without perforation or abscess without bleeding ms3 - Essential (primary) hypertension ms3 Followup: ms3 - With: Vinay Galvan MD - When: 2 - 3 days - Reason: Recheck today's complaints Discharge Instructions: - Discharge Summary Sheet ms3 - Diverticulitis ms3 - Hypertension, Adult ms3 - DASH Eating Plan ms3 Forms: - Medication Reconciliation Form ms3 - Antibiotic Education ms3 - Prescription Opioid Use ms3 - Patient Portal Instructions ms3 - Leadership Thank You Letter ms3 Prescriptions: - Augmentin 875-125 mg Oral Tablet - take 1 tablet ORAL route every 12 hours for 10 days; 20 tablet; Refills: 0, ms3 Product Selection Permitted Signatures: Dispatcher [employer] Adrianne Hall RN RN iw Baxter, Heather, RN RN hb Peltier, Brian RN RN Devin Foss DO DO ms3
--- NOTE | 2025-01-22 15:31 | ER ---
Nurse's Notes [facility] Name: Ethan Hall Age: 54 yrs Sex: Male : 1970 Arrival Date: 01/22/2025 Time: 12:46 Bed 6 Private MD: Diagnosis: Diverticulitis of large intestine without perforation or abscess without bleeding;Essential (primary) hypertension Presentation: 01/22 13:38 Chief complaint: Patient states: left flank pain for 6 months, worse over past few iw days, is due to see Dr. Jamseon, has been seen by GI for diverticulitis, he vomited today. Coronavirus screen: At this time, the client does not indicate any symptoms associated with coronavirus-19. Initial Sepsis Screen: Does the patient meet any 2 criteria? No. Patient's initial sepsis screen is negative. Does the patient have a suspected source of infection? No. Patient's initial sepsis screen is negative. Risk Assessment: Do you want to hurt yourself or someone else? Patient reports no desire to harm self or others. 13:38 Method Of Arrival: Ambulatory iw 13:38 Acuity: CHRISTINA 3 iw 13:40 Ebola Screen: No symptoms or risks identified at this time. iw Historical: - Allergies: 13:40 No Known Allergies; iw - PMHx: 13:40 Hernia; Hypertension; iw - PSHx: 13:40 Cholecystectomy; hernia repair; iw - Immunization history:: Adult Immunizations up to date. - Infectious Disease History:: Denies. - Social history:: Smoking status: Patient denies any tobacco usage or history of. Screenin:30 [facility] ED Fall Risk Assessment (Adult) History of falling in the last 3 months, hb including since admission No falls in past 3 months (0 pts) Confusion or Disorientation No (0 pts) Intoxicated or Sedated No (0 pts) Impaired Gait No (0 pts) Mobility Assist Device Used No (0 pt) Altered Elimination No (0 pt) Score/Fall Risk Level 0 - 2 = Low Risk Oriented to surroundings, Maintained a safe environment, Educated pt \T\ family on fall prevention, incl call for assistance when getting out of bed. Abuse screen: Denies threats or abuse. Denies injuries from another. Nutritional screening: No deficits noted. Tuberculosis screening: No symptoms or risk factors identified. Assessment: 13:30 General: Appears in no apparent distress. Behavior is calm, cooperative. Pain: Pain hb currently is 6 out of 10 on a pain scale. Neuro: Level of Consciousness is awake, alert, obeys commands, Oriented to person, place, time, situation. Cardiovascular: Patient's skin is warm and dry. Respiratory: Respiratory effort is even, unlabored, Respiratory pattern is regular, symmetrical. GI: Reports lower abdominal pain, upper abdominal pain. : No signs and/or symptoms were reported regarding the genitourinary system. EENT: No signs and/or symptoms were reported regarding the EENT system. Derm: Skin is pink, warm \T\ dry. Musculoskeletal: No signs and/or symptoms reported regarding the musculoskeletal system. Vital Signs: 13:40 BP 151 / 99; Pulse 97; Resp 18; Temp 99.5(O); Pulse Ox 98% on R/A; Weight 122.47 kg; iw Height 5 ft. 7 in. ; Pain 6/10; 13:40 Body Mass Index 42.29 (122.47 kg, 170.18 cm) iw 13:40 Pain Scale: Adult iw ED Course: 12:49 Patient arrived in ED. mr 12:49 Devin Orosco DO is Attending Physician. ms3 13:27 CBC with Diff Sent. bc6 13:27 CMP Sent. bc6 13:27 Lipase Sent. bc6 13:27 Initial lab(s) drawn, by me, sent to lab. Inserted saline lock: 20 gauge in left bc6 antecubital area, using aseptic technique. Blood collected. Flushed with 10 mL NS. 13:30 Patient has correct armband on for positive identification. Bed in low position. Call hb light in reach. Provided Education on: call light . 13:40 Triage completed. iw 13:41 Arm band placed on. iw 13:45 Christiano Rene, REINA is Primary Nurse. bp 15:00 CT Abd/Pelvis - IV Contrast Only In Process Unspecified. EDMS 15:29 Vinay Galvan MD is Referral Physician. ms3 15:56 No provider procedures requiring assistance completed. IV discontinued, intact, hb bleeding controlled, No redness/swelling at site. Pressure dressing applied. Administered Medications: 15:10 Drug: Ketorolac IVP 10 mg 10 mg IVP once Route: IVP; Site: left antecubital; bp 15:54 Follow up: Response: No adverse reaction hb 15:54 Drug: HYDROcodone-acetaminophen PO 5 mg-325 mg 1 tabs PO once Route: PO; hb 15:54 Follow up: Response: Medication administered at discharge. hb Medication: 13:30 VIS not applicable for this client. hb Outcome: 15:30 Discharge ordered by MD. ms3 15:56 Discharged to home ambulatory, with significant other, hb 15:56 Condition: stable 15:56 Discharge instructions given to patient, significant other, Instructed on discharge instructions, follow up and referral plans. Demonstrated understanding of instructions, follow-up care, medications, Prescriptions given X 1, 15:57 Patient left the ED. hb Signatures: Dispatcher [employer] EDMS Rebecca Zuniga, Reg Reg mr Adrianne Wagoner, RN RN Rachel Enriquez, REINA RN Christiano Prince, REINA RN Devin Foss, DO ms3 Twylaana lilia, Tegan bc6
[2025-01-22] MEDS ORDERED: HYDROCODONE/APAP 5/325 MG TAB ONE (15:41)
[2025-01-22 21:24] VITALS: BP 151/99; TEMP 99.5; O2SAT 98
== END 2025-01-22 15:57 | disposition home or self-care (01) ==
LOC: ER 12:46
DX: K57.32 Diverticulitis of large intestine without perforation or abscess without bleeding (principal); I10 Essential (primary) hypertension
CPT/HCPCS: 85025; 36415; 83690; 80053; 74177; 96374; 99284; Q9967

== ENCOUNTER 2025-03-22 18:43 | Emergency (ER) | payer BC, OTHER ==
[2025-03-22 19:11] LABS: Absolute Lymphocytes (CBC) 1.7 K/uL (0.7-4.9); Hematocrit 41.3 % (39.6-49.0); Hemoglobin 13.7 g/dL (13.6-17.9); MCH 30.4 pg (27.0-35.0); MCHC 33.1 g/dL (32.0-36.0); MCV 91.9 fL (80-100); MPV 7.9 fL (7.6-11.3); Nucleated RBC Absolute Count 0.0 (0-0); Nucleated Red Blood Cells % 0.1 % (0-0); RBC Red Blood Cell Count 4.50 M/uL (4.33-5.43); White Blood Count 6.50 thou/uL (4.3-10.9)
[2025-03-22] MEDS ORDERED: LORazepam 2 MG/ML VIAL ONE ×2 (19:32→21:09)
[2025-03-22 19:33] LABS: ALT/SGPT 30.0 U/L (16-61); AST/SGOT 14.0 U/L (15-37); Albumin 3.6 g/dL (3.4-5.0); Albumin/Globulin Ratio 0.9 (1.1-1.8); Alkaline Phosphatase 74.0 U/L (45-117); Anion Gap 6.5 mEq/L (5.0-15.0); BUN Blood Urea Nitrogen 12.0 mg/dL (7-18); Bilirubin Indirect, Calculated 0.3 mg/dL (0.2-0.8); Globulin 4.1 g/dL (2.3-3.5); Glucose Level 101.0 mg/dL (74-106); Lipase 48.0 U/L (13-75); Potassium 3.5 mEq/L (3.5-5.1); Troponin High Sensitivity 6.7 pg/mL (<58.9)
--- NOTE | 2025-03-22 19:51 | RAD REPORT ---
EXAMINATION: ONE VIEW CHEST XR CLINICAL INDICATION: CHEST PAIN TECHNIQUE: Frontal chest projection is submitted. Examination is limited by patient positioning and t echnique. COMPARISON: 12/31/2023 FINDINGS: The lungs are well inflated and clear. The heart is upper limit of normal in size. No displaced fract ures identified. IMPRESSION: No acute intrathoracic abnormalities.
--- NOTE | 2025-03-22 19:54 | EDPHYS ---
Physician Documentation [facility] Name: Ethan Hall Age: 55 yrs Sex: Male : 1970 Arrival Date: 03/22/2025 Time: 18:43 Bed 7 Private MD: ED Physician Anant Fair HPI: 03/22 19:38 This 55 yrs old Black Male presents to ER via Ambulatory with complaints of Chest Pain. tt7 19:38 Patient reports that yesterday night he had some right sided chest tightness that tt7 radiated into his right arm, this was also associated with feelings of anxiety and tightness on the left side of his neck, after about 10 to 15 minutes the symptoms resolved spontaneously. He characterizes the symptoms as moderate in severity. Just over 3 hours ago he began to have similar right sided chest tightness with associated anxiety and cramping/spasm in his toes. The symptoms were more mild in comparison to the previous evening. Patient states that he was being stubborn and did not want to come in but his family members said he needed to. He reports that he has been under more stress recently. Past medical history of hypertension. Historical: - Allergies: 18:51 No Known Allergies; kb4 - PMHx: 18:51 Hypertension; kb4 - Immunization history:: Adult Immunizations unknown. - Infectious Disease History:: Denies. - Social history:: Smoking status: Patient denies any tobacco usage or history of. Patient uses alcohol, occasionally. ROS: 19:36 Constitutional: negative for fever. Respiratory: negative for shortness of breath. tt7 Abdomen/GI: negative for abdominal pain, nausea, vomiting, diarrhea. MS/Extremity: negative for injury and deformity. Skin: negative for rash. Neuro: negative for focal weakness. 19:36 Cardiovascular: Positive for chest pain, 19:36 Psych: Positive for anxiety, Exam: 19:36 Constitutional: vital signs reviewed, well appearing. Head/Face: normocephalic, tt7 atraumatic. Eyes: no conjunctival injection, anicteric sclerae. ENT: mucus membranes moist. Neck: trachea midline, no JVD, no meningismus. Chest/axilla: normal chest wall appearance and motion, nontender, no crepitus. Cardiovascular: regular rate and rhythm, no murmurs, no rubs, no lower extremity edema. Respiratory: normal respiratory effort, no accessory muscle use, lungs CTAB. Abdomen/GI: soft, nondistended, nontender, no guarding or rebound, negative Frost's sign, no McBurney point tenderness. Back: normal ROM. Skin: warm, dry, intact, normal turgor, normal color, no rash. MS/ Extremity: normal ROM of extremities, no gross deformities. Neuro: alert and oriented with appropriate mental status, normal speech, follows commands, no focal neurologic deficits. Psych: appropriate mood and affect. Vital Signs: 18:49 BP 149 / 93; Pulse 85; Resp 18; Temp 98; Pulse Ox 97% ; Weight 127.01 kg; Height 5 ft. kb4 7 in. ; Pain 6/10; 19:37 BP 158 / 92; Pulse 91; Resp 24; Pulse Ox 96% on R/A; mf3 21:20 BP 145 / 87; Pulse 82; Resp 18; Pulse Ox 98% on R/A; mf3 18:49 Body Mass Index 43.85 (127.01 kg, 170.18 cm) kb4 18:49 Pain Scale: Adult kb4 Justa Coma Score: 19:30 Eye Response: spontaneous(4). Motor Response: obeys commands(6). Verbal Response: mf3 oriented(5). Total: 15. MDM: 18:54 Medical Screening Exam initiated tt7 18:57 Differential diagnosis: abnormal EKG, acute myocardial infarction, anxiety, coronary tt7 artery disease chest wall pain, costochondritis, esophagitis, gastritis, gastroesophageal reflux disease (GERD), pancreatitis, peptic ulcer disease, pneumonia, pneumothorax. Data reviewed: vital signs, nurses notes, lab test result(s), EKG, radiologic studies. ED course: I independently interpreted the patient's EKG performed on 03/22/2025 at 1852. On my interpretation, EKG demonstrates normal sinus rhythm, ventricular rate 85 bpm, normal axis, normal QRS interval, normal ST segments, no STEMI. Cardiac monitoring was ordered due to the potential for ischemia or electrolyte abnormality causing dysrythmia. I independently interpreted the patient's cardiac rhythm as normal sinus rhythm at a rate of 87 bpm on the site monitor. 19:34 HEART Score: History: Slightly Suspicious (0), ECG: Normal (0), Age: > 45 and < 65 tt7 years (1), Risk Factors: 1 or 2 risk factors (1), Troponin: < or = 1 x Normal Limit (0), Total Score = 2. 19:41 ED course: Standard cardiac workup ordered including EKG, chest x-ray, laboratory tt7 studies, lipase added to assess for pancreatitis, overall the patient is well-appearing and has stable vital signs, he is mildly hypertensive, given his clinical presentation I think that his symptoms are related to anxiety, his EKG is reassuring without acute ischemic findings or arrhythmia, laboratory studies are overall normal, troponin negative, low risk heart score, patient was treated with IV Ativan and on reassessment symptoms significantly improved, given the timing of his symptoms and low suspicion for ACS single high-sensitivity troponin utilized. 19:56 ED course: Chest x-ray normal, after completion of the patient's emergency department tt7 evaluation, I do not suspect a life-threatening or disabling process. Patient is medically stable and not in need of emergent medical intervention. I had a detailed discussion with the patient regarding the historical points, exam findings, emergency department evaluation, diagnostic results, and the discharge diagnosis. I instructed the patient on outpatient management of their condition. I discussed the need for outpatient follow-up with a primary care physician. I informed the patient on return precautions, including the need to return to the ED if symptoms do not improve, worsen, or if there are any questions or concerns that arise at home. The patient was discharged in stable condition with prescription for as needed hydroxyzine and cardiology follow-up information. 03/22 18:54 Order name: Basic Metabolic Panel; Complete Time: 19:33 tt7 03/22 18:54 Order name: CBC with Diff; Complete Time: 19:31 tt7 03/22 18:54 Order name: Troponin HS; Complete Time: 19:33 tt7 03/22 18:55 Order name: Lipase; Complete Time: 19:33 tt7 03/22 18:56 Order name: LFT's; Complete Time: 19:33 tt7 03/22 18:54 Order name: XRAY Chest (1 view); Complete Time: 19:52 tt7 03/22 18:54 Order name: Cardiac monitoring; Complete Time: 19:06 tt7 03/22 18:54 Order name: EKG - Nurse/Tech; Complete Time: 18:55 tt7 03/22 18:54 Order name: IV Saline Lock; Complete Time: 19:06 tt7 03/22 18:54 Order name: Labs collected and sent; Complete Time: 19:06 tt7 03/22 18:54 Order name: O2 Per Protocol; Complete Time: 19:06 tt7 03/22 18:54 Order name: O2 Sat Monitoring; Complete Time: 19:06 tt7 Administered Medications: 19:35 Drug: Ativan IVP 0.5 mg IVP once Route: IVP; Site: right antecubital; mf3 21:22 Follow up: Response: No adverse reaction mf3 20:45 Drug: Ativan IVP 0.5 mg IVP once Route: IVP; Site: right antecubital; mf3 21:22 Follow up: Response: No adverse reaction mf3 Disposition: 19:57 Co-signature as Attending Physician, Anant Fair DO. tt7 Disposition Summary: 03/22/25 19:54 Discharge Ordered Notes: Location: Home tt7 Problem: new tt7 Symptoms: have improved tt7 Condition: Stable tt7 Diagnosis - Chest pain, unspecified tt7 - Anxiety disorder, unspecified tt7 Followup: tt7 - With: Emergency Department - When: As needed - Reason: Followup: tt7 - With: Alfredo Reno MD - When: 1 - 2 days - Reason: Recheck today's complaints Discharge Instructions: - Discharge Summary Sheet tt7 - Nonspecific Chest Pain, Adult, [id number] tt7 - Managing Stress, Adult tt7 Forms: - Medication Reconciliation Form tt7 - Antibiotic Education tt7 - Prescription Opioid Use tt7 - Patient Portal Instructions tt7 - Leadership Thank You Letter tt7 Prescriptions: - Hydroxyzine HCl 50 mg Oral tablet - take 1 tablet ORAL route every 8 hours As needed; 20 tablet; Refills: 0, tt7 Product Selection Permitted Signatures: Dispatcher [employer] Dagmar Mariee RN RN kb4 Jayda Tong RN RN mf3 Anant Fair DO DO tt7 Corrections: (The following items were deleted from the chart) 18:52 18:51 PMHx: Hernia; kb4 kb4 18:52 18:51 PSHx: hernia repair; kb4 kb4 18:52 18:51 PSHx: Cholecystectomy; kb4 kb4 18:55 18:55 BASIC METABOLIC PANEL+C.LAB.BRZ ordered. EDMS EDMS 18:55 18:55 CBC+H.LAB.BRZ ordered. EDMS EDMS 18:55 18:55 Troponin High Sensitivity+C.LAB.BRZ ordered. EDMS EDMS 18:55 18:55 Chest Single View+RAD.RAD.BRZ ordered. EDMS EDMS 19:36 18:57 ED course: I independently interpreted the patient's EKG performed on 03/22/2025 tt7 at 1852. On my interpretation, EKG demonstrates normal sinus rhythm, ventricular rate 85 bpm, normal axis, normal QRS interval, normal ST segments, no STEMI. tt7 19:41 19:38 . tt7 tt7
--- NOTE | 2025-03-22 19:54 | ER ---
Nurse's Notes [facility] Name: Ethan Hall Age: 55 yrs Sex: Male : 1970 Arrival Date: 03/22/2025 Time: 18:43 Bed 7 Private MD: Diagnosis: Chest pain, unspecified;Anxiety disorder, unspecified Presentation: 03/22 18:49 Chief complaint: Patient states: chest pain started Wednesday with R sided arm numbness kb4 and tightness along w/ SOB , pt started feeling better until today, chest pressure is back and feels "night", c/o of nausea. Coronavirus screen: At this time, unable to obtain information related to travel outside the [place] Ebola Screen: No symptoms or risks identified at this time. Initial Sepsis Screen: Does the patient meet any 2 criteria? No. Patient's initial sepsis screen is negative. Does the patient have a suspected source of infection? No. Patient's initial sepsis screen is negative. Risk Assessment: Do you want to hurt yourself or someone else? Patient reports no desire to harm self or others. Onset of symptoms was March 21, 2025. 18:49 Method Of Arrival: Ambulatory kb4 18:49 Acuity: CHRISTINA 2 kb4 Triage Assessment: 18:51 General: Appears in no apparent distress. uncomfortable, Behavior is calm, cooperative. kb4 Pain: Complains of pain in chest, Specifically R side. Cardiovascular: Patient's skin is warm and dry. Respiratory: Airway is patent Respiratory effort is even, unlabored, Respiratory pattern is regular, symmetrical. 18:51 Cardiovascular: Rhythm is regular. kb4 Historical: - Allergies: 18:51 No Known Allergies; kb4 - PMHx: 18:51 Hypertension; kb4 - Immunization history:: Adult Immunizations unknown. - Infectious Disease History:: Denies. - Social history:: Smoking status: Patient denies any tobacco usage or history of. Patient uses alcohol, occasionally. Screenin:30 [facility] ED Fall Risk Assessment (Adult) History of falling in the last 3 months, mf3 including since admission No falls in past 3 months (0 pts) Confusion or Disorientation No (0 pts) Intoxicated or Sedated No (0 pts) Impaired Gait No (0 pts) Mobility Assist Device Used No (0 pt) Altered Elimination No (0 pt) Score/Fall Risk Level 0 - 2 = Low Risk Oriented to surroundings, Maintained a safe environment, Hourly rounding (assess needs \\T\\ fall precautionary measures) done. Abuse screen: Denies threats or abuse. Denies injuries from another. Nutritional screening: No deficits noted. Tuberculosis screening: No symptoms or risk factors identified. Never had TB. Assessment: 19:30 General: Appears in no apparent distress. comfortable, Behavior is calm, cooperative, mf3 appropriate for age. Pain: Denies pain. Pain: Pain does not radiate. Pain began denies pain at this time. Neuro: Level of Consciousness is awake, alert, obeys commands, Oriented to person, place, time, situation. Cardiovascular: Capillary refill < 3 seconds Rhythm is sinus rhythm. Respiratory: Airway is patent Trachea midline Respiratory effort is even, unlabored. GI: No signs and/or symptoms were reported involving the gastrointestinal system. : No signs and/or symptoms were reported regarding the genitourinary system. Derm: Skin is intact, is healthy with good turgor. Vital Signs: 18:49 BP 149 / 93; Pulse 85; Resp 18; Temp 98; Pulse Ox 97% ; Weight 127.01 kg; Height 5 ft. kb4 7 in. ; Pain 6/10; 19:37 BP 158 / 92; Pulse 91; Resp 24; Pulse Ox 96% on R/A; mf3 21:20 BP 145 / 87; Pulse 82; Resp 18; Pulse Ox 98% on R/A; mf3 18:49 Body Mass Index 43.85 (127.01 kg, 170.18 cm) kb4 18:49 Pain Scale: Adult kb4 Justa Coma Score: 19:30 Eye Response: spontaneous(4). Motor Response: obeys commands(6). Verbal Response: mf3 oriented(5). Total: 15. ED Course: 18:45 Patient arrived in ED. al6 18:49 Dagmar Pal, REINA is Primary Nurse. kb4 18:51 Triage completed. kb4 18:51 Arm band placed on right wrist. kb4 18:52 Anant Fair DO is Attending Physician. tt7 19:06 Initial lab(s) drawn, by me, sent to lab. Inserted saline lock: 20 gauge in right rk3 antecubital area, using aseptic technique. Blood collected. Flushed with 10 mL NS. 19:30 Placed in gown. Bed in low position. Call light in reach. Side rails up X2. Provided mf3 Education on: pt educated on POC. Client placed on continuous cardiac and pulse oximetry monitoring. NIBP monitoring applied. front desk monitor on. 19:30 No provider procedures requiring assistance completed. Patient maintains SpO2 mf3 saturation greater than 95% on room air. 19:42 XRAY Chest (1 view) In Process Unspecified. EDMS 19:53 Alfredo Reno MD is Referral Physician. tt7 21:21 IV discontinued, intact, bleeding controlled, No redness/swelling at site. Pressure mf3 dressing applied. Administered Medications: 19:35 Drug: Ativan IVP 0.5 mg IVP once Route: IVP; Site: right antecubital; mf3 21:22 Follow up: Response: No adverse reaction mf3 20:45 Drug: Ativan IVP 0.5 mg IVP once Route: IVP; Site: right antecubital; mf3 21:22 Follow up: Response: No adverse reaction mf3 Medication: 19:30 VIS not applicable for this client. mf3 Outcome: 19:54 Discharge ordered by MD. tt7 21:21 Discharged to home ambulatory, with family, mf3 21:21 Condition: stable 21:21 Discharge instructions given to patient, Instructed on discharge instructions, follow up and referral plans. Demonstrated understanding of instructions, follow-up care, medications, Prescriptions given X 1, 21:22 Patient left the ED. mf3 Signatures: Dispatcher [employer] [facility] Lorrie Ordonez6 Dagmar Pal RN RN kb4 David Maldonado3 Jayda Tong RN RN mf3 Anant Fair DO DO tt7 Corrections: (The following items were deleted from the chart) 18:52 18:51 PMHx: Hernia; kb4 kb4 18:52 18:51 PSHx: hernia repair; kb4 kb4 18:52 18:51 PSHx: Cholecystectomy; kb4 kb4
[2025-03-22 23:09] VITALS: TEMP 98
[2025-03-22 23:20] VITALS: BP 145/87; O2SAT 98
== END 2025-03-22 21:22 | disposition home or self-care (01) ==
LOC: ER 18:43
DX: F41.9 Anxiety disorder, unspecified (principal); I10 Essential (primary) hypertension
CPT/HCPCS: 36415; 71045; 80048; 80076; 83690; 84484; 85025; 93005; 96374; 99285